=== PATIENT | female | born 1955 ===

== ENCOUNTER → 2018-01-28 | Outpatient (CLI) | payer BC ==
[2018-01-28 11:55] VITALS: BP 126/69; PULSE 79; TEMP 98.4; BMI 43.0
--- NOTE | 2018-01-28 12:42 | P.GSHP ---
History of Present Illness H&P Date: 01/28/18 The patient is a 62-year-old female who presents with a complaint of fullness in the left breast in the upper and lower inner quadrants. Additionally she has noted shooting pains radiating from the nipples extending throughout the breast in both breasts but greater on the left than the right. She has undergone a bilateral mammogram as well as a left breast ultrasound this was done 09/01/2017 on the mammogram and no specific lesions of concern were identified she then underwent a left breast ultrasound which found no suspicious sonographic lesions and the patient was recommended to follow up for examination of the breast. The patient has noticed some dryness of her left nipple. Nothing of concern from the right nipple. No bleeding or drainage otherwise from the nipples. The patient does not drink caffeinated breath beverages. She does not eat chocolate. She is not around secondhand smoke and she does not smoke. Family history: patient: total hysterectomy with ovaries taken father: prostate cancer paternal grandfather: spinal cancer mother: uterne cancer Past surgical history: 1. Total abdominal hysterectomy ovaries were removed for a precancerous of the cervix 2. Left hip replacement 3. Bariatric sleeve surgery 4. Left ureter left kidney removed no cancer 5. 2 abdominal surgeries 6. 2 bladder surgeries 7. surgery for endometriosis 8. both feet Past medical history: 1. fibromyalgia 2. no longer diabetic 3. HTN 4. cataracts 5. asthma Hormonal history: Menarche: 10 Pregnancies: 1, 1 live , born at 16, did not breast feed menopause: hysterectomy BCP: 10 years, also used IUD hormones: 3 years - Constitutional Constitutional: Denies chills, Denies fever - EENT Eyes: bilateral blurred vision (cataracts), bilateral pain Ears: bilateral: decreased hearing Ears, nose, mouth and throat: Denies headache, Denies sore throat - Breasts Breasts: bilateral: as per HPI - Cardiovascular Cardiovascular: Denies chest pain, Denies shortness of breath - Respiratory Respiratory: Denies cough, Denies 7 - Gastrointestinal Gastrointestinal: Denies abdominal pain, Denies diarrhea, Denies nausea, Denies vomiting - Genitourinary (Female) Genitourinary: Denies dysuria, Denies hematuria - Menstruation Menstruation: Reports post hysterectomy - Musculoskeletal Comment: left hip replacement fibromyalgia - Integumentary Integumentary: Reports boils, Denies pruritus, Denies rash - Neurological Neurological: Denies numbness, Denies weakness - Psychiatric Psychiatric: Reports depression, Denies anxiety - Endocrine Comment: status post gastric sleeve Endocrine: Reports weight change, Denies fatigue - Hematologic/Lymphatic Comment: none - Allergic/Immunologic Allergic/Immunologic: Reports seasonal allergies Past Medical History Past Medical History: Asthma, Diabetes Mellitus, Eye Disorder, Fibromyalgia, GERD/Reflux, Hearing Disorder / Deafness, Hyperlipidemia, Hypertension, Musculoskeletal Disorder, Osteoarthritis (OA), Respiratory Disorder, Sleep Apnea /CPAP/BIPAP Additional Past Medical History / Comment(s): scoliosis History of Any Multi-Drug Resistant Organisms: None Reported Past Surgical History: Bariatric Surgery, Bladder Surgery, Hysterectomy, Joint Replacement, Orthopedic Surgery Additional Past Surgical History / Comment(s): 12/06/17 left full hip replacement. 2016 bariatric sleeve. 2007 left kidney and left ureter removed. abdominal exploratory surgery x2. bladder surgery x2. 2009 large cyst removed from left abdominal area. 2005complete hysterectomy. bones in the toes removed from both feet in the Smoking Status: Never smoker - Past Family History Father Family Medical History: Cancer, Myocardial Infarction ([place]), Prostate Disorder Additional Family Medical History / Comment(s): prostate cancer Mother Family Medical History: Diabetes Mellitus, Hypertension, Myocardial Infarction ( [place]) Medications and Allergies Allergies Allergy/AdvReac Type Severity Reaction Status Date / Time adhesive Allergy Itching Unverified 01/28/18 11:50 Sulfa (Sulfonamide AdvReac Anaphylaxis Unverified 01/28/18 11:50 Antibiotics) Surgical - Exam Vital Signs Temp Pulse BP Pulse Ox 98.4 F 79 126/69 97 01/28/18 11:51 01/28/18 11:51 01/28/18 11:51 01/28/18 11:51 - General well developed, well nourished, no distress, obese - Eyes normal ocular movement, no icteric - ENT no hearing loss, no congestion - Neck no masses, trachea midline - Respiratory normal expansion, normal respiratory effort - Cardiovascular Rhythm: regular Heart Sounds: normal: S1, S2 - Abdomen Abdomen: soft, non tender, no guarding, no rigid, no rebound - Neurologic no disoriented, no combative - Musculoskeletal normal gait, normal posture - Psychiatric oriented to time, oriented to person, oriented to place, speech is normal, memory intact Breast examination: Right breast: Multiple positional examination the right breast no dominant masses or nodules of concern in the right nipple area over area there are 2 very dark nevi for which excision was recommended Right axilla: No adenopathy of concern Left breast: Multiple positional exam an area approximately 1 x 1 cm in size in the inner medial aspect of the breast is palpable this is tender to palpation no other dominant masses or nodules of concern Left axilla: No adenopathy of concern Results Review of mammogram and ultrasound reports Assessment and Plan Assessment: Impression/plan: 1. Skin nevi of concern right periareolar area 2. Nodularity left breast upper inner quadrant area FNA recommended 3. Fibromyalgia 4. Recent left hip replacement 5. Status post sleeve gastrectomy 6. Diabetes 7. Hypertension Plan: 1. Excision of nevi right . Area over area 2. Await results of FNA of area of concern in left breast 3. Medical management of medical conditions Cc: Dr. Giron
--- NOTE | 2018-01-28 12:44 | P.PN ---
Progress Note - Text Progress Note Date: 01/28/18 Patient noted to have an area in the upper inner quadrant of the left breast approximately 1 x 1 cm in size Fine-needle aspiration of area of concern Areas prepped using alcohol as 22-gauge needle was passed into the area of concern using a 10 mL syringe multiple passes were made obtaining cytology for evaluation Patient tolerated procedure without difficulty Specimen sent to pathology Cc: Dr. Giron
== END | disposition home or self-care (01) ==
LOC: WWCWWP 11:13
PROVIDERS: ATTEND Surgery
DX: N64.9 Disorder of breast, unspecified (principal)
CPT/HCPCS: 88173

== ENCOUNTER → 2018-02-04 | Outpatient (CLI) | payer MEDICARE, BC ==
[2018-02-04 12:18] VITALS: BP 144/84; PULSE 78; RESP 16; TEMP 98.6; BMI 42.9
--- NOTE | 2018-02-04 12:42 | P.PN ---
Progress Note - Text Progress Note Date: 02/04/18 Patient comes in today for results of left breast FNA. The patient at this time is very concerned that the area of nodularity is persistent although the FNA was negative for malignant cells. The areas in the upper inner aspect of the left breast. The patient wishes this area to be excised. Additionally the patient brings to my attention an area of nodularity on the right chest wall. This is approximately 1 cm in size and is just superior to the area of the breast. She also has 2 nevi which are very dark in the right periareolar area. The patient has had options discussed with her of surgical excision of the area of nodularity in the left breast as well as the right chest wall and surgical excision of the 2 nevi on the right periareolar area. This is what she wishes to have done. Impressio: 1. Nodule left breast FNA negative 2. Nodule right chest wall 3. Nevi 2 right area over area Plan: 1. Excision nodule left breast 2. Excision nodule right chest wall 3. Excision 2 dark nevi periareolar area CC: Dr. Giron, Dr. Grijalva
== END ==
LOC: WWCWWP 11:38
PROVIDERS: ATTEND Surgery
DX: Z53.9 Procedure and treatment not carried out, unspecified reason (principal)

== ENCOUNTER 2018-02-15 06:46 | Day surgery (SDC) | payer MEDICARE, BC ==
[2018-02-11 09:16] VITALS: BMI 42.7
[~2018-02-15 06:46] MED LIST: DEXAMETHASONE SOD PHOSPHATE 10 MG/ML 1 ML VIAL IV ONE; HEPARIN SODIUM,PORCINE 5,000 UNIT/ML 1 ML VIAL SQ ONE; LACTATED RINGERS 1,000 ML IV SCH; LIDOCAINE 1% 20 ML VIAL (10MG/ML) FOR IV START INTRADERMA PRN; MIDAZOLAM 2 MG/2 ML VIAL IV PRN; ONDANSETRON 4 MG/2 ML VIAL IVP ONE; Pre Op ABX Message 1 EACH MISC MISCELLANE ONE
[2018-02-15] MEDS ORDERED: PROPOFOL 10 MG/ML 20 ML VIAL IV ONE (08:32)
[2018-02-15] MEDS ORDERED: MIDAZOLAM 2 MG/2 ML VIAL ONE (08:32)
[2018-02-15] MEDS ORDERED: fentaNYL (PF) 50 MCG/ML 2 ML AMP ONE (08:32)
[2018-02-15] MEDS ORDERED: SUCCINYLCHOLINE CHLORIDE 100 MG/5 ML SYR IV ONE (08:32)
[2018-02-15] MEDS ORDERED: ePHEDrine SULFATE/0.9% NACL/PF 50 MG/5 ML SYRINGE IV ONE (08:32)
[2018-02-15] MEDS ORDERED: LIDOCAINE 1% INJ 10MG/ML (20 ML MDV) ONE (08:32)
[2018-02-15] MEDS ORDERED: HEPARIN SODIUM,PORCINE 5,000 UNIT/ML 1 ML VIAL SQ ONE (08:42)
[2018-02-15] MEDS ORDERED: LIDOCAINE 1% INJ 10MG/ML (20 ML MDV) SQ ONE ×2 (08:59)
--- NOTE | 2018-02-15 09:13 | P.OP ---
Date of Procedure: 02/15/18 Preoperative Diagnosis: Mass right chest wall/breast, mass left breast, area alert dark nevi 2 right side Postoperative Diagnosis: Same Procedure(s) Performed: Excision of lesion right chest wall/superficial breast, existing areolar lesion 2, excision lesion left breast prior FNA benign Anesthesia: BRENDA Surgeon: Alaina Cardozo Estimated Blood Loss (ml): 5 IV fluids (ml): 400 Pathology: other (Periareolar nevi 2, right chest wall/breast nodule, left breast nodule) Condition: stable Disposition: PACU Indications for Procedure: Dark nevi of concern periareolar area, painful nodular area right chest wall, left breast, FNA left breast lesion benign Operative Findings: Probable lipoma bilateral chest wall and left breast, dark nevi area over area right Description of Procedure: The patient was taken to the operating room and both breasts were prepped and draped in a sterile fashion. The right breast in chest wall was approached initially. Small incision was made over the palpable abnormality and this was excised. This appeared to be consistent with a lipoma. It was approximately 4 and half centimeters by 2 cm in size. After assured that the cavity was dry it was well irrigated. The incision was closed using 4-0 Monocryl. The lesions on the area along were excised there was one inferior and one superior. The inferior lesion was approximately 8 mm and the superior lesion was approximately 8 mm. Wide excision was performed down through the skin and sent to subcutaneous tissue. Skin was closed using a nylon suture. The left breast was approached. Clean instruments were obtained. An incision was made over the palpable abnormality which FNA had previously been performed. This was excised. This was approximately a 3.5 cm x 2 cm fatty tissue lesion consistent with a lipoma. It was completely excised the wound was examined for hemostasis. This was attained using electrocautery device. The wound was well irrigated. The skin was closed using 4-0 Monocryl. Steri-Strips were applied. The patient tolerated the procedure in stable condition. All instrument and sponge counts were correct at the end of the case.
--- NOTE | 2018-02-15 09:14 | P.DS ---
Providers Attending physician: Alaina Cardozo Primary care physician: Eirca Giron Plan - Discharge Summary New Discharge Prescriptions: No Action DULoxetine HCL [Cymbalta] 60 mg PO QAM Atorvastatin [Lipitor] 10 mg PO HS Metoprolol Succinate (ER) [Toprol Xl] 25 mg PO HS Ferrous Sulfate [Iron] 325 mg PO HS Omeprazole 20 mg PO QAM Lisinopril 30 mg PO BID Beclomethasone Dip 80 Mcg/Puff [Qvar 80 mcg] 1 puff INHALATION DAILY Albuterol Inhaler [Ventolin Hfa Inhaler] 1 - 2 puff INHALATION RT-Q6H PRN PRN Reason: Allergic Reaction Sertraline [Zoloft] 25 mg PO QAM Gabapentin [Neurontin] 600 mg PO QAM traMADol HCL [Ultram] 50 mg PO Q6HR PRN PRN Reason: Pain Multivitamins, Thera [Multivitamin (formulary)] 1 tab PO QAM HYDROcodone/APAP 5-325MG [[place] 5-325] 1 tab PO Q6HR PRN PRN Reason: Pain Cyanocobalamin (Vitamin B-12) [Vitamin B12] 2,500 mcg PO QAM Cholecalciferol (Vitamin D3) [Vitamin D3] 2,000 unit PO QAM Aspirin [Adult Low Dose Aspirin EC] 81 mg PO QAM Discharge Medication List Albuterol Inhaler [Ventolin Hfa Inhaler] 1 - 2 puff INHALATION RT-Q6H PRN [History] Atorvastatin [Lipitor] 10 mg PO HS 01/28/18 [History] Beclomethasone Dip 80 Mcg/Puff [Qvar 80 mcg] 1 puff INHALATION DAILY 01/28/18 [ History] DULoxetine HCL [Cymbalta] 60 mg PO QAM 01/28/18 [History] Ferrous Sulfate [Iron] 325 mg PO HS 01/28/18 [History] Gabapentin [Neurontin] 600 mg PO QAM 01/28/18 [History] Lisinopril 30 mg PO BID 01/28/18 [History] Metoprolol Succinate (ER) [Toprol Xl] 25 mg PO HS 01/28/18 [History] Omeprazole 20 mg PO QAM 01/28/18 [History] Sertraline [Zoloft] 25 mg PO QAM 01/28/18 [History] Aspirin [Adult Low Dose Aspirin EC] 81 mg PO QAM 02/11/18 [History] Cholecalciferol (Vitamin D3) [Vitamin D3] 2,000 unit PO QAM 02/11/18 [History] Cyanocobalamin (Vitamin B-12) [Vitamin B12] 2,500 mcg PO QAM 02/11/18 [History] HYDROcodone/APAP 5-325MG [[place] 5-325] 1 tab PO Q6HR PRN 02/11/18 [History] Multivitamins, Thera [Multivitamin (formulary)] 1 tab PO QAM 02/11/18 [History] traMADol HCL [Ultram] 50 mg PO Q6HR PRN 02/11/18 [History] Follow up Appointment(s)/Referral(s): Alaina Cardozo MD [STAFF PHYSICIAN] - 1 Week Activity/Diet/Wound Care/Special Instructions: Do not drive today Patient may shower after 48 hours Wear bra until seen by Dr. Gomez next week Discharge Disposition: HOME SELF-CARE
[2018-02-15 09:36] VITALS: TEMP 97
[2018-02-15] MEDS: fentaNYL (PF) 50 MCG/ML 2 ML AMP IV PRN ×2 (09:43→09:58)
[2018-02-15 10:35] VITALS: RESP 18
[2018-02-15] MEDS ORDERED: HYDROcodone/APAP 5-325MG 1 EACH TAB PO ONE (10:57)
[2018-02-15 11:27] VITALS: BP 167/77; PULSE 109
== END 2018-02-15 11:35 | disposition home or self-care (01) ==
LOC: OR 06:46
PROVIDERS: ATTEND Surgery
DX: N63.22 Unspecified lump in the left breast, upper inner quadrant (principal); N63.10 Unspecified lump in the right breast, unspecified quadrant; D22.5 Melanocytic nevi of trunk; L01.02 Bockhart's impetigo; M79.7 Fibromyalgia; Z96.642 Presence of left artificial hip joint; Z98.84 Bariatric surgery status; Z90.3 Acquired absence of stomach [part of]; E11.9 Type 2 diabetes mellitus without complications; I10 Essential (primary) hypertension; H26.9 Unspecified cataract; J45.909 Unspecified asthma, uncomplicated; K21.9 Gastro-esophageal reflux disease without esophagitis; H91.90 Unspecified hearing loss, unspecified ear; E78.5 Hyperlipidemia, unspecified; M19.90 Unspecified osteoarthritis, unspecified site; M41.9 Scoliosis, unspecified; D64.9 Anemia, unspecified; F32.9 Major depressive disorder, single episode, unspecified; E66.01 Morbid (severe) obesity due to excess calories; Z68.41 Body mass index [BMI] 40.0-44.9, adult; G47.33 Obstructive sleep apnea (adult) (pediatric); Z99.89 Dependence on other enabling machines and devices; Z79.82 Long term (current) use of aspirin; Z79.899 Other long term (current) drug therapy; Z91.048 Other nonmedicinal substance allergy status; Z91.040 Latex allergy status; Z88.2 Allergy status to sulfonamides; Z90.5 Acquired absence of kidney; Z90.710 Acquired absence of both cervix and uterus
CPT/HCPCS: 88304; 88305; 19120; 11401 ×2; J2250; J1644; J1100; J2405; J2001; J3010; J0330; J2704

== ENCOUNTER → 2018-02-25 | Outpatient (CLI) | payer MEDICARE, BC ==
[2018-02-25 10:52] VITALS: BMI 41.7
--- NOTE | 2018-02-25 10:56 | P.PN ---
Progress Note - Text Progress Note Date: 02/25/18 Patient presents for postoperative evaluation. Pathology revealed 2 lipomas one in the right breast one in the left breast, and skin lesions of the area over consistent with junctional nevus. The patient's only complaint is related to the tape she has had a reaction to the tape. She is otherwise doing well. Physical exam: Patient has some skin reaction to where the tape was placed at both the right and left breast near the lipoma resection site the incisions themselves are clean and dry there is no evidence of any infection the reaction is very superficial The area of the area was clean and dry sutures to be removed Impression: 1. Bilateral breast lipoma 2. Junctional nevi of the area over Plan: 1. Repeat bilateral mammogram regular scheduled time with physician exam at that time 2. Patient to follow up sooner if any questions of concern CC:Bree
== END ==
LOC: WWCWWP 10:34
PROVIDERS: ATTEND Surgery
DX: Z53.9 Procedure and treatment not carried out, unspecified reason (principal)

== ENCOUNTER 2018-07-07 17:01 | Observation (INO) | payer MEDICARE, BC ==
[2018-07-07] MEDS ORDERED: SODIUM CHLORIDE 0.9% 1,000 ML IV STA (17:12)
--- NOTE | 2018-07-07 17:28 | ED ---
General Adult HPI - General Chief complaint: Recheck/Abnormal Lab/Rx Stated complaint: abnormal EKG-sent by Source: patient Mode of arrival: wheelchair Limitations: no limitations - Related Data Home Medications Medication Instructions Recorded Confirmed Albuterol Inhaler [Ventolin Hfa 1 - 2 puff INHALATION RT-Q6H PRN 01/28/18 Inhaler] Atorvastatin [Lipitor] 10 mg PO HS 01/28/18 07/07/18 Beclomethasone Dip 80 Mcg/Puff 2 puff INHALATION RT-BID 01/28/18 07/07/18 [Qvar 80 mcg] DULoxetine HCL [Cymbalta] 60 mg PO QAM 01/28/18 07/07/18 Ferrous Sulfate [Iron] 325 mg PO HS 01/28/18 07/07/18 Gabapentin [Neurontin] 600 mg PO QAM 01/28/18 07/07/18 Lisinopril 30 mg PO BID 01/28/18 07/07/18 Omeprazole 20 mg PO QAM 01/28/18 07/07/18 Sertraline [Zoloft] 25 mg PO QAM 01/28/18 07/07/18 Cholecalciferol (Vitamin D3) 2,000 unit PO QAM 02/11/18 07/07/18 [Vitamin D3] Cyanocobalamin (Vitamin B-12) 2,500 mcg PO QAM 02/11/18 07/07/18 [Vitamin B12] HYDROcodone/APAP 5-325MG [[place] 1 tab PO BID PRN 02/11/18 07/07/18 5-325] Multivitamins, Thera [Multivitamin 1 tab PO QAM 02/11/18 07/07/18 (formulary)] Enoxaparin [Lovenox] 40 mg SQ DAILY 07/07/18 07/07/18 Allergies Allergy/AdvReac Type Severity Reaction Status Date / Time adhesive Allergy Itching, Verified 07/07/18 18:55 takes her skin off latex Allergy Unknown Verified 07/07/18 18:55 Sulfa (Sulfonamide AdvReac Anaphylaxis Verified 07/07/18 18:55 Antibiotics) Review of Systems ROS Statement: Those systems with pertinent positive or pertinent negative responses have been documented in the HPI. ROS Other: All systems not noted in ROS Statement are negative. Past Medical History Past Medical History: Asthma, Diabetes Mellitus, Eye Disorder, Fibromyalgia, GERD/Reflux, Hearing Disorder / Deafness, Hyperlipidemia, Hypertension, Musculoskeletal Disorder, Osteoarthritis (OA), Respiratory Disorder, Sleep Apnea /CPAP/BIPAP Additional Past Medical History / Comment(s): scoliosis History of Any Multi-Drug Resistant Organisms: None Reported Past Surgical History: Bariatric Surgery, Bladder Surgery, Hysterectomy, Joint Replacement, Orthopedic Surgery Additional Past Surgical History / Comment(s): 12/06/17 left full hip replacement. 2017 bariatric sleeve. 2007 left kidney and left ureter removed. abdominal exploratory surgery x2. bladder surgery x2. 2009 large cyst removed from left abdominal area. 2005complete hysterectomy. bones in the toes removed from both feet in the Past Anesthesia/Blood Transfusion Reactions: Previous Problems w/ Anesthesia, Postoperative Nausea & Vomiting (PONV) Past Psychological History: Anxiety, Depression Smoking Status: Never smoker Past Alcohol Use History: Rare Past Drug Use History: None Reported - Past Family History Father Family Medical History: Cancer, Myocardial Infarction ([place]), Prostate Disorder Additional Family Medical History / Comment(s): prostate cancer Mother Family Medical History: Diabetes Mellitus, Hypertension, Myocardial Infarction ( [place]) General Exam Limitations: no limitations Course Vital Signs 07/07/18 07/07/18 07/07/18 17:08 17:30 18:00 Temperature 98.3 F Pulse Rate 99 91 87 Respiratory 24 18 22 Rate Blood Pressure 155/85 146/84 132/62 O2 Sat by Pulse 98 95 96 Oximetry 07/07/18 18:30 Temperature Pulse Rate 85 Respiratory 22 Rate Blood Pressure 116/101 O2 Sat by Pulse 96 Oximetry Medical Decision Making - Medical Decision Making Dictation was produced using [employer] dictation software. please excuse any grammatical, word or spelling errors. Chief Complaint: 63-year-old female presents with instruction from primary care physician's office to emergency department for possible pulmonary embolus. History of Present Illness: She is 63-year-old female. She had hip replacement surgery done on her right hip at [facility] approximately 2 weeks ago. Patient has been having 2 days of chest pain, shortness of breath. Since the surgery 2 weeks ago she's been having right lower extremity symptoms per she is on prophylactic Lovenox. Patient states that 2 days ago she had acute onset substernal chest pressure. She denies that its worse with deep inspiration. Denies any radiation to the shoulders of the jaw. No associated diaphoresis. She was seen at primary care physician's office today where labs performed. Patient did have elevated d-dimer. 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 She was sent in for hydration and CT angios of the chest for rule out PE. EKG was also performed at the primary care physician's office showing changes. The ROS documented in this emergency department record has been reviewed and confirmed by me. Those systems with pertinent positive or negative responses have been documented in the HPI. All other systems are other negative and/or noncontributory. PHYSICAL EXAM: General Impression: Alert and oriented x3, not in acute distress HEENT: Normocephalic atraumatic, extra-ocular movements intact, pupils equal and reactive to light bilaterally, mucous membranes moist. Cardiovascular: Heart regular rate and rhythm, S1&S2 audible, no murmurs, rubs or gallops Chest: Lungs clear to auscultation bilaterally, no rhonchi, no wheeze, no rales Abdomen: Bowel sounds present, abdomen soft, non-tender, non-distended, no organomegaly Musculoskeletal: Pulses present and equal in all extremities, no peripheral edema, equal girth around the bilateral calf areas Motor: Power 5/5 bilaterally, no focal deficits noted Neurological: CN II-XII grossly intact, no focal motor or sensory deficits noted Skin: Intact with no visualized rashes Psych: Normal affect and mood ED course: 63-year-old pleasant female presents with chief complaint of chest pain, shortness of breath. She is postop 2 weeks for right hip replacement. She's been on prophylactic Lovenox. Vital signs upon arrival are within acceptable limits. EKG shows left bundle branch block. Patient is having crushing chest pressure to the anterior chest with no exacerbating or mitigating factors. Patient does appear comfortable. EKG was obtained showing left bundle branch block. It is unclear whether this EKG findings are new. A request was made to [facility] to obtained EKGs from 2 weeks ago. We are unable to track down EKGs from [facility] however we were able to get in EKG from [facility] from 2017. It did not show left bundle branch block. Assuming that this finding is new, Dr. Farmer from cardiology was contacted. They recommended starting patient on heparin and beta blockers and statin.Laboratory evaluation obtained. CBC, coag panel, metabolic panel is unremarkable. Cardiac enzymes are negative. CT angios the chest showed no acute processes. No findings of pulmonary emboli. Chest x-ray is unremarkable. Given patient's history of chest pressure and EKG changes patient be admitted for ACS. Patient started on beta blockers and sent per cardiology request. EKG interpretation: Ventricular rate 94, normal sinus rhythm, IN interval 16, QS 16, QTc 520. No IN prolongation, QT is slightly prolonged at 520. EKG from 2017 from [facility] was faxed over showing no signs of right bundle branch block. Paced. No findings. - Lab Data Result diagrams: 07/07/18 17:30 07/07/18 17:30 Lab Results 07/07/18 07/07/18 07/07/18 Range/Units 17:30 17:30 17:30 WBC 6.7 (3.8-10.6) k/uL RBC 3.89 (3.80-5.40) m/uL Hgb 11.1 L (11.4-16.0) gm/dL Hct 33.6 L (34.0-46.0) % MCV 86.5 (80.0-100.0) fL MCH 28.7 (25.0-35.0) pg MCHC 33.1 (31.0-37.0) g/dL RDW 15.1 (11.5-15.5) % Plt Count 306 (150-450) k/uL Neutrophils % 65 % Lymphocytes % 26 % Monocytes % 5 % Eosinophils % 2 % Basophils % 1 % Neutrophils # 4.3 (1.3-7.7) k/uL Lymphocytes # 1.7 (1.0-4.8) k/uL Monocytes # 0.3 (0-1.0) k/uL Eosinophils # 0.2 (0-0.7) k/uL Basophils # 0.0 (0-0.2) k/uL Hypochromasia Slight PT (9.0-12.0) sec INR (<1.2) APTT (22.0-30.0) sec Sodium 143 (137-145) mmol/L Potassium 3.5 (3.5-5.1) mmol/L Chloride 109 H (98-107) mmol/L Carbon Dioxide 25 (22-30) mmol/L Anion Gap 9 mmol/L BUN 15 (7-17) mg/dL Creatinine 0.84 (0.52-1.04) mg/dL Est GFR (CKD-EPI)AfAm 85 (>60 ml/min/1.73 sqM) Est GFR (CKD-EPI)NonAf 74 (>60 ml/min/1.73 sqM) Glucose 117 H (74-99) mg/dL Calcium 9.4 (8.4-10.2) mg/dL Magnesium 2.0 (1.6-2.3) mg/dL Total Bilirubin 0.6 (0.2-1.3) mg/dL AST 16 (14-36) U/L ALT 23 (9-52) U/L Alkaline Phosphatase 225 H (38-126) U/L Total Creatine Kinase 29 L (30-135) U/L CK-MB (CK-2) 0.4 (0.0-2.4) ng/mL CK-MB (CK-2) Rel Index 1.4 Troponin I <0.012 (0.000-0.034) ng/mL NT-Pro-B Natriuret Pep pg/mL Total Protein 6.6 (6.3-8.2) g/dL Albumin 3.8 (3.5-5.0) g/dL 07/07/18 07/07/18 Range/Units 17:30 17:30 WBC (3.8-10.6) k/uL RBC (3.80-5.40) m/uL Hgb (11.4-16.0) gm/dL Hct (34.0-46.0) % MCV (80.0-100.0) fL MCH (25.0-35.0) pg MCHC (31.0-37.0) g/dL RDW (11.5-15.5) % Plt Count (150-450) k/uL Neutrophils % % Lymphocytes % % Monocytes % % Eosinophils % % Basophils % % Neutrophils # (1.3-7.7) k/uL Lymphocytes # (1.0-4.8) k/uL Monocytes # (0-1.0) k/uL Eosinophils # (0-0.7) k/uL Basophils # (0-0.2) k/uL Hypochromasia PT 10.5 (9.0-12.0) sec INR 1.0 (<1.2) APTT 26.0 (22.0-30.0) sec Sodium (137-145) mmol/L Potassium (3.5-5.1) mmol/L Chloride (98-107) mmol/L Carbon Dioxide (22-30) mmol/L Anion Gap mmol/L BUN (7-17) mg/dL Creatinine (0.52-1.04) mg/dL Est GFR (CKD-EPI)AfAm (>60 ml/min/1.73 sqM) Est GFR (CKD-EPI)NonAf (>60 ml/min/1.73 sqM) Glucose (74-99) mg/dL Calcium (8.4-10.2) mg/dL Magnesium (1.6-2.3) mg/dL Total Bilirubin (0.2-1.3) mg/dL AST (14-36) U/L ALT (9-52) U/L Alkaline Phosphatase (38-126) U/L Total Creatine Kinase (30-135) U/L CK-MB (CK-2) (0.0-2.4) ng/mL CK-MB (CK-2) Rel Index Troponin I (0.000-0.034) ng/mL NT-Pro-B Natriuret Pep 279 pg/mL Total Protein (6.3-8.2) g/dL Albumin (3.5-5.0) g/dL Disposition Clinical Impression: ACS (acute coronary syndrome) Disposition: ADMITTED IP TO THIS HOSP Condition: Fair Referrals: Norma Laurent MD [Primary Care Provider] - 1-2 days Decision Time: 19:44
--- NOTE | 2018-07-07 17:55 | XR ---
EXAMINATION TYPE: XR chest 2V DATE OF EXAM: 07/07/2018 COMPARISON: NONE HISTORY: Abnormal echocardiogram TECHNIQUE: Frontal and lateral views of the chest are obtained. FINDINGS: Heart and mediastinum are normal. Lungs are clear of consolidation. There is no pleural ef fusion. Bony thorax is intact. There are chest leads. IMPRESSION: Normal chest.
[2018-07-07 18:19] LABS: Basophils % (A) 1 %; Eosinophils # (A) 0.2 k/uL (0-0.7); Eosinophils % (A) 2 %; HCT 33.6 % (34.0-46.0); HGB 11.1 gm/dL (11.4-16.0); Hypochromasia Slight; Lymphocytes # (A) 1.7 k/uL (1.0-4.8); Lymphocytes % (A) 26 %; MCH 28.7 pg (25.0-35.0); MCHC 33.1 g/dL (31.0-37.0); MCV 86.5 fL (80.0-100.0); Mean Platelet Volume 7.6; Monocytes # (A) 0.3 k/uL (0-1.0); Monocytes % (A) 5 %; Neutrophils # (A) 4.3 k/uL (1.3-7.7); Neutrophils % (A) 65 %; Platelet Count 306 k/uL (150-450); RBC 3.89 m/uL (3.80-5.40); RDW 15.1 % (11.5-15.5); WBC 6.7 k/uL (3.8-10.6)
[2018-07-07 18:28] LABS: Prothrombin Time 10.5 sec (9.0-12.0)
[2018-07-07 18:44] LABS: Albumin 3.8 g/dL (3.5-5.0); Calcium 9.4 mg/dL (8.4-10.2); Creatine Kinase 29 U/L (30-135); Potassium 3.5 mmol/L (3.5-5.1); Total Bilirubin 0.6 mg/dL (0.2-1.3); Total Protein 6.6 g/dL (6.3-8.2)
[2018-07-07 18:55] LABS: Creatine Kinase MB 0.4 ng/mL (0.0-2.4); Troponin I <0.012 ng/mL (0.000-0.034)
[2018-07-07] MEDS ORDERED: HEPARIN SODIUM,PORCINE 5,000 UNIT/ML 1 ML VIAL IV ONE (18:59)
[2018-07-07] MEDS ORDERED: HEPARIN SODIUM,PORCINE 5,000 UNIT/ML 1 ML VIAL IV PRN (18:59)
[2018-07-07] MEDS ORDERED: HEPARIN SOD,PORK IN 0.45% NACL 25,000 UNIT in 0.45% NACL 1 250ML.BAG IV SCH (19:00)
--- NOTE | 2018-07-07 19:12 | CT ---
EXAMINATION TYPE: CT angio chest DATE OF EXAM: 07/07/2018 7:06 PM COMPARISON: None HISTORY: Abnormal EKG. CT DLP: 414.9 mGycm Automated exposure control for dose reduction was used. CONTRAST: CTA scan of the thorax is performed with IV Contrast, patient injected with 60ml mL of Isovue 370, pu lmonary embolism protocol. There are 3-D post processed images.. FINDINGS: The mediastinum appears normal. There is no evidence of aortic aneurysm or dissection. There is no me diastinal adenopathy. There are no hilar masses. There is normal contrast opacification of the pulmon mee arteries. Lungs are clear of infiltrate. There is no pleural effusion. Bony thorax is intact. IMPRESSION: NEGATIVE EXAM. NO EVIDENCE OF PULMONARY EMBOLISM.
[2018-07-07] MEDS ORDERED: NITROGLYCERIN SL TABS 0.4 MG TAB SUBLINGUAL PRN (19:39)
[2018-07-07] MEDS ORDERED: ASPIRIN 81 MG PO STA (19:39)
[2018-07-08 00:15] LABS: Creatine Kinase 26 U/L (30-135)
[2018-07-08 00:26] LABS: Creatine Kinase MB 0.3 ng/mL (0.0-2.4); Troponin I <0.012 ng/mL (0.000-0.034)
[2018-07-08] MEDS: HYDROcodone/APAP 5-325MG 1 EACH TAB PO PRN ×3 (00:49→22:27)
[2018-07-08] MEDS ORDERED: OXYMETAZOLINE 0.05% NASL SPRAY 1 SPRAY BOTTLE NASAL PRN (01:08)
[2018-07-08] MEDS: LISINOPRIL 10 MG TAB PO SCH ×3 (01:30→20:12)
[2018-07-08] MEDS: METOPROLOL TARTRATE 25 MG TAB PO SCH ×3 (01:30→20:12)
[2018-07-08] MEDS: ATORVASTATIN 40 MG TAB PO SCH ×2 (01:30→20:12)
[2018-07-08 07:01] LABS: Creatine Kinase 22 U/L (30-135)
[2018-07-08 07:13] LABS: Creatine Kinase MB 0.2 ng/mL (0.0-2.4); Troponin I <0.012 ng/mL (0.000-0.034)
[2018-07-08 07:14] LABS: Cholesterol 130 mg/dL (<200); HDL Cholesterol 53 mg/dL (40-60); LDL Cholesterol,Calculated 61 mg/dL (0-99); Triglycerides 82 mg/dL (<150)
[2018-07-08] MEDS: BUDESONIDE 1 MG/2 ML NEBU INHALATION SCH ×2 (07:25→19:41)
[2018-07-08 08:31] VITALS: BMI 42.4
[2018-07-08] MEDS: ASPIRIN 325 MG TAB PO SCH ×2 (09:27→15:12)
[2018-07-08] MEDS: DULoxetine HCL 60 MG CAPSULE.DR PO SCH (09:27)
[2018-07-08] MEDS: PANTOPRAZOLE 40 MG TABLET PO SCH (09:28)
[2018-07-08] MEDS: SERTRALINE 25 MG TAB PO SCH (09:28)
[2018-07-08] MEDS: MULTIVITAMINS, THERA 1 EACH TAB PO SCH ×2 (09:29→09:52)
[2018-07-08] MEDS: CYANOCOBALAMIN 500 MCG TAB PO SCH ×2 (09:29→09:52)
[2018-07-08] MEDS: GABAPENTIN 300 MG CAP PO SCH (09:40)
[2018-07-08 12:50] LABS: Glucose,Whole Blood 99 mg/dL (75-99)
--- NOTE | 2018-07-08 13:57 | P.CRDCN ---
History of Present Illness History of present illness: This is a pleasant 63-year-old female past medical history significant for asthma, diabetes mellitus, hypertension, dyslipidemia, obstructive sleep apnea and gastroesophageal reflux disease. She denies history of coronary artery disease and has never seen a consulting systems engineer for any reason. She presented to the hospital for symptoms of chest discomfort, shortness of breath and wheezing. She states she underwent Replacement surgery 2 weeks ago at [facility] and has been on Lovenox since that time. The pain in her chest as described as a tight sharp pain that is worse with deep inspiration. There is no radiation to the arm, back, neck or jaw. She denies associated dizziness, palpitations, nausea, vomiting or diaphoresis. She saw her primary care physician and had a d-dimer drawn which came to be elevated. For this reason she was recommended to come to the hospital for a stat CT of her chest rule out PE. CT of the chest was obtained and is negative for pulmonary embolism the mediastinum appears normal with no evidence of aortic aneurysm or dissection. She is seen and examined resting comfortably in bed with at the bedside. She continues to complain of shortness of breath however she has no further symptoms of chest discomfort. She did receive a breathing treatment this morning which she states seemed to help her symptoms. EKG reveals left bundle branch block pattern, heart rate is 94. There is no old for comparison. Chest x-ray negative for acute cardiopulmonary process. Laboratory data reviewed, WBC 6.7, hemoglobin 11.1, platelets 306, sodium 143, potassium 3.5, creatinine 0.84, magnesium 2, cardiac enzymes negative 3, NT proBNP 279, LDL 61 and HDL 53. Current cardiac medications include lisinopril 30 mg twice a day, atorvastatin 10 mg daily. At the time of my exam: CONSTITUTIONAL: Denies fever. Denies chills. EYES: Denies blurred vision. Denies vision changes. Denies eye pain. EARS, NOSE, MOUTH & THROAT: Denies headache. Denies sore throat. Denies ear pain. CARDIOVASCULAR: Denies chest pain. Denies shortness of breath. Denies orthopnea. Denies PND. Denies palpitations. RESPIRATORY: Denies cough. GASTROINTESTINAL: Denies abdominal pain. Denies diarrhea. Denies constipation. Denies nausea. Denies vomiting. MUSCULOSKELETAL: Denies myalgias. INTEGUMENTARY: Denies pruitis. Denies rash. NEUROLOGIC: Denies numbness. Denies tingling. Denies weakness. PSYCHIATRIC: Denies anxiety. Denies depression. ENDOCRINE: Denies fatigue. Denies weight change. Denies polydipsia. Denies polyurina. GENITOURINARY: Denies burning, hematuria or urgency with micturation. HEMATOLOGIC: Denies history of anemia. Denies bleeding. Blood pressure 132/71 heart rate 66 afebrile maintaining oxygen saturation on room air GENERAL: This is a 63-year-old for an [place] female in no apparent distress at the time of my examination. HEENT: Head is atraumatic, normocephalic. Pupils are equal, round. Sclerae anicteric. Conjunctivae are clear. Mucous membranes of the mouth are moist. Neck is supple. There is no jugular venous distention. No carotid bruit is heard. LUNGS: Faint expiratory wheezes noted throughout. No rales or rhonchi. No chest wall tenderness is noted on palpation or with deep breathing. HEART: Regular rate and rhythm without murmurs, rubs or gallops. S1 and S2 heard. ABDOMEN: Soft, nontender. Bowel sounds are heard. No organomegaly noted. EXTREMITIES: No evidence of peripheral edema and no calf tenderness noted. VASCULAR: Radial and dorsalis pedis pulses palpated, no evidence of clubbing. NEUROLOGIC: Patient is awake, alert and oriented x3. ASSESSMENT Pleuritic chest pain, shortness of breath and wheezing. Atypical for angina. An acute coronary event has been ruled out with negative cardiac enzymes. Elevated d-dimer with normal CT angio the chest Acute exacerbation of asthma Hypertension Dyslipidemia Obstructive sleep apnea Gastroesophageal reflux disease Recent right hip replacement 2 weeks ago has been on Lovenox since surgery Morbid obesity, BMI 42 PLAN Obtain 2-D echocardiogram and Doppler study to assess cardiac structure and function. Initiate on lopressor 25 mg BID. Discontinue heparin infusion. Recommend evaluation by her Physical Education Instructor, Dr. Kim. Continue to monitor for ongoing chest discomfort. Will purse stress testing as an outpatient when her asthma is under better control. Thank you kindly for this consultation. Nurse Practitioner note has been reviewed, I agree with a documented findings and plan of care. Patient was seen and examined. Past Medical History Past Medical History: Asthma, Diabetes Mellitus, Eye Disorder, Fibromyalgia, GERD/Reflux, Hearing Disorder / Deafness, Hyperlipidemia, Hypertension, Musculoskeletal Disorder, Osteoarthritis (OA), Respiratory Disorder, Sleep Apnea /CPAP/BIPAP Additional Past Medical History / Comment(s): scoliosis History of Any Multi-Drug Resistant Organisms: None Reported Past Surgical History: Bariatric Surgery, Bladder Surgery, Hysterectomy, Joint Replacement, Orthopedic Surgery Additional Past Surgical History / Comment(s): 12/06/17 left full hip replacement. 2017 bariatric sleeve. 2008 left kidney and left ureter removed. abdominal exploratory surgery x2. bladder surgery x2. 2009 large cyst removed from left abdominal area. 2005complete hysterectomy. bones in the toes removed from both feet in the Past Anesthesia/Blood Transfusion Reactions: Previous Problems w/ Anesthesia, Postoperative Nausea & Vomiting (PONV) Past Psychological History: Anxiety, Depression Smoking Status: Never smoker Past Alcohol Use History: Rare Past Drug Use History: None Reported - Past Family History Father Family Medical History: Cancer, Myocardial Infarction ([place]), Prostate Disorder Additional Family Medical History / Comment(s): prostate cancer Mother Family Medical History: Diabetes Mellitus, Hypertension, Myocardial Infarction ( [place]) Medications and Allergies Home Medications Medication Instructions Recorded Confirmed Type Albuterol Inhaler [Ventolin Hfa 1 - 2 puff INHALATION RT-Q6H PRN 01/28/18 History Inhaler] Atorvastatin [Lipitor] 10 mg PO HS 01/28/18 07/07/18 History Beclomethasone Dip 80 Mcg/Puff 2 puff INHALATION RT-BID 01/28/18 07/07/18 History [Qvar 80 mcg] DULoxetine HCL [Cymbalta] 60 mg PO QAM 01/28/18 07/07/18 History Ferrous Sulfate [Iron] 325 mg PO HS 01/28/18 07/07/18 History Gabapentin [Neurontin] 600 mg PO QAM 01/28/18 07/07/18 History Lisinopril 30 mg PO BID 01/28/18 07/07/18 History Omeprazole 20 mg PO QAM 01/28/18 07/07/18 History Sertraline [Zoloft] 25 mg PO QAM 01/28/18 07/07/18 History Cholecalciferol (Vitamin D3) 2,000 unit PO QAM 02/11/18 07/07/18 History [Vitamin D3] Cyanocobalamin (Vitamin B-12) 2,500 mcg PO QAM 02/11/18 07/07/18 History [Vitamin B12] HYDROcodone/APAP 5-325MG [Tyler 1 tab PO BID PRN 02/11/18 07/07/18 History 5-325] Multivitamins, Thera [Multivitamin 1 tab PO QAM 02/11/18 07/07/18 History (formulary)] Enoxaparin [Lovenox] 40 mg SQ DAILY 07/07/18 07/07/18 History Allergies Allergy/AdvReac Type Severity Reaction Status Date / Time adhesive Allergy Itching, Verified 07/07/18 18:55 takes her skin off latex Allergy Unknown Verified 07/07/18 18:55 Sulfa (Sulfonamide AdvReac Anaphylaxis Verified 07/07/18 18:55 Antibiotics) Physical Exam Vitals: Vital Signs Temp Pulse Pulse Resp BP BP BP 07/08/18 12:25 98.8 F 66 18 132/71 07/08/18 11:30 98.2 F 63 18 176/79 07/08/18 08:31 62 18 182/90 07/08/18 08:00 98.2 F 62 18 182/90 07/08/18 07:51 98.3 F 62 20 137/63 07/08/18 07:33 62 07/08/18 07:28 76 07/08/18 04:00 68 20 137/63 07/08/18 01:28 98.3 F 85 18 130/70 07/07/18 23:30 102 H 49 H 147/79 07/07/18 23:00 95 12 146/68 07/07/18 22:30 90 12 146/61 07/07/18 22:00 96 21 161/79 07/07/18 21:30 86 15 172/90 07/07/18 21:00 91 17 156/84 07/07/18 20:30 86 25 H 152/75 07/07/18 20:00 84 12 132/73 07/07/18 19:30 130/81 07/07/18 18:30 85 22 116/101 07/07/18 18:00 87 22 132/62 07/07/18 17:30 91 18 146/84 07/07/18 17:08 98.3 F 99 24 155/85 Pulse Ox 07/08/18 12:25 94 L 07/08/18 11:30 98 01/11/19 08:31 98 07/08/18 08:00 98 07/08/18 07:51 98 07/08/18 07:33 07/08/18 07:28 07/08/18 04:00 98 07/08/18 01:28 96 07/07/18 23:30 96 07/07/18 23:00 96 07/07/18 22:30 96 07/07/18 22:00 95 07/07/18 21:30 94 L 07/07/18 21:00 93 L 07/07/18 20:30 97 07/07/18 20:00 98 07/07/18 19:30 07/07/18 18:30 96 07/07/18 18:00 96 07/07/18 17:30 95 07/07/18 17:08 98 Intake and Output 07/07/18 07/08/18 07/08/18 22:59 06:59 14:59 Intake Total 81.422 500 Balance 81.422 500 Intake: Amount of Fluid Infused ( 500 ml) Intake, IV Titration 81.422 Amount Heparin Sod,Pork in 0.45% 81.422 NaCl 25,000 unit In 0.45 % NaCl 1 250ml.bag @ 9.8 UNITS/KG/HR 9.97 mls/hr IV .Q24H [facility] Rx#: [id number] Other: Weight 101.831 kg 101.831 kg Results 07/07/18 17:30 07/07/18 17:30 Cardiac Enzymes 07/07/18 07/07/18 07/07/18 Range/Units 17:30 17:30 23:16 AST 16 (14-36) U/L CK-MB (CK-2) 0.4 0.3 (0.0-2.4) ng/mL Troponin I <0.012 <0.012 (0.000-0.034) ng/mL 07/08/18 Range/Units 06:10 AST (14-36) U/L CK-MB (CK-2) 0.2 (0.0-2.4) ng/mL Troponin I <0.012 (0.000-0.034) ng/mL Coagulation 07/07/18 07/08/18 07/08/18 Range/Units 17:30 02:02 10:00 PT 10.5 (9.0-12.0) sec APTT 26.0 38.9 H 65.5 H (22.0-30.0) sec Lipids 07/08/18 Range/Units 06:10 Triglycerides 82 (<150) mg/dL Cholesterol 130 (<200) mg/dL HDL Cholesterol 53 (40-60) mg/dL CBC 07/07/18 Range/Units 17:30 WBC 6.7 (3.8-10.6) k/uL RBC 3.89 (3.80-5.40) m/uL Hgb 11.1 L (11.4-16.0) gm/dL Hct 33.6 L (34.0-46.0) % Plt Count 306 (150-450) k/uL Comprehensive Metabolic Panel 07/07/18 Range/Units 17:30 Sodium 143 (137-145) mmol/L Potassium 3.5 (3.5-5.1) mmol/L Chloride 109 H (98-107) mmol/L Carbon Dioxide 25 (22-30) mmol/L BUN 15 (7-17) mg/dL Creatinine 0.84 (0.52-1.04) mg/dL Glucose 117 H (74-99) mg/dL Calcium 9.4 (8.4-10.2) mg/dL AST 16 (14-36) U/L ALT 23 (9-52) U/L Alkaline Phosphatase 225 H (38-126) U/L Total Protein 6.6 (6.3-8.2) g/dL Albumin 3.8 (3.5-5.0) g/dL Current Medications Generic Name Dose Route Start Last Admin Trade Name Freq PRN Reason Stop Dose Admin Hydrocodone Bitart/Acetaminophen 1 each 07/07/18 22:28 07/08/18 09:42 Tyler 5-325 PO 1 each BID PRN Administration Pain Aspirin 325 mg 07/08/18 09:00 Aspirin PO DAILY JILL Atorvastatin Calcium 40 mg 07/07/18 21:00 07/08/18 01:30 Lipitor PO 40 mg HS JILL Administration Budesonide 1 mg 07/08/18 08:00 07/08/18 07:25 Pulmicort INHALATION 1 mg RT-BID JILL Administration Cyanocobalamin 2,500 mcg 07/08/18 12:00 07/08/18 09:52 Vitamin B-12 PO Not Given DAILY@1200 JILL Duloxetine HCl 60 mg 07/08/18 09:00 07/08/18 09:27 Cymbalta PO 60 mg QAM JILL Administration Gabapentin 600 mg 07/08/18 09:00 07/08/18 09:40 Neurontin PO 600 mg QAM JILL Administration Heparin Sodium (Porcine) 0 unit 07/07/18 18:59 07/08/18 03:54 Heparin IV 4,000 unit PER PROTOCOL PRN Administration Low PTT Protocol Heparin Sodium/Sodium Chloride 250 mls @ 9.97 mls/hr 07/07/18 19:00 07/08/18 03:54 25,000 unit/ Sodium Chloride IV 12.8 units/kg/hr .Q24H JILL 13.03 mls/hr Titration Protocol 9.8 UNITS/KG/HR Lisinopril 30 mg 07/07/18 22:30 07/08/18 09:28 Zestril PO 30 mg BID JILL Administration Metoprolol Tartrate 25 mg 07/07/18 21:00 07/08/18 09:28 Lopressor PO 25 mg BID JILL Administration Multivitamins 1 each 07/08/18 12:00 07/08/18 09:52 Theragran PO Not Given DAILY@1200 JILL Nitroglycerin 0.4 mg 07/07/18 19:39 Nitrostat SUBLINGUAL Q5M PRN Chest Pain Oxymetazoline HCl 2 spray 07/08/18 01:08 07/08/18 01:29 Afrin 0.05% Nasal Martell NASAL 2 spray BID PRN Administration Congestion Pantoprazole Sodium 40 mg 07/08/18 09:00 07/08/18 09:28 Protonix PO 40 mg QAM JILL Administration Sertraline HCl 25 mg 07/08/18 09:00 07/08/18 09:28 Zoloft PO 25 mg QAM JILL Administration Intake and Output 07/07/18 07/08/18 07/08/18 22:59 06:59 14:59 Intake Total 81.422 500 Balance 81.422 500 Intake: Amount of Fluid Infused ( 500 ml) Intake, IV Titration 81.422 Amount Heparin Sod,Pork in 0.45% 81.422 NaCl 25,000 unit In 0.45 % NaCl 1 250ml.bag @ 9.8 UNITS/KG/HR 9.97 mls/hr IV .Q24H [facility] Rx#: [id number] Other: Weight 101.831 kg 101.831 kg Patient Weight 07/09/18 06:59 Weight 101.831 kg 07/07/18 17:30 07/07/18 17:30
[2018-07-08] MEDS ORDERED: ALBUTEROL NEBULIZED 2.5 MG/3 ML INHALATION PRN (14:42)
--- NOTE | 2018-07-08 14:44 | P.CNPUL ---
History of Present Illness Consult date: 07/08/18 Requesting physician: Erlin Morel Reason for consult: dyspnea Chief complaint: Shortness of breath History of present illness: HPI: This is a 63-year-old female patient being seen examined and evaluated today for consultation who is well-known to our services. She does have a significant history for chronic persistent asthma, diabetes mellitus, hypertension, hyperlipidemia, obstructive sleep apnea and GERD. Apparently the patient had hip replacement surgery approximately 2 weeks ago and was on Lovenox. The patient went into the primary care providers office after experiencing, shortness of breath, cough congestion, chest pain, nausea and vomiting at home. At that time the PCP obtained a d-dimer. That will apparently came back elevated and she was recommended to go to the hospital for stat CT of the chest to rule out PE. The CT of the chest was obtained and was negative for any pulmonary embolism. Upon examination the patient is resting up in bed on room air, she still gets short of breath with 50 exertion and activity. Has a dry cough. At home she was using Qvar and albuterol. Review of Systems 14 point review of systems was completed and negative unless noted above in the HPI Past Medical History Past Medical History: Asthma, Diabetes Mellitus, Eye Disorder, Fibromyalgia, GERD/Reflux, Hearing Disorder / Deafness, Hyperlipidemia, Hypertension, Musculoskeletal Disorder, Osteoarthritis (OA), Respiratory Disorder, Sleep Apnea /CPAP/BIPAP Additional Past Medical History / Comment(s): scoliosis History of Any Multi-Drug Resistant Organisms: None Reported Past Surgical History: Bariatric Surgery, Bladder Surgery, Hysterectomy, Joint Replacement, Orthopedic Surgery Additional Past Surgical History / Comment(s): 12/06/17 left full hip replacement. 2017 bariatric sleeve. 2007 left kidney and left ureter removed. abdominal exploratory surgery x2. bladder surgery x2. 2009 large cyst removed from left abdominal area. 2005complete hysterectomy. bones in the toes removed from both feet in the Past Anesthesia/Blood Transfusion Reactions: Previous Problems w/ Anesthesia, Postoperative Nausea & Vomiting (PONV) Past Psychological History: Anxiety, Depression Smoking Status: Never smoker Past Alcohol Use History: Rare Past Drug Use History: None Reported - Past Family History Father Family Medical History: Cancer, Myocardial Infarction ([place]), Prostate Disorder Additional Family Medical History / Comment(s): prostate cancer Mother Family Medical History: Diabetes Mellitus, Hypertension, Myocardial Infarction ( [place]) Medications and Allergies Home Medications Medication Instructions Recorded Confirmed Type Albuterol Inhaler [Ventolin Hfa 1 - 2 puff INHALATION RT-Q6H PRN 01/28/18 History Inhaler] Atorvastatin [Lipitor] 10 mg PO HS 01/28/18 07/07/18 History Beclomethasone Dip 80 Mcg/Puff 2 puff INHALATION RT-BID 01/28/18 07/07/18 History [Qvar 80 mcg] DULoxetine HCL [Cymbalta] 60 mg PO QAM 01/28/18 07/07/18 History Ferrous Sulfate [Iron] 325 mg PO HS 01/28/18 07/07/18 History Gabapentin [Neurontin] 600 mg PO QAM 01/28/18 07/07/18 History Lisinopril 30 mg PO BID 01/28/18 07/07/18 History Omeprazole 20 mg PO QAM 01/28/18 07/07/18 History Sertraline [Zoloft] 25 mg PO QAM 01/28/18 07/07/18 History Cholecalciferol (Vitamin D3) 2,000 unit PO QAM 02/11/18 07/07/18 History [Vitamin D3] Cyanocobalamin (Vitamin B-12) 2,500 mcg PO QAM 02/11/18 07/07/18 History [Vitamin B12] HYDROcodone/APAP 5-325MG [Orange 1 tab PO BID PRN 02/11/18 07/07/18 History 5-325] Multivitamins, Thera [Multivitamin 1 tab PO QAM 02/11/18 07/07/18 History (formulary)] Enoxaparin [Lovenox] 40 mg SQ DAILY 07/07/18 07/07/18 History Allergies Allergy/AdvReac Type Severity Reaction Status Date / Time adhesive Allergy Itching, Verified 07/07/18 18:55 takes her skin off latex Allergy Unknown Verified 07/07/18 18:55 Sulfa (Sulfonamide AdvReac Anaphylaxis Verified 07/07/18 18:55 Antibiotics) Physical Exam Vitals: Vital Signs Temp Pulse Pulse Resp BP BP BP 07/08/18 12:25 98.8 F 66 18 132/71 07/08/18 11:30 98.2 F 63 18 176/79 07/08/18 08:31 62 18 182/90 07/08/18 08:00 98.2 F 62 18 182/90 07/08/18 07:51 98.3 F 62 20 137/63 07/08/18 07:33 62 07/08/18 07:28 76 07/08/18 04:00 68 20 137/63 07/08/18 01:28 98.3 F 85 18 130/70 07/07/18 23:30 102 H 49 H 147/79 07/07/18 23:00 95 12 146/68 07/07/18 22:30 90 12 146/61 07/07/18 22:00 96 21 161/79 07/07/18 21:30 86 15 172/90 07/07/18 21:00 91 17 156/84 07/07/18 20:30 86 25 H 152/75 07/07/18 20:00 84 12 132/73 07/07/18 19:30 130/81 07/07/18 18:30 85 22 116/101 07/07/18 18:00 87 22 132/62 07/07/18 17:30 91 18 146/84 07/07/18 17:08 98.3 F 99 24 155/85 Pulse Ox 07/08/18 12:25 94 L 07/08/18 11:30 98 07/08/18 08:31 98 07/08/18 08:00 98 07/08/18 07:51 98 07/08/18 07:33 07/08/18 07:28 07/08/18 04:00 98 07/08/18 01:28 96 07/07/18 23:30 96 07/07/18 23:00 96 07/07/18 22:30 96 07/07/18 22:00 95 07/07/18 21:30 94 L 07/07/18 21:00 93 L 07/07/18 20:30 97 07/07/18 20:00 98 07/07/18 19:30 07/07/18 18:30 96 07/07/18 18:00 96 07/07/18 17:30 95 07/07/18 17:08 98 Intake and Output 07/07/18 07/08/18 07/08/18 22:59 06:59 14:59 Intake Total 81.422 500 Balance 81.422 500 Intake: Amount of Fluid Infused ( 500 ml) Intake, IV Titration 81.422 Amount Heparin Sod,Pork in 0.45% 81.422 NaCl 25,000 unit In 0.45 % NaCl 1 250ml.bag @ 9.8 UNITS/KG/HR 9.97 mls/hr IV .Q24H [facility] Rx#: [id number] Other: Weight 101.831 kg 101.831 kg GENERAL EXAM: Alert, active, comfortable in no apparent distress. HEAD: Normocephalic. EYES: Normal reaction of pupils, equal size. NOSE: Clear with pink turbinates. THROAT: No erythema or exudates. NECK: No masses, no JVD. CHEST: No chest wall deformity. LUNGS: Equal air entry with faint expiratory wheezes, no crackles, rhonchi or dullness. CVS: S1 and S2 normal with no audible mumurs, regular rhythm. ABDOMEN: No hepatosplenomegaly, normal bowel sounds, no guarding or rigidity. EXTREMITIES: No edema noted, pedal pulses palpable. CENTRAL NERVOUS SYSTEM: No focal deficits, tone is normal in all 4 extremities. Results - Laboratory Findings CBC and BMP: 07/07/18 17:30 07/07/18 17:30 PT/INR, D-dimer PT 10.5 sec (9.0-12.0) 07/07/18 17:30 INR 1.0 (<1.2) 07/07/18 17:30 Abnormal lab findings: Abnormal Labs 07/07/18 07/07/18 07/07/18 17:30 17:30 17:30 Hgb 11.1 L Hct 33.6 L APTT Chloride 109 H Glucose 117 H Alkaline Phosphatase 225 H Total Creatine Kinase 29 L 07/07/18 07/08/18 07/08/18 23:16 02:02 06:10 Hgb Hct APTT 38.9 H Chloride Glucose Alkaline Phosphatase Total Creatine Kinase 26 L 22 L 07/08/18 10:00 Hgb Hct APTT 65.5 H Chloride Glucose Alkaline Phosphatase Total Creatine Kinase - Diagnostic Findings Chest x-ray: report reviewed, image reviewed CT scan - chest: report reviewed, image reviewed Assessment and Plan Assessment: Assessment Chest pain Elevated d-dimer, normal CTA of the chest Acute exacerbation of chronic severe persistent asthma Obstructive sleep apnea Hypertension Dyslipidemia GERD Recent right hip replacement 2 weeks ago on Lovenox Morbid obesity Plan Medications have been reviewed and will be continued as ordered. Steroid taper Continue with pulmonary hygiene, coughing and deep breathing exercises, and supportive care. Supplemental oxygen to maintain oxygen saturations of 92% or better. Continue nebulizer treatments. Patient should bring in home CPAP Cardiology on consult GI and DVT prophylaxis. We will continue to monitor labs/results and adjust treatment as necessary. Further recommendations pending. Thank you for this consultation. I, the signing physician performed an examination of the patient, discussed and directed their management with the nurse practitioner. I have reviewed the nurse practitioner's note and agree with the documented findings, orders and plan of care. Nurse practitioner acting as a scribe for the signing physician.
[2018-07-08] MEDS: predniSONE 20 MG TAB PO SCH (16:52)
[2018-07-08 17:10] LABS: Glucose,Whole Blood 115 mg/dL (75-99)
--- NOTE | 2018-07-08 18:05 | HP ---
HISTORY AND PHYSICAL DATE OF ADMISSION: 07/07/2018 DATE OF SERVICE: 07/08/2018 PRESENTING COMPLAINT: Chest heaviness. HISTORY OF PRESENTING COMPLAINT: This is a pleasant 63-year-old patient of Dr. Norma Laurent. Chronic stable medical conditions include diabetes, fibromyalgia, GERD, hyperlipidemia, hypertension, obstructive sleep apnea, anxiety, depression. Patient was in the hospital close to a week ago with the , and when she went home she started having vomiting, fever, diarrhea that lasted for the weekend, a good 48 hours. Subsequent to that she started wheezing, became short of breath with dry heaves. No sputum. Sinuses started draining and then patient felt a heavy chest with wheezing and decided to present. Because of some cardiac component and nature of the presentation, Cardiology was consulted and she was admitted for the same. Cardiology earlier saw the patient. Did consult Pulmonary and she was given an oral dose of prednisone. The patient had her left hip replaced 2 weeks ago and had initially gone to her family doctor. Her D-dimer was elevated and hence was sent to the hospital. Patient did have a chest CTA that was negative for PE. REVIEW OF SYSTEMS: CONSTITUTIONAL: Tired. HEENT: As above. RESPIRATORY: As above. CARDIOVASCULAR: As above. GASTROINTESTINAL: Heartburn. GENITOURINARY: None. MUSCULOSKELETAL: Occasional pain in the joints. DERMATOLOGICAL: None. HEMATOLOGICAL: None. LYMPHATICS: None. PSYCHIATRY: None. NEUROLOGICAL: None. PAST MEDICAL HISTORY: 1. Asthma. 2. Diabetes. 3. Fibromyalgia. 4. GERD. 5. Hyperlipidemia. 6. Hypertension. 7. Obstructive sleep apnea. 8. Anxiety. 9. Depression. PAST SURGICAL HISTORY: 1. Joint replacement. 2. Left full hip replacement on 12/06/2017. 3. Bariatric sleeve in 2016. 4. Left kidney and left ureter removed in 2007. 5. Bladder surgery x2. 6. Complete hysterectomy in 2004. 7. Bone surgery in both the feet. PSYCH HISTORY: Anxiety and depression. SOCIAL HISTORY: No smoking. Alcohol rarely. . FAMILY HISTORY: Cancer. Myocardial infarction. Prostate cancer. HOME MEDICATIONS: 1. Neurontin 600 mg p.o. daily. 2. Iron 325 p.o. at bedtime. 3. Lovenox 40 mg subcutaneously daily. 4. Cymbalta 60 mg p.o. daily. 5. Lipitor 10 mg at bedtime. 6. Ventolin HFA 1 or 2 puffs q.6 p.r.n. 7. Zoloft 25 mg p.o. daily. 8. Omeprazole 20 mg p.o. daily. 9. Multivitamin 1 tablet p.o. daily. 10.Lisinopril 30 mg p.o. b.i.d. 11.[place] 5 one tablet b.i.d. p.r.n. 12.Vitamin B12 2500 mcg p.o. daily. 13.Vitamin D3 2000 units p.o. daily. 14.Qvar 2 puffs b.i.d. ALLERGIES: 1. ADHESIVE. 2. LATEX. 3. SULFA. PHYSICAL EXAMINATION: VITAL SIGNS ON PRESENTATION: Temperature 98.3, pulse 99, respiration 24, blood pressure 155/85, pulse ox 98% on room air. GENERAL APPEARANCE: Well built; BMI 42.4. Sitting up. Not in distress. EYES: Pupils equal. Conjunctivae normal. HEENT: External appearance of nose and ears normal. Oral cavity normal. NECK: JVD not raised. Mass not palpable. RESPIRATORY: Effort increased. LUNGS: Decreased breath sounds. Mild wheezing. CARDIOVASCULAR: First and second sounds normal. No edema. ABDOMEN: Soft, non-tender. Liver and spleen not palpable. LYMPHATIC: No lymph node palpable in neck or axillae. PSYCHIATRY: Alert and oriented x3. Mood and affect normal. NEUROLOGICAL: Pupils equal. Cranial nerves grossly intact. Power and sensation grossly intact. ASSESSMENT: 1. Acute exacerbation of moderate asthma. 2. Chest pain, probably from exacerbation of asthma; not a primary cardiac cause. 3. Chronic fibromyalgia. 4. Gastroesophageal reflux disease. 5. Hyperlipidemia. 6. Essential hypertension. 7. Obstructive sleep apnea. Uses a CPAP machine. 8. Anxiety and depression not otherwise specified. 9. Obesity; body mass index of 42.4. PLAN: Cardiology was consulted to rule out a cardiac cause. Patient also received steroids. Will put the patient on bronchodilators. Patient has already started to turn around and feel a bit better. Hopefully this was a viral upper respiratory tract infection that precipitated the episode. Care was discussed with the patient. Questions were answered. MMODL / IJN: [id number] /
[2018-07-08] MEDS: ALBUTEROL NEBULIZED 2.5 MG/3 ML INHALATION SCH ×2 (18:24→19:37)
[2018-07-08 19:24] LABS: Glucose,Whole Blood 153 mg/dL (75-99)
--- NOTE | 2018-07-09 06:47 | ECHOF ---
Referral Reason:cp, sob MEASUREMENTS -------- HEIGHT: 152.4 cm WEIGHT: 101.6 kg BP: IVSd: 1.3 cm (0.6 - 1.1) LVIDd: 4.2 cm (3.9 - 5.3) LVPWd: 1.2 cm (0.6 - 1.1) IVSs: 1.9 cm LVIDs: 2.9 cm LVPWs: 1.5 cm LA Diam: 3.9 cm (2.7 - 3.8) Ao Diam: 2.2 cm (2.0 - 3.7) AV Cusp: 1.6 cm (1.5 - 2.6) LA Diam: 3.5 cm (2.7 - 3.8) EPSS: 0.4 cm MV E Miguel: 0.77 m/s MV DecT: 292 ms MV A Miguel: 0.68 m/s MV E/A Ratio: 1.14 RAP: 5.00 mmHg RVSP: 18.54 mmHg MV EF SLOPE: 78.55 mm/s (70 - 150) MV EXCURSION: 1.59 cm (> 18.000) FINDINGS -------- Sinus rhythm. This was a technically adequate study. The left ventricular size is normal. There is mild concentric left ventricular hypertrophy. Overa ll left ventricular systolic function is normal with, an EF between 55 - 60 %. The right ventricle is normal in size. The left atrial size is normal. The right atrial size is normal. The aortic valve is trileaflet, and appears structurally normal. No aortic stenosis or regurgitation. Mild mitral annular calcification present. No mitral regurgitation. Mild tricuspid regurgitation present. There is no evidence of pulmonary hypertension. The right v entricular systolic pressure, as measured by Doppler, is 18.54mmHg. The aortic root size is normal. Echo free space may represent effusion or a pericardial fat pad. CONCLUSIONS -------- 1. This was a technically adequate study. 2. The left ventricular size is normal. 3. There is mild concentric left ventricular hypertrophy. 4. Overall left ventricular systolic function is normal with, an EF between 55 - 60 %. 5. The right ventricle is normal in size. 6. The left atrial size is normal. 7. The right atrial size is normal. 8. The aortic valve is trileaflet, and appears structurally normal. No aortic stenosis or regurgitati on. 9. Mild mitral annular calcification present. 10. No mitral regurgitation. 11. Mild tricuspid regurgitation present. 12. There is no evidence of pulmonary hypertension. 13. The right ventricular systolic pressure, as measured by Doppler, is 18.54mmHg. 14. The aortic root size is normal. 15. Echo free space may represent effusion or a pericardial fat pad. [employer] RESTORER: Jazmyne Santo RDCS
[2018-07-09 06:51] LABS: Glucose,Whole Blood 132 mg/dL (75-99)
[2018-07-09] MEDS: ALBUTEROL NEBULIZED 2.5 MG/3 ML INHALATION SCH ×3 (07:22→15:45)
[2018-07-09] MEDS: BUDESONIDE 1 MG/2 ML NEBU INHALATION SCH (07:22)
[2018-07-09] MEDS: GABAPENTIN 300 MG CAP PO SCH (07:59)
[2018-07-09] MEDS: METOPROLOL TARTRATE 25 MG TAB PO SCH (08:00)
[2018-07-09] MEDS: ASPIRIN 325 MG TAB PO SCH (08:00)
[2018-07-09] MEDS: LISINOPRIL 10 MG TAB PO SCH (08:00)
[2018-07-09] MEDS: DULoxetine HCL 60 MG CAPSULE.DR PO SCH (08:00)
[2018-07-09] MEDS: PANTOPRAZOLE 40 MG TABLET PO SCH (08:00)
[2018-07-09] MEDS: SERTRALINE 25 MG TAB PO SCH (08:00)
[2018-07-09] MEDS: predniSONE 20 MG TAB PO SCH (08:00)
[2018-07-09] MEDS ORDERED: ENOXAPARIN 40 MG/0.4 ML SYRINGE SQ SCH (09:00)
[2018-07-09] MEDS: CYANOCOBALAMIN 500 MCG TAB PO SCH (11:31)
[2018-07-09] MEDS: MULTIVITAMINS, THERA 1 EACH TAB PO SCH (11:31)
[2018-07-09 11:51] LABS: Glucose,Whole Blood 126 mg/dL (75-99)
--- NOTE | 2018-07-09 13:27 | PN ---
PROGRESS NOTE DATE OF SERVICE: 07/09/2018 She is hemodynamically stable. She is less short of breath and is almost back to baseline. PHYSICAL EXAMINATION: Her vitals are stable. She is afebrile. Chest is clear. Cardiovascular system reveals S1, S2. Abdomen is soft. There is no pedal edema. Labs and meds are reviewed. IMPRESSION: 1. Asthma with acute exacerbation. 2. Chest pain, which is noncardiac likely. 3. Possible obstructive sleep apnea. At this point in time, agree with possible discharge planning with systemic steroids in the form of prednisone with a slow taper. If she is discharged, she will follow up with Dr. Kim is in 48 hours. She was counseled regarding her condition. Would continue her on her bronchodilators, increase her activity level. Her prognosis is fair. MMODL / IJN: [id number] /
[2018-07-09 15:57] VITALS: BP 178/83; RESP 18; TEMP 98.5
[2018-07-09 15:58] VITALS: PULSE 76
[2018-07-09 16:44] LABS: Glucose,Whole Blood 230 mg/dL (75-99)
--- NOTE | 2018-07-10 07:37 | DS ---
DISCHARGE SUMMARY DATE OF ADMISSION: 07/07/2018. DATE OF DISCHARGE: 07/09/2018 FINAL DIAGNOSES: 1. Acute exacerbation of moderate asthma. 2. Chest pain, probably from exacerbation of asthma, not a primary cardiac cause. 3. Chronic fibromyalgia. 4. Gastroesophageal reflux disease. 5. Hyperlipidemia. 6. Essential hypertension. 7. Obstructive sleep apnea uses CPAP machine. 8. Anxiety and depression, not otherwise specified. 9. Obesity; BMI 42.4. HOSPITAL COURSE: This patient was initially started with upper respiratory tract infection, went down the chest, became bronchospastic with some chest pressure, responded well to steroids and bronchodilators. Seen by Cardiology. Not for any further cardiac workup. Overall doing much better, greatly improved. PHYSICAL EXAMINATION: Temperature 98.5, pulse 94, respiratory 18, blood pressure 178/83, pulse ox 96 percent on room air. Lungs fair air entry. CONSULTATIONS: Dr. Brayan Boyd from Pulmonary and Dr. Emma Boyd from Cardiology. Patient did have a 2-D echocardiogram, EF of 55-60 percent. Because blood pressure is running high, Lopressor was added. DISCHARGE MEDICATIONS: 1. Ventolin HFA 1 or 2 puffs q.6h p.r.n. 2. Lipitor 10 mg p.o. q.h.s. 3. QVAR 2 puffs b.i.d. 4. Cymbalta 60 mg a day. 5. Iron 325 p.o. q.h.s. 6. Neurontin 600 mg p.o. in the morning. 7. Lisinopril 30 mg b.i.d. 8. Omeprazole 20 mg p.o. daily. 9. Zoloft 25 mg p.o. daily. 10.Vitamin D3 2000 units p.o. daily. 11.Vitamin B12 2500 mcg p.o. daily. 12.[place] 5 one tablet p.o. b.i.d. p.r.n. 13.Multivitamin 1 tablet p.o. daily. 14.Lovenox 40 mg subcu daily. 15.Lopressor 25 mg b.i.d. 16.Prednisone taper. Follow up with Dr. Emma Boyd on 07/13/2018. Follow up With Aydee Kim in 3 days. Follow up with Norma Laurent in [address] Norma Laurent. MMODL / IJN: [id number] /
== END 2018-07-09 17:35 | disposition home or self-care (01) ==
LOC: EC 17:01 → 1SOBS 19:42 → 2ORMAIN 07-08 07:02 → 1SOBS 07-08 12:06
PROVIDERS: ADMIT Hospitalist; ATTEND Hospitalist
DX: J45.51 Severe persistent asthma with (acute) exacerbation (principal); R07.89 Other chest pain; M79.7 Fibromyalgia; K21.9 Gastro-esophageal reflux disease without esophagitis; E78.5 Hyperlipidemia, unspecified; I10 Essential (primary) hypertension; G47.33 Obstructive sleep apnea (adult) (pediatric); F41.9 Anxiety disorder, unspecified; F32.9 Major depressive disorder, single episode, unspecified; I44.7 Left bundle-branch block, unspecified; E11.9 Type 2 diabetes mellitus without complications; J06.9 Acute upper respiratory infection, unspecified; E66.01 Morbid (severe) obesity due to excess calories; H91.90 Unspecified hearing loss, unspecified ear; M19.90 Unspecified osteoarthritis, unspecified site; M41.9 Scoliosis, unspecified; R77.8 Other specified abnormalities of plasma proteins; Z68.41 Body mass index [BMI] 40.0-44.9, adult; Z79.899 Other long term (current) drug therapy; Z99.89 Dependence on other enabling machines and devices; Z99.81 Dependence on supplemental oxygen; Z98.84 Bariatric surgery status; Z90.5 Acquired absence of kidney; Z90.6 Acquired absence of other parts of urinary tract; Z79.01 Long term (current) use of anticoagulants; Z91.040 Latex allergy status; Z91.048 Other nonmedicinal substance allergy status; Z88.2 Allergy status to sulfonamides; Z90.710 Acquired absence of both cervix and uterus; Z96.643 Presence of artificial hip joint, bilateral; Z80.42 Family history of malignant neoplasm of prostate; Z82.49 Family history of ischemic heart disease and other diseases of the circulatory system
CPT/HCPCS: 96366 ×3; 96372; 96376 ×2; 96361; 96365; 99285; 36415; 94640 ×3; 94760 ×2; 93005 ×2; 93306; 83880; 80061; 80053; 82550 ×2; 82553 ×2; 83735; 84484 ×2; 85025; 85610; 85730 ×3; 71046; 71275; G0378 ×3; J1644 ×3; J1650; J7512 ×2; Q9967

== ENCOUNTER → 2018-09-08 | Outpatient (CLI) | payer MEDICARE, BC ==
[2018-09-08 13:27] LABS: Basophils % (A) 0 %; Eosinophils # (A) 0.2 k/uL (0-0.7); Eosinophils % (A) 3 %; HCT 37.6 % (34.0-46.0); HGB 11.9 gm/dL (11.4-16.0); Hypochromasia Moderate; Lymphocytes # (A) 1.6 k/uL (1.0-4.8); Lymphocytes % (A) 21 %; MCH 27.1 pg (25.0-35.0); MCHC 31.6 g/dL (31.0-37.0); MCV 85.8 fL (80.0-100.0); Mean Platelet Volume 7.2; Monocytes # (A) 0.3 k/uL (0-1.0); Monocytes % (A) 4 %; Neutrophils # (A) 5.5 k/uL (1.3-7.7); Neutrophils % (A) 71 %; Platelet Count 276 k/uL (150-450); RBC 4.38 m/uL (3.80-5.40); RDW 14.2 % (11.5-15.5); WBC 7.7 k/uL (3.8-10.6)
[2018-09-08 18:07] LABS: Albumin 3.8 g/dL (3.80-4.90); Albumin/Globulin Ratio 1.9 (1.60-3.17); Calcium 9.1 mg/dL (8.7-10.3); LDL Cholesterol,Calculated 60.8 mg/dL (0.0-131.0); Potassium 3.9 mmol/L (3.5-5.5); Total Bilirubin 0.6 mg/dL (0.2-1.2); Total Protein 5.8 g/dL (6.2-8.2); VLDL Calculation 20.2 mg/dL (5.00-40.00)
[2018-09-08 22:01] LABS: Hemoglobin A1C 5.9 % (4.0-6.0)
== END | disposition home or self-care (01) ==
LOC: LABWHC1 12:00
PROVIDERS: ATTEND Internal Medicine
DX: E78.5 Hyperlipidemia, unspecified (principal); E55.9 Vitamin D deficiency, unspecified; D64.9 Anemia, unspecified; R73.9 Hyperglycemia, unspecified
CPT/HCPCS: 36415; 80053; 80061; 83036; 85025

== ENCOUNTER 2019-01-04 22:14 | Observation (INO) | payer MEDICARE, BC ==
[2019-01-04] MEDS ORDERED: SODIUM CHLORIDE 0.9% 1,000 ML IV STA (22:24)
--- NOTE | 2019-01-04 22:25 | ED ---
Chest Pain HPI - General Stated Complaint: Chest Pain Time Seen by Provider: 01/04/19 22:24 Source: RN notes reviewed, old records reviewed - History of Present Illness Initial Comments: This is a 63-year-old female the ER for evaluation. She presents today for evaluation of chest pain. Left-sided chest pain cc chest pain rating around her left breast. Into her neck. Heaviness. Eyelids or sick contacts no fevers. History of chest pain and chest pain was resolved for nitros. Just is moderately improved now still there, no swelling or diaphoresis, no shortness of breath MD Complaint: chest pain -: hour(s) Onset: during rest Pain Location: left chest Pain Radiation: jaw/teeth Severity: moderate Severity scale (1-10): 4 Quality: tightness, heaviness Consistency: constant, now resolved (Help with nitro) Improves With: nitroglycerin Worsens With: nothing Treatments Prior to Arrival: none - Related Data Home Medications Medication Instructions Recorded Confirmed Albuterol Inhaler [Ventolin Hfa 1 - 2 puff INHALATION RT-Q6H PRN 01/28/18 01/04/19 Inhaler] Atorvastatin [Lipitor] 10 mg PO HS 01/28/18 01/04/19 Beclomethasone Dip 80 Mcg/Puff 2 puff INHALATION RT-BID 01/28/18 01/04/19 [Qvar 80 mcg] DULoxetine HCL [Cymbalta] 60 mg PO DAILY 01/28/18 01/04/19 Ferrous Sulfate [Iron] 325 mg PO DAILY 01/28/18 01/04/19 Omeprazole 20 mg PO DAILY 01/28/18 01/04/19 Sertraline [Zoloft] 25 mg PO DAILY 01/28/18 01/04/19 Cholecalciferol (Vitamin D3) 2,000 unit PO QAM 02/11/18 01/04/19 [Vitamin D3] HYDROcodone/APAP 5-325MG [[place] 1 tab PO DAILY PRN 02/11/18 01/04/19 5-325] Multivitamins, Thera [Multivitamin 1 tab PO DAILY 02/11/18 01/04/19 (formulary)] Aspirin EC [Ecotrin Low Dose] 81 mg PO DAILY 01/04/19 01/04/19 Lisinopril [Zestril] 20 mg PO BID 01/04/19 01/04/19 Allergies Allergy/AdvReac Type Severity Reaction Status Date / Time adhesive Allergy Itching, Verified 01/04/19 23:00 takes her skin off latex Allergy Rash/Hives Verified 01/04/19 23:00 Sulfa (Sulfonamide Allergy Anaphylaxis Verified 01/04/19 23:00 Antibiotics) Review of Systems ROS Statement: Those systems with pertinent positive or pertinent negative responses have been documented in the HPI. ROS Other: All systems not noted in ROS Statement are negative. EKG Findings - EKG Comments: EKG Findings:: EKG shows normal sinus rhythm rate of 65, MO 166, QRS 94, QTc 451 Past Medical History Past Medical History: Asthma, Diabetes Mellitus, Eye Disorder, Fibromyalgia, GERD/Reflux, Hearing Disorder / Deafness, Hyperlipidemia, Hypertension, Musculoskeletal Disorder, Osteoarthritis (OA), Respiratory Disorder, Sleep Apnea/CPAP/BIPAP Additional Past Medical History / Comment(s): scoliosis History of Any Multi-Drug Resistant Organisms: None Reported Past Surgical History: Bariatric Surgery, Bladder Surgery, Hysterectomy, Joint Replacement, Orthopedic Surgery Additional Past Surgical History / Comment(s): 12/06/17 left full hip replacement. 2017 bariatric sleeve. 2007 left kidney and left ureter removed. abdominal exploratory surgery x2. bladder surgery x2. 2009 large cyst removed from left abdominal area. 2005complete hysterectomy. bones in the toes removed from both feet in the Past Anesthesia/Blood Transfusion Reactions: Previous Problems w/ Anesthesia, Postoperative Nausea & Vomiting (PONV) Past Psychological History: Anxiety, Depression Smoking Status: Never smoker Past Alcohol Use History: Rare Past Drug Use History: None Reported - Past Family History Father Family Medical History: Cancer, Myocardial Infarction ([place]), Prostate Disorder Additional Family Medical History / Comment(s): prostate cancer Mother Family Medical History: Diabetes Mellitus, Hypertension, Myocardial Infarction ([place]) General Exam General appearance: alert, in no apparent distress Head exam: Present: atraumatic, normocephalic, normal inspection Eye exam: Present: normal appearance, PERRL, EOMI. Absent: scleral icterus, conjunctival injection, periorbital swelling ENT exam: Present: normal exam, mucous membranes moist Neck exam: Present: normal inspection. Absent: tenderness, meningismus, lymphadenopathy Respiratory exam: Present: normal lung sounds bilaterally. Absent: respiratory distress, wheezes, rales, rhonchi, stridor Cardiovascular Exam: Present: regular rate, normal rhythm, normal heart sounds. Absent: systolic murmur, diastolic murmur, rubs, gallop, clicks GI/Abdominal exam: Present: soft, normal bowel sounds. Absent: distended, tenderness, guarding, rebound, rigid Extremities exam: Present: normal inspection, full ROM, normal capillary refill. Absent: tenderness, pedal edema, joint swelling, calf tenderness Back exam: Present: normal inspection Neurological exam: Present: alert, oriented X3, CN II-XII intact Psychiatric exam: Present: normal affect, normal mood Skin exam: Present: warm, dry, intact, normal color. Absent: rash Course Vital Signs 01/04/19 22:14 Temperature 99.1 F Pulse Rate 65 Respiratory 18 Rate Blood Pressure 128/77 O2 Sat by Pulse 97 Oximetry - Reevaluation(s) Reevaluation #1: 01/04/19 23:38 Medical record reviewed Reevaluation #2: 01/04/19 23:38 Patient is chest pain is there is much improved Chest Pain MDM - MDM 63 female the ER for evaluation. Patient does say for evaluation of chest pain. Will admit for cardiac observation, chest x-rays negative for acute disease troponin EKG negative for significant ST elevation Critical Care Time Critical Care Time: Yes Total Critical Care Time: 31 Disposition Clinical Impression: Chest pain, ACS (acute coronary syndrome) Disposition: ADMITTED IP TO THIS HOSP Condition: Undetermined Instructions (If sedation given, give patient instructions): Chest Pain (ED) Is patient prescribed a controlled substance at d/c from ED?: No Referrals: Norma Laurent MD [Primary Care Provider] - 1-2 days
--- NOTE | 2019-01-04 23:31 | XR ---
EXAM: XR Chest, 2 Views CLINICAL HISTORY: ITS.REASON XR Reason: Chest Pain TECHNIQUE: Frontal and lateral views of the chest. COMPARISON: Chest radiograph on 07/07/2018 FINDINGS: Hardware: None. Lungs/pleura: Prominence of the pulmonary vasculature may represent pulmonary vasculature congestion. No focal consolidation. No pleural effusion or pneumothorax. Stable elevation of the right hemidiaphragm. Heart/mediastinum: Mild enlargement of the cardiomediastinal silhouette, increased compared to prior exam. Soft tissues: Unremarkable. Bones: No acute fracture. Upper abdomen: Normal. IMPRESSION: Increased mild enlargement of the cardiomediastinal silhouette. Probable pulmonary vasculature congestion.
[2019-01-04 23:33] LABS: Basophils # (A) 0.1 k/uL (0-0.2); Basophils % (A) 1 %; Eosinophils # (A) 0.2 k/uL (0-0.7); Eosinophils % (A) 2 %; HCT 34.9 % (34.0-46.0); HGB 11.2 gm/dL (11.4-16.0); Lymphocytes # (A) 1.9 k/uL (1.0-4.8); Lymphocytes % (A) 20 %; MCH 26.6 pg (25.0-35.0); MCV 83.1 fL (80.0-100.0); Mean Platelet Volume 7.4; Monocytes # (A) 0.4 k/uL (0-1.0); Monocytes % (A) 4 %; Neutrophils # (A) 7.1 k/uL (1.3-7.7); Neutrophils % (A) 72 %; Platelet Count 264 k/uL (150-450); RDW 14.5 % (11.5-15.5); WBC 9.9 k/uL (3.8-10.6)
[2019-01-04] MEDS ORDERED: HEPARIN SODIUM,PORCINE 5,000 UNIT/ML 1 ML VIAL IV PRN (23:35)
[2019-01-04] MEDS ORDERED: ASPIRIN 81 MG PO STA (23:35)
[2019-01-04] MEDS ORDERED: NITROGLYCERIN SL TABS 0.4 MG TAB SUBLINGUAL PRN (23:35)
[2019-01-04] MEDS ORDERED: HEPARIN SODIUM,PORCINE 5,000 UNIT/ML 1 ML VIAL IV ONE (23:35)
[2019-01-04 23:44] LABS: Partial Thromboplastin Time 26.9 sec (22.0-30.0); Prothrombin Time 10.3 sec (9.0-12.0)
[2019-01-04] MEDS ORDERED: HEPARIN SOD,PORK IN 0.45% NACL 25,000 UNIT in 0.45% NACL 1 250ML.BAG IV SCH (23:45)
[2019-01-04 23:56] LABS: Albumin 3.6 g/dL (3.5-5.0); Calcium 9.2 mg/dL (8.4-10.2); Magnesium 2.1 mg/dL (1.6-2.3); Potassium 4.2 mmol/L (3.5-5.1); Total Bilirubin 0.3 mg/dL (0.2-1.3); Total Protein 6.2 g/dL (6.3-8.2)
[2019-01-05 01:35] VITALS: RESP 18
[2019-01-05 06:26] LABS: Mean Platelet Volume 7.6; Platelet Count 228 k/uL (150-450)
[2019-01-05 06:35] LABS: Cholesterol 133 mg/dL (<200); HDL Cholesterol 54 mg/dL (40-60); LDL Cholesterol,Calculated 61 mg/dL (0-99); Triglycerides 89 mg/dL (<150)
[2019-01-05 06:40] LABS: Glucose,Whole Blood 93 mg/dL (75-99)
--- NOTE | 2019-01-05 08:53 | P.CRDCN ---
History of Present Illness Consult date: 01/05/19 History of present illness: This is a pleasant a 63-year-old female with history of hypertension and hypercholesterolemia and also history of obesity, status post lap band surgery, who comes here for evaluation of symptoms of chest pain. The pain was described as a tight feeling over the left chest and breast area with some radiation to the back and also to the jaw. It was fluctuating and apparently lasted about an hour or so. She called the paramedics within few minutes off the pain. She was given some nitroglycerin sublingual with some partial relief. Her EKG showed sinus rhythm with deep T-wave inversions in anterolateral leads. These changes were present on the EKG done in June when she presented to the hospital with chest pain. At the time. One of the EKG showed left bundle- branch block pattern which seemed to be rate related. Subsequent EKG showed T- wave inversion in anterior leads. The changes appear to be chronic. Her cardiac enzymes are negative. Her proBNP is within normal limits. Patient is completely comfortable at this time. She was supposed to have follow-up with Dr. Boyd after the last admission. Patient somehow could not keep the appointment. She doesn't want any further testing at this time. She claims that she had a stress test about a year ago which was normal. She wanted to go home and follow-up with Dr. Boyd as an outpatient. From Cardec standpoint patient could be discharged home. Review of Systems As per the chart Past Medical History Past Medical History: Asthma, Diabetes Mellitus, Eye Disorder, Fibromyalgia, GERD/Reflux, Hearing Disorder / Deafness, Hyperlipidemia, Hypertension, Musculoskeletal Disorder, Osteoarthritis (OA), Respiratory Disorder, Sleep Apnea/CPAP/BIPAP Additional Past Medical History / Comment(s): scoliosis, hard of hearing in left ear, borderline diabetes, History of Any Multi-Drug Resistant Organisms: None Reported Past Surgical History: Bariatric Surgery, Bladder Surgery, Hysterectomy, Joint Replacement, Orthopedic Surgery Additional Past Surgical History / Comment(s): 2018 bilat hip replacements. 2017 bariatric sleeve. 2008 left kidney and left ureter removed. abdominal exploratory surgery x2. bladder surgery x2. 2009 large cyst removed from left abdominal area. 2005 complete hysterectomy. bones in the toes removed from both feet in the s. D & C. 2019 cataract surgery/lens implants. 2018 bilat breast lumpectomy-benign Past Anesthesia/Blood Transfusion Reactions: Previous Problems w/ Anesthesia, Postoperative Nausea & Vomiting (PONV) Additional Past Anesthesia/Blood Transfusion Reaction / Comment(s): 1 time patient had issue with PONV with general anesthesia Past Psychological History: Anxiety, Depression Smoking Status: Never smoker Past Alcohol Use History: Rare Past Drug Use History: None Reported - Past Family History Father Family Medical History: Cancer, Myocardial Infarction ([place]), Prostate Disorder Additional Family Medical History / Comment(s): prostate cancer Mother Family Medical History: Diabetes Mellitus, Hypertension, Myocardial Infarction ([place]) Medications and Allergies Home Medications Medication Instructions Recorded Confirmed Type Albuterol Inhaler [Ventolin Hfa 1 - 2 puff INHALATION RT-Q6H PRN 01/28/18 01/05/19 History Inhaler] Atorvastatin [Lipitor] 10 mg PO HS 01/28/18 01/05/19 History Beclomethasone Dip 80 Mcg/Puff 2 puff INHALATION RT-BID 01/28/18 01/05/19 History [Qvar 80 mcg] DULoxetine HCL [Cymbalta] 60 mg PO DAILY 01/28/18 01/05/19 History Ferrous Sulfate [Iron] 325 mg PO DAILY 01/28/18 01/05/19 History Omeprazole 20 mg PO DAILY 01/28/18 01/05/19 History Sertraline [Zoloft] 25 mg PO DAILY 01/28/18 01/05/19 History Cholecalciferol (Vitamin D3) 2,000 unit PO QAM 02/11/18 01/05/19 History [Vitamin D3] Multivitamins, Thera [Multivitamin 1 tab PO DAILY 02/11/18 01/05/19 History (formulary)] Aspirin EC [Ecotrin Low Dose] 81 mg PO DAILY 01/04/19 01/05/19 History Lisinopril [Zestril] 20 mg PO BID 01/04/19 01/05/19 History Allergies Allergy/AdvReac Type Severity Reaction Status Date / Time adhesive Allergy Itching, Verified 01/05/19 01:25 takes her skin off latex Allergy Rash/Hives Verified 01/05/19 01:25 Sulfa (Sulfonamide Allergy Anaphylaxis Verified 01/05/19 01:25 Antibiotics) Physical Exam Vitals: Vital Signs Temp Pulse Pulse Resp BP BP Pulse Ox 01/05/19 07:05 97.3 F L 73 18 170/73 94 L 01/05/19 04:00 97.5 F L 58 L 18 145/72 97 01/05/19 01:34 98.1 F 53 L 18 135/68 99 01/05/19 00:44 98.2 F 63 16 125/61 98 01/04/19 22:14 99.1 F 65 18 128/77 97 Intake and Output 01/04/19 01/05/19 01/05/19 22:59 06:59 14:59 Other: Voiding Method Toilet Toilet # Voids 1 Weight 106.594 kg GENERAL EXAM: Patient is alert and oriented and doesn't appear to be in any acute distress HEENT: Normocephalic. Normal reaction of pupils, equal size, normal range of extraocular motion. No erythema or exudates in the throat. NECK: No masses, no nuchal rigidity. CHEST: No chest wall deformity. LUNGS: Equal air entry with no crackles or wheeze. HEART: S1 and S2 normal with no audible mumurs or gallops. Regular rhythm, femorals equal on both sides.. ABDOMEN: No hepatosplenomegaly, normal bowel sounds, no guarding or rigidity. SKIN: No rashes CENTRAL NERVOUS SYSTEM: No focal deficits. EXTREMITIES: No cyanosis, clubbing or edema. Results 01/05/19 05:56 01/04/19 22:45 Cardiac Enzymes 01/04/19 01/04/19 01/05/19 Range/Units 22:45 22:45 05:56 AST 15 (14-36) U/L Troponin I <0.012 <0.012 (0.000-0.034) ng/mL Coagulation 01/04/19 01/05/19 Range/Units 22:45 05:56 PT 10.3 (9.0-12.0) sec APTT 26.9 56.8 H (22.0-30.0) sec Lipids 01/05/19 Range/Units 05:56 Triglycerides 89 (<150) mg/dL Cholesterol 133 (<200) mg/dL HDL Cholesterol 54 (40-60) mg/dL CBC 01/04/19 01/05/19 Range/Units 22:45 05:56 WBC 9.9 (3.8-10.6) k/uL RBC 4.20 (3.80-5.40) m/uL Hgb 11.2 L (11.4-16.0) gm/dL Hct 34.9 (34.0-46.0) % Plt Count 264 228 (150-450) k/uL Comprehensive Metabolic Panel 01/04/19 Range/Units 22:45 Sodium 142 (137-145) mmol/L Potassium 4.2 (3.5-5.1) mmol/L Chloride 110 H (98-107) mmol/L Carbon Dioxide 23 (22-30) mmol/L BUN 20 H (7-17) mg/dL Creatinine 0.96 (0.52-1.04) mg/dL Glucose 98 (74-99) mg/dL Calcium 9.2 (8.4-10.2) mg/dL AST 15 (14-36) U/L ALT 20 (9-52) U/L Alkaline Phosphatase 178 H (38-126) U/L Total Protein 6.2 L (6.3-8.2) g/dL Albumin 3.6 (3.5-5.0) g/dL Current Medications Generic Name Dose Route Start Last Admin Trade Name Freq PRN Reason Stop Dose Admin Aspirin 325 mg 01/05/19 09:00 Aspirin PO DAILY JILL Heparin Sodium (Porcine) 0 unit 01/04/19 23:35 Heparin IV Q6HR PRN Low PTT Protocol Heparin Sodium/Sodium Chloride 250 mls @ 10.02 mls/hr 01/04/19 23:45 01/05/19 00:47 25,000 unit/ Sodium Chloride IV 9.38 units/kg/hr .Q24H JILL 10 mls/hr Administration Protocol 9.4 UNITS/KG/HR Nitroglycerin 0.4 mg 01/04/19 23:35 Nitrostat SUBLINGUAL Q5M PRN Chest Pain Intake and Output 01/04/19 01/05/19 01/05/19 22:59 06:59 14:59 Other: Voiding Method Toilet Toilet # Voids 1 Weight 106.594 kg 01/05/19 05:56 01/04/19 22:45 EKG Interpretations (text) Sinus rhythm with T-wave inversion in the anterior leads. Similar to the findings seen in June. She did have a rate related left bundle branch block and one of the EKGs from previous admission Assessment and Plan (1) Essential hypertension Current Visit: Yes Status: Acute Code(s): I10 - ESSENTIAL (PRIMARY) H YPERTENSION SNOMED Code(s): 12937596 (2) Chest pain Current Visit: Yes Status: Acute Code(s): R07.9 - CHEST PAIN, UNSPECIFIED SNOMED Code(s): 00182734 (3) Hypercholesterolemia Current Visit: Yes Status: Acute Code(s): E78.00 - PURE HYPERCHOLESTEROLEMIA , UNSPECIFIED SNOMED Code(s): 26612874 (4) Obesity Current Visit: Yes Status: Acute Code(s): E66.9 - OBESITY, UNSPECIFIED SNOMED Code(s): 763087790 (5) History of fibromyalgia Current Visit: Yes Status: Acute Code(s): Z87.39 - PERSONAL HISTORY OF DISEA SES OF THE MS SYS AND CONN TISS SNOMED Code(s): 145862665 Plan: Patient's enzymes are normal. EKG showed chronic changes with T-wave inversions in anterolateral leads. Patient doesn't want to have any further testing at this time. She'll follow with Dr. KIRSTIN Boyd as an outpatient
[2019-01-05] MEDS ORDERED: ASPIRIN 325 MG TAB PO SCH (09:00)
[2019-01-05] MEDS ORDERED: PANTOPRAZOLE 40 MG TABLET PO SCH (15:15)
[2019-01-05] MEDS ORDERED: DULoxetine HCL 60 MG CAPSULE.DR PO SCH (15:15)
[2019-01-05] MEDS ORDERED: SERTRALINE 25 MG TAB PO SCH (15:15)
--- NOTE | 2019-01-05 15:28 | P.HPIM ---
History of Present Illness H&P Date: 01/05/19 Chief Complaint: Chest pain History of present complaint: This is a very pleasant 63-year-old patient of Dr. Erica Laurent. Chronic stable medical conditions include diabetes, fibromyalgia, GERD, hyperlipidemia, hypertension, obstructive sleep apnea, anxiety, depression. Patient was here in June with chest pain. Is supposed to follow with Dr. KIRSTIN Boyd. Did not follow. Patient is getting physical therapy because of back and leg pain. Patient yesterday had an episode of pressure going across the chest and going up to the neck and jaw. It was present on and off about an hour. He was short of breath and dizzy with the same. Then settled down on its own. Patient decided to come in. EKG did have flipped T waves. Patient's last stress was about 2 years ago. Because of arthritis her exercise tolerance is limited. Denies any prior cardiac history. Admitted for the same. Troponins were negative. Review of systems: GEN.: Tired EYES: None HEENT: None NECK: None RESPIRATORY: None CARDIOVASCULAR: As above GASTROINTESTINAL: None GENITOURINARY: None MUSCULOSKELETAL: Pain in the lower back and other joints LYMPHATICS: None HEMATOLOGICAL: None PSYCHIATRY: None NEUROLOGICAL: None Past medical history: Moderate persistent asthma, chronic fibromyalgia, GERD, hyperlipidemia, hypertension, obstructive sleep apnea uses CPAP machine, anxiety depression, obesity. Social history: . No smoking. Alcohol rarely. Physical examination: VITAL SIGNS: 99.1, 18, 65, 128/77, 97% on 2 L GENERAL: BMI 43.0, laying in bed, comfortable. EYES: Pupils equal. Conjunctiva normal. HEENT: External appearance of nose and ears normal, oral cavity grossly normal decreased hearing in the left ear. NECK: JVD not raised; masses not palpable. HEART: First and second heart sounds are normal; no edema. LUNGS: Respiratory rate normal; clear to auscultation. ABDOMEN: Soft, nontender, liver spleen not palpable, no masses palpable. PSYCH: Alert and oriented x3; mood and affect normal. NEUROLOGICAL: Cranial nerves grossly intact; no facial asymmetry, power and sensation grossly intact. LYMPHATICS: No lymph nodes palpable in the axilla and neck Investigations, reviewed in the clinical context: White count 9.9 hemoglobin 11.2 platelets 264 potassium 4.2 creatinine 0.96 Troponin I 3 less than 0.012 LDL 61, pro BNP 239 EKG tracing personally reviewed by me shows flipped T waves in anterior leads Chest x-ray film personally reviewed by me shows borderline cardiomegaly, questionable venous prominence Assessment: -Possible unstable angina in a patient with known cardiac risk factors including obesity, hyperlipidemia, hypertension, and decreased activity. Patient also has abnormal EKG with flipped T waves -Moderate persistent asthma -Chronic fibromyalgia -GERD -Hyperlipidemia -Essential hypertension -Obstructive sleep apnea uses CPAP machine -Anxiety depression otherwise specified -Morbid obesity BMI 43 Plan: Home medications resumed. Serial cardiac enzymes were ordered. Cardiology was consulted. Patient started on IV heparin the ER. Past Medical History Past Medical History: Asthma, Diabetes Mellitus, Eye Disorder, Fibromyalgia, GERD/Reflux, Hearing Disorder / Deafness, Hyperlipidemia, Hypertension, Musculoskeletal Disorder, Osteoarthritis (OA), Respiratory Disorder, Sleep Apnea/CPAP/BIPAP Additional Past Medical History / Comment(s): scoliosis, hard of hearing in left ear, borderline diabetes, History of Any Multi-Drug Resistant Organisms: None Reported Past Surgical History: Bariatric Surgery, Bladder Surgery, Hysterectomy, Joint Replacement, Orthopedic Surgery Additional Past Surgical History / Comment(s): 2018 bilat hip replacements. 2017 bariatric sleeve. 2008 left kidney and left ureter removed. abdominal exploratory surgery x2. bladder surgery x2. 2009 large cyst removed from left abdominal area. 2005 complete hysterectomy. bones in the toes removed from both feet in the s. D & C. 2019 cataract surgery/lens implants. 2018 bilat breast lumpectomy-benign Past Anesthesia/Blood Transfusion Reactions: Previous Problems w/ Anesthesia, Postoperative Nausea & Vomiting (PONV) Additional Past Anesthesia/Blood Transfusion Reaction / Comment(s): 1 time patient had issue with PONV with general anesthesia Past Psychological History: Anxiety, Depression Smoking Status: Never smoker Past Alcohol Use History: Rare Past Drug Use History: None Reported - Past Family History Father Family Medical History: Cancer, Myocardial Infarction ([place]), Prostate Disorder Additional Family Medical History / Comment(s): prostate cancer Mother Family Medical History: Diabetes Mellitus, Hypertension, Myocardial Infarction ([place]) Medications and Allergies Home Medications Medication Instructions Recorded Confirmed Type Albuterol Inhaler [Ventolin Hfa 1 - 2 puff INHALATION RT-Q6H PRN 01/28/18 01/05/19 History Inhaler] Atorvastatin [Lipitor] 10 mg PO HS 01/28/18 01/05/19 History Beclomethasone Dip 80 Mcg/Puff 2 puff INHALATION RT-BID 01/28/18 01/05/19 History [Qvar 80 mcg] DULoxetine HCL [Cymbalta] 60 mg PO DAILY 01/28/18 01/05/19 History Ferrous Sulfate [Iron] 325 mg PO DAILY 01/28/18 01/05/19 History Omeprazole 20 mg PO DAILY 01/28/18 01/05/19 History Sertraline [Zoloft] 25 mg PO DAILY 01/28/18 01/05/19 History Cholecalciferol (Vitamin D3) 2,000 unit PO QAM 02/11/18 01/05/19 History [Vitamin D3] Multivitamins, Thera [Multivitamin 1 tab PO DAILY 02/11/18 01/05/19 History (formulary)] Aspirin EC [Ecotrin Low Dose] 81 mg PO DAILY 01/04/19 01/05/19 History Lisinopril [Zestril] 20 mg PO BID 01/04/19 01/05/19 History Allergies Allergy/AdvReac Type Severity Reaction Status Date / Time adhesive Allergy Itching, Verified 01/05/19 01:25 takes her skin off latex Allergy Rash/Hives Verified 01/05/19 01:25 Sulfa (Sulfonamide Allergy Anaphylaxis Verified 01/05/19 01:25 Antibiotics) Physical Exam Vitals: Vital Signs Temp Pulse Pulse Resp BP BP Pulse Ox 01/05/19 11:38 97.8 F 69 18 131/72 94 L 01/05/19 07:05 97.3 F L 73 18 170/73 94 L 01/05/19 04:00 97.5 F L 58 L 18 145/72 97 01/05/19 01:34 98.1 F 53 L 18 135/68 99 01/05/19 00:44 98.2 F 63 16 125/61 98 01/04/19 22:14 99.1 F 65 18 128/77 97 Intake and Output 01/05/19 01/05/19 01/05/19 06:59 14:59 22:59 Intake Total 100 Balance 100 Intake: Oral 100 Other: Voiding Method Toilet Toilet # Voids 1 3 Results CBC & Chem 7: 01/05/19 05:56 01/04/19 22:45 Labs: Abnormal Lab Results - Last 24 Hours (Table) 01/04/19 01/04/19 01/05/19 Range/Units 22:45 22:45 05:56 Hgb 11.2 L (11.4-16.0) gm/dL APTT 56.8 H (22.0-30.0) sec Chloride 110 H (98-107) mmol/L BUN 20 H (7-17) mg/dL Alkaline Phosphatase 178 H (38-126) U/L Total Protein 6.2 L (6.3-8.2) g/dL Thrombosis Risk Factor Assmnt - Choose All That Apply Any of the Below Risk Factors Present?: Yes Each Factor Represents 1 point: Obesity (BMI >25) Other Risk Factors: Yes Each Risk Factor Represents 2 Points: Age 61-74 years Other congenital or acquired thrombophilia - If yes, enter type in comment: No Thrombosis Risk Factor Assessment Total Risk Factor Score: 3 Thrombosis Risk Factor Assessment Level: Moderate Risk
[2019-01-05 15:55] VITALS: BP 156/83; PULSE 77; TEMP 98.2
[2019-01-05] MEDS ORDERED: FLUTICASONE 110 MCG INHALER INHALATION SCH (20:00)
[2019-01-05] MEDS ORDERED: LISINOPRIL 20 MG TAB PO SCH (21:00)
[2019-01-05] MEDS ORDERED: ATORVASTATIN 10 MG TAB PO SCH (21:00)
--- NOTE | 2019-01-05 21:52 | P.DS ---
Providers Date of admission: 01/04/19 23:35 Expected date of discharge: 01/05/19 Attending physician: Erlin Morel Consults: 01/04/19 23:35 Consult Physician Urgent Consulting Provider: Opal Cortez Consult Reason/Comments: cp Do you want consulting provider notified?: Yes Primary care physician: Norma Laurent [facility] Course: Hospital course: This is a very pleasant 63-year-old patient of Dr. Erica Laurent. Chronic stable medical conditions include diabetes, fibromyalgia, GERD, hyperlipidemia, hypertension, obstructive sleep apnea, anxiety, depression. Patient was here in June with chest pain. Is supposed to follow with Dr. KIRSTIN Boyd. Did not follow. Patient is getting physical therapy because of back and leg pain. Patient yesterday had an episode of pressure going across the chest and going up to the neck and jaw. It was present on and off about an hour. He was short of breath and dizzy with the same. Then settled down on its own. Patient decided to come in. EKG did have flipped T waves. Patient's last stress was about 2 years ago. Because of arthritis her exercise tolerance is limited. Denies any prior cardiac history. Admitted for the same. Troponins were negative. Patient was seen by cardiology. Patient didn't want any testing at the present time. I did explain to the patient at length that she has significant cardiac risk factors and abnormal EKG she definitely needs a stress test at least. Patient is agreeable to same getting in does as an outpatient. No further symptoms. Doing well by the time of discharge. I did add some Imdur. Consultation: Cardiology/Dr. Heller Physical examination: VITAL SIGNS: 98.2, 77, 18, 156/83, 97% room air GENERAL: BMI 43.0, laying in bed, comfortable. EYES: Pupils equal. Conjunctiva normal. HEENT: External appearance of nose and ears normal, oral cavity grossly normal decreased hearing in the left ear. NECK: JVD not raised; masses not palpable. HEART: First and second heart sounds are normal; no edema. LUNGS: Respiratory rate normal; clear to auscultation. ABDOMEN: Soft, nontender, liver spleen not palpable, no masses palpable. PSYCH: Alert and oriented x3; mood and affect normal. NEUROLOGICAL: Cranial nerves grossly intact; no facial asymmetry, power and sensation grossly intact. LYMPHATICS: No lymph nodes palpable in the axilla and neck Investigations, reviewed in the clinical context: White count 9.9 hemoglobin 11.2 platelets 264 potassium 4.2 creatinine 0.96 Troponin I 3 less than 0.012 LDL 61, pro BNP 239 EKG tracing personally reviewed by me shows flipped T waves in anterior leads Chest x-ray film personally reviewed by me shows borderline cardiomegaly, questionable venous prominence Discharge diagnosis: -Possible unstable angina in a patient with known cardiac risk factors including obesity, hyperlipidemia, hypertension, and decreased activity. Patient also has abnormal EKG with flipped T waves -Moderate persistent asthma -Chronic fibromyalgia -GERD -Hyperlipidemia -Essential hypertension -Obstructive sleep apnea uses CPAP machine -Anxiety depression otherwise specified -Morbid obesity BMI 43 Disposition: Home Patient to get a stress test through her office bookkeeper. Patient Condition at Discharge: Stable Plan - Discharge Summary Discharge Rx Participant: No New Discharge Prescriptions: New Isosorbide Mononitrate ER [Imdur] 30 mg PO DAILY #30 tab Nitroglycerin Sl Tabs [Nitrostat] 0.4 mg SUBLINGUAL Q5M PRN #25 tab PRN Reason: Chest Pain Continue DULoxetine HCL [Cymbalta] 60 mg PO DAILY Atorvastatin [Lipitor] 10 mg PO HS Ferrous Sulfate [Iron] 325 mg PO DAILY Omeprazole 20 mg PO DAILY Beclomethasone Dip 80 Mcg/Puff [Qvar 80 mcg] 2 puff INHALATION RT-BID Albuterol Inhaler [Ventolin Hfa Inhaler] 1 - 2 puff INHALATION RT-Q6H PRN PRN Reason: Shortness Of Breath Sertraline [Zoloft] 25 mg PO DAILY Multivitamins, Thera [Multivitamin (formulary)] 1 tab PO DAILY Cholecalciferol (Vitamin D3) [Vitamin D3] 2,000 unit PO QAM Aspirin EC [Ecotrin Low Dose] 81 mg PO DAILY Lisinopril [Zestril] 20 mg PO BID Discharge Medication List Albuterol Inhaler [Ventolin Hfa Inhaler] 1 - 2 puff INHALATION RT-Q6H PRN 01/28/18 [History] Atorvastatin [Lipitor] 10 mg PO HS 01/28/18 [History] Beclomethasone Dip 80 Mcg/Puff [Qvar 80 mcg] 2 puff INHALATION RT-BID 01/28/18 [History] DULoxetine HCL [Cymbalta] 60 mg PO DAILY 01/28/18 [History] Ferrous Sulfate [Iron] 325 mg PO DAILY 01/28/18 [History] Omeprazole 20 mg PO DAILY 01/28/18 [History] Sertraline [Zoloft] 25 mg PO DAILY 01/28/18 [History] Cholecalciferol (Vitamin D3) [Vitamin D3] 2,000 unit PO QAM 02/11/18 [History] Multivitamins, Thera [Multivitamin (formulary)] 1 tab PO DAILY 02/11/18 [History] Aspirin EC [Ecotrin Low Dose] 81 mg PO DAILY 01/04/19 [History] Lisinopril [Zestril] 20 mg PO BID 01/04/19 [History] Isosorbide Mononitrate ER [Imdur] 30 mg PO DAILY #30 tab 01/05/19 [Rx] Nitroglycerin Sl Tabs [Nitrostat] 0.4 mg SUBLINGUAL Q5M PRN #25 tab 01/05/19 [Rx] Follow up Appointment(s)/Referral(s): Marybeth Boyd MD [STAFF PHYSICIAN] - 1 Week (office will call with appointment date and time) Norma Laurent MD [Primary Care Provider] - 1-2 days Patient Instructions/Handouts: Chest Pain (ED) Discharge Disposition: HOME SELF-CARE
[2019-01-06] MEDS ORDERED: MULTIVITAMINS, THERA 1 EACH TAB PO SCH (09:00)
[2019-01-06] MEDS ORDERED: FERROUS SULFATE 325 MG TAB PO SCH (09:00)
== END 2019-01-05 17:48 | disposition home or self-care (01) ==
LOC: EC 22:14 → 1SOBS 23:35
PROVIDERS: ADMIT Hospitalist; ATTEND Hospitalist
DX: R07.89 Other chest pain (principal); E11.9 Type 2 diabetes mellitus without complications; E66.01 Morbid (severe) obesity due to excess calories; Z68.41 Body mass index [BMI] 40.0-44.9, adult; H91.92 Unspecified hearing loss, left ear; M41.9 Scoliosis, unspecified; K21.9 Gastro-esophageal reflux disease without esophagitis; F41.9 Anxiety disorder, unspecified; F32.9 Major depressive disorder, single episode, unspecified; M19.90 Unspecified osteoarthritis, unspecified site; G47.33 Obstructive sleep apnea (adult) (pediatric); M79.7 Fibromyalgia; E78.5 Hyperlipidemia, unspecified; I10 Essential (primary) hypertension; J45.30 Mild persistent asthma, uncomplicated; E78.00 Pure hypercholesterolemia, unspecified; Z98.84 Bariatric surgery status; Z91.040 Latex allergy status; Z88.2 Allergy status to sulfonamides; Z91.048 Other nonmedicinal substance allergy status; Z79.82 Long term (current) use of aspirin; Z79.899 Other long term (current) drug therapy; Z79.51 Long term (current) use of inhaled steroids; Z90.710 Acquired absence of both cervix and uterus; Z96.643 Presence of artificial hip joint, bilateral; Z99.89 Dependence on other enabling machines and devices; Z98.42 Cataract extraction status, left eye; Z98.41 Cataract extraction status, right eye; Z96.1 Presence of intraocular lens; Z82.49 Family history of ischemic heart disease and other diseases of the circulatory system; Z83.3 Family history of diabetes mellitus; Z80.42 Family history of malignant neoplasm of prostate
CPT/HCPCS: 96361; 96366; 96365; 99291; 36415; 93005; 83880; 80061; 80053; 83690; 83735; 84484 ×2; 85025; 85049; 85610; 85730 ×2; 71046; G0378 ×2; J1644 ×2

== ENCOUNTER 2019-03-23 21:58 | Emergency (ER) | payer MEDICARE, BC ==
[2019-03-23] MEDS ORDERED: KETOROLAC 30 MG/ML 1 ML VIAL IVP STA (23:00)
[2019-03-23] MEDS ORDERED: diphenhydrAMINE 50 MG/ML 1 ML VIAL IVP STA (23:00)
[2019-03-23] MEDS ORDERED: METOCLOPRAMIDE 5 MG/ML 2 ML VIAL IVP STA (23:00)
[2019-03-23] MEDS ORDERED: DEXAMETHASONE SOD PHOSPHATE 10 MG/ML 1 ML VIAL IV STA (23:01)
[2019-03-23] MEDS ORDERED: MAGNESIUM SULFATE-D5W PMX 1 GM in DEXTROSE/WATER 1 100ML.BAG IVPB ONE (23:03)
[2019-03-23 23:19] LABS: Basophils % (A) 0 %; Eosinophils # (A) 0.3 k/uL (0-0.7); Eosinophils % (A) 3 %; HCT 34.8 % (34.0-46.0); HGB 11.5 gm/dL (11.4-16.0); Lymphocytes # (A) 1.7 k/uL (1.0-4.8); Lymphocytes % (A) 17 %; MCH 27.4 pg (25.0-35.0); MCHC 33.2 g/dL (31.0-37.0); MCV 82.7 fL (80.0-100.0); Mean Platelet Volume 6.7; Monocytes # (A) 0.6 k/uL (0-1.0); Monocytes % (A) 5 %; Neutrophils # (A) 7.6 k/uL (1.3-7.7); Neutrophils % (A) 73 %; Platelet Count 258 k/uL (150-450); RBC 4.21 m/uL (3.80-5.40); RDW 14.8 % (11.5-15.5); WBC 10.3 k/uL (3.8-10.6)
[2019-03-23 23:23] LABS: Albumin 3.6 g/dL (3.5-5.0); Calcium 8.8 mg/dL (8.4-10.2); Potassium 3.9 mmol/L (3.5-5.1); Total Bilirubin 0.3 mg/dL (0.2-1.3); Total Protein 6.4 g/dL (6.3-8.2)
--- NOTE | 2019-03-23 23:58 | CT ---
EXAMINATION TYPE: CT brain wo con DATE OF EXAM: 03/23/2019 COMPARISON: None HISTORY: patient presents with headache CT DLP: 1078.4 mGycm Automated exposure control for dose reduction was used. FINDINGS: Ventricles and sulci appear normal. There is no mass effect nor midline shift. There is no sign of in tracranial hemorrhage. Calvarium is intact. IMPRESSION: NEGATIVE CT SCAN OF THE BRAIN.
--- NOTE | 2019-03-24 00:06 | ED ---
Headache HPI - General Chief Complaint: Headache Stated Complaint: Migraine, post epideral injection Time Seen by Provider: 03/23/19 22:05 Mode of arrival: ambulatory Limitations: no limitations - History of Present Illness Initial Comments: The patient is a 64-year-old female presents emergency Department with reported migraine. She states that it has been present ever since she had an epidural injection in her lumbar region by Dr. Frost on Wednesday. She describes it as a bilateral pain in her suboccipital region. It does radiate forward to her head. She states it is worse when she presses in her suboccipital region. She took Tylenol at home which only minimally improved her symptoms. She then took a Jackson. He remained pretty persistent and therefore she presented emergent for evaluation. She denies any fevers or chills. No and changes. Denies any unilateral numbness or weakness. Reports that her lower extremity pain is actually improved and she has been ambulating better. Denies any saddle anesthesia or bowel or bladder incontinence. Headache is not worse with sitting up. Denies any midline neck pain. No blunt head trauma. There are no allevia ting, precipitating or modifying factors - Related Data Home Medications Medication Instructions Recorded Confirmed Albuterol Inhaler [Ventolin Hfa 2 puff INHALATION RT-Q6H PRN 01/28/18 03/23/19 Inhaler] Atorvastatin [Lipitor] 10 mg PO HS 01/28/18 03/23/19 Beclomethasone Dip 80 Mcg/Puff 2 puff INHALATION RT-BID 01/28/18 03/23/19 [Qvar 80 mcg] DULoxetine HCL [Cymbalta] 60 mg PO DAILY 01/28/18 03/23/19 Omeprazole 20 mg PO DAILY 01/28/18 03/23/19 Sertraline [Zoloft] 25 mg PO DAILY 01/28/18 03/23/19 Cholecalciferol (Vitamin D3) 2,000 unit PO QAM 02/11/18 03/23/19 [Vitamin D3] Aspirin EC [Ecotrin Low Dose] 81 mg PO DAILY 01/04/19 03/23/19 Lisinopril [Zestril] 20 mg PO BID 01/04/19 03/23/19 Acetaminophen Tab [Tylenol Tab] 650 mg PO TID PRN 03/23/19 03/23/19 HYDROcodone/APAP 5-325MG [Jackson 1 tab PO TID PRN 03/23/19 03/23/19 5-325] Metoprolol Tartrate [Lopressor] 25 mg PO HS 03/23/19 03/23/19 Allergies Allergy/AdvReac Type Severity Reaction Status Date / Time adhesive Allergy Itching, Verified 03/23/19 22:55 takes her skin off latex Allergy Rash/Hives Verified 03/23/19 22:55 Sulfa (Sulfonamide Allergy Anaphylaxis Verified 03/23/19 22:55 Antibiotics) Review of Systems ROS Statement: Those systems with pertinent positive or pertinent negative responses have been documented in the HPI. ROS Other: All systems not noted in ROS Statement are negative. Past Medical History Past Medical History: Asthma, Diabetes Mellitus, Eye Disorder, Fibromyalgia, GERD/Reflux, Hearing Disorder / Deafness, Hyperlipidemia, Hypertension, Musculoskeletal Disorder, Osteoarthritis (OA), Respiratory Disorder, Sleep Apnea/CPAP/BIPAP Additional Past Medical History / Comment(s): scoliosis, hard of hearing in left ear, borderline diabetes, History of Any Multi-Drug Resistant Organisms: None Reported Past Surgical History: Bariatric Surgery, Bladder Surgery, Hysterectomy, Joint Replacement, Orthopedic Surgery Additional Past Surgical History / Comment(s): 2018 bilat hip replacements. 2017 bariatric sleeve. 2008 left kidney and left ureter removed. abdominal ex ploratory surgery x2. bladder surgery x2. 2009 large cyst removed from left abdominal area. 2005 complete hysterectomy. bones in the toes removed from both feet in the s. D & C. 2019 cataract surgery/lens implants. 2018 bilat breast lumpectomy-benign Past Anesthesia/Blood Transfusion Reactions: Previous Problems w/ Anesthesia, Postoperative Nausea & Vomiting (PONV) Additional Past Anesthesia/Blood Transfusion Reaction / Comment(s): 1 time patient had issue with PONV with general anesthesia Past Psychological History: Anxiety, Depression Smoking Status: Never smoker Past Alcohol Use History: Rare Past Drug Use History: None Reported - Past Family History Father Family Medical History: Cancer, Myocardial Infarction ([place]), Prostate Disorder Additional Family Medical History / Comment(s): prostate cancer Mother Family Medical History: Diabetes Mellitus, Hypertension, Myocardial Infarction ([place]) General Exam Limitations: no limitations General appearance: alert, in no apparent distress Head exam: Present: atraumatic, normocephalic, normal inspection Eye exam: Present: normal appearance, PERRL, EOMI, other (no papilledema identified during non-dilated eye exam). Absent: scleral icterus, conjunctival injection, periorbital swelling ENT exam: Present: normal exam, mucous membranes moist Neck exam: Present: normal inspection. Absent: tenderness, meningismus, lymphadenopathy Respiratory exam: Present: normal lung sounds bilaterally. Absent: respiratory distress, wheezes, rales, rhonchi, stridor Cardiovascular Exam: Present: regular rate, normal rhythm, normal heart sounds. Absent: systolic murmur, diastolic murmur, rubs, gallop, clicks GI/Abdominal exam: Present: soft, normal bowel sounds. Absent: distended, tenderness, guarding, rebound, rigid Extremities exam: Present: normal inspection, full ROM, normal capillary refill. Absent: tenderness, pedal edema, joint swelling, calf tenderness Back exam: Present: normal inspection Neurological exam: Present: alert, oriented X3, CN II-XII intact Psychiatric exam: Present: normal affect, normal mood Skin exam: Present: warm, dry, intact, normal color. Absent: rash Course Vital Signs 03/23/19 03/24/19 22:03 00:05 Temperature 98.9 F 97.5 F L Pulse Rate 76 89 Respiratory 18 16 Rate Blood Pressure 184/91 142/81 O2 Sat by Pulse 94 L 96 Oximetry Medical Decision Making - Medical Decision Making Upon arrival the patient is placed into room 3. She is to continuous pulse ox and cardiac monitoring. I did establish peripheral access. The patient is given 15 mg of Toradol, 10 mg of Decadron, 10 the grams of Reglan, 25 mg of Benadryl and 1 g of magnesium. Laboratory studies are conducted. The patient was sent for CT of her brain she normally does not have headaches. Upon return, the results are discuss with the patient. No signs of leukocytosis at this time. I did discuss the diagnosis, differential and treatment options. The patient states her headache is essentially gone. She states she feels comfortable going home. I informed her that she needs to call her surgeon in the morning to inform him of her symptoms. If she has any new or worsening sy mptoms she should return to the emergency room. Patient was then discharged home in stable condition - Lab Data Result diagrams: 03/23/19 22:23 03/23/19 22:23 Lab Results 03/23/19 03/23/19 Range/Units 22:23 22:23 WBC 10.3 (3.8-10.6) k/uL RBC 4.21 (3.80-5.40) m/uL Hgb 11.5 (11.4-16.0) gm/dL Hct 34.8 (34.0-46.0) % MCV 82.7 (80.0-100.0) fL MCH 27.4 (25.0-35.0) pg MCHC 33.2 (31.0-37.0) g/dL RDW 14.8 (11.5-15.5) % Plt Count 258 (150-450) k/uL Neutrophils % 73 % Lymphocytes % 17 % Monocytes % 5 % Eosinophils % 3 % Basophils % 0 % Neutrophils # 7.6 (1.3-7.7) k/uL Lymphocytes # 1.7 (1.0-4.8) k/uL Monocytes # 0.6 (0-1.0) k/uL Eosinophils # 0.3 (0-0.7) k/uL Basophils # 0.0 (0-0.2) k/uL Sodium 141 (137-145) mmol/L Potassium 3.9 (3.5-5.1) mmol/L Chloride 108 H (98-107) mmol/L Carbon Dioxide 27 (22-30) mmol/L Anion Gap 6 mmol/L BUN 20 H (7-17) mg/dL Creatinine 0.85 (0.52-1.04) mg/dL Est GFR (CKD-EPI)AfAm 84 (>60 ml/min/1.73 sqM) Est GFR (CKD-EPI)NonAf 72 (>60 ml/min/1.73 sqM) Glucose 101 H (74-99) mg/dL Calcium 8.8 (8.4-10.2) mg/dL Total Bilirubin 0.3 (0.2-1.3) mg/dL AST 16 (14-36) U/L ALT 22 (9-52) U/L Alkaline Phosphatase 173 H (38-126) U/L Total Protein 6.4 (6.3-8.2) g/dL Albumin 3.6 (3.5-5.0) g/dL Disposition Clinical Impression: Headache Disposition: HOME SELF-CARE Condition: Stable Instructions (If sedation given, give patient instructions): Acute Headache (ED) Additional Instructions: Please call your surgeon's office for follow-up evaluation. Return to the emergency department for any new or worsening symptoms Is patient prescribed a controlled substance at d/c from ED?: No Referrals: Norma Laurent MD [Primary Care Provider] - 1-2 days Time of Disposition: 00:06
[2019-03-24 00:20] VITALS: BP 142/81; PULSE 89; RESP 16; TEMP 97.5
== END 2019-03-24 00:26 | disposition home or self-care (01) ==
LOC: EC 21:58
DX: R51 Headache (principal); R73.03 Prediabetes; J45.909 Unspecified asthma, uncomplicated; E78.5 Hyperlipidemia, unspecified; F41.9 Anxiety disorder, unspecified; F32.9 Major depressive disorder, single episode, unspecified; K21.9 Gastro-esophageal reflux disease without esophagitis; M79.7 Fibromyalgia; M19.90 Unspecified osteoarthritis, unspecified site; I10 Essential (primary) hypertension; G47.30 Sleep apnea, unspecified; H91.92 Unspecified hearing loss, left ear; Z79.82 Long term (current) use of aspirin; Z79.51 Long term (current) use of inhaled steroids; Z79.899 Other long term (current) drug therapy; Z86.69 Personal history of other diseases of the nervous system and sense organs; Z91.040 Latex allergy status; Z88.2 Allergy status to sulfonamides; Z99.89 Dependence on other enabling machines and devices; Z91.048 Other nonmedicinal substance allergy status
CPT/HCPCS: 99284; 96365; 96375 ×4; 36415; 80053; 85025; 70450; J1200; J1100; J2765; J1885; J3475

== ENCOUNTER → 2019-03-27 | Outpatient (CLI) | payer MEDICARE, BC ==
--- NOTE | 2019-03-27 14:47 | BD ---
EXAMINATION TYPE: Axial Bone Density DATE OF EXAM: 03/27/2019 COMPARISON: None, baseline CLINICAL HISTORY: Z 78.0 Height: 5 FT 1 IN Weight: 240 FRAX RISK QUESTIONS: Glucocorticoids (More than 3mos): YES (Ex: prednisone, prednisolone, methylprednisolone, dexamethasone, and hydrocortisone). History of Fracture in Adulthood: YES Secondary Osteoporosis: RISK FACTORS HISTORY OF: Surgery to Spine/Hip(right/left)/Wrist (right/left): ALESHA HIP REPLACMENT When: 2018 Active: YES Postmenopausal woman:TOTAL HYST AGE 49 Take estrogen and/or progesterone medications: HRT 50-53 NO LONGER TAKES Lost more than 2 inches in height since high school: YES Poor Health: FAIR MEDICATIONS: Additional Medications: ALBUTEROL, ASPIRIN, ATORVASTATIN, DULOXETINE, LISINOPRIL, METOPROLOL, OMEPRAZ OLE, QVAR, SERTRALINE, VIT D3 EXAM MEASUREMENTS: Bone mineral densitometry was performed using the [employer] System. Bone mineral density as measured about the Lumbar spine is: ----- L1-L4(G/cm2): 1.289 T Score Values are as follows: ----- L2: 0.4 ----- L3: 0.8 ----- L4: 2.4 ----- L1-L4: 0.9 BASELINE Bone mineral density about the L Wrist (g/cm2): 0.602 T Score values are as follows: -----Dist. R+U: -1.9 -----Prox. R+U: -0.4 -----Radius total: -1.2 BASELINE IMPRESSION: Osteopenia. Slight increased retrocardiac fracture. Rescanning is recommended 2-5 years. NOTE: T-SCORE=SD OF THE YOUNG ADULT MEAN.
== END | disposition home or self-care (01) ==
LOC: RADBDWWP 13:15
PROVIDERS: ATTEND Internal Medicine
DX: M85.80 Other specified disorders of bone density and structure, unspecified site (principal); Z78.0 Asymptomatic menopausal state
CPT/HCPCS: 77080

== ENCOUNTER → 2019-03-29 | Outpatient (CLI) | payer MEDICARE, BC ==
--- NOTE | 2019-03-31 14:14 | MM ---
Reason for exam: additional evaluation requested from prior study. Last mammogram was performed 2 years and 3 months ago. History: Patient is postmenopausal. Excisional biopsy of the left breast, 2018. Excisional biopsy of the right breast, 2018. Took estrogen beginning at age 49. Physical Findings: Nurse Summary: 1-2cm nodule in the right breast at 12 o'clock, a 0.5-2cm nodule in the left breast at 7-9 o'clock (nurse kp). MG 3D Diag Mammo W/Cad ALESHA Bilateral CC and MLO view(s) were taken. Prior study comparison: December 16, 2016, mammogram, performed at [facility]. There are scattered fibroglandular densities. No suspicious abnormality. No significant new findings when compared with previous films. These results were verbally communicated with the patient on 03/31/19. ASSESSMENT: Negative, BI-RAD 1 RECOMMENDATION: Ultrasound of both breasts in 1 year.
--- NOTE | 2019-03-31 14:16 | USB ---
Reason for exam: clinical finding. History: Patient is postmenopausal. Excisional biopsy of the left breast, 2018. Excisional biopsy of the right breast, 2018. Took estrogen beginning at age 49. US Breast Limited BILAT Right limited breast ultrasound including focal area of concern, retroareolar and axilla demonstrates a 2.3 x 1.1 x 2.1cm oval, solid lesion at 1 o'clock BB, lipoma appearance and a 2.8 x 1.0 x 2.7cm oval, solid lesion at 2 o'clock, lipoma appearance. Left limited breast ultrasound including focal area of concern, retroareolar and axilla demonstrates a 1.2 x 1.2 x 1.0cm oval, solid lesion at 8 o'clock BB, possible lymph node, no mammographic correlate. These results were verbally communicated with the patient 03/31/19. ASSESSMENT: Probably benign, BI-RAD 3 RECOMMENDATION: Ultrasound of the left breast in 6 months. Follow-up diagnostic mammogram of both breasts in 1 year.
== END | disposition home or self-care (01) ==
LOC: RADMAMWWP 12:52
PROVIDERS: ATTEND Internal Medicine
DX: N64.4 Mastodynia (principal)
CPT/HCPCS: 77066; 76642; G0279; 77062

== ENCOUNTER → 2019-05-08 | Outpatient (CLI) | payer MEDICARE, BC ==
--- NOTE | 2019-05-09 07:45 | US ---
EXAMINATION TYPE: US axilla RT DATE OF EXAM: 05/08/2019 COMPARISON: NONE CLINICAL HISTORY: M79.629 PAIN UPPER ARM. Bilateral axilla per order. Patient states she feels two p alpable areas in left inferior axilla. Right axilla scanned. No masses or lesions visualized. No prominent lymph nodes seen. Left axilla scanned. Oval echogenic area visualized in axilla- 1.3 x 1.3 x 0.7 cm. Palpable area s canned. Two superficial lesions visualized. 1- 2.3 x 2.9 x 1.6 cm, nonvascular. 2- 0.4 x 0.5 x 0. 4 cm, nonvascular, echogenic. IMPRESSION: 1. Left axillary lymphadenopathy with the largest lymph node measuring 2.3 x 2.9 x 1.6 cm which is pa thologic. Correlate with surgical consultation for tissue sampling.
== END | disposition home or self-care (01) ==
LOC: RADUSWWP 16:47
PROVIDERS: ATTEND Internal Medicine
DX: R59.0 Localized enlarged lymph nodes (principal)

== ENCOUNTER → 2019-07-24 | Outpatient (CLI) | payer MEDICARE, BC ==
[2019-07-24 15:01] LABS: Basophils # (A) 0.1 k/uL (0-0.2); Basophils % (A) 1 %; Eosinophils # (A) 0.2 k/uL (0-0.7); Eosinophils % (A) 2 %; HCT 38.1 % (34.0-46.0); Hypochromasia Slight; Lymphocytes # (A) 1.4 k/uL (1.0-4.8); Lymphocytes % (A) 14 %; MCH 27.1 pg (25.0-35.0); MCHC 31.5 g/dL (31.0-37.0); MCV 86.1 fL (80.0-100.0); Mean Platelet Volume 8.3; Monocytes # (A) 0.4 k/uL (0-1.0); Monocytes % (A) 4 %; Neutrophils # (A) 7.9 k/uL (1.3-7.7); Neutrophils % (A) 78 %; Platelet Count 277 k/uL (150-450); RBC 4.42 m/uL (3.80-5.40); RDW 14.2 % (11.5-15.5); WBC 10.2 k/uL (3.8-10.6)
[2019-07-24 15:09] LABS: Potassium 4.2 mmol/L (3.5-5.1)
[2019-07-24 15:23] LABS: Partial Thromboplastin Time 24.3 sec (22.0-30.0); Prothrombin Time 10.5 sec (9.0-12.0)
[2019-07-24 15:28] LABS: Appearance,Urine Cloudy (Clear); Bacteria,Urine Rare /hpf; Bilirubin,Urine Negative (Negative); Blood,Urine Negative (Negative); Color,Urine Yellow; Glucose,Urine (UA) Negative (Negative); Hyaline Casts,Urine 1 /lpf (0-2); Ketones,Urine Trace (Negative); Leukocyte Esterase,Urine Moderate (Negative); Mucus,Urine Rare /hpf; Nitrite,Urine Negative (Negative); Protein,Urine 1+ (Negative); RBC,Urine 1 /hpf (0-5); Specific Gravity,Urine 1.024 (1.001-1.035); Squamous Epithelial Cell,Urine 4 /hpf (0-4); WBC,Urine 61 /hpf (0-5)
--- NOTE | 2019-07-24 16:44 | XR ---
EXAMINATION TYPE: XR chest 2V DATE OF EXAM: 07/24/2019 COMPARISON: Chest x-ray January 04, 2019. CTA chest July 07, 2018. HISTORY: Presurgical study. TECHNIQUE: Frontal and lateral views of the chest are obtained. FINDINGS: Slightly suboptimal due to patient's large body habitus. There is no focal air space opaci ty, pleural effusion, or pneumothorax seen. The cardiac silhouette size is stable and within normal limits. The osseous structures are intact. IMPRESSION: No acute cardiopulmonary process.
== END | disposition home or self-care (01) ==
LOC: LABWHC1 14:02
PROVIDERS: ATTEND Orthopaedic Surgery Orthopaedic Surgery of the Spine
DX: Z01.818 Encounter for other preprocedural examination (principal); Z01.812 Encounter for preprocedural laboratory examination; Z79.01 Long term (current) use of anticoagulants
CPT/HCPCS: 36415; 71046; 80048; 81001; 85025; 85610; 85730; 86850; 86900; 86901; 87070

== ENCOUNTER → 2019-07-31 | Outpatient (CLI) | payer MEDICARE, BC ==
[~2019-07-31] MED LIST changes: -DEXAMETHASONE SOD PHOSPHATE 10 MG/ML 1 ML VIAL IV ONE; -HEPARIN SODIUM,PORCINE 5,000 UNIT/ML 1 ML VIAL SQ ONE; -LACTATED RINGERS 1,000 ML IV SCH; -LIDOCAINE 1% 20 ML VIAL (10MG/ML) FOR IV START INTRADERMA PRN; -MIDAZOLAM 2 MG/2 ML VIAL IV PRN; -ONDANSETRON 4 MG/2 ML VIAL IVP ONE; -Pre Op ABX Message 1 EACH MISC MISCELLANE ONE; +REGADENOSON 0.4 MG/5 ML SYRINGE IV ONE
--- NOTE | 2019-07-31 13:31 | NM ---
EXAMINATION TYPE: NM stress lexiscan cardiolite DATE OF EXAM: 07/31/2019 COMPARISON: NONE HISTORY: Abnormal EKG TECHNIQUE: After the intravenous administration of 9.6 mCi Tc 99m Sestamibi - Cardiolite resting SPE CT images acquired 45 minutes post injection. The patient received 0.4mg Lexiscan, 27.7 mCi Tc 99m Sestamibi - Stress images obtained [address] injection FINDINGS: There is a fixed defect along the anterior wall the myocardium. Resting ejection fraction 4 6%. Reduced wall motion activity involving the anterior wall noted. IMPRESSION: 1. Findings are suggestive of fixed defect involving the anterior wall the myocardium correlate for p revious myocardial infarction. 2. Ejection fraction 46% correlate clinically.
--- NOTE | 2019-08-01 10:31 | EST ---
EXERCISE STRESS AGE: 64 SEX: F HT: 61" WT: 250 PROTOCOL: Lexiscan Cardiolite Stress Test HEART RATE REST: 78 BLOOD PRESSURE REST: 144/90 MAXIMUM HEART RATE ACHIEVED: 90 MAXIMUM BLOOD PRESSURE: 158/68 100% MPHR: 155 INDICATIONS: LBBB CLINICAL INFORMATION: Baseline EKG revealed a sinus mechanism with IVCD of LBBB type. With Lexiscan administration, heart rate changed from 78 to 90 beats per minute blood pressure changed from 144/90 to 158/68. EKG remained inconclusive. Patient did not have any significant symptoms. By EKG criteria, this is an inconclusive Lexiscan stress test because of underlying IVCD with sinus mechanism. The nuclear scan results which are more pertinent will be reported by the radiologist. MMODL / IJN: [id number] /
== END | disposition home or self-care (01) ==
LOC: RADNMMAIN 08:17
PROVIDERS: ATTEND Internal Medicine
DX: R94.31 Abnormal electrocardiogram [ECG] [EKG] (principal)
CPT/HCPCS: 93017; 78452; A9500; J2785

== ENCOUNTER → 2019-08-02 | Outpatient (CLI) | payer MEDICARE, BC ==
[2019-08-02 17:37] LABS: HCT 40.3 % (34.0-46.0); HGB 12.9 gm/dL (11.4-16.0); MCH 27.3 pg (25.0-35.0); MCHC 31.9 g/dL (31.0-37.0); MCV 85.7 fL (80.0-100.0); Mean Platelet Volume 8.1; Platelet Count 253 k/uL (150-450); WBC 9.7 k/uL (3.8-10.6)
[2019-08-02 17:50] LABS: Magnesium 2.2 mg/dL (1.6-2.3); Potassium 3.8 mmol/L (3.5-5.1)
== END | disposition home or self-care (01) ==
LOC: LABPAT 16:28
PROVIDERS: ATTEND Internal Medicine Interventional Cardiology
DX: Z01.812 Encounter for preprocedural laboratory examination (principal); I44.7 Left bundle-branch block, unspecified; R94.39 Abnormal result of other cardiovascular function study
CPT/HCPCS: 80051; 82565; 82947; 83735; 84520; 85027

== ENCOUNTER → 2019-08-10 | Day surgery (SDC) | payer MEDICARE, BC ==
[2019-08-08 16:06] VITALS: BMI 46.8
[~2019-08-10] MED LIST changes: +ALPRAZolam 0.25 MG TAB PO PRN; +ALPRAZolam 0.5 MG TAB PO PRN; +ASPIRIN 325 MG TAB PO STA; +ATORVASTATIN 80 MG TAB PO STA; +HEPARIN SODIUM 1,000 UN/ML (10ML VL) IV ONE; +HYDROcodone/APAP 5-325MG 1 EACH TAB PO PRN; +IOPAMIDOL-370 100ML BTL INJ ONE; +LIDOCAINE 1% INJ 10MG/ML (20 ML MDV) ONE; +LIDOCAINE 1% INJ 10MG/ML (20 ML MDV) SQ ONE; +MIDAZOLAM 2 MG/2 ML VIAL IV ONE; +NITROGLYCERIN SL TABS 0.4 MG TAB SUBLINGUAL PRN; -REGADENOSON 0.4 MG/5 ML SYRINGE IV ONE; +SODIUM CHLORIDE 0.9% 1,000 ML IV SCH; +SODIUM CHLORIDE 0.9% 1,000 ML in EMPTY BAG 1 BAG IV ONE; +VERAPAMIL 2.5 MG/ML 2 ML AMP ONE
[2019-08-10 08:32] VITALS: RESP 16; TEMP 99.2
[2019-08-10] MEDS: VERAPAMIL SYRINGE (5 MG/10 ML) INTRAARTER ONE ×2 (11:33→11:47)
--- NOTE | 2019-08-10 14:41 | CC ---
CARDIAC CATHETERIZATION REPORT DATE OF SERVICE: 08/10/2019 PROCEDURE: Left heart catheterization and coronary angiography. PERFORMED BY: Dr. Emma Boyd. Moderate conscious sedation time was 18 minutes. The patient was administered Versed. Her oxygen saturation, hemodynamics, and EKG were monitored closely. CLINICAL INFORMATION: Mrs. Rhina Rodriguez is a 64-year-old lady with a history of hypertension and hyperlipidemia with increasing symptoms of shortness of breath lately. She had a stress test, which revealed a possible anterior NV with ischemia and hypokinesia. She was going for elective lumbar fusion surgery by Dr. Aftab Weinberg. I optimized her medical therapy and recommended coronary angiography in view of the abnormal stress test. Procedure, risks, benefits, options, and rationale were explained to the patient and her . They understood all details and wished to proceed with the procedure. PROCEDURE NOTE: Under local anesthesia and strict aseptic precautions, a 6-Luxembourgish introducer was placed in the right radial artery. Using a JL3.5 and JR4.0 catheters, I performed coronary angiography and the same right Azul catheter was used to check LV pressure. LV-gram was not performed. The patient tolerated the procedure well. The sheath was taken out and TR band applied as per protocol with saturation of the fingers of the right hand of more than 94%. CARDIAC CATHETERIZATION FINDINGS: The left ventricular end-diastolic pressure was about 7 to 8 mmHg without any gradient across the aortic valve. CORONARY ANGIOGRAPHY FINDINGS: RIGHT CORONARY ARTERY: Large dominant vessel. No significant disease, distally bifurcates into PDA and PLV, has minor irregularities. LEFT MAIN CORONARY ARTERY: Short patent disease-free vessel that bifurcates into LAD and circumflex. No significant disease in the left main coronary artery. LEFT ANTERIOR DESCENDING CORONARY ARTERY: This is a good caliber, good distribution vessel that extends along the anterior wall, has minor irregularities, no significant disease, gives off septal and diagonal branches and runs all the way to the apex to supply the inferior apical portion of the left ventricle as well. LEFT POSTERIOR CIRCUMFLEX CORONARY ARTERY: Technically almost looks like a co-dominant vessel, gives off a large obtuse marginal and then a distal large posterolateral branch, which is tortuous, has no significant disease, has minor irregularities. Circumflex, therefore, is probably a non-dominant vessel, yet is of good caliber and distribution without significant disease. Left ventriculogram was not performed. FINAL IMPRESSION: This patient has normal filling pressures. No gradient across the aortic valve. A right dominant system with large circumflex and no significant disease in any of her three coronary arteries. RECOMMENDATIONS: Findings were discussed with the patient and her . She probably has a combination of a cardiomyopathy and left bundle branch block pattern giving the appearance on the stress test and echo. We will pursue medical therapy with risk factor modification and she will be discharged later on today if she remains stable. JENNIFER / ALESSANDRON: [id number] /
[2019-08-10 16:06] VITALS: BP 140/69; PULSE 69
== END ==
LOC: CATHCVL 07:58
PROVIDERS: ATTEND Internal Medicine Interventional Cardiology
DX: I20.0 Unstable angina (principal); I42.9 Cardiomyopathy, unspecified; I44.7 Left bundle-branch block, unspecified; I10 Essential (primary) hypertension; E78.5 Hyperlipidemia, unspecified; E78.00 Pure hypercholesterolemia, unspecified; E66.9 Obesity, unspecified; Z79.82 Long term (current) use of aspirin; Z79.899 Other long term (current) drug therapy; Z88.2 Allergy status to sulfonamides; Z91.048 Other nonmedicinal substance allergy status; Z82.49 Family history of ischemic heart disease and other diseases of the circulatory system; Z68.42 Body mass index [BMI] 45.0-49.9, adult
CPT/HCPCS: 93458; C1769; C1894; J2250; J2001; J1644; Q9967

== ENCOUNTER 2019-08-23 07:26 | Inpatient (IN) | payer MEDICARE, BC ==
[2019-08-22 09:22] VITALS: BMI 46.8
[~2019-08-23 07:26] MED LIST changes: -ALPRAZolam 0.25 MG TAB PO PRN; -ALPRAZolam 0.5 MG TAB PO PRN; -ASPIRIN 325 MG TAB PO STA; -ATORVASTATIN 80 MG TAB PO STA; +BACITRACIN 50,000 UNIT, POLYMYXIN B 500,000 UNIT in SODIUM CHLORIDE 0.9% IRRIGATIO 1,00... IRRIGATION ONE; +DEXAMETHASONE SOD PHOSPHATE 10 MG/ML 1 ML VIAL IV ONE; -HEPARIN SODIUM 1,000 UN/ML (10ML VL) IV ONE; -HYDROcodone/APAP 5-325MG 1 EACH TAB PO PRN; -IOPAMIDOL-370 100ML BTL INJ ONE; +LIDOCAINE 1% 20 ML VIAL (10MG/ML) FOR IV START INTRADERMA PRN; -LIDOCAINE 1% INJ 10MG/ML (20 ML MDV) ONE; -LIDOCAINE 1% INJ 10MG/ML (20 ML MDV) SQ ONE; -MIDAZOLAM 2 MG/2 ML VIAL IV ONE; +MIDAZOLAM 2 MG/2 ML VIAL IV PRN; -NITROGLYCERIN SL TABS 0.4 MG TAB SUBLINGUAL PRN; +ONDANSETRON 4 MG/2 ML VIAL IVP ONE; +SCOPOLAMINE 1.5MG/72HR PATCH TRANSDERM ONE; -SODIUM CHLORIDE 0.9% 1,000 ML IV SCH; -SODIUM CHLORIDE 0.9% 1,000 ML in EMPTY BAG 1 BAG IV ONE; -VERAPAMIL 2.5 MG/ML 2 ML AMP ONE
[2019-08-23] MEDS: LACTATED RINGERS 1,000 ML IV SCH ×2 (08:19→21:33)
[2019-08-23] MEDS ORDERED: PROPOFOL 10 MG/ML 20 ML VIAL IV ONE (10:20)
[2019-08-23] MEDS ORDERED: SUCCINYLCHOLINE CHLORIDE 100 MG/5 ML SYR IV ONE (10:20)
[2019-08-23] MEDS ORDERED: KETAMINE 10 MG/ML 20 ML VIAL ONE (10:20)
[2019-08-23] MEDS ORDERED: LIDOCAINE 1% INJ 10MG/ML (20 ML MDV) ONE (10:20)
[2019-08-23] MEDS ORDERED: ROCURONIUM BROMIDE 10 MG/ML 5 ML VIAL IV ONE (10:20)
[2019-08-23] MEDS ORDERED: PHENYLEPHRINE-0.9% NACL SYG 1 MG/10 ML SYRINGE ONE (10:20)
[2019-08-23] MEDS ORDERED: fentaNYL (PF) 50 MCG/ML 2 ML AMP ONE (10:20)
[2019-08-23] MEDS ORDERED: MIDAZOLAM 2 MG/2 ML VIAL ONE (10:20)
[2019-08-23] MEDS ORDERED: ePHEDrine SULFATE/0.9% NACL/PF 50 MG/5 ML SYRINGE IV ONE (10:20)
[2019-08-23] MEDS ORDERED: LIDOCAINE 0.5%-EPI 1:200,000 50 ML VIAL SQ ONE (10:25)
[2019-08-23] MEDS ORDERED: GELATIN SPONGE,ABSORB (LARGE) 1 EACH SPONGE TOPICAL ONE (10:25)
[2019-08-23] MEDS ORDERED: THROMBIN (BOVINE) 5,000 UNIT VIAL TOPICAL ONE (10:25)
[2019-08-23] MEDS ORDERED: LACTATED RINGERS 1,000 ML IV ONE (12:00)
[2019-08-23] MEDS ORDERED: BENZOCAINE/MENTHOL LOZENG 1 EACH LOZENGE MUCOUS MEM PRN (13:48)
[2019-08-23] MEDS ORDERED: HYDROcodone/APAP 5-325MG 1 EACH TAB PO PRN ×2 (13:48→13:51)
[2019-08-23] MEDS ORDERED: MAGNESIUM HYDROXIDE 2,400 MG/10 ML CUP PO PRN (13:48)
[2019-08-23] MEDS ORDERED: HYDROmorphone 0.5 MG/0.5 ML SYRINGE IVP PRN (13:48)
[2019-08-23] MEDS ORDERED: ONDANSETRON 4 MG/2 ML VIAL IVP PRN (13:48)
[2019-08-23] MEDS ORDERED: ACETAMINOPHEN TAB 325 MG TAB PO PRN (13:51)
[2019-08-23] MEDS ORDERED: ALBUTEROL NEBULIZED 2.5 MG/3 ML INHALATION PRN (13:51)
[2019-08-23] MEDS ORDERED: GABAPENTIN 300 MG CAP PO PRN (13:51)
[2019-08-23] MEDS ORDERED: NITROGLYCERIN SL TABS 0.4 MG TAB SUBLINGUAL PRN (13:51)
--- NOTE | 2019-08-23 13:55 | FL ---
Fluoroscopy HISTORY: Lumbar fusion 34 seconds fluoroscopy time supplied to the referring clinician. 5 intraoperative C-arm images docum ent the procedure. See dictated report from orthopedic surgery.
--- NOTE | 2019-08-23 13:56 | XR ---
Limited lumbar spine HISTORY: Lumbar fusion 5 intraoperative C-arm images document the procedure
--- NOTE | 2019-08-23 14:02 | P.OP ---
Date of Procedure: 08/23/19 Preoperative Diagnosis: Spondylolisthesis L4 5, spinal stenosis L4 5, lower extremity radiculopathy, degenerative disc disease, low back pain, Postoperative Diagnosis: Same Anesthesia: GETA Pathology: none sent Condition: stable Disposition: PACU Description of Procedure: DESCRIPTION OF PROCEDURE(S): BRIEF OPERATIVE NOTE Preoperative Diagnosis: Postoperative Diagnosis: Procedure: Laminectomy and decompression L4 5 Minimally invasive Posterior lateral decompression and facet fusion L4 5 Minimally invasive Transforaminal lumbar interbody fusion for a 360 fusion L4 5 Discectomy for decompression L4 5 Placement of interbody graft L4 5 Harvesting Local autogenous bone grafting L4 5 Use of computer navigation guidance for placement of spinal pedicle screws L4 and L5 Harvesting of bone marrow aspirate of the pedicle vertebral body for Use of Cell Saver Use of bone graft extenders Surgeon: Dr. Weinberg Signal Intelligence/Electronic Warfare: Erick BASHIR who is present throughout the entire the case persistence during positioning, dissection, exposure, visualization, and all crucial elements of the case as well as closure. Anesthesia: General anesthesia per Dr. Chowdary Estimated blood loss: Approximately 200 mL Complications: None apparent Components implanted: Minimally invasive Buckland pedicle screw system from [facility], Baring titanium interbody cage, bio for bone graft supplement along with DBX bone fibers to supplemental local autogenous bone graft and bone marrow aspirate Disposition: To recovery room in good stable condition. OPERATIVE INDICATIONS The patient has had long-standing issues in their lower back and lower extremities. The patient has been having worsening pain despite aggressive conservative care. She is found have spondylolisthesis with spinal stenosis and degenerative disc disease which correlated well with her low back and lower extremity symptoms. She is having worsening of her symptoms and significant debility. The patient has been through conservative treatment. We discussed various treatment options including surgery, and the patient wishes to proceed with surgery We discussed the risk, patient's alternatives and benefits of surgery including but not limited to, risk of bleeding risk of infection, risk of need for further surgery, risk of decreased, loss of motion, muscle function, malunion nonunion, hardware failure, nerve damage, paralysis, heart attack, blindness and . OPERATIVE SUMMARY After discussing all the risks, patient alternatives and benefits at length, the patient elected to proceed with surgical intervention, signed informed consent, and presented for their procedure. The patient was seen and examined in the preoperative holding area and the surgical site was marked. The patient was given antibiotics and brought to the operating room. The patient was sedated and intubated by anesthesia in standard fashion. The patient was positioned on to the operating room table in a prone position on the appropriate frame which was well-padded and well molded. We were careful to pad any bony prominences and pressure points. We were careful to maintain the patient's cervical spine and good neutral alignment and position throughout. The patient was prepped and draped in a normal standard fashion. An appropriate timeout and keystone protocol performed. We were able to proceed with the surgery. The local wound area was infiltrated with local anesthetic. I was able to isolate area over the right iliac crest and through small stab incisions placed bony anchor pins in order to appropriately utilizing the computer navigation device for placement of hardware. I was able utilize the computer navigation ChemDAQ device as well as C-arm guidance to establish appropriate position over the pedicles bilaterally at the appropriate levels at L4 and L5. With the appropriate levels confirmed was able to make small stab incisions over the appropriate pedicle sites bilaterally. Utilizing C-arm in his house able to establish a Jamshidi needle over the lateral aspect of the pedicle and advanced the trocar into the pedicle being careful not to breech superiorly inferiorly medially or laterally. Position was confirmed regularly with AP and lateral images on computer navigation and C-arm. I was able to establish the trocar into the pedicle appropriately into the posterior aspect of the vertebral body bilaterally at the appropriate levels At L4 and L5. This was done at each of the pedicle positions and each of the vertebrae at L4 and L5. I was able place the guidewire into the trocar and into the vertebral body appropriately under computer navigation device as well as C- arm guidance. Dissection was taken down over the wire to the appropriate starting position for the screw placed. The appropriate length screw was chosen, threaded over the guidewire and screwed appropriately into the pedicle and vertebral body under C-arm guidance in excellent alignment and position with good bony purchase. This is done at each of the screw sites at the appropriate levelsAt L4 and L5. With the screws in good alignment and good position with good bony fixation was able to remove the bony anchor pins at the right iliac crest. With the screws intact I extended the incision to connect the screw hole sites on the most symptomatic side On the left. I dissected down to establish access over the pars and lamina to the base of the spinous process. I was able to expose the facet joint. The capsule the facet was taken down and showed some severe facet arthrosis at the joint An significant osteophytes. I was able to use a combination of curettes and Kerrison rongeurs and a high-speed drill to take down the facet joint and do a facetectomy. Partial laminectomy was also performed. I was able get excellent foraminal decompression and central decompression with undermining across midline to perform a laminectomy centrally and contralaterally. As able get good central decompression. The ligamentum flavum was taken down to further decompress centrally and at bilateral neural foramen. I was able to expose the disc space and visualize the traversing nerve root. Note was made of some disc protrusion at the level causing further compression of the nerve root. I was able to establish a annulotomy at the appropriate level protecting soft tissue and neural structures. Note was made of some disc desiccation at the disc. I performed a complete discectomy with accommodation of curettes and rasps and scrapers. I was able get good endplate preparation at the disc space. I sized for the appropriate size interbody spacer protecting the soft tissue and neural structures. The wound was copiously irrigated and suctioned dry. There is no evidence of any dural tear or leak. I was able to pack the disc space with local autogenous bone graft as well as a small amount of bone graft which was also placed into the interbody cage itself. Protecting the soft tissue structures and neural structures I was able place the interbody cage in good alignment and good position with good fit and fill at the interbody space Of L4 5. His issues was confirmed with C-arm guidance. Good hemostasis maintained. There is no evidence of any dural tear or leak. The wound was irrigated and suctioned dry. With the hardware intact, intraoperative C-arm imaging was again taken which showed good alignment and position of the hardware at the appropriate levels Of L4 5. We were then able to measure, contour and place the rods and appropriate hardware bilaterally. I was able to place capcrews, tighten them down, and torque them with the torque screwdriver appropriately. With this intact I was able to place the local autogenous bone graft with additional bone graft enhancer as necessary into the posterior lateral gutters over the decorticated transverse processes. The remainder of the bone graft was placed over the facet joint on the contralateral side after taking down the facet joint capsule. With the bone graft intact, a stable construct, and good decompression at the appropriate levels, we were able to proceed with closure. Good hemostasis was maintained. There is no evidence of dural tear or leak. The fascia was closed for a watertight closure. he subcuticular tissue was closed with absorbable suture. The wound was cleaned and dried and dressed with the appropriate dressing. The drapes were broken down. The patient was gently rolled back onto their hospital bed being careful to maintain their cervical spine and good neutral alignment and position. They were woken up by anesthesia, extubated, and brought to the recovery room in good stable condition. The patient will be admitted to the hospital for appropriate postoperative care, medical management and monitoring. We will continue to follow them closely about the postoperative course.
[2019-08-23] MEDS: HYDROmorphone 0.5 MG/0.5 ML SYRINGE IVP PRN ×2 (14:18→14:26)
[2019-08-23] MEDS: METOPROLOL TARTRATE 50 MG TAB PO SCH ×2 (17:23→23:44)
[2019-08-23] MEDS: HYDROmorphone 1 MG/ML 1 ML SYRINGE IVP PRN ×2 (17:31→20:48)
[2019-08-23] MEDS: SODIUM CHLORIDE 0.9% 1,000 ML IV SCH ×2 (17:58→23:45)
[2019-08-23] MEDS: FLUTICASONE 110 MCG INHALER INHALATION SCH (18:58)
[2019-08-23] MEDS: HYDROcodone/APAP 5-325MG 1 EACH TAB PO PRN (19:32)
[2019-08-23] MEDS: LISINOPRIL 20 MG TAB PO SCH (20:57)
--- NOTE | 2019-08-23 21:41 | P.CONS ---
History of Present Illness - Reason for Consult Consult date: 08/23/19 Medical management Requesting physician: Shannan Weinberg - Chief Complaint Lumbar surgery - History of Present Illness History of present complaint: This is a very pleasant 64-year-old patient of Dr. Erica Laurent. Chronic stable medical conditions include diabetes, fibromyalgia, GERD, hyperlipidemia, hypertension, obstructive sleep apnea, anxiety, depression. Patient recently underwent a cardiac catheterization with Dr. KIRSTIN Boyd. Not found to have any coronary disease. Patient today underwent lumbar surgery. Postprocedure pain is controlled. Laying in bed. No nausea vomiting. Did tolerate a small supper. No fever no chills. . Review of systems: GEN.: Tired EYES: None HEENT: None NECK: None RESPIRATORY: None CARDIOVASCULAR: As above GASTROINTESTINAL: None GENITOURINARY: None MUSCULOSKELETAL: Pain in the lower back and other joints LYMPHATICS: None HEMATOLOGICAL: None PSYCHIATRY: None NEUROLOGICAL: None Past medical history: Moderate persistent asthma, chronic fibromyalgia, GERD, hyperlipidemia, hypertension, obstructive sleep apnea uses CPAP machine, anxiety depression, obesity. L4-L5 spinal stenosis and spondylolisthesis with radiculopathy Social history: . No smoking. Alcohol rarely. Physical examination: VITAL SIGNS: 97.8, 81, 18, 109/69, 93% GENERAL: BMI 46.7, laying in bed, comfortable EYES: Pupils equal. Conjunctiva normal. HEENT: External appearance of nose and ears normal, oral cavity grossly normal decreased hearing in the left ear. NECK: JVD not raised; masses not palpable. HEART: First and second heart sounds are normal; no edema. LUNGS: Respiratory rate normal; clear to auscultation. ABDOMEN: Soft, nontender, liver spleen not palpable, no masses palpable. PSYCH: Alert and oriented x3; mood and affect normal. NEUROLOGICAL: Cranial nerves grossly intact; no facial asymmetry, power and sensation grossly intact. LYMPHATICS: No lymph nodes palpable in the axilla and neck MUSCULOSKELETAL: Dressing over the lumbar area Investigations, reviewed in the clinical context: Labs from August 02: White count 9.7 hemoglobin 12.9 platelets 253 potassium 3.8 creatinine 0.9 to Assessment: -Lumbar laminectomy and decompression for L4-L5 spinal stenosis and spondylolisthesis with radiculopathy -Moderate persistent asthma -Chronic fibromyalgia -GERD -Hyperlipidemia -Essential hypertension -Obstructive sleep apnea uses CPAP machine -Anxiety depression otherwise specified -Morbid obesity BMI 43 -Recent cardiac catheterization showing no significant coronary artery disease Plan: Patient is getting IV fluids. Compression boots. Pain control in place. Home medications resumed. Diet advance as tolerated. Care was discussed with the patient. Thank you Dr. Weinberg Past Medical History Past Medical History: Asthma, Diabetes Mellitus, Eye Disorder, Fibromyalgia, GERD/Reflux, Hearing Disorder / Deafness, Hyperlipidemia, Hypertension, Myocardial Infarction ([place]), Musculoskeletal Disorder, Osteoarthritis (OA), Respiratory Disorder, Sleep Apnea/CPAP/BIPAP Additional Past Medical History / Comment(s): scoliosis, hard of hearing in left ear, DIABETIC-DIET CONTROLLED , NO C PAP USED ,CATARACTS,LEFT KIDNEY REMOVED, Last Myocardial Infarction Date:: UNKNOWN DATE - PER TESTS", History of Any Multi-Drug Resistant Organisms: None Reported Past Surgical History: Bariatric Surgery, Bladder Surgery, Heart Catheterization, Hysterectomy, Joint Replacement, Orthopedic Surgery Additional Past Surgical History / Comment(s): 2018 bilat hip replacements RIGHT AND LEFT FOOT SURGERY, LAPAROTOMY FIBROID TUMOR REMOVED. 2016 bariatric sleeve. 2007 left kidney and left ureter removed. abdominal exploratory surgery x2. bladder surgery x2. 2009 large cyst removed from left abdominal area. 2004 complete hysterectomy. bones in the toes removed from both feet in the . D & C. 2019 cataract surgery/lens implants. 2018 bilat breast lumpectomy-benign Past Anesthesia/Blood Transfusion Reactions: Previous Problems w/ Anesthesia, Postoperative Nausea & Vomiting (PONV) Additional Past Anesthesia/Blood Transfusion Reaction / Comm: 1 time patient had issue with PONV with general anesthesia Past Psychological History: Anxiety, Depression Additional Psychological History / Comment(s): PANIC ATTACK X1 Smoking Status: Never smoker Past Alcohol Use History: Rare Past Drug Use History: None Reported - Past Family History Father Family Medical History: Cancer, Myocardial Infarction ([place]), Prostate Disorder Additional Family Medical History / Comment(s): Prostate cancer. Mother Family Medical History: Diabetes Mellitus, Hypertension, Myocardial Infarction ([place]) Additional Family Medical History / Comment(s): Heart disease, quadruple bypass. 7 or 8 of mother's siblings had heart disease. Medications and Allergies Home Medications Medication Instructions Recorded Confirmed Type Albuterol Inhaler [Ventolin Hfa 2 puff INHALATION RT-Q6H PRN 01/28/18 08/23/19 History Inhaler] Atorvastatin [Lipitor] 10 mg PO DAILY 01/28/18 08/23/19 History Beclomethasone Dip 80 Mcg/Puff 2 puff INHALATION RT-BID 01/28/18 08/23/19 History [Qvar 80 mcg] DULoxetine HCL [Cymbalta] 60 mg PO DAILY 01/28/18 08/23/19 History Omeprazole 20 mg PO QAM 01/28/18 08/23/19 History Sertraline [Zoloft] 25 mg PO DAILY 01/28/18 08/23/19 History Cholecalciferol (Vitamin D3) 2,000 unit PO QAM 02/11/18 08/23/19 History [Vitamin D3] Aspirin EC [Ecotrin Low Dose] 81 mg PO DAILY 01/04/19 08/23/19 History Lisinopril [Zestril] 20 mg PO BID 01/04/19 08/23/19 History Acetaminophen Tab [Tylenol Tab] 650 mg PO TID PRN 03/23/19 08/23/19 History HYDROcodone/APAP 5-325MG [Jadwin 1 tab PO BID PRN 03/23/19 08/23/19 History 5-325] Metoprolol Tartrate [Lopressor] 50 mg PO TID 03/23/19 08/23/19 History Gabapentin [Neurontin] 450 - 900 mg PO DAILY PRN 07/27/19 08/23/19 History Nitroglycerin Sl Tabs [Nitrostat] 0.4 mg SUBLINGUAL Q5M PRN 07/27/19 08/23/19 History Furosemide [Lasix] 20 mg PO DAILY 08/08/19 08/23/19 History Allergies Allergy/AdvReac Type Severity Reaction Status Date / Time adhesive Allergy Itching, Verified 08/23/19 08:01 takes her skin off Fish Containing Products Allergy Swelling Verified 08/23/19 08:01 [Fish] in throat latex Allergy Rash/Hives Verified 08/23/19 08:01 Sulfa (Sulfonamide Allergy Anaphylaxis Verified 08/23/19 08:01 Antibiotics) walnut Allergy Swelling Verified 08/23/19 08:01 scents Allergy Dyspnea Uncoded 08/23/19 08:01 Physical Exam Vitals: Vital Signs Temp Pulse Pulse Resp BP Pulse Ox 08/23/19 18:50 97.8 F 81 18 109/69 93 L 08/23/19 17:28 75 93 L 02/26/20 17:26 72 146/61 92 L 08/23/19 17:13 68 136/95 08/23/19 16:41 74 138/64 97 08/23/19 16:11 78 125/64 96 08/23/19 15:56 78 144/83 96 08/23/19 15:55 16 08/23/19 15:41 74 126/78 95 08/23/19 15:27 97.4 F L 76 16 138/62 95 08/23/19 14:56 72 16 133/60 95 08/23/19 14:41 75 16 126/59 96 08/23/19 14:26 71 16 141/64 100 08/23/19 14:11 70 18 144/67 100 08/23/19 14:05 100 08/23/19 13:56 97.0 F L 73 16 120/77 99 08/23/19 07:50 99.2 F 16 150/70 97 Intake and Output 08/23/19 08/23/19 08/23/19 06:59 14:59 22:59 Intake Total 1301 Output Total 280 Balance 1021 Intake: IV 1301 Output: Urine 205 Estimated Blood Loss 75 Other: Voiding Method Indwelling Catheter Weight 112 kg 112 kg
[2019-08-24] MEDS: HYDROmorphone 1 MG/ML 1 ML SYRINGE IVP PRN ×4 (00:57→20:39)
[2019-08-24] MEDS: METOPROLOL TARTRATE 50 MG TAB PO SCH ×4 (01:08→22:02)
[2019-08-24] MEDS: HYDROcodone/APAP 5-325MG 1 EACH TAB PO PRN ×4 (02:35→19:37)
[2019-08-24] MEDS ORDERED: HYDROmorphone 1 MG/ML 1 ML SYRINGE ONE (05:14)
[2019-08-24 06:18] LABS: Basophils % (A) 0 %; Eosinophils # (A) 0.1 k/uL (0-0.7); Eosinophils % (A) 1 %; HCT 36.1 % (34.0-46.0); HGB 11.3 gm/dL (11.4-16.0); Hypochromasia Slight; Lymphocytes # (A) 0.8 k/uL (1.0-4.8); Lymphocytes % (A) 6 %; MCH 26.9 pg (25.0-35.0); MCHC 31.4 g/dL (31.0-37.0); MCV 85.7 fL (80.0-100.0); Mean Platelet Volume 8.4; Monocytes # (A) 0.5 k/uL (0-1.0); Monocytes % (A) 4 %; Neutrophils # (A) 11.6 k/uL (1.3-7.7); Neutrophils % (A) 88 %; Platelet Count 239 k/uL (150-450); RBC 4.21 m/uL (3.80-5.40); RDW 13.8 % (11.5-15.5); WBC 13.2 k/uL (3.8-10.6)
[2019-08-24 06:26] LABS: Calcium 8.4 mg/dL (8.4-10.2); Potassium 4.3 mmol/L (3.5-5.1)
[2019-08-24] MEDS: CHOLECALCIFEROL 1,000 UNIT TAB PO SCH (08:32)
[2019-08-24] MEDS: ATORVASTATIN 10 MG TAB PO SCH (08:32)
[2019-08-24] MEDS: PANTOPRAZOLE 40 MG TABLET PO SCH (08:33)
[2019-08-24] MEDS: DULoxetine HCL 60 MG CAPSULE.DR PO SCH (08:33)
[2019-08-24] MEDS: FUROSEMIDE 20 MG TAB PO SCH (08:33)
[2019-08-24] MEDS: SENNOSIDES-DOCUSATE SODIUM 1 EACH TAB PO SCH (08:33)
[2019-08-24] MEDS: ASPIRIN 81 MG PO SCH (08:34)
[2019-08-24] MEDS: SERTRALINE 25 MG TAB PO SCH (08:34)
[2019-08-24] MEDS: LISINOPRIL 20 MG TAB PO SCH ×2 (08:34→22:02)
[2019-08-24] MEDS: FLUTICASONE 110 MCG INHALER INHALATION SCH ×2 (08:36→20:02)
--- NOTE | 2019-08-24 09:51 | P.PN ---
Progress Note - Text Progress Note Date: 08/24/19 Postoperative day #1 Patient is seen and examined today at bedside. The patient has some pain around the surgical site as expected. Pain is being controlled with medication. She is already been up out of bed and infiltrated with physical therapy. Her Hernandez still intact. She was able tolerate some of her diet yesterday and today. She denies any nausea. Afebrile with stable vital signs Abdomen is soft nontender. Chest has good excursion deep and space expiration The incision site is clean dry and intact. No erythema there is no purulence.there is no active drainage. The wound site is clear. Dressings are intact. Extremities have not had neurologic change from prior to surgery. she is able to ambulate with assistance nearby. Calves and thighs were soft nontender without evidence of DVT. Assessment/Plan Postoperative day #1 status post minimally invasive decompression and fusion L4 5 for her spondylolisthesis with spinal stenosis and lower extremity radiculopathy Patient is progressing as expected from the surgery. she has already been up out of bed and infiltrated with physical therapy which is very encouraging. She is having pain which is expected. Her Hernandez will be discontinued today we will have case management see her for discharge planning We will continue to increase the patient's mobilization with therapy. We will continue pain control with oral or IV medications. We'll continue to follow patient closely.
[2019-08-24] MEDS: SODIUM CHLORIDE 0.9% 1,000 ML IV SCH (17:57)
--- NOTE | 2019-08-24 18:09 | P.PN ---
Progress Note - Text Progress Note Date: 08/24/19 - Chief Complaint Lumbar surgery - History of Present Illness History of present complaint: This is a very pleasant 64-year-old patient of Dr. Erica Laurent. Chronic stable medical conditions include diabetes, fibromyalgia, GERD, hyperlipidemia, hypertension, obstructive sleep apnea, anxiety, depression. Patient recently underwent a cardiac catheterization with Dr. KIRSTIN Boyd. Not found to have any coronary disease. Patient today underwent lumbar surgery. Postprocedure pain is controlled. Laying in bed. No nausea vomiting. Did tolerate a small supper. No fever no chills. . Today-feeling better. Sitting is intubated. Hernandez catheter taken out for nausea vomiting. Some pain present. Started of with therapy. at bedside Review of systems: Was done for constitutional, cardiovascular, GI, pulmonary. relevant finding as above G Active Medications Acetaminophen (Tylenol Tab) 650 mg PO TID PRN PRN Reason: Pain Hydrocodone Bitart/Acetaminophen ([place] 5-325) 1 each PO Q4HR PRN PRN Reason: Moderate Pain Hydrocodone Bitart/Acetaminophen ([place] 5-325) 2 each PO Q4HR PRN PRN Reason: Moderate Pain Last Admin: 08/24/19 13:25 Dose: 2 each Documented by: Albuterol Sulfate (Ventolin Nebulized) 2.5 mg INHALATION RT-Q6H PRN PRN Reason: Shortness Of Breath Aspirin (Aspirin) 81 mg PO DAILY [facility] Last Admin: 08/24/19 08:34 Dose: 81 mg Documented by: Atorvastatin Calcium (Lipitor) 10 mg PO DAILY [facility] Last Admin: 08/24/19 08:32 Dose: 10 mg Documented by: Benzocaine/Menthol (Cepacol Lozenge) 1 each MUCOUS MEM Q4HR PRN PRN Reason: Sore Throat Cholecalciferol (Vitamin D3 (25 Mcg = 1000 Iu)) 2,000 unit PO QAM [facility] Last Admin: 08/24/19 08:32 Dose: 2,000 unit Documented by: Duloxetine HCl (Cymbalta) 60 mg PO DAILY [facility] Last Admin: 08/24/19 08:33 Dose: 60 mg Documented by: Fluticasone Propionate (Flovent 110 Mcg Inhaler) 2 puff INHALATION RT-BID [facility] Last Admin: 08/24/19 08:36 Dose: 2 puff Documented by: Furosemide (Lasix) 20 mg PO DAILY [facility] Last Admin: 08/24/19 08:33 Dose: 20 mg Documented by: Gabapentin (Neurontin) 300 mg PO DAILY PRN PRN Reason: fibromyalgia Hydromorphone HCl (Dilaudid) 0.5 mg IVP Q4HR PRN PRN Reason: Pain Hydromorphone HCl (Dilaudid) 1 mg IVP Q4HR PRN PRN Reason: Pain Last Admin: 08/24/19 17:32 Dose: 1 mg Documented by: Lactated Ringer's (Lactated Ringers) 1,000 mls @ 20 mls/hr IV .Q24H [facility] Last Admin: 08/23/19 21:33 Dose: Not Given Documented by: Sodium Chloride (Saline 0.9%) 1,000 mls @ 75 mls/hr IV .[id number] [facility] Last Admin: 08/24/19 17:57 Dose: Not Given Documented by: Lidocaine HCl (.Xylocaine 1% Inj (10mg/Ml) For Iv Start) 0.1 ml INTRADERMA PER PROTOCOL PRN PRN Reason: IV Start Last Admin: 08/23/19 08:19 Dose: 0.1 ml Documented by: Lisinopril (Zestril) 20 mg PO BID [facility] Last Admin: 08/24/19 08:34 Dose: 20 mg Documented by: Magnesium Hydroxide (Milk Of Magnesia) 2,400 mg PO DAILY PRN PRN Reason: Constipation Metoprolol Tartrate (Lopressor) 50 mg PO TID [facility] Last Admin: 08/24/19 17:57 Dose: Not Given Documented by: Nitroglycerin (Nitrostat) 0.4 mg SUBLINGUAL Q5M PRN PRN Reason: CHEST PAIN Ondansetron HCl (Zofran) 4 mg IVP Q6HR PRN PRN Reason: Nausea Last Admin: 08/23/19 14:43 Dose: 4 mg Documented by: Pantoprazole Sodium (Protonix) 40 mg PO AC-BRKFST [facility] Last Admin: 08/24/19 08:33 Dose: 40 mg Documented by: Senna/Docusate Sodium (Senokot-S) 1 each PO DAILY [facility] Last Admin: 08/24/19 08:33 Dose: 1 each Documented by: Sertraline HCl (Zoloft) 25 mg PO DAILY [facility] Last Admin: 08/24/19 08:34 Dose: 25 mg Documented by: Physical examination: VITAL SIGNS: 99, 77, 16, 133/73, 95% on 2 L GENERAL: BMI 46.7, sitting at the edge of the bed, comfortable EYES: Pupils equal. Conjunctiva normal. HEENT: External appearance of nose and ears normal, oral cavity grossly normal decreased hearing in the left ear. NECK: JVD not raised; masses not palpable. HEART: First and second heart sounds are normal; no edema. LUNGS: Respiratory rate normal; clear to auscultation. ABDOMEN: Soft, nontender, liver spleen not palpable, no masses palpable. PSYCH: Alert and oriented x3; mood and affect normal. MUSCULOSKELETAL: Dressing over the lumbar area Investigations, reviewed in the clinical context: White count 13.2 hemoglobin 11.3 pressure 4.3 creatinine 0.9 Previous testing Labs from August 02: White count 9.7 hemoglobin 12.9 platelets 253 potassium 3.8 creatinine 0.9 to Assessment: -Lumbar laminectomy and decompression for L4-L5 spinal stenosis and spondylolisthesis with radiculopathy -Moderate persistent asthma -Chronic fibromyalgia -GERD -Hyperlipidemia -Essential hypertension -Obstructive sleep apnea uses CPAP machine -Anxiety depression otherwise specified -Morbid obesity BMI 43 -Recent cardiac catheterization showing no significant coronary artery disease Plan: Overall doing better. Encouraged ambulation. Continue with IV fluids. Thank you Dr. Weinberg
[2019-08-25] MEDS: HYDROcodone/APAP 5-325MG 1 EACH TAB PO PRN ×4 (04:14→20:40)
[2019-08-25] MEDS: PANTOPRAZOLE 40 MG TABLET PO SCH (07:30)
[2019-08-25] MEDS: FLUTICASONE 110 MCG INHALER INHALATION SCH ×2 (08:14→19:46)
--- NOTE | 2019-08-25 08:34 | P.PN ---
Progress Note - Text Progress Note Date: 08/25/19 Orthopedic Spine: History of present illness: Patient is a pleasant 64-year-old female who is seen and examined at the bedside following posterior lateral decompression and fusion performed Wednesday. Patient states they are doing fairly well postsurgically. She has been able to ambulate the hallways today bedside chair with assistance. She is continuing to work with physical therapy. She does have some soreness in her legs and some pain towards her tailbone. She feels she is progressing postoperatively. She has not received Dilaudid IV for pain control since last night. Nursing states medication does make her drowsy. Patient states she is hoping to continue to improve so that she is able to be discharged home. Currently does not complain of nausea, vomiting, fever, or chills. Patient states pain has been adequately controlled. Patient is eating without difficulty. Her Hernandez catheter was discontinued yesterday. She did have some difficulty with urinary retention and required straight catheterization. She has been able to urinate on her own following the straight catheterization without difficulty. Patient states she is passing gas. She denies abdominal pain. Patient's temperature did increase to 99.9 this morning. Nursing states she has been encouraging the patient to use her incentive spirometer. She continues to be seen and examined by medicine. Physical Exam Lumbar Fusion: Status post surgical day number 2 Patient is awake, alert, and oriented 3 Vital signs stable Good chest excursion with deep inspiration and expiration Abdomen soft nontender Dorsiflexion, plantarflexion, and extensor hallucis longus positive sustained bilaterally No signs or symptoms of DVT; no calf pain; pneumatic cuffs intact bilateral lower extremities Dressings are dry and intact; no erythema, purulence, or signs of infection 2 small drops of dry blood over the left dressing No significant pain with palpation over the surgical sites Neurovascularly intact bilaterally lower extremities Assessment: L4-5 minimally invasive posterior lateral decompression and fusion with transforaminal lumbar interbody fusion Low back pain Lower extremity radiculopathy L4-5 spondylolisthesis L4-5 degenerative disc disease L4-5 spinal stenosis Hypertension Hyperlipidemia Diabetes Polymyalgia Depression Coccygodynia Unsteady gait Fibromyalgia Incontinence Plan: 1. Ambulate as tolerated; work with Physical Therapy to increase mobilization 2. Continue pain control with IV and oral medications; we will begin to wean patient off of IV narcotic medications in anticipation for discharge home over the next 1-2 days if the patient's pain is well-controlled and she continues to improve postoperative MAPS has been reviewed today, 08/25/2019. An "Opiod Start Talking" Form has been signed and placed in the patient's chart. A prescription has been written for [place] 5 mg/325 mg 1-2 tabs every 6 hours as needed for pain, dispensed #56. This medication is electronically prescribed to the patient's pharmacy as requested by the patient. Patient should avoid anti-inflammatory medications over the next 6 weeks postoperatively. Patient should discontinue previously prescribed [place] 5 mg/325 mg and Tylenol 650 mg as prescribed in the outpatient setting while taking her new prescription for [place] 5/325 mg. 3. Dressings to remain intact with silver and and Tegaderm; patient may shower with dressing is intact 4. Patient is encouraged to continue using her incentive spirometer 5. Medical management can continue to manage patient for patient's other medical diagnoses 6. We will continue to follow the patient closely; we discussed with the patient is continue to improve in terms of pain control mobility we'll plan for discharge home over the next 1-2 days 7. Patient can follow-up with Erick Kramer PA-C or Dr. Aftab Weinberg at [facility] in 2-3 weeks following discharge
[2019-08-25] MEDS: METOPROLOL TARTRATE 50 MG TAB PO SCH ×3 (09:42→20:40)
[2019-08-25] MEDS: FUROSEMIDE 20 MG TAB PO SCH (09:43)
[2019-08-25] MEDS: SERTRALINE 25 MG TAB PO SCH (09:43)
[2019-08-25] MEDS: SENNOSIDES-DOCUSATE SODIUM 1 EACH TAB PO SCH (09:43)
[2019-08-25] MEDS: ASPIRIN 81 MG PO SCH (09:44)
[2019-08-25] MEDS: CHOLECALCIFEROL 1,000 UNIT TAB PO SCH (09:44)
[2019-08-25] MEDS: DULoxetine HCL 60 MG CAPSULE.DR PO SCH (09:45)
[2019-08-25] MEDS: LISINOPRIL 20 MG TAB PO SCH ×2 (09:46→20:40)
[2019-08-25] MEDS: ATORVASTATIN 10 MG TAB PO SCH (09:47)
[2019-08-25] MEDS: LACTATED RINGERS 1,000 ML IV SCH (15:17)
--- NOTE | 2019-08-25 16:04 | P.PN ---
Progress Note - Text Progress Note Date: 08/25/19 - Chief Complaint Lumbar surgery Consultation: This is a very pleasant 64-year-old patient of Dr. Erica Laurent. Chronic stable medical conditions include diabetes, fibromyalgia, GERD, hyperlipidemia, hypertension, obstructive sleep apnea, anxiety, depression. Patient recently underwent a cardiac catheterization with Dr. KIRSTIN Boyd. Not found to have any coronary disease. Status post lumbar surgery. Today-some localized pain is present. Did tolerate her diet. No nausea vomiting. No fever no chills. Walked about 40 feet with rolling walker Review of systems: Was done for constitutional, cardiovascular, GI, pulmonary. relevant finding as above Active Medications Acetaminophen (Tylenol Tab) 650 mg PO TID PRN PRN Reason: Pain Hydrocodone Bitart/Acetaminophen ([place] 5-325) 1 each PO Q4HR PRN PRN Reason: Moderate Pain Hydrocodone Bitart/Acetaminophen ([place] 5-325) 2 each PO Q4HR PRN PRN Reason: Moderate Pain Last Admin: 08/25/19 10:43 Dose: 2 each Documented by: Albuterol Sulfate (Ventolin Nebulized) 2.5 mg INHALATION RT-Q6H PRN PRN Reason: Shortness Of Breath Aspirin (Aspirin) 81 mg PO DAILY [facility] Last Admin: 08/25/19 09:44 Dose: 81 mg Documented by: Atorvastatin Calcium (Lipitor) 10 mg PO DAILY [facility] Last Admin: 08/25/19 09:47 Dose: 10 mg Documented by: Benzocaine/Menthol (Cepacol Lozenge) 1 each MUCOUS MEM Q4HR PRN PRN Reason: Sore Throat Cholecalciferol (Vitamin D3 (25 Mcg = 1000 Iu)) 2,000 unit PO QAM [facility] Last Admin: 08/25/19 09:44 Dose: 2,000 unit Documented by: Duloxetine HCl (Cymbalta) 60 mg PO DAILY [facility] Last Admin: 08/25/19 09:45 Dose: 60 mg Documented by: Fluticasone Propionate (Flovent 110 Mcg Inhaler) 2 puff INHALATION RT-BID [facility] Last Admin: 08/25/19 08:14 Dose: 2 puff Documented by: Furosemide (Lasix) 20 mg PO DAILY [facility] Last Admin: 08/25/19 09:43 Dose: 20 mg Documented by: Gabapentin (Neurontin) 300 mg PO DAILY PRN PRN Reason: fibromyalgia Hydromorphone HCl (Dilaudid) 0.5 mg IVP Q4HR PRN PRN Reason: Pain Hydromorphone HCl (Dilaudid) 1 mg IVP Q4HR PRN PRN Reason: Pain Last Admin: 08/24/19 20:39 Dose: 1 mg Documented by: Lactated Ringer's (Lactated Ringers) 1,000 mls @ 20 mls/hr IV .Q24H [facility] Last Admin: 08/25/19 15:17 Dose: Not Given Documented by: Sodium Chloride (Saline 0.9%) 1,000 mls @ 75 mls/hr IV .[id number] [facility] Last Admin: 08/24/19 17:57 Dose: Not Given Documented by: Lidocaine HCl (.Xylocaine 1% Inj (10mg/Ml) For Iv Start) 0.1 ml INTRADERMA PER PROTOCOL PRN PRN Reason: IV Start Last Admin: 08/23/19 08:19 Dose: 0.1 ml Documented by: Lisinopril (Zestril) 20 mg PO BID [facility] Last Admin: 08/25/19 09:46 Dose: 20 mg Documented by: Magnesium Hydroxide (Milk Of Magnesia) 2,400 mg PO DAILY PRN PRN Reason: Constipation Metoprolol Tartrate (Lopressor) 50 mg PO TID [facility] Last Admin: 08/25/19 09:42 Dose: 50 mg Documented by: Nitroglycerin (Nitrostat) 0.4 mg SUBLINGUAL Q5M PRN PRN Reason: CHEST PAIN Ondansetron HCl (Zofran) 4 mg IVP Q6HR PRN PRN Reason: Nausea Last Admin: 08/23/19 14:43 Dose: 4 mg Documented by: Pantoprazole Sodium (Protonix) 40 mg PO AC-BRKFST [facility] Last Admin: 08/25/19 07:30 Dose: Not Given Documented by: Senna/Docusate Sodium (Senokot-S) 1 each PO DAILY [facility] Last Admin: 08/25/19 09:43 Dose: 1 each Documented by: Sertraline HCl (Zoloft) 25 mg PO DAILY [facility] Last Admin: 08/25/19 09:43 Dose: 25 mg Documented by: Physical examination: VITAL SIGNS: 98.1-80-20-132/74, 91% on room air GENERAL: Laying in bed, comfortable EYES: Pupils equal. Conjunctiva normal. HEENT: External appearance of nose and ears normal, oral cavity grossly normal decreased hearing in the left ear. NECK: JVD not raised; masses not palpable. HEART: First and second heart sounds are normal; no edema. LUNGS: Respiratory rate normal; clear to auscultation. ABDOMEN: Soft, nontender, liver spleen not palpable, no masses palpable. PSYCH: Alert and oriented x3; mood and affect normal. MUSCULOSKELETAL: Dressing over the lumbar area Investigations, reviewed in the clinical context: White count 13.2 hemoglobin 11.3 pressure 4.3 creatinine 0.9 Previous testing Labs from August 02: White count 9.7 hemoglobin 12.9 platelets 253 potassium 3.8 creatinine 0.9 to Assessment: -Lumbar laminectomy and decompression for L4-L5 spinal stenosis and spondylolisthesis with radiculopathy -Moderate persistent asthma -Chronic fibromyalgia -GERD -Hyperlipidemia -Essential hypertension -Obstructive sleep apnea uses CPAP machine -Anxiety depression otherwise specified -Morbid obesity BMI 43 -Recent cardiac catheterization showing no significant coronary artery disease Plan: Continues to feel better. Continue current medications. Discussed with patient. Thank you Dr. Weinberg
[2019-08-25] MEDS: SODIUM CHLORIDE 0.9% 1,000 ML IV SCH (21:01)
[2019-08-26] MEDS: HYDROcodone/APAP 5-325MG 1 EACH TAB PO PRN ×4 (03:06→22:56)
[2019-08-26] MEDS: SODIUM CHLORIDE 0.9% 1,000 ML IV SCH (03:08)
[2019-08-26] MEDS: FLUTICASONE 110 MCG INHALER INHALATION SCH ×2 (07:43→19:07)
[2019-08-26] MEDS: LISINOPRIL 20 MG TAB PO SCH ×2 (07:44→21:55)
[2019-08-26] MEDS: CHOLECALCIFEROL 1,000 UNIT TAB PO SCH (07:45)
[2019-08-26] MEDS: ASPIRIN 81 MG PO SCH (07:45)
[2019-08-26] MEDS: SERTRALINE 25 MG TAB PO SCH (07:45)
[2019-08-26] MEDS: PANTOPRAZOLE 40 MG TABLET PO SCH (07:45)
[2019-08-26] MEDS: SENNOSIDES-DOCUSATE SODIUM 1 EACH TAB PO SCH (07:45)
[2019-08-26] MEDS: ATORVASTATIN 10 MG TAB PO SCH (07:45)
[2019-08-26] MEDS: METOPROLOL TARTRATE 50 MG TAB PO SCH ×3 (07:45→21:55)
[2019-08-26] MEDS: DULoxetine HCL 60 MG CAPSULE.DR PO SCH (07:45)
[2019-08-26] MEDS: FUROSEMIDE 20 MG TAB PO SCH (07:45)
--- NOTE | 2019-08-26 09:48 | P.PN ---
Subjective Progress Note Date: 08/26/19 Principal diagnosis: L4-5 spondylolisthesis. L4-5 degenerative disc disease and spinal stenosis. Status post minimally invasive posterior lumbar decompression and fusion L4 5. rosey is a pleasant 64-year-old female who is seen and examined at the bedside following posterior lateral decompression and fusion performed Wednesday. Patient states they are doing fairly well postsurgically. She has been able to ambulate the hallways today bedside chair with assistance. She is continuing to work with physical therapy. She does have some soreness in her legs and some pain towards her tailbone. She feels she is progressing postoperatively. Patient states she is hoping to continue to improve so that she is able to be discharged home. Currently does not complain of nausea, vomiting, fever, or chills. Patient states pain has been adequately controlled. Patient is eating without difficulty. She has had some urinary incontinence. She did have some difficulty with urinary retention and required straight catheterization. Patient states she is passing gas. She denies abdominal pain. She continues to be seen and examined by medicine. Objective - Vital Signs Vital signs: Vital Signs Temp 98.5 F 08/26/19 07:00 Pulse 86 08/26/19 07:00 Resp 18 08/26/19 07:00 BP 180/79 08/26/19 07:00 Pulse Ox 95 08/26/19 07:45 Intake & Output 08/25/19 08/26/19 08/26/19 18:59 06:59 18:59 Intake Total 600 600 Balance 600 600 Intake: Intake, IV Titration 600 600 Amount Sodium Chloride 0.9% 1, 600 600 000 ml @ 75 mls/hr IV . [id number] [facility] Rx#:[id number] Other: Voiding Method Bedside Commode Bedside Commode # Voids 2 - Exam This is a pleasant 64-year-old female in no acute distress. She is alert and oriented 3. Exam of the lumbar spine reveal that her dressings are clean, dry and intact. There is minimal drainage on the dressing. Exam of the lower extremities reveals full foot and ankle motion bilaterally. She is able to exercise the bed independently. Neurovascular status to the lower extremities is intact. No neurologic deficits noted. - Labs CBC & Chem 7: 08/24/19 06:00 08/24/19 06:00 Assessment and Plan (1) Status post lumbar spinal fusion Current Visit: Yes Status: Acute Code(s): Z98.1 - ARTHRODESIS STATUS SNOMED Code(s): 85053677223323 (2) Left leg weakness Current Visit: Yes Status: Acute Code(s): R29.898 - OTH SYMPTOMS AND SIGNS INVOLVING THE MUSCULOSKELETAL SYSTEM SNOMED Code(s): 346381203 (3) Spondylolisthesis Current Visit: Yes Status: Acute Code(s): M43.10 - SPONDYLOLISTHESIS, SITE UNSPECIFIED SNOMED Code(s): 393713070 (4) Obesity Current Visit: No Status: Acute Code(s): E66.9 - OBESITY, UNSPECIFIED SNOMED Code(s): 953301292 Plan: 1. Ambulate as tolerated; work with Physical Therapy to increase mobilization 2. Continue pain control with IV and oral medications; we will begin to wean patient off of IV narcotic medications in anticipation for discharge home over the next 1-2 days if the patient's pain is well-controlled and she continues to improve postoperative MAPS has been reviewed today, 08/25/2019. An "Opiod Start Talking" Form has been signed and placed in the patient's chart. A prescription has been written for [place] 5 mg/325 mg 1-2 tabs every 6 hours as needed for pain, dispensed #56. This medication is electronically prescribed to the patient's pharmacy as requested by the patient. Patient should avoid anti-inflammatory medications over the next 6 weeks postoperatively. Patient should discontinue previously p rescribed [place] 5 mg/325 mg and Tylenol 650 mg as prescribed in the outpatient setting while taking her new prescription for [place] 5/325 mg. 3. Dressings to remain intact with silver and and Tegaderm; patient may shower with dressing is intact 4. Patient is encouraged to continue using her incentive spirometer 5. Medical management can continue to manage patient for patient's other medical diagnoses 6. We will continue to follow the patient closely; we discussed with the patient is continue to improve in terms of pain control mobility we'll plan for discharge home over the next 1-2 days 7. Patient can follow-up with Erick Kramer PA-C or Dr. Aftab Weinberg at [facility] in 2-3 weeks following discharge
[2019-08-26] MEDS ORDERED: POLYETHYLENE GLYCOL 3350 17 GM POWD.PACK PO PRN (11:05)
--- NOTE | 2019-08-26 22:00 | P.PN ---
Subjective Progress Note Date: 08/26/19 Principal diagnosis: status post lumbar fusion surgery This is a very pleasant 64-year-old patient of Dr. Erica Laurent. Chronic stable medical conditions include diabetes, fibromyalgia, GERD, hyperlipidemia, hypertension, obstructive sleep apnea, anxiety, depression. Patient recently underwent a cardiac catheterization with Dr. KIRSTIN Boyd. Not found to have any coronary disease. Status post lumbar surgery. 08/26/2019 Patient is currently sitting in the chair comfortably. Still complains oflower back pain. Patient's blood pressure is alsoelevated with SBP greater [id number]. Patient was given her home blood pressure medications and monitor closely. patient did not have any bowel move for the past 5 days. Continued on senna and started on MiraLAX. no fever no chills. No chest pain or shortness of breath. No headache or dizziness Active Medications Acetaminophen (Tylenol Tab) 650 mg PO TID PRN PRN Reason: Pain Hydrocodone Bitart/Acetaminophen ([place] 5-325) 1 each PO Q4HR PRN PRN Reason: Moderate Pain Hydrocodone Bitart/Acetaminophen ([place] 5-325) 2 each PO Q4HR PRN PRN Reason: Moderate Pain Last Admin: 08/26/19 11:54 Dose: 2 each Documented by: Albuterol Sulfate (Ventolin Nebulized) 2.5 mg INHALATION RT-Q6H PRN PRN Reason: Shortness Of Breath Aspirin (Aspirin) 81 mg PO DAILY [facility] Last Admin: 08/26/19 07:45 Dose: 81 mg Documented by: Atorvastatin Calcium (Lipitor) 10 mg PO DAILY [facility] Last Admin: 08/26/19 07:45 Dose: 10 mg Documented by: Benzocaine/Menthol (Cepacol Lozenge) 1 each MUCOUS MEM Q4HR PRN PRN Reason: Sore Throat Cholecalciferol (Vitamin D3 (25 Mcg = 1000 Iu)) 2,000 unit PO QAM [facility] Last Admin: 08/26/19 07:45 Dose: 2,000 unit Documented by: Duloxetine HCl (Cymbalta) 60 mg PO DAILY [facility] Last Admin: 08/26/19 07:45 Dose: 60 mg Documented by: Fluticasone Propionate (Flovent 110 Mcg Inhaler) 2 puff INHALATION RT-BID [facility] Last Admin: 08/26/19 19:07 Dose: 2 puff Documented by: Furosemide (Lasix) 20 mg PO DAILY [facility] Last Admin: 08/26/19 07:45 Dose: 20 mg Documented by: Gabapentin (Neurontin) 300 mg PO DAILY PRN PRN Reason: fibromyalgia Hydromorphone HCl (Dilaudid) 0.5 mg IVP Q4HR PRN PRN Reason: Pain Hydromorphone HCl (Dilaudid) 1 mg IVP Q4HR PRN PRN Reason: Pain Last Admin: 08/24/19 20:39 Dose: 1 mg Documented by: Lactated Ringer's (Lactated Ringers) 1,000 mls @ 20 mls/hr IV .Q24H [facility] Last Admin: 08/25/19 15:17 Dose: Not Given Documented by: Sodium Chloride (Saline 0.9%) 1,000 mls @ 75 mls/hr IV .[id number] [facility] Last Admin: 08/26/19 03:08 Dose: 75 mls/hr Documented by: Lidocaine HCl (.Xylocaine 1% Inj (10mg/Ml) For Iv Start) 0.1 ml INTRADERMA PER PROTOCOL PRN PRN Reason: IV Start Last Admin: 08/23/19 08:19 Dose: 0.1 ml Documented by: Lisinopril (Zestril) 20 mg PO BID [facility] Last Admin: 08/26/19 21:55 Dose: 20 mg Documented by: Magnesium Hydroxide (Milk Of Magnesia) 2,400 mg PO DAILY PRN PRN Reason: Constipation Metoprolol Tartrate (Lopressor) 50 mg PO TID [facility] Last Admin: 08/26/19 21:55 Dose: 50 mg Documented by: Nitroglycerin (Nitrostat) 0.4 mg SUBLINGUAL Q5M PRN PRN Reason: CHEST PAIN Ondansetron HCl (Zofran) 4 mg IVP Q6HR PRN PRN Reason: Nausea Last Admin: 08/23/19 14:43 Dose: 4 mg Documented by: Pantoprazole Sodium (Protonix) 40 mg PO AC-BRKFST [facility] Last Admin: 08/26/19 07:45 Dose: 40 mg Documented by: Polyethylene Glycol (Miralax) 17 gm PO DAILY PRN PRN Reason: Constipation Last Admin: 08/26/19 11:54 Dose: 17 gm Documented by: Senna/Docusate Sodium (Senokot-S) 1 each PO DAILY [facility] Last Admin: 08/26/19 07:45 Dose: 1 each Documented by: Sertraline HCl (Zoloft) 25 mg PO DAILY [facility] Last Admin: 08/26/19 07:45 Dose: 25 mg Documented by: Objective - Vital Signs Vital signs: Vital Signs Temp 98.5 F 08/26/19 07:00 Pulse 86 08/26/19 07:00 Resp 18 08/26/19 07:00 BP 180/79 08/26/19 07:00 Pulse Ox 95 08/26/19 07:45 Intake & Output 08/25/19 08/26/19 08/26/19 18:59 06:59 18:59 Intake Total 600 600 Balance 600 600 Intake: Intake, IV Titration 600 600 Amount Sodium Chloride 0.9% 1, 600 600 000 ml @ 75 mls/hr IV . [id number] [facility] Rx#:[id number] Other: Voiding Method Bedside Commode Bedside Commode # Voids 2 - Exam PHYSICAL EXAMINATION: Patient is lying in the bed comfortably, no acute distress, awake alert and oriented.. HEENT: Normocephalic. Neck is supple. Pupils reactive. Nostrils clear. Oral cavity is moist. Ears reveal no drainage. Neck reveals no JVD, carotid bruits, or thyromegaly. CHEST EXAMINATION: Trachea is central. Symmetrical expansion. Lung mcmahon clear to auscultation and percussion. CARDIAC: Normal S1, S2 with no gallops. No murmurs ABDOMEN: Soft. Bowel sounds normal. No organomegaly. No abdominal bruits. Extremities: reveal no edema. No clubbing or cyanosis. lumbar surgical site bandaged. Neurologically awake, alert, oriented x3 with well-coordinated movements. No focal deficits noted Skin: No rash or skin lesions. Psychiatric: Coperative. Nonsuicidal Musculoskeletal: No joint swelling or deformity. Normal range of motion. - Labs CBC & Chem 7: 08/24/19 06:00 08/24/19 06:00 Assessment and Plan Assessment: -Lumbar laminectomy and decompression for L4-L5 spinal stenosis and spondylolisthesis with radiculopathy -Moderate persistent asthma -Chronic fibromyalgia -GERD -Hyperlipidemia -Essential hypertension. Uncontrolled -Obstructive sleep apnea uses CPAP machine -Anxiety depression otherwise specified -Morbid obesity BMI 43 -Recent cardiac catheterization showing no significant coronary artery disease -constipation Plan: Continues to feel better.continued on pain management and bowel regimen. Continue current medications. Discussed with patient. Time with Patient: Greater than 30
[2019-08-27] MEDS: LACTATED RINGERS 1,000 ML IV SCH ×2 (02:07→03:20)
[2019-08-27] MEDS: SODIUM CHLORIDE 0.9% 1,000 ML IV SCH (02:07)
[2019-08-27] MEDS: HYDROcodone/APAP 5-325MG 1 EACH TAB PO PRN (05:58)
[2019-08-27] MEDS: FLUTICASONE 110 MCG INHALER INHALATION SCH (07:26)
[2019-08-27 07:59] VITALS: PULSE 74
[2019-08-27] MEDS: DULoxetine HCL 60 MG CAPSULE.DR PO SCH (08:23)
[2019-08-27] MEDS: FUROSEMIDE 20 MG TAB PO SCH (08:23)
[2019-08-27] MEDS: PANTOPRAZOLE 40 MG TABLET PO SCH (08:23)
[2019-08-27] MEDS: SERTRALINE 25 MG TAB PO SCH (08:23)
[2019-08-27] MEDS: ATORVASTATIN 10 MG TAB PO SCH (08:23)
[2019-08-27] MEDS: SENNOSIDES-DOCUSATE SODIUM 1 EACH TAB PO SCH (08:23)
[2019-08-27] MEDS: METOPROLOL TARTRATE 50 MG TAB PO SCH (08:23)
[2019-08-27] MEDS: ASPIRIN 81 MG PO SCH (08:23)
[2019-08-27] MEDS: CHOLECALCIFEROL 1,000 UNIT TAB PO SCH (08:23)
[2019-08-27] MEDS: LISINOPRIL 20 MG TAB PO SCH (08:24)
--- NOTE | 2019-08-27 13:10 | P.DS ---
Providers Date of admission: 08/25/19 09:10 Attending physician: Shannan Weinberg Consults: 08/23/19 13:48 Consult Physician Routine Consulting Provider: Erlin Morel Consult Reason/Comments: Medical management Do you want consulting provider notified?: Yes Primary care physician: Norma Laurent Hospital Course: The patient presented on the day of admission as per their operative note. She had severe spinal stenosis with spondylolisthesis L4-L5 and underwent laminectomy decompression with fusion at L4 5 for the minimally invasive approach. She feels she is very happy that she is able stand up straighter. She has been able to get around but she is not walking very far but feels comfortable getting around on her own. She is tolerating her regular diet and voiding freely. She is not yet had a bowel movement but she is having gas. Physical Exam The incision site is clean dry and intact. There is no erythema no drainage. There is no purulence no evidence of infection. Her back is clear Abdomen soft and nontender. There is no distention there is no rebound or rigidity. Chest has good excursion with deep inspiration and expiration. The patient has active and passive range of motion intact at the upper and lower extremities. There is no acute change in neurologic status. She has sustained dorsal flexion plantarflexion and EHL intact Hospital Course Postoperative day #4 status post minimally invasive decompression and fusion L4 5 for her spinal stenosis with spondylolisthesis and lower extremity radiculopathy She is tolerating her pain well. The patient has been making good progress postoperatively. They have completed the prophylactic antibiotics without any signs or symptoms of infection. The patient has been able to advance their diet, and is tolerating diet adequately. The pain was initially controlled with IV medications and is now controlled appropriately with oral medications. The patient has been able to increase their mobilization. She is ambulatory into the hallway herself with a walker. She has not yet had a bowel movement but is passing gas and feels that she is ready to go. The patient has progressed appropriately. I think they are in good stable condition for discharge today. She feels comfortable with the idea of being at home and I think that is appropriate. They will be sent home with appropriate prescriptions. I answered their questions to the best of my ability in a language that they can understand and they are agreeable with the plan. We will give her a prescription for a hospital bed for home use as well. They will follow up as directed in a possibly 2 weeks or sooner if she is having problems. Patient Condition at Discharge: Good Plan - Discharge Summary Discharge Rx Participant: No New Discharge Prescriptions: New Hydrocodone/Acetaminophen [[place] 5-325] 1 - 2 each PO Q6HR PRN #56 tab PRN Reason: Pain No Action DULoxetine HCL [Cymbalta] 60 mg PO DAILY Atorvastatin [Lipitor] 10 mg PO DAILY Omeprazole 20 mg PO QAM Beclomethasone Dip 80 Mcg/Puff [Qvar 80 mcg] 2 puff INHALATION RT-BID Albuterol Inhaler [Ventolin Hfa Inhaler] 2 puff INHALATION RT-Q6H PRN PRN Reason: Shortness Of Breath Sertraline [Zoloft] 25 mg PO DAILY Cholecalciferol (Vitamin D3) [Vitamin D3] 2,000 unit PO QAM Aspirin EC [Ecotrin Low Dose] 81 mg PO DAILY Lisinopril [Zestril] 20 mg PO BID HYDROcodone/APAP 5-325MG [[place] 5-325] 1 tab PO BID PRN PRN Reason: Pain Acetaminophen Tab [Tylenol Tab] 650 mg PO TID PRN PRN Reason: Pain Metoprolol Tartrate [Lopressor] 50 mg PO TID Gabapentin [Neurontin] 450 - 900 mg PO DAILY PRN PRN Reason: fibromyalgia Nitroglycerin Sl Tabs [Nitrostat] 0.4 mg SUBLINGUAL Q5M PRN PRN Reason: CHEST PAIN Furosemide [Lasix] 20 mg PO DAILY Discharge Medication List Albuterol Inhaler [Ventolin Hfa Inhaler] 2 puff INHALATION RT-Q6H PRN 01/28/18 [History] Atorvastatin [Lipitor] 10 mg PO DAILY 01/28/18 [History] Beclomethasone Dip 80 Mcg/Puff [Qvar 80 mcg] 2 puff INHALATION RT-BID 01/28/18 [History] DULoxetine HCL [Cymbalta] 60 mg PO DAILY 01/28/18 [History] Omeprazole 20 mg PO QAM 01/28/18 [History] Sertraline [Zoloft] 25 mg PO DAILY 01/28/18 [History] Cholecalciferol (Vitamin D3) [Vitamin D3] 2,000 unit PO QAM 02/11/18 [History] Aspirin EC [Ecotrin Low Dose] 81 mg PO DAILY 01/04/19 [History] Lisinopril [Zestril] 20 mg PO BID 01/04/19 [History] Acetaminophen Tab [Tylenol Tab] 650 mg PO TID PRN 03/23/19 [History] HYDROcodone/APAP 5-325MG [[place] 5-325] 1 tab PO BID PRN 03/23/19 [History] Metoprolol Tartrate [Lopressor] 50 mg PO TID 03/23/19 [History] Gabapentin [Neurontin] 450 - 900 mg PO DAILY PRN 07/27/19 [History] Nitroglycerin Sl Tabs [Nitrostat] 0.4 mg SUBLINGUAL Q5M PRN 07/27/19 [History] Furosemide [Lasix] 20 mg PO DAILY 08/08/19 [History] Hydrocodone/Acetaminophen [[place] 5-325] 1 - 2 each PO Q6HR PRN #56 tab 08/25/19 [Rx] Follow up Appointment(s)/Referral(s): Shannan Weinberg DO [Doctor of Osteopathic Medicine] - 09/08/19 9:00 am [facility] - Norma Laurent MD [Primary Care Provider] - 1 Week Activity/Diet/Wound Care/Special Instructions: 1. Patient may shower with silver and Tegaderm dressing intact. 2. Patient may remove silver and Tegaderm dressing in 3 days and shower without a dressing at that time. 3. Patient should refrain from driving until at least after their first follow- up appointment in the office. 4. Patient should avoid excessive bending, twisting, and lifting; no lifting greater than 10 pounds 5. Take medications as prescribed 6. Do not soak in tub Discharge Disposition: HOME WITH HOME HEALTH SERVICES
[2019-08-27 14:48] VITALS: BP 164/59; RESP 17; TEMP 99.1
--- NOTE | 2019-08-27 22:14 | P.PN ---
Subjective Progress Note Date: 08/27/19 Principal diagnosis: status post lumbar fusion surgery This is a very pleasant 64-year-old patient of Dr. Erica Laurent. Chronic stable medical conditions include diabetes, fibromyalgia, GERD, hyperlipidemia, hypertension, obstructive sleep apnea, anxiety, depression. Patient recently underwent a cardiac catheterization with Dr. KIRSTIN Boyd. Not found to have any coronary disease. Status post lumbar surgery. 08/26/2019 Patient is currently sitting in the chair comfortably. Still complains oflower back pain. Patient's blood pressure is alsoelevated with SBP greater [id number]. Patient was given her home blood pressure medications and monitor closely. patient did not have any bowel move for the past 5 days. Continued on senna and started on MiraLAX. no fever no chills. No chest pain or shortness of breath. No headache or dizziness. 08/27/2019 Patient denied any complaints of chest pain or shortness of breath. No complaints of back pain. Pain control with medications. Patient says thatshe did have some dental pain down her right lower extremity today morning. Otherwise patient is able to ambulate with walker Patient is being discharged home today. Discharge medications reviewed. Active Medications Acetaminophen (Tylenol Tab) 650 mg PO TID PRN PRN Reason: Pain Hydrocodone Bitart/Acetaminophen ([place] 5-325) 1 each PO Q4HR PRN PRN Reason: Moderate Pain Hydrocodone Bitart/Acetaminophen ([place] 5-325) 2 each PO Q4HR PRN PRN Reason: Moderate Pain Last Admin: 08/26/19 11:54 Dose: 2 each Documented by: Albuterol Sulfate (Ventolin Nebulized) 2.5 mg INHALATION RT-Q6H PRN PRN Reason: Shortness Of Breath Aspirin (Aspirin) 81 mg PO DAILY [facility] Last Admin: 08/26/19 07:45 Dose: 81 mg Documented by: Atorvastatin Calcium (Lipitor) 10 mg PO DAILY [facility] Last Admin: 08/26/19 07:45 Dose: 10 mg Documented by: Benzocaine/Menthol (Cepacol Lozenge) 1 each MUCOUS MEM Q4HR PRN PRN Reason: Sore Throat Cholecalciferol (Vitamin D3 (25 Mcg = 1000 Iu)) 2,000 unit PO QAM [facility] Last Admin: 08/26/19 07:45 Dose: 2,000 unit Documented by: Duloxetine HCl (Cymbalta) 60 mg PO DAILY [facility] Last Admin: 08/26/19 07:45 Dose: 60 mg Documented by: Fluticasone Propionate (Flovent 110 Mcg Inhaler) 2 puff INHALATION RT-BID [facility] Last Admin: 08/26/19 19:07 Dose: 2 puff Documented by: Furosemide (Lasix) 20 mg PO DAILY [facility] Last Admin: 08/26/19 07:45 Dose: 20 mg Documented by: Gabapentin (Neurontin) 300 mg PO DAILY PRN PRN Reason: fibromyalgia Hydromorphone HCl (Dilaudid) 0.5 mg IVP Q4HR PRN PRN Reason: Pain Hydromorphone HCl (Dilaudid) 1 mg IVP Q4HR PRN PRN Reason: Pain Last Admin: 08/24/19 20:39 Dose: 1 mg Documented by: Lactated Ringer's (Lactated Ringers) 1,000 mls @ 20 mls/hr IV .Q24H [facility] Last Admin: 08/25/19 15:17 Dose: Not Given Documented by: Sodium Chloride (Saline 0.9%) 1,000 mls @ 75 mls/hr IV .[id number] [facility] Last Admin: 08/26/19 03:08 Dose: 75 mls/hr Documented by: Lidocaine HCl (.Xylocaine 1% Inj (10mg/Ml) For Iv Start) 0.1 ml INTRADERMA PER PROTOCOL PRN PRN Reason: IV Start Last Admin: 08/23/19 08:19 Dose: 0.1 ml Documented by: Lisinopril (Zestril) 20 mg PO BID [facility] Last Admin: 08/26/19 21:55 Dose: 20 mg Documented by: Magnesium Hydroxide (Milk Of Magnesia) 2,400 mg PO DAILY PRN PRN Reason: Constipation Metoprolol Tartrate (Lopressor) 50 mg PO TID [facility] Last Admin: 08/26/19 21:55 Dose: 50 mg Documented by: Nitroglycerin (Nitrostat) 0.4 mg SUBLINGUAL Q5M PRN PRN Reason: CHEST PAIN Ondansetron HCl (Zofran) 4 mg IVP Q6HR PRN PRN Reason: Nausea Last Admin: 08/23/19 14:43 Dose: 4 mg Documented by: Pantoprazole Sodium (Protonix) 40 mg PO AC-BRKFST [facility] Last Admin: 08/26/19 07:45 Dose: 40 mg Documented by: Polyethylene Glycol (Miralax) 17 gm PO DAILY PRN PRN Reason: Constipation Last Admin: 08/26/19 11:54 Dose: 17 gm Documented by: Senna/Docusate Sodium (Senokot-S) 1 each PO DAILY [facility] Last Admin: 08/26/19 07:45 Dose: 1 each Documented by: Sertraline HCl (Zoloft) 25 mg PO DAILY [facility] Last Admin: 08/26/19 07:45 Dose: 25 mg Documented by: Objective - Vital Signs Vital signs: Vital Signs Temp 98.1 F 08/27/19 07:00 Pulse 76 08/27/19 07:41 Resp 18 08/27/19 07:00 BP 176/69 08/27/19 07:00 Pulse Ox 100 08/27/19 07:00 Intake & Output 08/26/19 08/27/19 08/27/19 18:59 06:59 18:59 Other: # Voids 3 1 - Exam PHYSICAL EXAMINATION: Patient is lying in the bed comfortably, no acute distress, awake alert and oriented.. HEENT: Normocephalic. Neck is supple. Pupils reactive. Nostrils clear. Oral cavity is moist. Ears reveal no drainage. Neck reveals no JVD, carotid bruits, or thyromegaly. CHEST EXAMINATION: Trachea is central. Symmetrical expansion. Lung mcmahon clear to auscultation and percussion. CARDIAC: Normal S1, S2 with no gallops. No murmurs ABDOMEN: Soft. Bowel sounds normal. No organomegaly. No abdominal bruits. Extremities: reveal no edema. No clubbing or cyanosis. lumbar surgical site bandaged. Neurologically awake, alert, oriented x3 with well-coordinated movements. No focal deficits noted Skin: No rash or skin lesions. Psychiatric: Coperative. Nonsuicidal Musculoskeletal: No joint swelling or deformity. Normal range of motion. - Labs CBC & Chem 7: 08/24/19 06:00 08/24/19 06:00 Assessment and Plan Assessment: -Lumbar laminectomy and decompression for L4-L5 spinal stenosis and spondylolisthesis with radiculopathy -Moderate persistent asthma -Chronic fibromyalgia -GERD -Hyperlipidemia -Essential hypertension. controlled now. -Obstructive sleep apnea uses CPAP machine -Anxiety depression otherwise specified -Morbid obesity BMI 43 -Recent cardiac catheterization showing no significant coronary artery disease -constipation Plan: Continues to feel better.continued on pain management and bowel regimen. Continue current medications. Discussed with patient. Time with Patient: Greater than 30
== END 2019-08-27 17:03 | disposition home health service (06) | DRG 454 ==
LOC: OR 07:26 → EDSTATUS 09:15 → 4SSUR 14:11 → OR 08-24 12:13 → OBSVTOIN 08-25 09:10
PROVIDERS: ADMIT Orthopaedic Surgery Orthopaedic Surgery of the Spine; ATTEND Orthopaedic Surgery Orthopaedic Surgery of the Spine
PROC: 0ST20ZZ Resection of Lumbar Vertebral Disc, Open Approach (ICD-10-PCS; 2019-08-23)
PROC: 8E0WXBZ Computer Assisted Procedure of Trunk Region (ICD-10-PCS; principal; 2019-08-23 08:30)
PROC: 0SG00AJ Fusion of Lumbar Vertebral Joint with Interbody Fusion Device, Posterior Approach, Anterior Column, Open Approach (ICD-10-PCS; principal; 2019-08-23 08:30)
PROC: 0QB00ZZ Excision of Lumbar Vertebra, Open Approach (ICD-10-PCS; principal; 2019-08-23 08:30)
PROC: 01NB0ZZ Release Lumbar Nerve, Open Approach (ICD-10-PCS; principal; 2019-08-23 08:30)
PROC: 0SG0071 Fusion of Lumbar Vertebral Joint with Autologous Tissue Substitute, Posterior Approach, Posterior Column, Open Approach (ICD-10-PCS; principal; 2019-08-23 08:30)
PROC: 07DS0ZZ Extraction of Vertebral Bone Marrow, Open Approach (ICD-10-PCS; principal; 2019-08-23 08:30)
DX: M51.16 Intervertebral disc disorders with radiculopathy, lumbar region (principal); Z68.41 Body mass index [BMI] 40.0-44.9, adult; M48.061 Spinal stenosis, lumbar region without neurogenic claudication; M43.16 Spondylolisthesis, lumbar region; M41.9 Scoliosis, unspecified; H91.90 Unspecified hearing loss, unspecified ear; E11.9 Type 2 diabetes mellitus without complications; E66.01 Morbid (severe) obesity due to excess calories; E78.5 Hyperlipidemia, unspecified; F41.0 Panic disorder [episodic paroxysmal anxiety]; F41.8 Other specified anxiety disorders; G47.33 Obstructive sleep apnea (adult) (pediatric); Z99.89 Dependence on other enabling machines and devices; I10 Essential (primary) hypertension; I25.2 Old myocardial infarction; J45.40 Moderate persistent asthma, uncomplicated; K21.9 Gastro-esophageal reflux disease without esophagitis; K59.00 Constipation, unspecified; M35.3 Polymyalgia rheumatica; M53.3 Sacrococcygeal disorders, not elsewhere classified; M79.7 Fibromyalgia; R32 Unspecified urinary incontinence; Z79.82 Long term (current) use of aspirin; Z79.899 Other long term (current) drug therapy; Z82.49 Family history of ischemic heart disease and other diseases of the circulatory system; Z90.710 Acquired absence of both cervix and uterus; Z98.49 Cataract extraction status, unspecified eye; Z96.1 Presence of intraocular lens; Z83.3 Family history of diabetes mellitus; Z96.643 Presence of artificial hip joint, bilateral; Z90.5 Acquired absence of kidney; Z90.6 Acquired absence of other parts of urinary tract; Z98.84 Bariatric surgery status; Z80.42 Family history of malignant neoplasm of prostate; Z91.040 Latex allergy status; Z91.013 Allergy to seafood
CPT/HCPCS: 72100; 80048; 85025; 94640; 94760

== ENCOUNTER → 2020-08-01 | Outpatient (CLI) | payer MEDICARE, BC ==
--- NOTE | 2020-08-01 15:12 | US ---
EXAMINATION TYPE: US kidneys/renal and bladder DATE OF EXAM: 08/01/2020 COMPARISON: NONE CLINICAL HISTORY: N23 Unspecified renal colic. EXAM MEASUREMENTS: Right Kidney: 10.2 x 6.5 x 4.4 cm Left Kidney: Surgically absent cm Right Kidney: echogenic foci possible stone measuring 0.4 x 0.3 x 0.4cm Left Kidney: Surgically absent Bladder: Visualized portion urinary bladder is sonolucent. Bladder position low within the pelvis, co nsider evaluation for cystocele. IMPRESSION: Nonobstructing left renal stone. 2. Low-lying urinary bladder, cystocele was not identified
--- NOTE | 2020-08-01 16:25 | XR ---
KUB HISTORY: Right flank pain Frontal KUB submitted on 2 images Surgical clips are present in left paraspinal location consistent with prior nephrectomy. Patient is status post lumbosacral fusion. Bilateral hip arthroplasty changes are present. Patchy densities pres ent at the left lung base. Overlying bowel gas may obscure underlying detail. There is retained fecal debris throughout much of the colon, correlate for possible fecal stasis. IMPRESSION: Possible lower lobe atelectasis, consider chest x-ray for better evaluation. Postop marixa herr. Additional findings above.
== END | disposition home or self-care (01) ==
LOC: RADUSWWP 14:28
PROVIDERS: ATTEND Urology
DX: N20.0 Calculus of kidney (principal); R19.5 Other fecal abnormalities; Z96.643 Presence of artificial hip joint, bilateral; Z98.1 Arthrodesis status; Z90.5 Acquired absence of kidney
CPT/HCPCS: 36415; 74018; 76770; 82565; 84520

== ENCOUNTER → 2021-06-09 | Outpatient (CLI) | payer MEDICARE, BC ==
[2021-06-09 13:19] VITALS: BP 172/71; PULSE 83; RESP 18; TEMP 98.4
--- NOTE | 2021-06-09 13:35 | P.PAINCN ---
History of Present Illness - Reason for Consult Consult date: 06/09/21 Neck pain, and lumbar back pain - History of Present Illness Ms. Rodirguez is a 66 -year-old pleasant female came to the [facility] pain clinic for initial evaluation for her neck pain . Patient has ongoing pain for many years, but lately her pain is getting worse. She tried physical therapy for more than a year with minimal relief. Patient describes pain is aching, throbbing, constant type of pain. Pain is radiating to left upper extremity sometimes. Patient also had lumbar fusion. Patient had a recent bladder stimulator placed. Most of her pain around the neck area , and upper thoracic area. Patient rated pain levels are 7-8 out of 10 in severity. With the help of medications pain levels are 7 out of 10 in severity. Activities making pain worse. Medications, resting, exercise helping in relieving patient's pain. Patient pain some days better than others. Overall activities decreased secondary to pain. Because of the pain sometimes patient is feeling lack of sleep, interest, and energy. Denied any side effects with the medications. Denied any bowel or bladder problems at this time. Patient is using a walker for walking support. Patient denies any suicidal or homicidal ideations intent or plan. Patient denies any auditory or visual hallucinations. Patient denied any red flag symptoms related to pain. Review of Systems All systems: negative Constitutional: Denies chills, Denies fever Eyes: denies blurred vision, denies pain Ears, nose, mouth and throat: Denies headache, Denies sore throat Cardiovascular: Denies chest pain, Denies shortness of breath Respiratory: Denies cough Gastrointestinal: Denies abdominal pain, Denies diarrhea, Denies nausea, Denies vomiting Genitourinary: Denies dysuria, Denies hematuria Musculoskeletal: Reports muscle weakness, Reports myalgias, Reports neck pain, Reports neck stiffness Integumentary: Denies pruritus, Denies rash Neurological: Denies numbness, Denies weakness Psychiatric: Denies anxiety, Denies depression Endocrine: Denies fatigue, Denies weight change Past Medical History Past Medical History: Asthma, Diabetes Mellitus, Eye Disorder, Fibromyalgia, GERD/Reflux, Hearing Disorder / Deafness, Hyperlipidemia, Hypertension, Myocardial Infarction ([place]), Musculoskeletal Disorder, Osteoarthritis (OA), Respiratory Disorder, Sleep Apnea/CPAP/BIPAP Additional Past Medical History / Comment(s): scoliosis, hard of hearing in left ear, DIABETIC-DIET CONTROLLED , NO C PAP USED ,CATARACTS,LEFT KIDNEY REMOVED, Last Myocardial Infarction Date:: UNKNOWN DATE - PER TESTS", History of Any Multi-Drug Resistant Organisms: None Reported Past Surgical History: Bariatric Surgery, Bladder Surgery, Heart Catheterization, Hysterectomy, Joint Replacement, Orthopedic Surgery Additional Past Surgical History / Comment(s): 2018 bilat hip replacements RIGHT AND LEFT FOOT SURGERY, LAPAROTOMY FIBROID TUMOR REMOVED. 2016 bariatric sleeve. 2007 left kidney and left ureter removed. abdominal exploratory surgery x2. 05/2021 BLADDER STIMULATOR IMPLANT PUT INTO SPINE. bladder surgery x2. 2009 large cyst removed from left abdominal area. 2004 complete hysterectomy. bones in the toes removed from both feet in the . [facility]. 2019 cataract surgery/lens implants. 2018 bilat breast lumpectomy-benign Past Anesthesia/Blood Transfusion Reactions: Previous Problems w/ Anesthesia, Postoperative Nausea & Vomiting (PONV) Additional Past Anesthesia/Blood Transfusion Reaction / Comm: 1 time patient had issue with PONV with general anesthesia Past Psychological History: Anxiety, Depression Additional Psychological History / Comment(s): PANIC ATTACK X1 Smoking Status: Never smoker Past Alcohol Use History: Rare Past Drug Use History: None Reported - Past Family History Father Family Medical History: Cancer, Myocardial Infarction ([place]), Prostate Disorder Additional Family Medical History / Comment(s): Prostate cancer. Mother Family Medical History: Diabetes Mellitus, Hypertension, Myocardial Infarction ([place]) Additional Family Medical History / Comment(s): Heart disease, quadruple bypass. 7 or 8 of mother's siblings had heart disease. Medications and Allergies Home Medications Medication Instructions Recorded Confirmed Type Albuterol Inhaler (Mhu) [Ventolin 2 puff INHALATION RT-Q6H PRN 01/28/18 06/09/21 History Hfa Inhaler (Mhu)] Atorvastatin [Lipitor] 10 mg PO DAILY 01/28/18 06/09/21 History DULoxetine HCL [Cymbalta] 60 mg PO DAILY 01/28/18 06/09/21 History Omeprazole 20 mg PO QAM 01/28/18 06/09/21 History Sertraline [Zoloft] 25 mg PO DAILY 01/28/18 06/09/21 History Cholecalciferol (Vitamin D3) 2,000 unit PO QAM 02/11/18 06/09/21 History [Vitamin D3] Aspirin EC [Ecotrin Low Dose] 81 mg PO DAILY 01/04/19 06/09/21 History lisinopriL [Zestril] 20 mg PO BID 01/04/19 06/09/21 History Acetaminophen Tab [Tylenol] 650 mg PO TID PRN 03/23/19 06/09/21 History Metoprolol Tartrate [Lopressor] 100 mg PO BID 03/23/19 06/09/21 History Beclomethasone Dip 80 Mcg/Puff 2 puff INHALATION BID 06/09/21 06/09/21 History [Qvar 80 mcg] Allergies Allergy/AdvReac Type Severity Reaction Status Date / Time adhesive Allergy Itching, Verified 08/23/19 08:01 takes her skin off Fish Containing Products Allergy Swelling Verified 08/23/19 08:01 [Fish] in throat latex Allergy Rash/Hives Verified 08/23/19 08:01 Sulfa (Sulfonamide Allergy Anaphylaxis Verified 08/23/19 08:01 Antibiotics) walnut Allergy Swelling Verified 08/23/19 08:01 scents Allergy Dyspnea Uncoded 08/23/19 08:01 Physical Exam Vitals: Vital Signs Temp Pulse Resp BP Pulse Ox 06/09/21 13:05 98.4 F 83 18 172/71 95 General: Well-developed, well-nourished, no acute distress HEENT: Normocephalic, and atraumatic Neck: Supple, no neck swelling Psychiatric: Appropriate mood, and affect [employer]: No focal neurological deficits Musculoskeletal: Upper extremity: Normal strength, and range of motion. Sensation grossly intact Lower extremity: Normal strength, and decreased range of motion secondary to pain Lumbar spine: Paravertebral tenderness: positive , healed lumbar scar Lumbar facet load test : positive Sacroiliac joint tenderness: Positive Thigh thrust test: Positive SI joint compression test: Positive Fabere test: Positive Cervical spine: Paravertebral tenderness: Positive Cervical spine facet nilesh: Positive Cervical spine Spurling test: Negative Multiple trigger point positive in the cervical, and upper thoracic area Results Comments: MRI of the cervical spine done on number 11/14/2020 showed Mild grade 1 anterolisthesis at C5-C6 associated multiple spondylosis most definitely at C6-C7, and C5-C6. C6-C7 level Moderate degenerative disc disease with broad-based disc osteophyte complex C5-C6 level mild degenerative disc disease with mild disc bulging narrowing the ventral epidural space. There is no substantial spinal canal stenosis There is a multiple foraminal stenosis most notably mild to moderate left foraminal stenosis at C6-C7 level Assessment and Plan Assessment: Cervical spondylosis without myelopathy Mild grade 1 anterolisthesis at C5-C6 Moderate degenerative disc disease with broad-based disc osteophyte complex at C6-C7, and C5-C6 levels Myofascial pain syndrome, and chronic pain syndrome Lumbar postlaminectomy syndrome Status post bladder stimulator in place Plan: #1 Diagnoses, prognosis, and multiple treatment options including but not limited to physical therapy, interventional therapy, adjunct medication therapy, narcotic medication, and surgical options were discussed with the patient. And all questions were answered to the patient's satisfaction. #2 treatment plan agreement : Patient was thoroughly discussed regarding the treatment options, alternatives, and importance of exercises as tolerated. Patient clearly understood. #3 Patient was counseled on importance of regular exercise. Including felix chi, aerobic exercises as tolerated. Which helps for chronic pain, and overall well- being. Patient also counseled regarding importance of weight control rolling chronic pain, and overall other health issues. By altering diet habits, minimizing sugar intake, and processed foods helps in minimizing Inflammation. Also discussed with the patient regarding intermittent fasting. #4 investigations: MAPS- reviewed , urine drug test-not done #5 diagnostic tests: None #6 consultation : None # 7 interventional procedures: Bilateral cervical C4-C5, C5-C6 medial branch block #1. Procedure, complications, alternatives discussed with the patient. #8 medications None from the pain clinic # 9 percussion massage device #10 disposition: scheduled to follow up with pain clinic in 4 weeks duration. Time with Patient: Less than 30 PQRS Measure Charge Sheet Measure #130: Documentation of Current Meds in Medical Chart: Patient's medications documented in chart Measure #226: Tobacco Use: Screen & Cessation Intervention: Pt not a tobacco user Measure #111: Pneumonia Vaccination: Pneumococcal vaccine NOT administered or previously given Measure #47: Advance Care Plan: Advance care planning discussed & documented, pt chose/unable to give Measure #412: Opioid Treatment Agreement: No documentation of signed opioid treatment agreement Measure #408: Opioid Therapy Follow-up Evaluation: Patient had NO f/u eval minimum every 3 months during opioid therapy Measure #317: Preventitive Care & Scrn High Bld Press & F/U: Pre-hypertensive or hypertensive BP documented, pt will f/u with PCP Measure #128: Body Mass Index (BMI) Screening & Follow-up: BMI documented ABOVE normal parameters - f/u documented Measure #131: Pain Assessment & Follow-up: Pain positive & plan documented Measure #431: Unhealthy Alcohol Use Preventative Care & Scrn: Patient not identified as an unhealthy alcohol user Mode of Arrival: Walker, Cane - Pain Location Neck Non-Pharmacological Interventions: Heat, Home Exercise, Ice, Inactivity, Physical Therapy, Position/Reposition, Stretching Pharmacological Interventions: Medication, PRN Medication PQRS Narrative: Smoking Status Never smoker Blood Pressure 172/71 Pain Intensity [Neck] 4 Scale Used Numeric (1 - 10) Hx Alcohol Use (MH) No Home Medications: Ambulatory Orders Albuterol Inhaler (Mhu) [Ventolin Hfa Inhaler (Mhu)] 2 puff INHALATION RT-Q6H PRN 01/28/18 Atorvastatin [Lipitor] 10 mg PO DAILY 01/28/18 DULoxetine HCL [Cymbalta] 60 mg PO DAILY 01/28/18 Omeprazole 20 mg PO QAM 01/28/18 Sertraline [Zoloft] 25 mg PO DAILY 01/28/18 Cholecalciferol (Vitamin D3) [Vitamin D3] 2,000 unit PO QAM 02/11/18 Aspirin EC [Ecotrin Low Dose] 81 mg PO DAILY 01/04/19 lisinopriL [Zestril] 20 mg PO BID 01/04/19 Acetaminophen Tab [Tylenol] 650 mg PO TID PRN 03/23/19 Metoprolol Tartrate [Lopressor] 100 mg PO BID 03/23/19 Beclomethasone Dip 80 Mcg/Puff [Qvar 80 mcg] 2 puff INHALATION BID 06/09/21
== END ==
LOC: PNWHC3 12:49
DX: M47.812 Spondylosis without myelopathy or radiculopathy, cervical region (principal); M50.322 Other cervical disc degeneration at C5-C6 level; M50.323 Other cervical disc degeneration at C6-C7 level; M79.18 Myalgia, other site; G89.4 Chronic pain syndrome; M96.1 Postlaminectomy syndrome, not elsewhere classified; J45.909 Unspecified asthma, uncomplicated; E11.9 Type 2 diabetes mellitus without complications; K21.9 Gastro-esophageal reflux disease without esophagitis; E78.5 Hyperlipidemia, unspecified; H91.90 Unspecified hearing loss, unspecified ear; I25.2 Old myocardial infarction; M19.90 Unspecified osteoarthritis, unspecified site; F32.A Depression, unspecified; F41.0 Panic disorder [episodic paroxysmal anxiety]; Z96.0 Presence of urogenital implants; Z79.82 Long term (current) use of aspirin; Z79.899 Other long term (current) drug therapy; Z79.51 Long term (current) use of inhaled steroids; Z91.048 Other nonmedicinal substance allergy status; Z88.2 Allergy status to sulfonamides; Z91.018 Allergy to other foods; Z91.040 Latex allergy status; Z91.013 Allergy to seafood
CPT/HCPCS: 99211

== ENCOUNTER 2021-07-15 09:27 | Day surgery (SDC) | payer MEDICARE, BC ==
[2021-07-09 10:36] VITALS: BMI 46.0
[2021-07-15 09:47] VITALS: TEMP 98.2
[2021-07-15] MEDS ORDERED: LACTATED RINGERS 1,000 ML IV ONE (09:56)
[2021-07-15] MEDS ORDERED: LIDOCAINE 1% (10MG/ML) FOR IV START INTRADERMA ONE (09:57)
[2021-07-15] MEDS ORDERED: ROPIVACAINE 5MG/ML 20ML VIAL ONE (10:09)
[2021-07-15] MEDS ORDERED: MIDAZOLAM 2 MG/2 ML VIAL ONE (10:09)
--- NOTE | 2021-07-15 10:27 | P.PCN ---
Date of Procedure: 07/15/21 Description of Procedure: Procedure: Cervical Medial Branch Block at C4/5 5/6 bilateral Indications: Neck Pain Diagnosis: Cervical spondylosis without myelopathy Imaging: Fluoroscopy was used, images where saved to the medical record Anesthesia: 2mg of versed Description of procedure: The patient was seen and examined in the PO. Procedure risks and benefits were fully reviewed with patient. The patient understands this is a diagnostic as well as a therapeutic procedure and that the goal of the procedure is to inject medication on to the medial branch or small nerves that go into the facet joints. In this way, we can hopefully identify which of these joints, if any, may be contributing to their pain. Informed consent for the procedure was obtained. The patient was taken into the office fluoroscopy procedure room and placed supine on the table. Vital signs were closely monitored during the procedure. The skin over the area was prepped with chlorhexidine and draped in usual sterile manner. Sterile technique was observed throughout procedure. Under fluoroscopic guidance, the target injection areas of the the above noted level's medial branches were visualized in lateral views. Using biplanar fluoroscopy, a 25 gauge 3.5 inch needle was inserted into proper position where the tip of the needle was located at the midpoint of the quadrangle at each level. After negative aspiration for blood and CSF, 0.5cc of 0.5 % Ropivacaine was injected into each of the targeted areas. The needles were withdrawn intact. No complications were noted during the procedure. The patient tolerated procedure well. The patient was placed in supine position and transferred to the recovery area for observation and remained stable until discharged home. Home discharge instructions given to the patient by the staff. The patient was reexamined prior to discharge. Follow up/plan: The patient will schedule a follow up in the clinic to discuss results and potential RFA. Of note - patient has bradycardia and occasional heart block, she reports it is chronic and see's dr. Boyd from cardiology recently and everything is good.
[2021-07-15] MEDS ORDERED: IV FLUID CONTINUATION 1,000 ML IV ONE (10:33)
[2021-07-15 10:38] VITALS: RESP 18
--- NOTE | 2021-07-15 10:39 | FL ---
EXAMINATION TYPE: FL guided pain mgmt statistic DATE OF EXAM: 07/15/2021 HISTORY: Fluoroscopy time 11 seconds of fluoroscopy provided. IMPRESSION: 1. Fluoroscopy time.
[2021-07-15 11:00] VITALS: BP 146/78; PULSE 61
== END 2021-07-15 11:09 | disposition home or self-care (01) ==
LOC: ORPAIN 09:27
PROVIDERS: ATTEND Hospitalist
DX: M54.2 Cervicalgia (principal); M47.812 Spondylosis without myelopathy or radiculopathy, cervical region; Z88.2 Allergy status to sulfonamides; Z91.040 Latex allergy status; R00.1 Bradycardia, unspecified
CPT/HCPCS: 64490; 64491; J2250; J2795

== ENCOUNTER 2021-09-22 10:52 | Emergency (ER) | payer MEDICARE, BC ==
[2021-09-22] MEDS ORDERED: ONDANSETRON 4 MG/2 ML VIAL IVP STA (11:19)
[2021-09-22] MEDS ORDERED: KETOROLAC 15 MG/ML 1 ML VIAL IVP STA (11:19)
[2021-09-22] MEDS ORDERED: SODIUM CHLORIDE 0.9% 1,000 ML IV STA (11:19)
[2021-09-22] MEDS ORDERED: SODIUM CHLORIDE 0.9% 500 ML 500 ML IV ONE (11:21)
[2021-09-22] MEDS ORDERED: PANTOPRAZOLE 40 MG/10 ML VIAL IVP STA (11:21)
[2021-09-22 11:51] VITALS: RESP 18
--- NOTE | 2021-09-22 12:08 | ED ---
Abdominal Pain HPI - General Source: patient, RN notes reviewed Mode of arrival: ambulatory Limitations: no limitations <Jasen Rivas - Last Filed: 09/22/21 12:06> <Luke Gomez - Last Filed: 09/22/21 17:03> - General Chief Complaint: Abdominal Pain Stated Complaint: Abdominal Pain Time Seen by Provider: 09/22/21 11:02 - History of Present Illness Initial Comments: This a 66-year-old female presents emergency Department with chief complaint of abdominal pain, nausea vomiting diarrhea. Patient states she's having mid abdominal pain. Patient states that since increasing she's had several episodes of vomiting diarrhea she denies any fevers chills no chest pain shortness of breath or any dizziness at this time. Patient states she does have some underlying reflux which is not new for the patient. No sick contacts no dysuria. (Jasen Rivas) - Related Data Home Medications Medication Instructions Recorded Confirmed Atorvastatin [Lipitor] 10 mg PO DAILY 01/28/18 09/22/21 DULoxetine HCL [Cymbalta] 60 mg PO DAILY 01/28/18 09/22/21 Omeprazole 20 mg PO QAM 01/28/18 09/22/21 Sertraline [Zoloft] 25 mg PO DAILY 01/28/18 09/22/21 lisinopriL [Zestril] 20 mg PO BID 01/04/19 09/22/21 Beclomethasone Dip 80 Mcg/Puff 2 puff INHALATION RT-BID 06/09/21 09/22/21 [Qvar 80 mcg] Metoprolol Tartrate [Lopressor] 50 mg PO BID 07/09/21 09/22/21 Albuterol Inhaler [Ventolin Hfa 2 puff INHALATION RT-QID PRN 09/22/21 09/22/21 Inhaler] Cholecalciferol [Vitamin D3 (25 50 mcg PO DAILY 09/22/21 09/22/21 Mcg = 1000 Iu)] Previous Rx's Medication Instructions Recorded HYDROcodone/APAP 5-325MG [[place] 1 - 2 tab PO Q4HR PRN 3 Days #18 09/22/21 5-325] tab Ondansetron Odt [Zofran Odt] 8 mg PO Q8HR PRN #15 tab 09/22/21 Allergies Allergy/AdvReac Type Severity Reaction Status Date / Time adhesive Allergy Itching, Verified 09/22/21 12:00 takes her skin off Fish Containing Products Allergy Swelling Verified 09/22/21 12:00 [Fish] in throat latex Allergy Rash/Hives Verified 09/22/21 12:00 Sulfa (Sulfonamide Allergy Anaphylaxis Verified 09/22/21 12:00 Antibiotics) walnut Allergy Swelling Verified 09/22/21 12:00 gluten AdvReac CONGESTION Verified 09/22/21 12:00 perfume AdvReac Dyspnea Verified 09/22/21 12:00 Review of Systems ROS Other: All systems not noted in ROS Statement are negative. <Jasen Rivas - Last Filed: 09/22/21 12:06> ROS Other: All systems not noted in ROS Statement are negative. <Luke Gomez - Last Filed: 09/22/21 17:03> ROS Statement: Those systems with pertinent positive or pertinent negative responses have been documented in the HPI. Past Medical History Past Medical History: Asthma, Diabetes Mellitus, Eye Disorder, Fibromyalgia, GERD/Reflux, Hearing Disorder / Deafness, Hyperlipidemia, Hypertension, Musculoskeletal Disorder, Osteoarthritis (OA), Respiratory Disorder, Sleep Apnea/CPAP/BIPAP Additional Past Medical History / Comment(s): SCOLIOSIS, [place], HX DIABETES-NO LONGER ON RX-WATCHES DIET, NO CPAP USE, LEFT KIDNEY REMOVED, LIPOMAS. "Arthritis is worsening, having cortisone shots tomorrow". Last Myocardial Infarction Date:: UNKNOWN DATE - PER TESTS", History of Any Multi-Drug Resistant Organisms: None Reported Past Surgical History: Bariatric Surgery, Bladder Surgery, Heart Catheterization, Hysterectomy, Joint Replacement, Orthopedic Surgery Additional Past Surgical History / Comment(s): 2018 TOTAL HIP REPLACEMENTS, BILATERAL FOOT SURGERY, LAPAROTOMY FIBROID TUMOR REMOVED, 2017 BARIATRIC SLEEVE, 2008 LEFT KIDNEY AND URETER REMOVED, EXP LAP, CATARACTS REMOVED, 2ND PROCEDURE FOR SPINAL INTERSTIM IMPLANT DONE 06/18/21 AT [place]. 05/2021 BLADDER STIMULATOR IMPLANT PUT INTO SPINE , PAIN CLINIC PROCEDURES. bladder surgery x2. 2009 large cyst removed from left abdominal area. 2005 complete hysterectomy. bones in the toes removed from both feet in the 1979's. D & C. 2018 bilat breast lumpectomy-benign Past Anesthesia/Blood Transfusion Reactions: Previous Problems w/ Anesthesia, Postoperative Nausea & Vomiting (PONV) Additional Past Anesthesia/Blood Transfusion Reaction / Comment(s): . Past Psychological History: Anxiety, Depression Smoking Status: Never smoker Past Alcohol Use History: None Reported Past Drug Use History: None Reported - Past Family History Father Family Medical History: Cancer, Myocardial Infarction ([place]), Prostate Disorder Additional Family Medical History / Comment(s): Prostate cancer. Mother Family Medical History: Diabetes Mellitus, Hypertension, Myocardial Infarction ([place]) Additional Family Medical History / Comment(s): Heart disease, quadruple bypass. 7 or 8 of mother's siblings had heart disease. <Jasen Rivas - Last Filed: 09/22/21 12:06> General Exam Limitations: no limitations General appearance: alert, in no apparent distress Head exam: Present: atraumatic, normocephalic, normal inspection Eye exam: Present: normal appearance, PERRL, EOMI. Absent: scleral icterus, conjunctival injection, periorbital swelling ENT exam: Present: normal exam, normal oropharynx, mucous membranes moist, TM's normal bilaterally Neck exam: Present: normal inspection, full ROM. Absent: tenderness, meningismus, lymphadenopathy Respiratory exam: Present: normal lung sounds bilaterally. Absent: respiratory distress, wheezes, rales, rhonchi, stridor Cardiovascular Exam: Present: regular rate, normal rhythm, normal heart sounds. Absent: systolic murmur, diastolic murmur, rubs, gallop, clicks GI/Abdominal exam: Present: soft, tenderness, normal bowel sounds. Absent: distended, guarding, rebound, rigid <Jasen Rivas M - Last Filed: 09/22/21 12:06> Course Vital Signs 09/22/21 09/22/21 09/22/21 10:54 11:31 14:15 Temperature 97.8 F Pulse Rate 93 71 91 Respiratory 20 18 18 Rate Blood Pressure 177/113 181/92 172/88 O2 Sat by Pulse 98 96 96 Oximetry 09/22/21 15:09 Temperature Pulse Rate 88 Respiratory 18 Rate Blood Pressure O2 Sat by Pulse 98 Oximetry Medical Decision Making - Lab Data Result diagrams: 09/22/21 11:31 09/22/21 11:31 <Luke Gomez - Last Filed: 09/22/21 17:03> - Medical Decision Making The patient was seen and examined. IV is established patient is hydrated. Patient is feeling improved after IV Toradol, IV fluids, IV Zofran, and IV Protonix. Her laboratory came back showing elevation of the amylase and lipase. Computed tomography scan of the abdomen and pelvis does show fibroid uterus as well as gallstones. Please see report for details. Patient then had a gallbladder ultrasound and this does not show any dilation of the common bile duct but does show the gallstones. It is felt as though the patient is stable for discharge home. The lipase is not severely elevated currently. The exact cause of her pancreatitis is not definitively determined. She denies any previous similar incidents. She does relate that she had multiple steroid shots other day for some joint pain and is unsure if this could be related as her symptoms came on shortly thereafter. She states that her blood sugar was running somewhat high after having a steroid shots. She is agreeable for discharge and leaves in no distress. She will be referred to gastroenterology in regards to the pancreatitis and Gen. surgery in regards to the gallstones. Pain medications and nausea medications will be prescribed. Return parameters are discussed. (Luke Gomez) - Lab Data Lab Results 09/22/21 09/22/21 09/22/21 Range/Units 11:31 11:31 11:31 WBC 10.2 (3.8-10.6) k/uL RBC 5.12 (3.80-5.40) m/uL Hgb 13.7 (11.4-16.0) gm/dL Hct 43.7 (34.0-46.0) % MCV 85.2 (80.0-100.0) fL MCH 26.8 (25.0-35.0) pg MCHC 31.5 (31.0-37.0) g/dL RDW 14.7 (11.5-15.5) % Plt Count 268 (150-450) k/uL MPV 8.3 Neutrophils % 66 % Lymphocytes % 25 % Monocytes % 5 % Eosinophils % 3 % Basophils % 0 % Neutrophils # 6.8 (1.3-7.7) k/uL Lymphocytes # 2.5 (1.0-4.8) k/uL Monocytes # 0.5 (0-1.0) k/uL Eosinophils # 0.3 (0-0.7) k/uL Basophils # 0.0 (0-0.2) k/uL Sodium 137 (137-145) mmol/L Potassium 4.7 (3.5-5.1) mmol/L Chloride 108 H (98-107) mmol/L Carbon Dioxide 24 (22-30) mmol/L Anion Gap 5 mmol/L BUN 20 H (7-17) mg/dL Creatinine 0.86 (0.52-1.04) mg/dL Est GFR (CKD-EPI)AfAm 82 (>60 ml/min/1.73 sqM) Est GFR (CKD-EPI)NonAf 71 (>60 ml/min/1.73 sqM) Glucose 97 (74-99) mg/dL Plasma Lactic Acid Lg 1.0 (0.7-2.0) mmol/L Calcium 8.4 (8.4-10.2) mg/dL Total Bilirubin 1.0 (0.2-1.3) mg/dL AST 28 (14-36) U/L ALT 27 (4-34) U/L Alkaline Phosphatase 121 (38-126) U/L Troponin I (0.000-0.034) ng/mL Total Protein 7.3 (6.3-8.2) g/dL Albumin 3.7 (3.5-5.0) g/dL Amylase 190 H (30-110) U/L Lipase 914 H (23-300) U/L Urine Color Urine Appearance (Clear) Urine pH (5.0-8.0) Ur Specific [place] (1.001-1.035) Urine Protein (Negative) Urine Glucose (UA) (Negative) Urine Ketones (Negative) Urine Blood (Negative) Urine Nitrite (Negative) Urine Bilirubin (Negative) Urine Urobilinogen (<2.0) mg/dL Ur Leukocyte Esterase (Negative) 09/22/21 09/22/21 Range/Units 11:31 14:15 WBC (3.8-10.6) k/uL RBC (3.80-5.40) m/uL Hgb (11.4-16.0) gm/dL Hct (34.0-46.0) % MCV (80.0-100.0) fL MCH (25.0-35.0) pg MCHC (31.0-37.0) g/dL RDW (11.5-15.5) % Plt Count (150-450) k/uL MPV Neutrophils % % Lymphocytes % % Monocytes % % Eosinophils % % Basophils % % Neutrophils # (1.3-7.7) k/uL Lymphocytes # (1.0-4.8) k/uL Monocytes # (0-1.0) k/uL Eosinophils # (0-0.7) k/uL Basophils # (0-0.2) k/uL Sodium (137-145) mmol/L Potassium (3.5-5.1) mmol/L Chloride (98-107) mmol/L Carbon Dioxide (22-30) mmol/L Anion Gap mmol/L BUN (7-17) mg/dL Creatinine (0.52-1.04) mg/dL Est GFR (CKD-EPI)AfAm (>60 ml/min/1.73 sqM) Est GFR (CKD-EPI)NonAf (>60 ml/min/1.73 sqM) Glucose (74-99) mg/dL Plasma Lactic Acid Lg (0.7-2.0) mmol/L Calcium (8.4-10.2) mg/dL Total Bilirubin (0.2-1.3) mg/dL AST (14-36) U/L ALT (4-34) U/L Alkaline Phosphatase (38-126) U/L Troponin I 0.023 (0.000-0.034) ng/mL Total Protein (6.3-8.2) g/dL Albumin (3.5-5.0) g/dL Amylase (30-110) U/L Lipase (23-300) U/L Urine Color Light Yellow Urine Appearance Clear (Clear) Urine pH 6.5 (5.0-8.0) Ur Specific [place] 1.019 (1.001-1.035) Urine Protein Negative (Negative) Urine Glucose (UA) Negative (Negative) Urine Ketones Negative (Negative) Urine Blood Negative (Negative) Urine Nitrite Negative (Negative) Urine Bilirubin Negative (Negative) Urine Urobilinogen <2.0 (<2.0) mg/dL Ur Leukocyte Esterase Negative (Negative) Disposition <Jasen Rivas - Last Filed: 09/22/21 12:06> Is patient prescribed a controlled substance at d/c from ED?: Yes When asked, does pt state using other controlled substances?: No If prescribed controlled substance>3 days was MAPS reviewed?: Prescribed <3 Days Time of Disposition: 17:03 <Luke Gomez - Last Filed: 09/22/21 17:03> Clinical Impression: Acute abdominal pain, Nausea and vomiting, Gallstone, Pancreatitis, Diarrhea Disposition: HOME SELF-CARE Condition: Good Instructions (If sedation given, give patient instructions): Abdominal Pain (ED), Pancreatitis (ED), Gallstones (ED) Prescriptions: HYDROcodone/APAP 5-325MG [[place] 5-325] 1 - 2 tab PO Q4HR PRN 3 Days #18 tab PRN Reason: Pain Ondansetron Odt [Zofran Odt] 8 mg PO Q8HR PRN #15 tab PRN Reason: Nausea Referrals: Norma Laurent MD [Primary Care Provider] - 1-2 days
[2021-09-22 12:14] LABS: Basophils % (A) 0 %; Eosinophils # (A) 0.3 k/uL (0-0.7); Eosinophils % (A) 3 %; HCT 43.7 % (34.0-46.0); HGB 13.7 gm/dL (11.4-16.0); Lymphocytes # (A) 2.5 k/uL (1.0-4.8); Lymphocytes % (A) 25 %; MCH 26.8 pg (25.0-35.0); MCHC 31.5 g/dL (31.0-37.0); MCV 85.2 fL (80.0-100.0); Mean Platelet Volume 8.3; Monocytes # (A) 0.5 k/uL (0-1.0); Monocytes % (A) 5 %; Neutrophils # (A) 6.8 k/uL (1.3-7.7); Neutrophils % (A) 66 %; Platelet Count 268 k/uL (150-450); RBC 5.12 m/uL (3.80-5.40); RDW 14.7 % (11.5-15.5); WBC 10.2 k/uL (3.8-10.6)
[2021-09-22 12:34] LABS: Albumin 3.7 g/dL (3.5-5.0); Calcium 8.4 mg/dL (8.4-10.2); Total Protein 7.3 g/dL (6.3-8.2)
[2021-09-22 12:43] LABS: Potassium 4.7 mmol/L (3.5-5.1)
[2021-09-22 14:27] LABS: Appearance,Urine Clear (Clear); Bilirubin,Urine Negative (Negative); Blood,Urine Negative (Negative); Color,Urine Light Yellow; Glucose,Urine (UA) Negative (Negative); Ketones,Urine Negative (Negative); Leukocyte Esterase,Urine Negative (Negative); Nitrite,Urine Negative (Negative); PH, Urine 6.5 (5.0-8.0); Protein,Urine Negative (Negative); Specific Gravity,Urine 1.019 (1.001-1.035); Urobilinogen,Urine <2.0 mg/dL (<2.0)
--- NOTE | 2021-09-22 14:40 | CT ---
EXAMINATION TYPE: CT abdomen pelvis w con DATE OF EXAM: 09/22/2021 COMPARISON: None HISTORY: Abdominal pain. CT DLP: 2146 mGycm Automated exposure control for dose reduction was used. TECHNIQUE: Helical acquisition of images from the lung bases through the pelvis have been completed. CONTRAST: Performed without Oral Contrast and with IV Contrast, patient injected with 100 mL of Isovue 300. FINDINGS: Patient is post gastric sleeve, distal esophagus is somewhat dilated. There is a linear den sity present in the midline at the midline abdominal wall infraumbilical location likely related to p atient's surgery, some metallic densities are present within the rectus musculature on the right. LUNG BASES: No significant abnormality is appreciated. AORTA: No significant abnormality is appreciated. LIVER/GB: Gallbladder shows 2 punctate metallic densities possibly related to stone disease, liver sh ows low attenuation possibly due to hepatic steatosis. PANCREAS: No significant abnormality is seen. SPLEEN: No significant abnormality is seen. ADRENALS: No significant abnormality is seen. KIDNEYS: Left kidney is surgically absent. Punctate nonobstructive calculus present in the midpole th e right kidney. REPRODUCTIVE ORGANS: The uterus shows a lobular contour, there may be underlying fibroids, low-attenu ation is present at the lower uterine ligament level, possibly within the vagina. BOWEL: No significant abnormality is seen. FREE AIR: No Free Air visible. ASCITES: None visible. PELVIC ADENOPATHY: None visualized. RETROPERITONEAL ADENOPATHY: No Retroperitoneal Adenopathy visible. URINARY BLADDER: No significant abnormality is seen. OSSEOUS STRUCTURES: Bilateral hip prostheses are present. Artifact is present. There is a generator in the left gluteal region, lead is coursing into the pelvis adjacent to the sacrum. Patient shows po sterior fusion change at L4-5, there is artifact present. Minimal anterolisthesis grade 1 L4-5, inter vertebral spacing block is present. There is multilevel spondylosis. Mild spinal curvature is noted.. IMPRESSION: POSTOP CHANGES WITH ARTIFACT. POSSIBLE FIBROID UTERUS COULD BE CONFIRMED WITH ALTERNATE IMAGING, FIND INGS WITHIN THE VAGINA, CONSIDER PELVIC EXAM. POSSIBLE HEPATIC STEATOSIS, CHOLELITHIASIS.
--- NOTE | 2021-09-22 16:17 | US ---
EXAMINATION TYPE: US gallbladder DATE OF EXAM: 09/22/2021 COMPARISON: CT 09/22/2021 CLINICAL HISTORY: Pain, gallstones. Pain . EXAM MEASUREMENTS: Liver Length: 16 cm Gallbladder Wall: 0.3 cm CBD: 0.45 cm Right Kidney: 9.9 x 5.9 x 4.4 cm gallstones exam limitations due to bowel gas and body habitus Pancreas: Obscured by bowel gas Liver: Increased attenuation limited. Gallbladder: Mulitiple stones seen. Evidence for sonographic Chance's sign: Yes CBD: wnl Right Kidney: wnl IMPRESSION: Exam is limited. Cholelithiasis. Correlate for possible hepatic steatosis, hepatocellular disease
[2021-09-22 17:31] VITALS: BP 153/93; PULSE 84; TEMP 98.6
== END 2021-09-22 17:52 | disposition home or self-care (01) ==
LOC: EC 10:52
DX: Z91.040 Latex allergy status (principal); K80.20 Calculus of gallbladder without cholecystitis without obstruction; K85.90 Acute pancreatitis without necrosis or infection, unspecified; J45.909 Unspecified asthma, uncomplicated; K21.9 Gastro-esophageal reflux disease without esophagitis; Z79.1 Long term (current) use of non-steroidal anti-inflammatories (NSAID); E11.9 Type 2 diabetes mellitus without complications; Z91.048 Other nonmedicinal substance allergy status; Z91.013 Allergy to seafood; Z88.2 Allergy status to sulfonamides
CPT/HCPCS: 36415; 93005; 80053; 82150; 83605; 83690; 84484; 85025; 81003; 76705; 74177; 99284; 96374; 96375; 96361; J2405; J1885; C9113; Q9967

== ENCOUNTER → 2021-10-24 | Outpatient (CLI) | payer MEDICARE, BC ==
[2021-10-24 15:43] VITALS: BP 164/79; PULSE 85; RESP 18; TEMP 99.3
--- NOTE | 2021-10-24 16:41 | P.GSHP ---
History of Present Illness H&P Date: 10/24/21 Chief Complaint: bilateral breast lumps Rhina is a 66 year old female status post bilateral mammogram approximately 3 months ago through a [place] and in [place]. Verbally she was told that everything was okay. She however has noted bilateral breast nodules. The right breast she has noted a nodule at the 12:30 position close to the chest wall, and in the left breast is noted a nodule at the approximately 1:30 position closer to the chest wall. She also noted in the left breast at the 11:30 position and area was she believes may be cystic. And also at the 1:30 position in the right breast in the area which she believes may be cystic. She also complains of some fullness and a lumpy feeling on the lateral aspect of her left chest wall extending under her arm. She is complaining of discomfort in the patient she believes may be cyst. She is not complaining of any nipple discharge or changes. She is not complaining of any recent trauma or infection. In the approximately 2017 she underwent excision of 2 lipomas one in the right breast and one in the left. Caffiene: 1/2 cup/day, one cola /day nicotine: none chocolate: none BCP: 6 years in the remote past hormones: took for about 4 years from [age] after radical hysterectomy (pre- cancer cells in cervix) Family History: two sisters: breast, and one pelvic cancer (in 30's) father: prostate cancer paternal gradnfather: spinal cancer Hormonal History: menarche: 10 , breast fed: no, age at first : 15 menopause: Surgical at 49 radical hysterectomy, precancer cells and the cervix Hormones: 4 years from [age] control pills: 6 years in the remote past Surgical history: Radical hysterectomy bilateral hip replacement spinal surgery implant for bladder gastric sleeve kidney resected: rule out cancer ureter removed left side two abdominal exploratory cataract surgery bilateral foot surgery Medical History: HTN depression high cholesterol weight gain Social History: Nicotine: Negative Alcohol: History of Drugs: Negative - Constitutional Constitutional: Reports sweats - EENT Eyes: bilateral as per HPI, denies blurred vision, denies pain Ears: deny: decreased hearing, tinnitus Ears, nose, mouth and throat: Denies headache, Denies sore throat - Breasts Breasts: bilateral: as per HPI - Cardiovascular Cardiovascular: Reports shortness of breath, Denies chest pain - Respiratory Respiratory: Denies cough, Denies 7 - Gastrointestinal Gastrointestinal: Reports as per HPI - Genitourinary (Female) Comment: UTI frequent Genitourinary: Reports as per HPI - Menstruation Menstruation: Reports post hysterectomy - Musculoskeletal Comment: arthritis Musculoskeletal: Reports as per HPI - Integumentary Integumentary: Reports pruritus, Denies rash - Neurological Neurological: Reports weakness - Psychiatric Psychiatric: Reports anxiety, Reports depression - Endocrine Comment: diabetes resolved after weight loss; lost 62 pounds Endocrine: Reports fatigue - Hematologic/Lymphatic Comment: none - Allergic/Immunologic Allergic/Immunologic: Reports seasonal allergies Past Medical History Past Medical History: Asthma, Diabetes Mellitus, Eye Disorder, Fibromyalgia, GERD/Reflux, Hearing Disorder / Deafness, Hyperlipidemia, Hypertension, Musculoskeletal Disorder, Osteoarthritis ([place]), Respiratory Disorder, Sleep Apnea/CPAP/BIPAP Additional Past Medical History / Comment(s): SCOLIOSIS, [place], HX DIABETES-NO LONGER ON RX-WATCHES DIET, NO CPAP USE, LEFT KIDNEY REMOVED, LIPOMAS. "Arthritis is worsening, having cortisone shots tomorrow". Last Myocardial Infarction Date:: UNKNOWN DATE - PER TESTS", History of Any Multi-Drug Resistant Organisms: None Reported Past Surgical History: Bariatric Surgery, Bladder Surgery, Heart Catheterization, Hysterectomy, Joint Replacement, Orthopedic Surgery Additional Past Surgical History / Comment(s): 2018 TOTAL HIP REPLACEMENTS, BILATERAL FOOT SURGERY, LAPAROTOMY FIBROID TUMOR REMOVED, 2017 BARIATRIC SLEEVE, 2008 LEFT KIDNEY AND URETER REMOVED, EXP LAP, CATARACTS REMOVED, 2ND PROCEDURE FOR SPINAL INTERSTIM IMPLANT DONE 06/18/21 AT [place]. 05/2021 BLADDER STIMULATOR IMPLANT PUT INTO SPINE , PAIN CLINIC PROCEDURES. bladder surgery x2. 2009 large cyst removed from left abdominal area. 2005 complete hysterectomy. bones in the toes removed from both feet in the s. D & C. 2018 bilat breast lumpectomy-benign Past Anesthesia/Blood Transfusion Reactions: Previous Problems w/ Anesthesia, Postoperative Nausea & Vomiting (PONV) Additional Past Anesthesia/Blood Transfusion Reaction / Comment(s): . Past Psychological History: Anxiety, Depression Additional Psychological History / Comment(s): HX PANIC ATTACK X1. Smoking Status: Never smoker Past Alcohol Use History: None Reported Past Drug Use History: None Reported - Past Family History Father Family Medical History: Cancer, Myocardial Infarction ([place]), Prostate Disorder Additional Family Medical History / Comment(s): Prostate cancer. Mother Family Medical History: Diabetes Mellitus, Hypertension, Myocardial Infarction ([place]) Additional Family Medical History / Comment(s): Heart disease, quadruple bypass. 7 or 8 of mother's siblings had heart disease. Medications and Allergies Home Medications Medication Instructions Recorded Confirmed Type Atorvastatin [Lipitor] 10 mg PO DAILY 01/28/18 10/24/21 History DULoxetine HCL [Cymbalta] 60 mg PO DAILY 01/28/18 10/24/21 History Omeprazole 20 mg PO QAM 01/28/18 10/24/21 History Sertraline [Zoloft] 25 mg PO DAILY 01/28/18 10/24/21 History lisinopriL [Zestril] 20 mg PO BID 01/04/19 10/24/21 History Beclomethasone Dip 80 Mcg/Puff 2 puff INHALATION RT-BID 06/09/21 10/24/21 History [Qvar 80 mcg] Metoprolol Tartrate [Lopressor] 50 mg PO BID 07/09/21 10/24/21 History Albuterol Inhaler [Ventolin Hfa 2 puff INHALATION RT-QID PRN 09/22/21 10/24/21 History Inhaler] Cholecalciferol [Vitamin D3 (25 50 mcg PO DAILY 09/22/21 10/24/21 History Mcg = 1000 Iu)] HYDROcodone/APAP 5-325MG [[place] 1 - 2 tab PO Q4HR PRN 3 Days #18 09/22/21 10/24/21 Rx 5-325] tab Allergies Allergy/AdvReac Type Severity Reaction Status Date / Time adhesive Allergy Itching, Verified 10/24/21 15:35 takes her skin off Fish Containing Products Allergy Swelling Verified 10/24/21 15:35 [Fish] in throat latex Allergy Rash/Hives Verified 10/24/21 15:35 Sulfa (Sulfonamide Allergy Anaphylaxis Verified 10/24/21 15:35 Antibiotics) walnut Allergy Swelling Verified 10/24/21 15:35 gluten AdvReac CONGESTION Verified 10/24/21 15:35 perfume AdvReac Dyspnea Verified 10/24/21 15:35 Surgical - Exam Vital Signs Temp Pulse Resp BP Pulse Ox 99.3 F 85 18 164/79 95 10/24/21 15:37 10/24/21 15:37 10/24/21 15:37 10/24/21 15:37 10/24/21 15:37 BMI: 46.7 - General no distress - Eyes normal ocular movement - Neck trachea midline - Respiratory normal respiratory effort - Cardiovascular Rhythm: regular Heart Sounds: normal: S1, S2 - Abdomen Abdomen: soft - Integumentary normal turgor - Neurologic no disoriented, no combative - Musculoskeletal uses a walker - Psychiatric oriented to time, oriented to person, oriented to place, speech is normal, memory intact Assessment and Plan Assessment: Impression: HTN depression high cholesterol weight gain This nodularity as stated Fibrocystic breast changes Plan: Ultrasound of both breasts at the area of the palpable changes were most likely have aspiration of them appear cystic or needle biopsies Patient to follow up after ultrasound of both breast Attempted aspiration of the area of concern in the 9:30 position of the left breast was performed with a 22-gauge needle on a 10 mL syringe. No fluid was obtained. Ultrasound will be obtained of this area. CC: Dr. Laurent
== END ==
LOC: WWCWWP 15:01
PROVIDERS: ATTEND Surgery
DX: N63.0 Unspecified lump in unspecified breast (principal); N60.19 Diffuse cystic mastopathy of unspecified breast; F32.A Depression, unspecified; E78.00 Pure hypercholesterolemia, unspecified; I10 Essential (primary) hypertension; E78.5 Hyperlipidemia, unspecified; J45.909 Unspecified asthma, uncomplicated; M19.90 Unspecified osteoarthritis, unspecified site; E11.9 Type 2 diabetes mellitus without complications; F41.9 Anxiety disorder, unspecified; Z88.2 Allergy status to sulfonamides; Z91.040 Latex allergy status; Z91.018 Allergy to other foods; Z91.013 Allergy to seafood; Z91.09 Other allergy status, other than to drugs and biological substances

== ENCOUNTER → 2021-11-06 | Outpatient (CLI) | payer MEDICARE, BC | LOC: WWCWWP 10:15 | PROVIDERS: ATTEND Surgery | DX: N63.0 Unspecified lump in unspecified breast (principal); Z91.040 Latex allergy status; Z91.018 Allergy to other foods; Z91.013 Allergy to seafood; Z88.2 Allergy status to sulfonamides; Z91.09 Other allergy status, other than to drugs and biological substances ==

== ENCOUNTER → 2021-11-13 | Outpatient (CLI) | payer MEDICARE, BC ==
--- NOTE | 2021-11-13 16:01 | MM ---
Reason for Exam: Clinical finding. Last screening mammogram was performed 7 month(s) ago. Indicated Problems: Lump or thickening of both sides for 1 Year(s). Patient History: Menarche at age 10. First Full-Term at age 15. Left ovary removed at age 49. Right ovary removed at age 49. Hysterectomy at age 49. Postmenopausal. Estrogen, from age 49 until age 54. 2018, Excisional Biopsy on the Left side. 2018, Excisional Biopsy on the Right side. Risk Values: Sheila 5 year model risk: 2.0%. NCI Lifetime model risk: 6.9%. Film Views: Bilateral CC views were taken. Bilateral MLO views were taken. Bilateral XCCL views were taken. Right MLONIP views were taken. Prior Study Comparison: 12/16/2016 Screening Mammogram, [facility]. 03/29/2019 Bilateral Diagnostic Mammogram, [facility]. 03/29/2019 Bilateral Diagnostic Ultrasound, [facility]. 02/01/2020 Bilateral MG 3D screening mammo w/cad, [facility]. 04/01/2021 Bilateral MG 3D screening mammo w/cad, [facility]. 11/06/2021 Bilateral US breast limited [facility], [facility]. Tissue Density: There are scattered fibroglandular densities. Findings: Analyzed By CAD. There are multiple palpable markers bilaterally. Review of the patient's ultrasound demonstrates multiple lipomas. The palpable marker 4:00 left breast demonstrates an underlying vague density. This seems to correspond to the area on ultrasound that could represent a small hematoma. Additional subareolar nodularity left MLO view is slightly better seen but is suspected to have been present previously. Six-month follow-up left mammogram is recommended for both of these findings. Additional 6 month follow-up left breast ultrasound for the 4:00 palpable site. There are multiple palpable markers bilaterally. Review of the patient's ultrasound demonstrates multiple lipomas. The palpable marker 4:00 left breast demonstrates an underlying vague density. This seems to correspond to the area on ultrasound that could represent a small hematoma. Additional subareolar nodularity left MLO view is slightly better seen but is suspected to have been present previously. Six-month follow-up left mammogram is recommended for both of these findings. Additional 6 month follow-up left breast ultrasound for the 4:00 palpable site. There was discussion with the surgeon to biopsy the largest echogenic mass seen by ultrasound on either side to confirm lipomas. Overall Assessment: Suspicious, BI-RAD 4 Management: Ultrasound Core Biopsy of both breasts. Diagnostic Mammogram of the left breast in 6 months. - Six-month follow-up targeted left breast ultrasound, 4:00 position. Results were given to the patient verbally at the time of exam. Electronically signed and approved by: Roslyn Newton M.D. Radiologist
== END | disposition home or self-care (01) ==
LOC: RADMAMWWP 14:57
PROVIDERS: ATTEND Surgery
DX: R92.8 Other abnormal and inconclusive findings on diagnostic imaging of breast (principal)
CPT/HCPCS: 77066; G0279; 77062

== ENCOUNTER → 2021-11-17 | Day surgery (SDC) | payer MEDICARE, BC ==
--- NOTE | 2021-11-13 16:01 | MM ---
Reason for Exam: Clinical finding. Last screening mammogram was performed 7 month(s) ago. Indicated Problems: Lump or thickening of both sides for 1 Year(s). Patient History: Menarche at age 10. First Full-Term at age 15. Left ovary removed at age 49. Right ovary removed at age 49. Hysterectomy at age 49. Postmenopausal. Estrogen, from age 49 until age 54. 2018, Excisional Biopsy on the Left side. 2018, Excisional Biopsy on the Right side. Risk Values: Sheila 5 year model risk: 2.0%. NCI Lifetime model risk: 6.9%. Film Views: Bilateral CC views were taken. Bilateral MLO views were taken. Bilateral XCCL views were taken. Right MLONIP views were taken. Prior Study Comparison: 12/16/2016 Screening Mammogram, [facility]. 03/29/2019 Bilateral Diagnostic Mammogram, [facility]. 03/29/2019 Bilateral Diagnostic Ultrasound, [facility]. 02/01/2020 Bilateral MG 3D screening mammo w/cad, [facility]. 04/01/2021 Bilateral MG 3D screening mammo w/cad, [facility]. 11/06/2021 Bilateral US breast limited [facility], [facility]. Tissue Density: There are scattered fibroglandular densities. Findings: Analyzed By CAD. There are multiple palpable markers bilaterally. Review of the patient's ultrasound demonstrates multiple lipomas. The palpable marker 4:00 left breast demonstrates an underlying vague density. This seems to correspond to the area on ultrasound that could represent a small hematoma. Additional subareolar nodularity left MLO view is slightly better seen but is suspected to have been present previously. Six-month follow-up left mammogram is recommended for both of these findings. Additional 6 month follow-up left breast ultrasound for the 4:00 palpable site. There are multiple palpable markers bilaterally. Review of the patient's ultrasound demonstrates multiple lipomas. The palpable marker 4:00 left breast demonstrates an underlying vague density. This seems to correspond to the area on ultrasound that could represent a small hematoma. Additional subareolar nodularity left MLO view is slightly better seen but is suspected to have been present previously. Six-month follow-up left mammogram is recommended for both of these findings. Additional 6 month follow-up left breast ultrasound for the 4:00 palpable site. There was discussion with the surgeon to biopsy the largest echogenic mass seen by ultrasound on either side to confirm lipomas. Overall Assessment: Suspicious, BI-RAD 4 Management: Ultrasound Core Biopsy of both breasts. Diagnostic Mammogram of the left breast in 6 months. - Six-month follow-up targeted left breast ultrasound, 4:00 position. Results were given to the patient verbally at the time of exam. Electronically signed and approved by: Roslyn Newton M.D. Radiologist
--- NOTE | 2021-11-19 13:45 | MM ---
Risk Values: Hseila 5 year model risk: 2.0%. NCI Lifetime model risk: 6.9%. Pathology Description: Location: 1 o'clock, upper inner quadrant. Marker Left Behind. Needle Type: Celero Cores: 2 Gauge: 12 The procedure of ultrasound guided core biopsy was explained to the patient. Benefits, alternatives, and risks were discussed. An informed consent was then obtained. The patient was placed in supine positioning for imaging and for the procedure. Preprocedure ultrasound redemonstrates oval hyperechoic masses bilaterally with largest lesions at 1:00 position in the right breast and 8:00 position in the left breast chosen for textile machinery sales representative sampling. The overlying skin was prepped and draped in usual sterile fashion. Lidocaine is used as anesthetic into the skin and subcutaneous tissue up to areas of concern in the bilateral breasts. Under ultrasound guidance, a vacuum assisted biopsy gun device was used to obtain 2 core samples in each breast. Following this, a biopsy clip was left in lesion bilaterally. The patient tolerated the procedure well without any immediate complication. The patient was kept in the radiology department for short stay after the procedure and then discharged home in stable condition. Postprocedure mammogram confirmed successful deployment of bilateral hydromark clips Impression: Successful, uncomplicated ultrasound guided core biopsy of areas of concern in the bilateral breasts, full pathology results to follow. Low index of suspicion noted at time of procedure. Suspect lipomas. Pathology Results: Result: Benign. A. RIGHT BREAST, 1:00 POSITION, CORE BIOPSY: Fragments of benign fibrovascular adipose tissue (see note). B. LEFT BREAST, 8:00 POSITION, CORE BIOPSY: Fragments of benign fibrovascular adipose tissue (see note). Pathology Description: Location: 8 o'clock, lower inner quadrant. Marker Left Behind. Needle Type: Celero Cores: 2 Gauge: 12 The procedure of ultrasound guided core biopsy was explained to the patient. Benefits, alternatives, and risks were discussed. An informed consent was then obtained. The patient was placed in supine positioning for imaging and for the procedure. Preprocedure ultrasound redemonstrates oval hyperechoic masses bilaterally with largest lesions at 1:00 position in the right breast and 8:00 position in the left breast chosen for textile machinery sales representative sampling. The overlying skin was prepped and draped in usual sterile fashion. Lidocaine is used as anesthetic into the skin and subcutaneous tissue up to areas of concern in the bilateral breasts. Under ultrasound guidance, a vacuum assisted biopsy gun device was used to obtain 2 core samples in each breast. Following this, a biopsy clip was left in lesion bilaterally. The patient tolerated the procedure well without any immediate complication. The patient was kept in the radiology department for short stay after the procedure and then discharged home in stable condition. Postprocedure mammogram confirmed successful deployment of bilateral hydromark clips Impression: Successful, uncomplicated ultrasound guided core biopsy of areas of concern in the bilateral breasts, full pathology results to follow. Low index of suspicion noted at time of procedure. Suspect lipomas. Pathology Results: Result: Benign. A. RIGHT BREAST, 1:00 POSITION, CORE BIOPSY: Fragments of benign fibrovascular adipose tissue (see note). B. LEFT BREAST, 8:00 POSITION, CORE BIOPSY: Fragments of benign fibrovascular adipose tissue (see note). Tissue Density: There are scattered fibroglandular densities. Overall Assessment: Benign Assessment: MG diagnostic mammo BI wo CAD - Bilateral: Post procedure mammogram for marker placement. Management: Diagnostic Mammogram of both breasts in 6 months. Diagnostic Breast Ultrasound of both breasts in 6 months. Electronically signed and approved by: Alan Ornelas M.D.
== END ==
LOC: RADUSWWP 12:28
PROVIDERS: ATTEND Surgery
DX: R92.8 Other abnormal and inconclusive findings on diagnostic imaging of breast (principal)
CPT/HCPCS: 88305; 77066 ×2; 19083; 19084; G0279; A4648; 77062

== ENCOUNTER → 2022-03-10 | Outpatient (CLI) | payer MEDICARE, BC ==
[2022-03-10 19:16] LABS: African American GFR (CKD) 65.5 (60.0-200.0); Anion Gap 9.8 mmol/L (10.00-18.00); BUN/Creat Ratio 17.55 Ratio (12.00-20.00); Blood Urea Nitrogen 17.9 mg/dL (9.0-27.0); Calcium 9.2 mg/dL (8.7-10.3); Carbon Dioxide 24.7 mmol/L (20.0-27.5); Non-African American GFR(CKD) 56.5 (60.0-200.0); Potassium 5.1 mmol/L (3.5-5.5)
== END | disposition home or self-care (01) ==
LOC: LABWHC1 13:16
PROVIDERS: ATTEND Internal Medicine Interventional Cardiology
DX: I50.9 Heart failure, unspecified (principal)
CPT/HCPCS: 36415; 80048

== ENCOUNTER → 2022-05-22 | Outpatient (CLI) | payer MEDICARE, BC ==
--- NOTE | 2022-05-22 14:17 | MM ---
Reason for Exam: Follow-up at short interval from prior study. Last screening mammogram was performed 6 month(s) ago. Patient History: Menarche at age 10. First Full-Term at age 15. Left ovary removed at age 49. Right ovary removed at age 49. Hysterectomy at age 49. Postmenopausal. Estrogen, from age 49 until age 54. 11/17/2021, Benign US biopsy breast VAD RT on the right side. 11/17/2021, Benign US biopsy breast VAD LT on the left side. 2018, Excisional Biopsy on the Left side. 2018, Excisional Biopsy on the Right side. Maternal aunt had breast cancer, age 65. Sister had breast cancer, age 55. Risk Values: Sheila 5 year model risk: 5.2%. NCI Lifetime model risk: 16.1%. Tissue Density: The breast tissue is almost entirely fat. Findings: Analyzed By CAD. Bilateral biopsy changes are noted. Biopsy clips are in place. No new suspicious masses, calcifications or distortions. Overall Assessment: Incomplete: need additional imaging evaluation, BI-RAD 0 Management: Diagnostic Breast Ultrasound of both breasts. A clinical breast exam by your physician is recommended on an annual basis and results should be correlated with mammographic findings. This exam should not preclude additional follow-up of suspicious palpable abnormalities. Results were given to the patient verbally at the time of exam. Electronically signed and approved by: Luke Nance DO
--- NOTE | 2022-05-22 14:26 | USB ---
Reason for Exam: Follow-up at short interval from prior study. Patient History: Menarche at age 10. First Full-Term at age 15. Left ovary removed at age 49. Right ovary removed at age 49. Hysterectomy at age 49. Postmenopausal. Estrogen, from age 49 until age 54. 11/17/2021, Benign US biopsy breast VAD RT on the right side. 11/17/2021, Benign US biopsy breast VAD LT on the left side. 2017, Excisional Biopsy on the Left side. 2018, Excisional Biopsy on the Right side. Maternal aunt had breast cancer, age 65. Sister had breast cancer, age 55. Risk Values: Sheila 5 year model risk: 5.2%. NCI Lifetime model risk: 16.1%. Prior Study Comparison: 04/01/2021 Bilateral MG 3D screening mammo w/cad, [facility]. 11/13/2021 Bilateral MG 3D diag mammo w/cad [facility]. 11/17/2021 Bilateral MG diagnostic mammo BI wo CAD, [facility]. Findings: The upper inner quadrant of the right breast, the lateral section of the breast of the left breast, the axilla of the left breast and the retroareolar of both breasts were scanned. Right upper outer quadrant and left breasts 12 to 8:00 were scanned with grayscale imaging. Left breast 4:00 5 cm from the nipple now appears hyperechoic without evidence for cystic component on today's exam measuring up to 1.3 x 0.8 cm. Left breast 12:00 12 cm from nipple hyperechoic lesion measuring 1.1 x 1.1 x 1.1 cm. Left breast 8:00 5 cm from nipple hyperechoic code lesion measuring 0.7 x 0.6 x 1.2 cm with biopsy clip in place. Right breast 1:00 10 cm from nipple demonstrates clip and a hyperechoic lesion measuring up to 2.5 x 1.2 cm. Right breast 1:00 hypoechoic lesion measuring 1.3 x 0.7 x 1.4 cm. Right breast o'clock 12 cm from nipple lesion 1.5 x 0.6 x 2.3 cm. Overall Assessment: Benign, BI-RAD 2 Management: Screening Mammogram of both breasts in 1 year. Findings at 4:00 in the left breast 5 cm from the nipple are likely benign etiology given benign biopsies of similar lesions and resolution of prior cystic component. A clinical breast exam by your physician is recommended on an annual basis and results should be correlated with mammographic findings. This exam should not preclude additional follow-up of suspicious palpable abnormalities. Results were given to the patient verbally at the time of exam. Electronically signed and approved by: Luke Nance DO
== END | disposition home or self-care (01) ==
LOC: RADMAMWWP 12:54
PROVIDERS: ATTEND Surgery
DX: R92.8 Other abnormal and inconclusive findings on diagnostic imaging of breast (principal); Z78.0 Asymptomatic menopausal state; Z80.3 Family history of malignant neoplasm of breast; Z90.721 Acquired absence of ovaries, unilateral
CPT/HCPCS: 77066; 76642; G0279; 77062

== ENCOUNTER → 2022-05-28 | Outpatient (CLI) | payer MEDICARE, BC ==
[2022-05-28 14:15] VITALS: BP 147/91; PULSE 100; RESP 13; TEMP 98.2
--- NOTE | 2022-05-28 14:56 | P.PN ---
Subjective Progress Note Date: 05/28/22 Principal diagnosis: Fibrocystic breast disease Rhina is a 66 year old female status post bilateral mammogram approximately 3 months ago through a [place] and in [place]. Verbally she was told that everything was okay. She however has noted bilateral breast nodules. The right breast she has noted a nodule at the 12:30 position close to the chest wall, and in the left breast is noted a nodule at the approximately 1:30 position closer to the chest wall. She also noted in the left breast at the 11:30 position and area was she believes may be cystic. And also at the 1:30 position in the right breast in the area which she believes may be cystic. She also complains of some fullness and a lumpy feeling on the lateral aspect of her left chest wall extending under her arm. She is complaining of discomfort in the patient she believes may be cyst. She is not complaining of any nipple discharge or changes. She is not complaining of any recent trauma or infection. In the approximately 2017 she underwent excision of 2 lipomas one in the right breast and one in the left. Her x-rays were reviewed with Dr. Newton. Into these were done in conjunction with ultrasound of both of her breast. After review was recommended that a core biopsy be performed of an area in the right breast at 1:00 and left breast at 8:00 feeling that both appeared to be consistent with lipomas in other nodularity in her breast was felt to be the same. It was felt that this would be small business representative of these areas. Additionally she had a cystic lesion at the 4 o'clock position of the left breast for which follow-up in 6 months was recommended. She subsequently underwent core biopsy of the lesions of the right breast 1:00 and left breast 8:00 both were benign fibrovascular adipose tissue. The patient underwent on 1120 [id number] and ultrasound bilaterally of the breast. Ultrasound of both breast revealed the following: Left breast 12:00 1.1 cm hypoechoic lesion Left breast 8:00 a 0.7 cm lesion [address] by [address] Right breast 1:00 2.5 cm hypoechoic lesion with the clip in place Right breast 12 cm from the nipple 1.5 cm lesion Overall assessment benign BIRADS 2 screening mammogram of both breasts in 1 year was recommended. Bilateral diagnostic mammogram on 05/22/2022 was also performed. The ultrasound was performed after the bilateral mammogram. The patient is complaining of aching pain in her left breast at the 12 oclock position. It has been present for 6-8 months. Caffiene: 1/2 cup/day, one cola /day nicotine: none chocolate: none BCP: 6 years in the remote past hormones: took for about 4 years from [age] after radical hysterectomy (pre- cancer cells in cervix) Family History: two sisters: breast, and one pelvic cancer (in 30's) father: prostate cancer paternal gradnfather: spinal cancer materanl aunt breast cancer Hormonal History: menarche: 10 , breast fed: no, age at first : 15 menopause: Surgical at 49 radical hysterectomy, precancer cells and the cervix Hormones: 4 years from [age] control pills: 6 years in the remote past Surgical history: Radical hysterectomy bilateral hip replacement spinal surgery implant for bladder gastric sleeve kidney resected: rule out cancer ureter removed left side two abdominal exploratory cataract surgery bilateral foot surgery bladder stimulator Medical History: HTN depression high cholesterol weight gain asthma uses a walker Social History: Nicotine: Negative Alcohol: History of Drugs: Negative - Constitutional Constitutional: Reports sweats - EENT Eyes: bilateral as per HPI, denies blurred vision, denies pain Ears: deny: decreased hearing, tinnitus Ears, nose, mouth and throat: Denies headache, Denies sore throat - Breasts Breasts: bilateral: as per HPI - Cardiovascular Cardiovascular: Reports shortness of breath, Denies chest pain - Respiratory Respiratory: Denies cough - Gastrointestinal Gastrointestinal: Reports as per HPI - Genitourinary (Female) Comment: UTI frequent Genitourinary: Reports as per HPI - Menstruation Menstruation: Reports post hysterectomy - Musculoskeletal Comment: arthritis Musculoskeletal: Reports as per HPI - Integumentary Integumentary: Reports pruritus, Denies rash - Neurological Neurological: Reports weakness - Psychiatric Psychiatric: Reports anxiety, Reports depression - Endocrine Comment: diabetes resolved after weight loss; lost 62 pounds Endocrine: Reports fatigue - Hematologic/Lymphatic Comment: none - Allergic/Immunologic Allergic/Immunologic: Reports seasonal allergies Past Medical History Past Medical History: Asthma, Diabetes Mellitus, Eye Disorder, Fibromyalgia, GERD/Reflux, Hearing Disorder / Deafness, Hyperlipidemia, Hypertension, Musculoskeletal Disorder, Osteoarthritis (OA), Respiratory Disorder, Sleep Apnea/CPAP/BIPAP Additional Past Medical History / Comment(s): SCOLIOSIS, CACHIL DEHE, HX DIABETES-NO LONGER ON RX-WATCHES DIET, NO CPAP USE, LEFT KIDNEY REMOVED, LIPOMAS. "Arthritis is worsening, having cortisone shots tomorrow". Last Myocardial Infarction Date:: UNKNOWN DATE - PER TESTS", History of Any Multi-Drug Resistant Organisms: None Reported Past Surgical History: Bariatric Surgery, Bladder Surgery, Heart Catheterization, Hysterectomy, Joint Replacement, Orthopedic Surgery Additional Past Surgical History / Comment(s): 2018 TOTAL HIP REPLACEMENTS, BILATERAL FOOT SURGERY, LAPAROTOMY FIBROID TUMOR REMOVED, 2017 BARIATRIC SLEEVE, 2008 LEFT KIDNEY AND URETER REMOVED, EXP LAP, CATARACTS REMOVED, 2ND PROCEDURE FOR SPINAL INTERSTIM IMPLANT DONE 06/18/21 AT [facility]. 05/2021 BLADDER STIMULATOR IMPLANT PUT INTO SPINE , PAIN CLINIC PROCEDURES. bladder surgery x2. 2008 large cyst removed from left abdominal area. 2004 complete hysterectomy. bones in the toes removed from both feet in the . [facility]. 2018 bilat breast lumpectomy-benign Past Anesthesia/Blood Transfusion Reactions: Previous Problems w/ Anesthesia, Postoperative Nausea & Vomiting (PONV) Additional Past Anesthesia/Blood Transfusion Reaction / Comment(s): . Past Psychological History: Anxiety, Depression Additional Psychological History / Comment(s): HX PANIC ATTACK X1. Smoking Status: Never smoker Past Alcohol Use History: None Reported Past Drug Use History: None Reported - Past Family History Father Family Medical History: Cancer, Myocardial Infarction ([place]), Prostate Disorder Additional Family Medical History / Comment(s): Prostate cancer. Mother Family Medical History: Diabetes Mellitus, Hypertension, Myocardial Infarction ([place]) Additional Family Medical History / Comment(s): Heart disease, quadruple bypass. 7 or 8 of mother's siblings had heart disease. Medications and Allergies Home Medications Medication Instructions Recorded Confirmed Type Atorvastatin [Lipitor] 10 mg PO DAILY 01/28/18 10/24/21 History DULoxetine HCL [Cymbalta] 60 mg PO DAILY 01/28/18 10/24/21 History Omeprazole 20 mg PO QAM 01/28/18 10/24/21 History Sertraline [Zoloft] 25 mg PO DAILY 01/28/18 10/24/21 History lisinopriL [Zestril] 20 mg PO BID 01/04/19 10/24/21 History Beclomethasone Dip 80 Mcg/Puff 2 puff INHALATION RT-BID 06/09/21 10/24/21 History [Qvar 80 mcg] Metoprolol Tartrate [Lopressor] 50 mg PO BID 07/09/21 10/24/21 History Albuterol Inhaler [Ventolin Hfa 2 puff INHALATION RT-QID PRN 09/22/21 10/24/21 History Inhaler] Cholecalciferol [Vitamin D3 (25 50 mcg PO DAILY 09/22/21 10/24/21 History Mcg = 1000 Iu)] HYDROcodone/APAP 5-325MG [[place] 1 - 2 tab PO Q4HR PRN 3 Days #18 09/22/21 10/24/21 Rx 5-325] tab Allergies Allergy/AdvReac Type Severity Reaction Status Date / Time adhesive Allergy Itching, Verified 10/24/21 15:35 takes her skin off Fish Containing Products Allergy Swelling Verified 10/24/21 15:35 [Fish] in throat latex Allergy Rash/Hives Verified 10/24/21 15:35 Sulfa (Sulfonamide Allergy Anaphylaxis Verified 10/24/21 15:35 Antibiotics) walnut Allergy Swelling Verified 10/24/21 15:35 gluten AdvReac CONGESTION Verified 10/24/21 15:35 perfume AdvReac Dyspnea Verified 10/24/21 15:35 Objective - Vital Signs Vital signs: Vital Signs Temp 98.2 F 05/28/22 14:08 Pulse 100 05/28/22 14:08 Resp 13 05/28/22 14:08 BP 147/91 05/28/22 14:08 Pulse Ox 95 05/28/22 14:08 FiO2 Intake & Output 05/27/22 05/28/22 05/28/22 18:59 06:59 18:59 Weight 113.398 kg - Constitutional General appearance: Present: cooperative - EENT Eyes: Present: EOMI ENT: Present: hearing grossly normal - Neck Neck: Present: normal ROM - Respiratory Respiratory: bilateral: CTA - Cardiovascular Heart sounds: normal: S1, S2 - Gastrointestinal General gastrointestinal: Present: soft - Integumentary Integumentary: Present: normal turgor - Musculoskeletal Musculoskeletal Comment(s): uses a walker - Psychiatric Psychiatric: Present: A&O x's 3, appropriate affect, intact judgment & insight - Additional findings Additional findings: Breast Exam: BRA: 52D inspection: Bilateral grade 3 ptosis Palpation: Right breast: Patient is only examined sitting up on examination she has increased nodularity at the 12 o'clock position near the chest wall on the right breast is approximately 15 cm from the nipple no other discrete dominant masses or nodules are concerned the nodularity is tender; he also has a nodule which is approximately 1 cm in size at the 9:00 lateral position of the right breast Right axilla: No adenopathy of concern Left breast: Examination in the sitting up position reveals this to areas of nodularity at the 12 o'clock position near the chest wall again 15 cm from the nipple isn't just discrete nodule which is tender to palpation as well as one at 3:00 in the axillary area no other dominant masses or not his of concern appreciated Left axilla: No adenopathy of concern Assessment and Plan Assessment: Impression: HTN depression high cholesterol weight gain asthma uses a walker nodules bilateral breast Plan: Tender aspiration of 3 areas in each breast if these are not cystic and able to be aspirated the patient would like this removed as they're symptomatic and have increased in size. CC: Dr. Kelly
== END ==
LOC: WWCWWP 13:57
PROVIDERS: ATTEND Surgery
DX: N63.10 Unspecified lump in the right breast, unspecified quadrant (principal); N63.20 Unspecified lump in the left breast, unspecified quadrant; F32.A Depression, unspecified; I10 Essential (primary) hypertension; E78.00 Pure hypercholesterolemia, unspecified; J45.909 Unspecified asthma, uncomplicated; Z99.89 Dependence on other enabling machines and devices; Z91.048 Other nonmedicinal substance allergy status; Z91.013 Allergy to seafood; Z91.040 Latex allergy status; Z88.2 Allergy status to sulfonamides; Z91.018 Allergy to other foods

== ENCOUNTER 2022-06-07 20:11 | Inpatient (IN) | payer MEDICARE, BC ==
[2022-06-07] MEDS ORDERED: NITROGLYCERIN OINT 1 INCH/GM PACKET TOPICAL STA (20:14)
--- NOTE | 2022-06-07 20:19 | ED ---
Chest Pain HPI - General Stated Complaint: Chest Pain Time Seen by Provider: 06/07/22 20:11 Source: patient, EMS, RN notes reviewed, old records reviewed Mode of arrival: EMS - History of Present Illness Initial Comments: 67-year-old female history diabetes history of broken her syndrome which she states she was diagnosed recently for who presents tonight with complaints of midsternal chest pain was sharp and stabbing in nature she was given 2 nitroglycerin at home to by EMS as well as 325 mg aspirin. States the pain is improved now. Patient states this feels somewhat other pain she's had the past. MD Complaint: chest pain - Related Data Home Medications Medication Instructions Recorded Confirmed Atorvastatin [Lipitor] 10 mg PO DAILY 01/28/18 05/28/22 DULoxetine HCL [Cymbalta] 60 mg PO DAILY 01/28/18 05/28/22 Omeprazole 20 mg PO QAM 01/28/18 05/28/22 Sertraline [Zoloft] 25 mg PO DAILY 01/28/18 05/28/22 lisinopriL [Zestril] 20 mg PO BID 01/04/19 05/28/22 Beclomethasone Dip 80 Mcg/Puff 2 puff INHALATION RT-BID 06/09/21 05/28/22 [Qvar 80 mcg] Metoprolol Tartrate [Lopressor] 50 mg PO BID 07/09/21 05/28/22 Albuterol Inhaler [Ventolin Hfa 2 puff INHALATION RT-QID PRN 09/22/21 05/28/22 Inhaler] Cholecalciferol [Vitamin D3 (25 50 mcg PO DAILY 09/22/21 05/28/22 Mcg = 1000 Iu)] Previous Rx's Medication Instructions Recorded HYDROcodone/APAP 5-325MG [[place] 1 - 2 tab PO Q4HR PRN 3 Days #18 09/22/21 5-325] tab Allergies Allergy/AdvReac Type Severity Reaction Status Date / Time adhesive Allergy Itching, Verified 05/28/22 14:03 takes her skin off Fish Containing Products Allergy Swelling Verified 05/28/22 14:03 [Fish] in throat latex Allergy Rash/Hives Verified 05/28/22 14:03 Sulfa (Sulfonamide Allergy Anaphylaxis Verified 05/28/22 14:03 Antibiotics) walnut Allergy Swelling Verified 05/28/22 14:03 gluten AdvReac CONGESTION Verified 05/28/22 14:03 perfume AdvReac Dyspnea Verified 05/28/22 14:03 Review of Systems ROS Statement: Those systems with pertinent positive or pertinent negative responses have been documented in the HPI. ROS Other: All systems not noted in ROS Statement are negative. EKG Findings - EKG Results: EKG: interpreted by ERMD (EKG interpreted by me shows a sinus rhythm a 63 IN interval 169 QRS duration 108 QT since QTC 434/441 left ventricular hypertrophy with nonspecific anterior configuration.) Past Medical History Past Medical History: Asthma, Diabetes Mellitus, Eye Disorder, Fibromyalgia, GERD/Reflux, Hearing Disorder / Deafness, Hyperlipidemia, Hypertension, Musculoskeletal Disorder, Osteoarthritis (OA), Respiratory Disorder, Sleep Apnea/CPAP/BIPAP Additional Past Medical History / Comment(s): SCOLIOSIS, [place], HX DIABETES-NO LONGER ON RX-WATCHES DIET, NO CPAP USE, LEFT KIDNEY REMOVED, LIPOMAS. "Arthritis is worsening, having cortisone shots tomorrow". 2021 Shogrens disease Last Myocardial Infarction Date:: UNKNOWN DATE - PER TESTS", History of Any Multi-Drug Resistant Organisms: None Reported Past Surgical History: Bariatric Surgery, Bladder Surgery, Heart Catheterization, Hysterectomy, Joint Replacement, Orthopedic Surgery Additional Past Surgical History / Comment(s): 2018 TOTAL HIP REPLACEMENTS, BILATERAL FOOT SURGERY, LAPAROTOMY FIBROID TUMOR REMOVED, 2017 BARIATRIC SLEEVE, 2008 LEFT KIDNEY AND URETER REMOVED, EXP LAP, CATARACTS REMOVED, 2ND PROCEDURE FOR SPINAL INTERSTIM IMPLANT DONE 06/18/21 AT [facility]. 05/2021 BLADDER STIMULATOR IMPLANT PUT INTO SPINE , PAIN CLINIC PROCEDURES. bladder surgery x2. 2008 large cyst removed from left abdominal area. 2004 complete hysterectomy. bones in the toes removed from both feet in the . D & C. 2018 bilat breast lumpectomy-benign Past Anesthesia/Blood Transfusion Reactions: Previous Problems w/ Anesthesia, Postoperative Nausea & Vomiting (PONV) Additional Past Anesthesia/Blood Transfusion Reaction / Comment(s): . Past Psychological History: Anxiety, Depression Additional Psychological History / Comment(s): HX PANIC ATTACK X1. Smoking Status: Never smoker Past Alcohol Use History: None Reported Past Drug Use History: None Reported - Past Family History Father Family Medical History: Cancer, Myocardial Infarction ([place]), Prostate Disorder Additional Family Medical History / Comment(s): Prostate cancer. Mother Family Medical History: Diabetes Mellitus, Hypertension, Myocardial Infarction ([place]) Additional Family Medical History / Comment(s): Heart disease, quadruple bypass. 7 or 8 of mother's siblings had heart disease. General Exam - General Exam Comments Initial Comments: This a well-developed well-nourished awake alert oriented 4 female General appearance: alert, anxious Head exam: Present: atraumatic, normocephalic, normal inspection Eye exam: Present: normal appearance, PERRL, EOMI. Absent: scleral icterus, conjunctival injection, periorbital swelling ENT exam: Present: normal exam, mucous membranes moist Neck exam: Present: normal inspection, full ROM, other. Absent: tenderness, meningismus, lymphadenopathy Respiratory exam: Present: normal lung sounds bilaterally, chest wall tenderness. Absent: respiratory distress, wheezes, rales, rhonchi, stridor Cardiovascular Exam: Present: regular rate, normal rhythm, normal heart sounds. Absent: systolic murmur, diastolic murmur, rubs, gallop, clicks GI/Abdominal exam: Present: soft, normal bowel sounds. Absent: distended, tenderness, guarding, rebound, rigid, bruit, pulsatile mass (Reviewyourbruits) Extremities exam: Present: normal inspection, full ROM, normal capillary refill. Absent: tenderness, pedal edema, joint swelling, calf tenderness Back exam: Present: normal inspection Neurological exam: Present: alert, oriented X3, CN II-XII intact Psychiatric exam: Present: normal affect, normal mood Skin exam: Present: warm, dry, intact, normal color. Absent: rash Course Vital Signs 06/07/22 20:18 Temperature 98.9 F Pulse Rate 65 Respiratory 16 Rate Blood Pressure 149/80 O2 Sat by Pulse 95 Oximetry Chest Pain MDM - MDM Case was discussed with the patient and family as well as with Dr. Morel patient will be admitted with cardiology consultation. Critical Care Time Critical Care Time: Yes Total Critical Care Time: 31 Disposition Clinical Impression: Unstable angina pectoris, Chest wall syndrome, Atypical chest pain Disposition: ADMITTED IP TO THIS [facility] Condition: Stable Referrals: Norma Laurent MD [Primary Care Provider] - 1-2 days Decision Date: 06/07/22 Decision Time: 21:00
[2022-06-07 21:04] LABS: Basophils # (A) 0.1 k/uL (0-0.2); Basophils % (A) 1 %; Eosinophils # (A) 0.2 k/uL (0-0.7); Eosinophils % (A) 3 %; HCT 38.3 % (34.0-46.0); HGB 12.6 gm/dL (11.4-16.0); Hypochromasia Slight; Lymphocytes # (A) 1.8 k/uL (1.0-4.8); Lymphocytes % (A) 20 %; MCH 27.8 pg (25.0-35.0); MCHC 32.8 g/dL (31.0-37.0); MCV 84.6 fL (80.0-100.0); Mean Platelet Volume 8.3; Monocytes # (A) 0.4 k/uL (0-1.0); Monocytes % (A) 4 %; Neutrophils # (A) 6.1 k/uL (1.3-7.7); Neutrophils % (A) 71 %; Platelet Count 233 k/uL (150-450); RBC 4.53 m/uL (3.80-5.40); RDW 14.1 % (11.5-15.5); WBC 8.6 k/uL (3.8-10.6)
[2022-06-07 21:17] LABS: Albumin 3.7 g/dL (3.5-5.0); Calcium 8.6 mg/dL (8.4-10.2); Potassium 4.1 mmol/L (3.5-5.1); Total Bilirubin 0.6 mg/dL (0.2-1.3); Total Protein 6.5 g/dL (6.3-8.2)
[2022-06-07 21:21] LABS: Partial Thromboplastin Time 24.9 sec (22.0-30.0); Prothrombin Time 10.7 sec (9.0-12.0)
[2022-06-07] MEDS ORDERED: NITROGLYCERIN SL TABS 0.4 MG TAB SUBLINGUAL PRN (21:32)
[2022-06-07] MEDS ORDERED: HEPARIN SODIUM 1,000 UN/ML (10ML VL) IV ONE (21:32)
[2022-06-07] MEDS ORDERED: ALBUTEROL NEBULIZED 2.5 MG/3 ML INHALATION PRN (21:34)
--- NOTE | 2022-06-07 22:19 | XR ---
EXAMINATION TYPE: XR chest 2V DATE OF EXAM: 06/07/2022 10:01 PM COMPARISON: Chest x-ray 07/24/2019 TECHNIQUE: XR chest 2V . CLINICAL INDICATION:Female, 67 years old with history of Chest Pain; FINDINGS: Lungs/Pleura: Low lung volumes are present. There is no evidence of pleural effusion, focal consolida tion, or pneumothorax. Pulmonary vascularity: Unremarkable. Heart/mediastinum: Cardiomediastinal silhouette is prominent in size, likely accentuated from low krzysztof g volumes. Musculoskeletal: Multiple level degenerative disc disease changes seen throughout the spine. No acute osseous abnormality. IMPRESSION: No acute cardiopulmonary disease/process.
[2022-06-07] MEDS: HEPARIN SOD,PORK IN 0.45% NACL 25,000 UNIT in 0.45% NACL 1 250ML.BAG IV SCH (23:11)
[2022-06-08] MEDS: NITROGLYCERIN OINT 1 INCH/GM PACKET TOPICAL SCH ×5 (00:40→23:45)
[2022-06-08] MEDS: SODIUM CHLORIDE 0.9% 1,000 ML IV SCH ×4 (00:40→23:45)
[2022-06-08] MEDS: HYDROcodone/APAP 5-325MG 1 EACH TAB PO PRN ×3 (00:46→16:00)
[2022-06-08] MEDS: FLUTICASONE 110 MCG INHALER INHALATION SCH ×2 (07:53→21:45)
[2022-06-08 09:00] LABS: Chol/HDL Ratio 2.57 Ratio; LDL Cholesterol,Calculated 67.9 mg/dL (0.0-131.0)
[2022-06-08] MEDS ORDERED: ATORVASTATIN 10 MG TAB PO SCH (09:00)
[2022-06-08] MEDS ORDERED: ASPIRIN 81 MG PO SCH (09:00)
[2022-06-08] MEDS ORDERED: ASPIRIN 325 MG TAB PO SCH (09:00)
[2022-06-08] MEDS ORDERED: ATORVASTATIN 20 MG TAB PO SCH (09:00)
[2022-06-08] MEDS: CHOLECALCIFEROL 25 MCG (1000 IU) TABLET PO SCH (09:33)
[2022-06-08] MEDS: METOPROLOL TARTRATE 50 MG TAB PO SCH ×2 (09:34→20:41)
[2022-06-08] MEDS: SERTRALINE 25 MG TAB PO SCH (09:34)
[2022-06-08] MEDS: lisinopriL 20 MG TAB PO SCH ×2 (09:34→20:40)
[2022-06-08] MEDS: DULoxetine HCL 60 MG CAPSULE.DR PO SCH (09:34)
[2022-06-08] MEDS: PANTOPRAZOLE 40 MG TABLET PO SCH (09:34)
[2022-06-08] MEDS ORDERED: NITROGLYCERIN SL TABS 0.4 MG TAB SUBLINGUAL PRN ×2 (09:36)
[2022-06-08] MEDS ORDERED: ALPRAZolam 0.5 MG TAB PO PRN ×2 (09:36)
[2022-06-08] MEDS ORDERED: ALPRAZolam 0.25 MG TAB PO PRN ×2 (09:36)
[2022-06-08] MEDS ORDERED: ATORVASTATIN 80 MG TAB PO STA (09:36)
[2022-06-08] MEDS ORDERED: ASPIRIN 325 MG TAB PO STA (09:36)
--- NOTE | 2022-06-08 10:04 | P.CRDCN ---
History of Present Illness Consult date: 06/08/22 Requesting physician: Erlin Morel Reason for Consult (text): chest pain Chief complaint: chest pain History of present illness: This is a pleasant 67-year-old female patient who follows with Dr. Boyd in the office. She has a history of hypertension, hyperlipidemia, Takotsubo cardiomyopathy in January of this year at which time she was at [facility] at which time according to Dr. Boyd's most recent office visit no ejection fraction was 30% with hypokinesia of the mid septum, apical anterior, mid basal inferior and mid anterolateral and mid inferolateral with possible apical ballooning syndrome but records of that visit are currently not available to me, repeat echocardiogram in March showed an ejection fraction of 45% which is consistent with prior echo done in 2019 with anteroapical and septal hypokinesia recently diagnosed with diabetes mellitus type 2, interm ittent left bundle branch block, and pancreatitis earlier this year. She had a heart catheterization done in July 2019 that showed no evidence of CAD. He presented to the emergency department with complaints of chest pain. The episodes started as a lightheaded feeling with pressure in her head and following that she began developing a constricted feeling in her neck and jaw, sharp pain under her left breast and a heaviness in her left upper chest. She did take 2 nitroglycerin at home however they were and she called EMS. She says the pain was relieved with nitroglycerin given to her by EMS. EKG on admission showed sinus rhythm diffuse ST-T wave abnormalities. Troponins were minimally elevated at 0.047, 0.048 and 0.045. NT proBNP was 2860. D-dimer 0.71. On examination she is resting comfortably. She denies any current complaints. She has been feeling more short of breath with activity over the last 2 months and although she has a history of asthma does not feel it is asthmatic in nature. She's had no edema or orthopnea and no PND. Past Medical History Past Medical History: Asthma, Diabetes Mellitus, Eye Disorder, Fibromyalgia, GERD/Reflux, Hearing Disorder / Deafness, Hyperlipidemia, Hypertension, Musculoskeletal Disorder, Osteoarthritis (OA), Respiratory Disorder, Sleep Apnea/CPAP/BIPAP Additional Past Medical History / Comment(s): SCOLIOSIS, [place], HX DIABETES-NO LONGER ON RX-WATCHES DIET, NO CPAP USE, LEFT KIDNEY REMOVED, LIPOMAS. "Arthritis is worsening, having cortisone shots tomorrow". 2021 Shogrens disease Last Myocardial Infarction Date:: UNKNOWN DATE - PER TESTS", History of Any Multi-Drug Resistant Organisms: None Reported Past Surgical History: Bariatric Surgery, Bladder Surgery, Heart Catheteriz ation, Hysterectomy, Joint Replacement, Orthopedic Surgery Additional Past Surgical History / Comment(s): 2018 TOTAL HIP REPLACEMENTS, BILATERAL FOOT SURGERY, LAPAROTOMY FIBROID TUMOR REMOVED, 2017 BARIATRIC SLEEVE, 2008 LEFT KIDNEY AND URETER REMOVED, EXP LAP, CATARACTS REMOVED, 2ND PROCEDURE FOR SPINAL INTERSTIM IMPLANT DONE 06/18/21 AT [facility]. 05/2021 BLADDER STIMULA TOR IMPLANT PUT INTO SPINE , PAIN CLINIC PROCEDURES. bladder surgery x2. 2008 large cyst removed from left abdominal area. 2004 complete hysterectomy. bones in the toes removed from both feet in the . D & C. 2018 bilat breast lumpectomy-benign Past Anesthesia/Blood Transfusion Reactions: Previous Problems w/ Anesthesia, Postoperative Nausea & Vomiting (PONV) Additional Past Anesthesia/Blood Transfusion Reaction / Comment(s): . Past Psychological History: Anxiety, Depression Additional Psychological History / Comment(s): HX PANIC ATTACK X1. Smoking Status: Never smoker Past Alcohol Use History: None Reported Past Drug Use History: None Reported - Past Family History Father Family Medical History: Cancer, Myocardial Infarction ([place]), Prostate Disorder Additional Family Medical History / Comment(s): Prostate cancer. Mother Family Medical History: Diabetes Mellitus, Hypertension, Myocardial Infarction ([place]) Additional Family Medical History / Comment(s): Heart disease, quadruple bypass. 7 or 8 of mother's siblings had heart disease. Medications and Allergies Home Medications Medication Instructions Recorded Confirmed Type DULoxetine HCL [Cymbalta] 60 mg PO DAILY 01/28/18 06/07/22 History Omeprazole 20 mg PO DAILY 01/28/18 06/07/22 History Sertraline [Zoloft] 25 mg PO DAILY 01/28/18 06/07/22 History lisinopriL [Zestril] 20 mg PO BID 01/04/19 06/07/22 History Beclomethasone Dip 80 Mcg/Puff 2 puff INHALATION RT-BID 06/09/21 06/07/22 History [Qvar 80 mcg] Albuterol Inhaler [Ventolin Hfa 2 puff INHALATION RT-QID PRN 09/22/21 06/07/22 History Inhaler] Cholecalciferol [Vitamin D3 (25 50 mcg PO DAILY 09/22/21 06/07/22 History Mcg = 1000 Iu)] Aspirin EC [Ecotrin Low Dose] 81 mg PO DAILY 06/07/22 06/07/22 History Atorvastatin [Lipitor] 20 mg PO HS 06/07/22 06/07/22 History Metoprolol Tartrate [Lopressor] 50 mg PO TID 06/07/22 06/07/22 History metFORMIN HCL [Glucophage] 500 mg PO DAILY 06/07/22 06/07/22 History Allergies Allergy/AdvReac Type Severity Reaction Status Date / Time adhesive Allergy Itching, Verified 06/07/22 21:45 takes her skin off Fish Containing Products Allergy Swelling Verified 06/07/22 21:45 [Fish] in throat latex Allergy Rash/Hives Verified 06/07/22 21:45 Sulfa (Sulfonamide Allergy Anaphylaxis Verified 06/07/22 21:45 Antibiotics) walnut Allergy Swelling Verified 06/07/22 21:45 gluten AdvReac CONGESTION Verified 06/07/22 21:45 perfume AdvReac Dyspnea Verified 06/07/22 21:45 Physical Exam Vitals: Vital Signs Temp Pulse Resp BP Pulse Ox 06/08/22 08:05 77 06/08/22 07:56 75 95 06/08/22 06:59 98.4 F 72 16 138/70 94 L 06/08/22 05:41 73 16 154/73 96 06/08/22 02:54 75 16 136/70 95 06/08/22 00:43 75 16 137/79 95 06/07/22 20:18 98.9 F 65 16 149/80 95 Intake and Output 06/07/22 06/08/22 06/08/22 22:59 06:59 14:59 Other: Weight 117.934 kg PHYSICAL EXAMINATION: This is a 67-year-old female in no apparent distress at the time of my examination. HEENT: Head is atraumatic, normocephalic. Pupils are equal, round. Sclerae anicteric. Conjunctivae are clear. Mucous membranes of the mouth are moist. Neck is supple. There is no elevated jugular venous pressure. No carotid bruit is heard. CHEST EXAMINATION: Clear to auscultation bilaterally. No wheezes rales or rhonchi. Respirations even and nonlabored. HEART EXAMINATION: Heart regular, positive S1 and S2. No S3. No S4. No clicks, rubs or murmurs. ABDOMEN: Soft, obese, nontender. Bowel sounds are heard. No organomegaly noted. EXTREMITIES: 2+ peripheral pulses with no evidence of peripheral edema and no calf tenderness noted. NEUROLOGIC EXAMINATION: Patient is awake, alert and oriented x3. Results 06/07/22 20:50 06/07/22 20:50 Cardiac Enzymes 06/07/22 06/07/22 06/07/22 Range/Units 20:50 20:50 23:23 AST 24 (14-36) U/L Troponin I 0.047 H* 0.048 H* (0.000-0.034) ng/mL 06/08/22 Range/Units 03:27 AST (14-36) U/L Troponin I 0.045 H* (0.000-0.034) ng/mL Coagulation 06/07/22 06/08/22 Range/Units 20:50 07:15 PT 10.7 (9.0-12.0) sec APTT 24.9 39.7 H (22.0-30.0) sec Lipids 06/08/22 Range/Units 03:27 Triglycerides 116.00 (0.00-149.00) mg/dL Cholesterol 149.00 (0.00-200.00) mg/dL HDL Cholesterol 57.90 (40.00-60.00) mg/dL Cholesterol/HDL Ratio 2.57 Ratio CBC 06/07/22 Range/Units 20:50 WBC 8.6 (3.8-10.6) k/uL RBC 4.53 (3.80-5.40) m/uL Hgb 12.6 (11.4-16.0) gm/dL Hct 38.3 (34.0-46.0) % Plt Count 233 (150-450) k/uL Comprehensive Metabolic Panel 06/07/22 Range/Units 20:50 Sodium 141 (137-145) mmol/L Potassium 4.1 (3.5-5.1) mmol/L Chloride 111 H (98-107) mmol/L Carbon Dioxide 21 L (22-30) mmol/L BUN 19 H (7-17) mg/dL Creatinine 0.88 (0.52-1.04) mg/dL Glucose 112 H (74-99) mg/dL Calcium 8.6 (8.4-10.2) mg/dL AST 24 (14-36) U/L ALT 17 (4-34) U/L Alkaline Phosphatase 138 H (38-126) U/L Total Protein 6.5 (6.3-8.2) g/dL Albumin 3.7 (3.5-5.0) g/dL Current Medications Generic Name Dose Route Start Last Admin Trade Name Freq PRN Reason Stop Dose Admin Hydrocodone Bitart/Acetaminophen 1 each 06/07/22 21:34 06/08/22 00:46 Hydrocodone/Apap 5-325mg 1 Each Tab PO 1 each Q4HR PRN Administration Pain Albuterol Sulfate 2.5 mg 06/07/22 21:34 06/08/22 07:54 Albuterol Nebulized 2.5 Mg/3 Ml INHALATION 2.5 mg RT-QID PRN Administration Shortness Of Breath Aspirin 81 mg 06/08/22 09:00 Aspirin 81 Mg PO DAILY [facility] Atorvastatin Calcium 20 mg 06/08/22 09:00 Atorvastatin 20 Mg Tab PO DAILY JILL Cholecalciferol 50 mcg 06/08/22 09:00 Cholecalciferol 25 Mcg (1000 Iu) Tablet PO DAILY JILL Duloxetine HCl 60 mg 06/08/22 09:00 Duloxetine Hcl 60 Mg Capsule.Dr PO DAILY JILL Fluticasone Propionate 2 puff 06/08/22 08:00 06/08/22 07:53 Fluticasone 110 Mcg Inhaler INHALATION 2 puff RT-BID JILL Administration Sodium Chloride 1,000 mls @ 100 mls/hr 06/07/22 21:45 06/08/22 00:40 Saline 0.9% IV 100 mls/hr .Q10H JILL Administration Heparin Sodium/Sodium Chloride 250 mls @ 10.001 mls/hr 06/07/22 21:45 06/07/22 23:11 25,000 unit/ Sodium Chloride IV 8.48 units/kg/hr .Q24H JILL 10.001 mls/hr Administration Protocol 8.48 UNITS/KG/HR Lisinopril 20 mg 06/08/22 09:00 Lisinopril 20 Mg Tab PO BID [facility] Metoprolol Tartrate 50 mg 06/08/22 09:00 Metoprolol Tartrate 50 Mg Tab PO BID JILL Nitroglycerin 0.4 mg 06/07/22 21:32 Nitroglycerin Sl Tabs 0.4 Mg Tab SUBLINGUAL Q5M PRN Chest Pain Nitroglycerin 1 inch 06/08/22 00:00 06/08/22 05:42 Nitroglycerin Oint 1 Inch/Gm Packet TOPICAL 1 inch Q6HR JILL Administration Pantoprazole Sodium 40 mg 06/08/22 09:00 Pantoprazole 40 Mg Tablet PO QAM JILL Sertraline HCl 25 mg 06/08/22 09:00 Sertraline 25 Mg Tab PO DAILY JILL Intake and Output 06/07/22 06/08/22 06/08/22 22:59 06:59 14:59 Other: Weight 117.934 kg 06/07/22 20:50 06/07/22 20:50 Assessment and Plan Assessment: #1 symptoms of chest discomfort with minimal elevation of the troponin #2 recent history of Takotsubo cardiomyopathy #3 hypertension #4 hyperlipidemia #5 diabetes mellitus type 2, recently diagnosed Plan: From cardiology perspective we'll obtain a 2-D echo with Doppler study to assess cardiac structure and function. We will obtain records from [facility]. We are recommending the patient undergo cardiac catheterization. The risks, benefits and alternative therapies for the above-mentioned procedure and for both sedation/analgesia as well as necessary blood product administration, if indicated, have been discussed with the patient. The patient has indicated understanding and acceptance of the risks and procedures discussed. Questions have been answered appropriately and she is agreeable to move forward with the above stated procedure. She'll be scheduled to undergo heart cath with Dr. Boyd tomorrow. Further recommendations to follow depending on the findings. SAS DEVELOPER ANALYST note has been reviewed, I agree with a documented findings and plan of care. Patient was seen and examined.
[2022-06-08] MEDS ORDERED: RX INFO: IV CONTRAST WAS GIVEN 1 EACH MISC MISCELLANE PRN (12:51)
[2022-06-08] MEDS ORDERED: LACTULOSE 20 GM/30 ML CUP PO PRN (12:54)
[2022-06-08] MEDS ORDERED: CALCIUM CARBONATE 500 MG CHEWABLE PO PRN (12:54)
[2022-06-08] MEDS ORDERED: ONDANSETRON 4 MG/2 ML VIAL IVP PRN (12:54)
[2022-06-08] MEDS ORDERED: NALOXONE 0.4 MG/ML 1 ML VIAL IV PRN (12:54)
--- NOTE | 2022-06-08 15:08 | CT ---
EXAMINATION TYPE: CT angio chest DATE OF EXAM: 06/08/2022 COMPARISON: 07/07/2018 HISTORY: Sudden severe jaw, chest and back pain CT DLP: 1549.3 mGycm CONTRAST: CTA thoracic aorta with 3-D reconstruction is performed and without and with IV Contrast, patient inj ected with 100 ml mL of Isovue 370. Contrast CTA of the thoracic aorta was performed from the lung apex through the upper abdomen. 3D re construction imaging obtained at a separate workstation. CT Chest: THORACIC AORTA: No evidence for thoracic aortic aneurysm. Mild atheromatous changes seen. There is n o evidence for dissection or periaortic collection. LUNGS: The lungs are clear and free of infiltrate or atelectasis. No pulmonary nodule or mass is det ected. No pleural effusion or CT evidence of interstitial lung disease. MEDIASTINUM: No evidence for mediastinal hematoma. The heart is moderately enlarged. No evidence f or mediastinal mass or adenopathy. HILAR STRUCTURES: No evidence for mass. No hilar adenopathy is appreciated. OTHER: Cholelithiasis. Nephrectomy left kidney. Small hiatal hernia. IMPRESSION- 1. No evidence for thoracic aortic aneurysm or dissection. 2. Small fixed hiatal hernia. Postoperative changes of gastric sleeve.
[2022-06-08] MEDS ORDERED: DEXTROSE 50% SYRINGE 50 ML IVP PRN ×2 (15:13)
--- NOTE | 2022-06-08 15:14 | P.HPIM ---
History of Present Illness H&P Date: 06/08/22 Chief Complaint: Chest and back pain This is a very pleasant 67-year-old patient of Dr. Erica Laurent. Chronic stable medical conditions include diabetes, fibromyalgia, GERD, hyperlipidemia, hypertension, obstructive sleep apnea, anxiety, depression. July [address] KIRSTIN Boyd. In January of this year 2021: She was at [facility] where EF came back to be 30% with hypokinesia of some hernández. Repeat echocardiogram in March showed an EF of 45%. Patient was sitting in the kitchen when the was cooking she suddenly felt lightheaded and felt as if he was going to explode. The left sharp stabbing pain in the chest could not breathe also doubled her severe pain in the back between the shoulder blades. I asked her to call 911. Symptoms lasted for quite a while. This happened while at rest. EKG in the ER showed some T wave changes. And some from troponin positive. Seen by cardiology earlier today for cardiac catheterization tomorrow. Reduced to nitroglycerin at home. The pain didn't get better with nitroglycerin given by the EMS. No calf pain or swelling. Still has some chest discomfort. . Review of systems: GEN.: Tired EYES: None HEENT: None NECK: None RESPIRATORY: As above CARDIOVASCULAR: As above GASTROINTESTINAL: None GENITOURINARY: None MUSCULOSKELETAL: Pain in the lower back and other joints LYMPHATICS: None HEMATOLOGICAL: None PSYCHIATRY: None NEUROLOGICAL: None Past medical history: Moderate persistent asthma, chronic fibromyalgia, GERD, hyperlipidemia, hypertension, obstructive sleep apnea uses CPAP machine, anxiety depression, obesity. L4-L5 spinal stenosis and spondylolisthesis with radiculopathy- surgery, diabetes Social history: . No smoking. Alcohol rarely. Physical examination: VITAL SIGNS: 97.1, 79, 18, 190/60, 92% room air GENERAL: BMI 49.1 reclining comfortable EYES: Pupils equal. Conjunctiva normal. HEENT: External appearance of nose and ears normal, oral cavity grossly normal decreased hearing in the left ear. NECK: JVD not raised; masses not palpable. HEART: First and second heart sounds are normal; no edema. LUNGS: Respiratory rate normal; clear to auscultation. ABDOMEN: Soft, nontender, liver spleen not palpable, no masses palpable. PSYCH: Alert and oriented x3; mood and affect normal. NEUROLOGICAL: Cranial nerves grossly intact; no facial asymmetry, power and sensation grossly intact. LYMPHATICS: No lymph nodes palpable in the axilla and neck MUSCULOSKELETAL: Evidence of OA Investigations, reviewed in the clinical context: White count 8.6 hemoglobin 12.6 platelets 233 potassium 4.1 BUN 19 creatinine 0.8 date Troponin I 0.047, 0.048, 0.045 ProBNP 2860 LDL 67 EKG tracing personally reviewed by me-sinus rhythm, flipped T waves Chest x-ray film personally reviewed by me-cardiomegaly. Chest CTA: Negative for dissection Assessment and plan: -Acute non-Q wave CT. Patient has cardiac sounding presentation with positive troponin and EKG changes. Aspirin, IV heparin, Lopressor -Chronic Lumbar laminectomy and decompression for L4-L5 spinal stenosis and spondylolisthesis with radiculopathy -IV heparin monitoring Follow PTT -Diabetes mellitus type 2 on oral hypoglycemic Hold metformin. Follow Accu-Cheks and sliding scale. -Moderate persistent asthma Ventolin HFA when necessary. Qvar 2 puffs twice a day -Chronic fibromyalgia -GERD PPI -Hyperlipidemia Lipitor -Essential hypertension Lopressor, Zestril -Obstructive sleep apnea uses CPAP machine -Anxiety depression otherwise specified Zoloft, Cymbalta -Morbid obesity BMI 49.1 Weight loss measures Aspirin, beta raman, IV heparin. Seen by cardiology. For cardiac catheterization tomorrow. Home medications to continue. Care was discussed with the patient. Past Medical History Past Medical History: Asthma, Diabetes Mellitus, Eye Disorder, Fibromyalgia, GERD/Reflux, Hearing Disorder / Deafness, Hyperlipidemia, Hypertension, Musculoskeletal Disorder, Osteoarthritis (OA), Respiratory Disorder, Sleep Apnea/CPAP/BIPAP Additional Past Medical History / Comment(s): SCOLIOSIS, TABLE MOUNTAIN, HX DIABETES-NO LONGER ON RX-WATCHES DIET, NO CPAP USE, LEFT KIDNEY REMOVED, LIPOMAS. "Arthritis is worsening, having cortisone shots tomorrow". 2021 Shogrens disease Last Myocardial Infarction Date:: UNKNOWN DATE - PER TESTS", History of Any Multi-Drug Resistant Organisms: None Reported Past Surgical History: Bariatric Surgery, Bladder Surgery, Heart Catheterization, Hysterectomy, Joint Replacement, Orthopedic Surgery Additional Past Surgical History / Comment(s): 2018 TOTAL HIP REPLACEMENTS, BILATERAL FOOT SURGERY, LAPAROTOMY FIBROID TUMOR REMOVED, 2017 BARIATRIC SLEEVE, 2008 LEFT KIDNEY AND URETER REMOVED, EXP LAP, CATARACTS REMOVED, 2ND PROCEDURE FOR SPINAL INTERSTIM IMPLANT DONE 06/18/21 AT [facility]. 05/2021 BLADDER STIMULATOR IMPLANT PUT INTO SPINE , PAIN CLINIC PROCEDURES. bladder surgery x2. 2008 large cyst removed from left abdominal area. 2004 complete hysterectomy. bones in the toes removed from both feet in the . [facility]. 2018 bilat breast lumpectomy-benign Past Anesthesia/Blood Transfusion Reactions: Previous Problems w/ Anesthesia, Postoperative Nausea & Vomiting (PONV) Additional Past Anesthesia/Blood Transfusion Reaction / Comment(s): . Past Psychological History: Anxiety, Depression Additional Psychological History / Comment(s): HX PANIC ATTACK X1. Smoking Status: Never smoker Past Alcohol Use History: None Reported Past Drug Use History: None Reported - Past Family History Father Family Medical History: Cancer, Myocardial Infarction (CT), Prostate Disorder Additional Family Medical History / Comment(s): Prostate cancer. Mother Family Medical History: Diabetes Mellitus, Hypertension, Myocardial Infarction (CT) Additional Family Medical History / Comment(s): Heart disease, quadruple bypass. 7 or 8 of mother's siblings had heart disease. Medications and Allergies Home Medications Medication Instructions Recorded Confirmed Type DULoxetine HCL [Cymbalta] 60 mg PO DAILY 01/28/18 06/07/22 History Omeprazole 20 mg PO DAILY 01/28/18 06/07/22 History Sertraline [Zoloft] 25 mg PO DAILY 01/28/18 06/07/22 History lisinopriL [Zestril] 20 mg PO BID 01/04/19 06/07/22 History Beclomethasone Dip 80 Mcg/Puff 2 puff INHALATION RT-BID 06/09/21 06/07/22 History [Qvar 80 mcg] Albuterol Inhaler [Ventolin Hfa 2 puff INHALATION RT-QID PRN 09/22/21 06/07/22 History Inhaler] Cholecalciferol [Vitamin D3 (25 50 mcg PO DAILY 09/22/21 06/07/22 History Mcg = 1000 Iu)] Aspirin EC [Ecotrin Low Dose] 81 mg PO DAILY 06/07/22 06/07/22 History Atorvastatin [Lipitor] 20 mg PO HS 06/07/22 06/07/22 History Metoprolol Tartrate [Lopressor] 50 mg PO TID 06/07/22 06/07/22 History metFORMIN HCL [Glucophage] 500 mg PO DAILY 06/07/22 06/07/22 History Allergies Allergy/AdvReac Type Severity Reaction Status Date / Time adhesive Allergy Itching, Verified 06/07/22 21:45 takes her skin off Fish Containing Products Allergy Swelling Verified 06/07/22 21:45 [Fish] in throat latex Allergy Rash/Hives Verified 06/07/22 21:45 Sulfa (Sulfonamide Allergy Anaphylaxis Verified 06/07/22 21:45 Antibiotics) walnut Allergy Swelling Verified 06/07/22 21:45 gluten AdvReac CONGESTION Verified 06/07/22 21:45 perfume AdvReac Dyspnea Verified 06/07/22 21:45 Physical Exam Vitals: Vital Signs Temp Pulse Resp BP Pulse Ox 06/08/22 08:05 77 06/08/22 07:56 75 95 06/08/22 06:59 98.4 F 72 16 138/70 94 L 06/08/22 05:41 73 16 154/73 96 06/08/22 02:54 75 16 136/70 95 06/08/22 00:43 75 16 137/79 95 06/07/22 20:18 98.9 F 65 16 149/80 95 Intake and Output 06/07/22 06/08/22 06/08/22 22:59 06:59 14:59 Other: Weight 117.934 kg Results CBC & Chem 7: 06/07/22 20:50 06/07/22 20:50 Labs: Abnormal Lab Results - Last 24 Hours (Table) 06/07/22 06/07/22 06/07/22 Range/Units 20:50 20:50 20:50 APTT (22.0-30.0) sec D-Dimer 0.71 H (<0.60) mg/L FEU Chloride 111 H (98-107) mmol/L Carbon Dioxide 21 L (22-30) mmol/L BUN 19 H (7-17) mg/dL Glucose 112 H (74-99) mg/dL Alkaline Phosphatase 138 H (38-126) U/L Troponin I 0.047 H* (0.000-0.034) ng/mL 06/07/22 06/08/22 06/08/22 Range/Units 23:23 03:27 07:15 APTT 39.7 H (22.0-30.0) sec D-Dimer (<0.60) mg/L FEU Chloride (98-107) mmol/L Carbon Dioxide (22-30) mmol/L BUN (7-17) mg/dL Glucose (74-99) mg/dL Alkaline Phosphatase (38-126) U/L Troponin I 0.048 H* 0.045 H* (0.000-0.034) ng/mL
[2022-06-08 16:37] LABS: Glucose,Whole Blood 146 mg/dL (70-110)
[2022-06-08] MEDS: INSULIN ASPART (NovoLOG) 100 UNIT/ML VIAL SQ SCH (16:38)
[2022-06-08 20:25] LABS: Glucose,Whole Blood 124 mg/dL (70-110)
[2022-06-08] MEDS: ACETAMINOPHEN TAB 325 MG TAB PO PRN (20:39)
[2022-06-08] MEDS: HEPARIN SOD,PORK IN 0.45% NACL 25,000 UNIT in 0.45% NACL 1 250ML.BAG IV SCH (20:41)
[2022-06-09] MEDS ORDERED: ASPIRIN 325 MG TAB PO ONE ×2 (06:00)
[2022-06-09] MEDS ORDERED: ATORVASTATIN 80 MG TAB PO ONE ×2 (06:00)
[2022-06-09 06:11] LABS: Glucose,Whole Blood 110 mg/dL (70-110)
[2022-06-09] MEDS: INSULIN ASPART (NovoLOG) 100 UNIT/ML VIAL SQ SCH ×3 (06:15→17:28)
[2022-06-09] MEDS: CHOLECALCIFEROL 25 MCG (1000 IU) TABLET PO SCH (06:51)
[2022-06-09] MEDS: NITROGLYCERIN OINT 1 INCH/GM PACKET TOPICAL SCH ×2 (06:51→14:39)
[2022-06-09] MEDS: PANTOPRAZOLE 40 MG TABLET PO SCH (06:52)
[2022-06-09] MEDS: SERTRALINE 25 MG TAB PO SCH (06:52)
[2022-06-09] MEDS: lisinopriL 20 MG TAB PO SCH ×2 (06:53→19:57)
[2022-06-09] MEDS: DULoxetine HCL 60 MG CAPSULE.DR PO SCH (06:53)
[2022-06-09] MEDS: METOPROLOL TARTRATE 50 MG TAB PO SCH ×2 (06:53→19:57)
[2022-06-09] MEDS ORDERED: HEPARIN SODIUM,PORCINE 10,000 UNIT in SODIUM CHLORIDE 0.9% 1,000 ML IRRIGATION PRN ×4 (07:00)
[2022-06-09] MEDS ORDERED: HEPARIN SODIUM,PORCINE 2,500 UNIT in SODIUM CHLORIDE 0.9% 250 ML IRRIGATION PRN ×4 (07:00)
[2022-06-09] MEDS: FLUTICASONE 110 MCG INHALER INHALATION SCH ×2 (09:45→20:17)
[2022-06-09] MEDS ORDERED: MIDAZOLAM 2 MG/2 ML VIAL IV ONE ×2 (11:00)
[2022-06-09] MEDS ORDERED: LIDOCAINE 1% INJ 10MG/ML (5 ML VIAL-PF) SQ ONE (11:01)
[2022-06-09] MEDS ORDERED: SODIUM CHLORIDE 0.9% 1,000 ML IV ONE (11:05)
[2022-06-09] MEDS ORDERED: HEPARIN SODIUM 1,000 UN/ML (10ML VL) IV ONE (11:13)
[2022-06-09] MEDS ORDERED: HYDROmorphone 0.5 MG/0.5 ML SYRINGE IVP ONE (11:13)
[2022-06-09] MEDS ORDERED: NITROGLYCERIN 1000MCG/10ML SYRINGE INTRACORON ONE ×2 (11:29)
[2022-06-09] MEDS ORDERED: VERAPAMIL SYRINGE (5 MG/10 ML) INTRAARTER ONE (11:29)
[2022-06-09] MEDS ORDERED: IOPAMIDOL-370 100ML BTL INJ ONE (11:52)
[2022-06-09] MEDS ORDERED: VERAPAMIL 2.5 MG/ML 2 ML AMP ONE (11:54)
[2022-06-09] MEDS: HYDROcodone/APAP 5-325MG 1 EACH TAB PO PRN (14:13)
[2022-06-09] MEDS: SODIUM CHLORIDE 0.9% 1,000 ML IV SCH ×4 (14:39→20:38)
--- NOTE | 2022-06-09 16:24 | P.PN ---
Progress Note - Text Progress Note Date: 06/09/22 Chief Complaint: Chest and back pain This is a very pleasant 67-year-old patient of Dr. Erica Laurent. Chronic stable medical conditions include diabetes, fibromyalgia, GERD, hyperlipidemia, hypertension, obstructive sleep apnea, anxiety, depression. July 2019 cardi ac catheterization with Dr. KIRSTIN Boyd. In January of this year 2021: She was at [facility] where EF came back to be 30% with hypokinesia of some hernández. Repeat echocardiogram in March showed an EF of 45%. Patient was sitting in the kitchen when the was cooking she suddenly felt lightheaded and felt as if he was going to explode. The left sharp stabbing pain in the chest could not breathe also doubled her severe pain in the back between the shoulder blades. I asked her to call 911. Symptoms lasted for quite a while. This happened while at rest. EKG in the ER showed some T wave changes. And some from troponin positive. Seen by cardiology earlier today for cardiac catheterization tomorrow. Reduced to nitroglycerin at home. The pain didn't get better with nitroglycerin given by the EMS. No calf pain or swelling. Still has some chest discomfort. Admitted with acute non-Q wave [place]. Placed on IV heparin. 06/09/2022: Underwent cardiac catheterization. verbal report of insignificant disease. Formal results pending.Patient laying in bed. Comfortable. . Active Medications Acetaminophen (Acetaminophen Tab 325 Mg Tab) 650 mg PO Q6HR PRN PRN Reason: Mild Pain or Fever > 100.5 Last Admin: 06/08/22 20:39 Dose: 650 mg Hydrocodone Bitart/Acetaminophen (Hydrocodone/Apap 5-325mg 1 Each Tab) 1 each PO Q4HR PRN PRN Reason: Pain Last Admin: 06/09/22 14:13 Dose: 1 each Albuterol Sulfate (Albuterol Nebulized 2.5 Mg/3 Ml) 2.5 mg INHALATION RT-QID PRN PRN Reason: Shortness Of Breath Last Admin: 06/08/22 07:54 Dose: 2.5 mg Alprazolam (Alprazolam 0.25 Mg Tab) 0.25 mg PO Q6HR PRN PRN Reason: Mild Anxiety Alprazolam (Alprazolam 0.5 Mg Tab) 0.5 mg PO Q6HR PRN PRN Reason: Moderate Anxiety Aspirin (Aspirin 81 Mg) 81 mg PO DAILY [facility] Atorvastatin Calcium (Atorvastatin 20 Mg Tab) 20 mg PO DAILY [facility] Calcium Carbonate/Glycine (Calcium Carbonate 500 Mg Chewable) 1,000 mg PO Q4HR PRN PRN Reason: Dyspepsia Cholecalciferol (Cholecalciferol 25 Mcg (1000 Iu) Tablet) 50 mcg PO DAILY [facility] Last Admin: 06/09/22 06:51 Dose: 50 mcg Dextrose/Water (Dextrose 50% Syringe 50 Ml) 25 ml IVP PER PROTOCOL PRN; Protocol PRN Reason: Hypoglycemia Dextrose/Water (Dextrose 50% Syringe 50 Ml) 50 ml IVP PER PROTOCOL PRN; Protocol PRN Reason: Hypoglycemia Duloxetine HCl (Duloxetine Hcl 60 Mg Capsule.Dr) 60 mg PO DAILY [facility] Last Admin: 06/09/22 06:53 Dose: 60 mg Fluticasone Propionate (Fluticasone 110 Mcg Inhaler) 2 puff INHALATION RT-BID [facility] Last Admin: 06/09/22 09:45 Dose: 2 puff Sodium Chloride (Saline 0.9%) 1,000 mls @ 100 mls/hr IV .Q10H [facility] Last Admin: 06/09/22 14:39 Dose: Not Given Heparin Sodium/Sodium Chloride (25,000 unit/ Sodium Chloride) 250 mls @ 10.001 mls/hr IV .Q24H [facility]; Protocol Last Admin: 06/08/22 20:41 Dose: 11.48 units/kg/hr, 13.539 mls/hr Heparin Sodium (Porcine) 10, (000 unit/ Sodium Chloride) 1,001 mls @ 999 mls/hr IRRIGATION ONCE PRN PRN Reason: INTRA-OP Stop: 06/09/22 23:00 Heparin Sodium (Porcine) 2,500 (unit/ Sodium Chloride) 250.5 mls @ 250 mls/hr IRRIGATION ONCE PRN PRN Reason: INTRA-OP Stop: 06/09/22 23:00 Sodium Chloride (Saline 0.9%) 1,000 mls @ 75 mls/hr IV .[id number] [facility] Stop: 06/10/22 06:00 Last Admin: 06/09/22 14:39 Dose: Not Given Insulin Aspart (Insulin Aspart (Novolog) 100 Unit/Ml Vial) 0 unit SQ AC-TID [facility]; Protocol Last Admin: 06/09/22 14:39 Dose: Not Given Lactulose (Lactulose 20 Gm/30 Ml Cup) 20 gm PO DAILY PRN PRN Reason: Constipation Lisinopril (Lisinopril 20 Mg Tab) 20 mg PO BID [facility] Last Admin: 06/09/22 06:53 Dose: 20 mg Metoprolol Tartrate (Metoprolol Tartrate 50 Mg Tab) 50 mg PO BID [facility] Last Admin: 06/09/22 06:53 Dose: 50 mg Miscellaneous Information (Rx Info: Iv Contrast Was Given 1 Each Misc) 1 each MISCELLANE DAILY PRN PRN Reason: Per Protocol Stop: 06/10/22 12:52 Naloxone HCl (Naloxone 0.4 Mg/Ml 1 Ml Vial) 0.2 mg IV Q2M PRN PRN Reason: Opioid Reversal Nitroglycerin (Nitroglycerin Oint 1 Inch/Gm Packet) 1 inch TOPICAL Q6HR [facility] Last Admin: 06/09/22 14:39 Dose: Not Given Nitroglycerin (Nitroglycerin Sl Tabs 0.4 Mg Tab) 0.4 mg SUBLINGUAL Q5M PRN PRN Reason: Chest Pain Ondansetron HCl (Ondansetron 4 Mg/2 Ml Vial) 4 mg IVP Q8HR PRN PRN Reason: Nausea And Vomiting Pantoprazole Sodium (Pantoprazole 40 Mg Tablet) 40 mg PO QAM [facility] Last Admin: 06/09/22 06:52 Dose: 40 mg Sertraline HCl (Sertraline 25 Mg Tab) 25 mg PO DAILY [facility] Last Admin: 06/09/22 06:52 Dose: 25 mg Past medical history: Moderate persistent asthma, chronic fibromyalgia, GERD, hyperlipidemia, hypertension, obstructive sleep apnea uses CPAP machine, anxiety depression, obesity. L4-L5 spinal stenosis and spondylolisthesis with radiculopathy- surgery, diabetes Social history: . No smoking. Alcohol rarely. Physical examination: VITAL SIGNS: Afebrile, 64, 18, 1 47 x 62, 97% room air GENERAL: reclining comfortable EYES: Pupils equal. Conjunctiva normal. HEENT: External appearance of nose and ears normal, oral cavity grossly normal decreased hearing in the left ear. NECK: JVD not raised; masses not palpable. HEART: First and second heart sounds are normal; no edema. LUNGS: Respiratory rate normal; clear to auscultation. ABDOMEN: Soft, nontender, liver spleen not palpable, no masses palpable. PSYCH: Alert and oriented x3; mood and affect normal. MUSCULOSKELETAL: Evidence of OA Investigations, reviewed in the clinical context: White count 8.6 hemoglobin 12.6 platelets 233 potassium 4.1 BUN 19 creatinine 0.8 date Troponin I 0.047, 0.048, 0.045 ProBNP 2860 LDL 67 EKG tracing personally reviewed by me-sinus rhythm, flipped T waves Chest x-ray film personally reviewed by me-cardiomegaly. Chest CTA: Negative for dissection Assessment and plan: -Acute non-Q wave AZ. Patient has cardiac sounding presentation with positive troponin and EKG changes. Aspirin, Lopressor -Cardiac catheterization, significant disease Formal report pending -Chronic Lumbar laminectomy and decompression for L4-L5 spinal stenosis and spondylolisthesis with radiculopathy -IV heparin monitoring Follow PTT -Diabetes mellitus type 2 on oral hypoglycemic Hold metformin. Follow Accu-Cheks and sliding scale. -Moderate persistent asthma Ventolin HFA when necessary. Qvar 2 puffs twice a day -Chronic fibromyalgia -GERD PPI -Hyperlipidemia Lipitor -Essential hypertension Lopressor, Zestril -Obstructive sleep apnea uses CPAP machine -Anxiety depression otherwise specified Zoloft, Cymbalta -Morbid obesity BMI 49.1 Weight loss measures Continue current medication treatment plan. Increase activity. Hopefully discharge tomorrow.
[2022-06-09 16:39] LABS: Glucose,Whole Blood 108 mg/dL (70-110)
--- NOTE | 2022-06-09 17:48 | CA ---
Transthoracic Echo Report Name: Rhina Rodriguez Age: 67 Gender: F : 1955 Exam Date: 06/09/2022 13:12 Exam Location: [facility] Ht (in): 61 Wt (lb): 261 Ordering Physician: Sadie Quintanilla Attending/Referring Phys: [id number], [employer] Sabrina Mcintosh RDCS Procedure CPT: Indications: Chest Pain Cardiac Hx: Technical Quality: Fair Contrast 1: Total Dose (mL): Contrast 2: Total Dose (mL): MEASUREMENTS (Male / Female) Normal Values 2D ECHO LV Diastolic Diameter PLAX 5.0 cm 4.2 - 5.9 / 3.9 - 5.3 cm LV Systolic Diameter PLAX 3.9 cm IVS Diastolic Thickness 1.6 cm 0.6 - 1.0 / 0.6 - 0.9 cm LVPW Diastolic Thickness 1.5 cm 0.6 - 1.0 / 0.6 - 0.9 cm LV Relative Wall Thickness 0.6 LA Volume 107.0 cm??? 18 - 58 / 22 - 52 cm??? M-MODE Aortic Root Diameter MM 2.7 cm LA Systolic Diameter MM 5.4 cm LA Ao Ratio MM 2.0 AV Cusp Separation MM 1.6 cm DOPPLER AV Peak Velocity 171.4 cm/s AV Peak Gradient 11.8 mmHg AV Mean Velocity 123.9 cm/s AV Mean Gradient 6.6 mmHg AV Velocity Time Integral 35.4 cm LVOT Peak Velocity 133.3 cm/s LVOT Peak Gradient 7.1 mmHg MV Peak Velocity 172.6 cm/s MV Peak Gradient 11.9 mmHg MV Mean Velocity 85.9 cm/s MV Mean Gradient 3.5 mmHg MV Velocity Time Integral 37.9 cm MV Area PHT 3.2 cm??? Mitral E Point Velocity 116.3 cm/s Mitral A Point Velocity 97.5 cm/s Mitral E to A Ratio 1.2 MV Deceleration Time 234.3 ms MV E' Velocity 3.7 cm/s Mitral E to MV E' Ratio 31.1 TR Peak Velocity 272.5 cm/s TR Peak Gradient 29.7 mmHg Right Ventricular Systolic Press 34.7 mmHg FINDINGS Left Ventricle Moderately increased septal wall thickness. Moderately increased posterior wall thickness. Reduced global left ventricular systolic function. Left ventricular ejection fraction is estimated at 35-4-% %. Right Ventricle Normal right ventricular size and function. Right ventricular systolic pressure within normal limits. Right Atrium Normal right atrial size. Left Atrium Severely increased left atrial volume. Mildly increased left atrial area. Mitral Valve Mitral valve thickened. Mild mitral annular calcification. Moderate mitral regurgitation. Aortic Valve No aortic valve stenosis or regurgitation. Tricuspid Valve Mild tricuspid regurgitation. Pulmonic Valve Trace pulmonic regurgitation. Pericardium No pericardial effusion. Aorta Normal size aortic root and proximal ascending aorta. CONCLUSIONS Moderate to severe LV systolic dysfunction Moderate mitral regurgitation Previewed by: Dr. Charles Dennis MD (Electronically Signed) Final Date: 09 June 2022 17:47
--- NOTE | 2022-06-09 18:31 | CC ---
CARDIAC CATHETERIZATION REPORT PROCEDURES PERFORMED: Left heart catheterization and coronary angiography. PERFORMED BY: Dr. Emma Boyd. Moderate conscious sedation time was 56 minutes. The patient was administered Versed, and oxygen saturation, hemodynamics, and EKG were monitored closely. CLINICAL INFORMATION: Ms. Rhina Rodriguez is a morbidly-obese 67-year-old lady with a sleep apnea syndrome and probable nonischemic cardiomyopathy with a left bundle, who underwent a cardiac catheterization performed by me in 2019, which revealed no significant obstructive CAD. She came back into the hospital with symptoms of shortness of breath and chest tightness. Equivocal troponin elevation was seen by Dr. Cortez, who advised a cardiac catheterization. I performed previous right radial approach. Risks, benefits, options, and rationale were explained. The patient understood all details and wished to proceed with the procedure. PROCEDURE NOTE: Under local anesthesia and strict aseptic precautions, a 6-Senegalese introducer was placed in the right radial artery. There was a significant amount of spasm. Right coronary injections were performed uneventfully, and also, LV pressures were obtained with the same catheter. The patient then developed severe spasm of the entire system; and therefore, I could not advance the left catheter beyond the ascending aorta. In spite of additional verapamil and nitroglycerin, the spasm persisted; and therefore, I switched over to the right femoral approach. A 6-Senegalese introducer was placed in the right femoral artery using strict aseptic precautions and local anesthesia. A JL4 catheter was used to perform selective coronary angiography of the left system. The sheath was taken out, and Angio-Seal device was used to secure hemostasis. The sheath in the right radial was taken out, and TR band was applied. Saturation in the fingers was 94%. The patient tolerated the procedure well without complication. Findings were discussed with the patient and her family. She has no significant obstructive CAD. Will require continued medical therapy, weight reduction, risk factor modification, and compliance with CPAP. CARDIAC CATHETERIZATION FINDINGS: The left ventricular end-diastolic pressure was about 14 mmHg without any gradient across aortic valve. CORONARY ANGIOGRAPHY FINDINGS: RIGHT CORONARY ARTERY: This is a codominant vessel, good caliber. No significant disease. Distally bifurcates into PDA and PLV, both of which are relatively small in caliber and distribution, but no significant disease, and angiographically, the vessel is very similar to the previous study from 2019. LEFT MAIN CORONARY ARTERY: Short, patent, disease-free vessel, that bifurcates into LAD and circumflex. LEFT ANTERIOR DESCENDING CORONARY ARTERY: Good-caliber vessel, extends along the anterior wall, gives off several septal and diagonal branches, runs toward the apex, supplies the inferoapical portion of the left ventricle. No significant disease in the entire LAD system. LEFT POSTERIOR CIRCUMFLEX CORONARY ARTERY: Codominant vessel, gives off 2 obtuse marginal branches and then a distal posterolateral branch. No significant disease. Minor irregularities. FINAL IMPRESSION: This patient has a codominant system, probably more left than right dominant. Normal filling pressures. No gradient. No significant obstructive coronary artery disease. RECOMMENDATIONS: Findings were discussed with the patient and family. I am recommending aggressive medical therapy, risk factor modification, compliance with CPAP, and serious weight reduction efforts. The patient can be discharged in the next 24 hours. Findings were discussed with the patient's family and also talked to Dr. Cortez. MMSHAYE / KYLEIGH: [id number] /
[2022-06-09 20:16] LABS: Glucose,Whole Blood 116 mg/dL (70-110)
[2022-06-09] MEDS: HEPARIN SOD,PORK IN 0.45% NACL 25,000 UNIT in 0.45% NACL 1 250ML.BAG IV SCH (20:37)
[2022-06-09] MEDS: ACETAMINOPHEN TAB 325 MG TAB PO PRN (23:16)
[2022-06-10 06:14] LABS: Glucose,Whole Blood 90 mg/dL (70-110)
[2022-06-10] MEDS: INSULIN ASPART (NovoLOG) 100 UNIT/ML VIAL SQ SCH ×2 (06:24→13:56)
[2022-06-10 07:51] LABS: Basophils % (A) 1 %; Eosinophils # (A) 0.2 k/uL (0-0.7); Eosinophils % (A) 3 %; HCT 38.2 % (34.0-46.0); HGB 11.9 gm/dL (11.4-16.0); Hypochromasia Moderate; Lymphocytes # (A) 1.6 k/uL (1.0-4.8); Lymphocytes % (A) 20 %; MCH 27.4 pg (25.0-35.0); MCHC 31.3 g/dL (31.0-37.0); MCV 87.5 fL (80.0-100.0); Mean Platelet Volume 8.5; Monocytes # (A) 0.3 k/uL (0-1.0); Monocytes % (A) 4 %; Neutrophils # (A) 5.7 k/uL (1.3-7.7); Neutrophils % (A) 71 %; Platelet Count 227 k/uL (150-450); RBC 4.36 m/uL (3.80-5.40); RDW 14.4 % (11.5-15.5)
[2022-06-10] MEDS: FLUTICASONE 110 MCG INHALER INHALATION SCH (07:51)
[2022-06-10 08:19] LABS: African American GFR (CKD) >90 (>60 ml/min/1.73 sqM); Anion Gap 7 mmol/L; Blood Urea Nitrogen 12 mg/dL (7-17); Calcium 8.2 mg/dL (8.4-10.2); Carbon Dioxide 19 mmol/L (22-30); Chloride 115 mmol/L (98-107); Glucose 103 mg/dL (74-99); Non-African American GFR(CKD) 85 (>60 ml/min/1.73 sqM); Potassium 3.9 mmol/L (3.5-5.1); Sodium 141 mmol/L (137-145)
[2022-06-10] MEDS ORDERED: ASPIRIN 81 MG PO SCH (09:00)
[2022-06-10] MEDS ORDERED: ATORVASTATIN 20 MG TAB PO SCH (09:00)
[2022-06-10] MEDS: DULoxetine HCL 60 MG CAPSULE.DR PO SCH (09:29)
[2022-06-10] MEDS: lisinopriL 20 MG TAB PO SCH (09:29)
[2022-06-10] MEDS: PANTOPRAZOLE 40 MG TABLET PO SCH (09:29)
[2022-06-10] MEDS: CHOLECALCIFEROL 25 MCG (1000 IU) TABLET PO SCH (09:29)
[2022-06-10] MEDS: SERTRALINE 25 MG TAB PO SCH (09:29)
[2022-06-10] MEDS: METOPROLOL TARTRATE 50 MG TAB PO SCH (09:29)
[2022-06-10 11:47] LABS: Glucose,Whole Blood 112 mg/dL (70-110)
[2022-06-10 13:38] VITALS: BP 162/76; PULSE 70; RESP 18; TEMP 97.9
--- NOTE | 2022-06-10 14:16 | P.PN ---
Subjective Progress Note Date: 06/10/22 PROGRESS NOTE The patient is feeling better this morning, she underwent cardiac catheterization yesterday with no evidence of significant obstructive disease. She denies any dizziness, palpitations or syncope. She denies any nausea or vomiting. Her echocardiogram showed an ejection fraction of 35-40% with moderate mitral regurgitation Medications: Aspirin once a day, Lipitor 20 mg daily, lisinopril 20 mg twice a day, metoprolol 50 mg twice a day, sertraline. PHYSICAL EXAMINATION: Blood pressure 162/70 heart rate 70 LUNGS: Clear to auscultation HEART: Regular rate and rhythm, S1, S2. No S3. systolic ejection murmur ABDOMEN: Soft, nontender, no organomegaly EXTREMETIES: No edema, right radial pulse intact LAB: BUN 12, creatinine 0.73 IMPRESSION: 1. Mild CAD 2. Cardiomyopathy moderate severe 3. Hypertension 4. Hyperlipidemia PLAN: 1. Start Aldactone 2. Increase physical activity 3. Probable discharged home soon 4. Follow up with Dr. Boyd in one week Objective - Vital Signs Vital signs: Vital Signs Temp 97.9 F 06/10/22 12:00 Pulse 70 06/10/22 12:00 Resp 18 06/10/22 12:00 BP 162/76 06/10/22 12:00 Pulse Ox 96 06/10/22 12:00 FiO2 Intake & Output 06/09/22 06/10/22 06/10/22 18:59 06:59 18:59 Other: Voiding Method Toilet Toilet Toilet # Voids 3 1 - Labs CBC & Chem 7: 06/10/22 07:27 06/10/22 07:27 Labs: Abnormal Lab Results - Last 24 Hours (Table) 06/09/22 06/10/22 06/10/22 Range/Units 20:15 07:27 11:46 Chloride 115 H (98-107) mmol/L Carbon Dioxide 19 L (22-30) mmol/L Glucose 103 H (74-99) mg/dL POC Glucose (mg/dL) 116 H 112 H (70-110) mg/dL Calcium 8.2 L (8.4-10.2) mg/dL
[2022-06-10] MEDS ORDERED: SPIRONOLACTONE 25 MG TAB PO SCH (15:00)
[2022-06-10] MEDS: SODIUM CHLORIDE 0.9% 1,000 ML IV SCH (16:02)
--- NOTE | 2022-06-10 18:09 | P.DS ---
Providers Date of admission: 06/08/22 11:17 Expected date of discharge: 06/10/22 Attending physician: Erlin Morel Consults: 06/07/22 21:32 Consult Physician Urgent Consulting Provider: Charles Dennis Consult Reason/Comments: Chest pain Do you want consulting provider notified?: Yes Primary care physician: Norma Laurent [facility] Course: Chief Complaint: Chest and back pain This is a very pleasant 67-year-old patient of Dr. Erica Laurent. Chronic stable medical conditions include diabetes, fibromyalgia, GERD, hyperlipidemia, hypertension, obstructive sleep apnea, anxiety, depression. July [address] KIRSTIN Boyd. In January of this year 2021: She was at [facility] where EF came back to be 30% with hypokinesia of some hernández. Repeat echocardiogram in March showed an EF of 45%. Patient was sitting in the kitchen when the was cooking she suddenly felt lightheaded and felt as if he was going to explode. The left sharp stabbing pain in the chest could not breathe also doubled her severe pain in the back between the shoulder blades. I asked her to call 911. Symptoms lasted for quite a while. This happened while at rest. EKG in the ER showed some T wave changes. And some from troponin positive. Seen by cardiology earlier today for cardiac catheterization tomorrow. Reduced to nitroglycerin at home. The pain didn't get better with nitroglycerin given by the EMS. No calf pain or swelling. Still has some chest discomfort. Admitted with acute non-Q wave MD. Placed on IV heparin. 06/09/2022: Underwent cardiac catheterization. verbal report of insignificant disease. Formal results pending.Patient laying in bed. Comfortable. 06/10/2022: Patient doing well. Comfortable. 2-D echo shows EF of 35-40%. Aldactone being added. Discussed with Dr. Cortez. We'll follow with Dr. KIRSTIN Boyd in the office. May consider adding Farxiga outpatient. Discharge planning Past medical history: Moderate persistent asthma, chronic fibromyalgia, GERD, hyperlipidemia, hypertension, obstructive sleep apnea uses CPAP machine, anxiety depression, obesity. L4-L5 spinal stenosis and spondylolisthesis with radiculopathy- surgery, diabetes Social history: . No smoking. Alcohol rarely. Physical examination: VITAL SIGNS: 97.9, 70, 18, 1 sister with 76, 96% room air GENERAL: reclining comfortable EYES: Pupils equal. Conjunctiva normal. HEENT: External appearance of nose and ears normal, oral cavity grossly normal decreased hearing in the left ear. NECK: JVD not raised; masses not palpable. HEART: First and second heart sounds are normal; no edema. LUNGS: Respiratory rate normal; clear to auscultation. ABDOMEN: Soft, nontender, liver spleen not palpable, no masses palpable. PSYCH: Alert and oriented x3; mood and affect normal. MUSCULOSKELETAL: Evidence of OA Investigations, reviewed in the clinical context: 06/10/2022: Potassium 3.9 creatinine 0.73 White count 8.6 hemoglobin 12.6 platelets 233 potassium 4.1 BUN 19 creatinine 0.8 date Troponin I 0.047, 0.048, 0.045 ProBNP 2860 LDL 67 EKG tracing personally reviewed by me-sinus rhythm, flipped T waves Chest x-ray film personally reviewed by me-cardiomegaly. Chest CTA: Negative for dissection Assessment and plan: -Acute non-Q wave MD. Cardiac catheterization showed no significant disease Aspirin, Lopressor -Nonischemic cardiomyopathy EF 35-40%. Add Aldactone. -Chronic Lumbar laminectomy and decompression for L4-L5 spinal stenosis and spo ndylolisthesis with radiculopathy -Diabetes mellitus type 2 on oral hypoglycemic metformin. Follow Accu-Cheks and sliding scale. -Moderate persistent asthma Ventolin HFA when necessary. Qvar 2 puffs twice a day -Chronic fibromyalgia -GERD PPI -Hyperlipidemia Lipitor -Essential hypertension Lopressor, Zestril -Obstructive sleep apnea uses CPAP machine -Anxiety depression otherwise specified Zoloft, Cymbalta -Morbid obesity BMI 49.1 Weight loss measures Disposition: Home Plan - Discharge Summary Discharge Rx Participant: Yes New Discharge Prescriptions: New Spironolactone [Aldactone] 25 mg PO DAILY #30 tablet Continue DULoxetine HCL [Cymbalta] 60 mg PO DAILY Omeprazole 20 mg PO DAILY Sertraline [Zoloft] 25 mg PO DAILY lisinopriL [Zestril] 20 mg PO BID Albuterol Inhaler [Ventolin Hfa Inhaler] 2 puff INHALATION RT-QID PRN PRN Reason: Shortness Of Breath metFORMIN HCL [Glucophage] 500 mg PO DAILY Aspirin EC [Ecotrin Low Dose] 81 mg PO DAILY Atorvastatin [Lipitor] 20 mg PO HS Beclomethasone Dip 80 Mcg/Puff [Qvar 80 mcg] 2 puff INHALATION RT-BID Cholecalciferol [Vitamin D3 (25 Mcg = 1000 Iu)] 50 mcg PO DAILY Changed Metoprolol Tartrate [Lopressor] 50 mg PO BID #0 Discharge Medication List DULoxetine HCL [Cymbalta] 60 mg PO DAILY 01/28/18 [History] Omeprazole 20 mg PO DAILY 01/28/18 [History] Sertraline [Zoloft] 25 mg PO DAILY 01/28/18 [History] lisinopriL [Zestril] 20 mg PO BID 01/04/19 [History] Beclomethasone Dip 80 Mcg/Puff [Qvar 80 mcg] 2 puff INHALATION RT-BID 06/09/21 [History] Albuterol Inhaler [Ventolin Hfa Inhaler] 2 puff INHALATION RT-QID PRN 09/22/21 [History] Cholecalciferol [Vitamin D3 (25 Mcg = 1000 Iu)] 50 mcg PO DAILY 09/22/21 [History] Aspirin EC [Ecotrin Low Dose] 81 mg PO DAILY 06/07/22 [History] Atorvastatin [Lipitor] 20 mg PO HS 06/07/22 [History] metFORMIN HCL [Glucophage] 500 mg PO DAILY 06/07/22 [History] Metoprolol Tartrate [Lopressor] 50 mg PO BID #0 06/10/22 [Rx] Spironolactone [Aldactone] 25 mg PO DAILY #30 tablet 06/10/22 [Rx] Follow up Appointment(s)/Referral(s): Marybeth Boyd MD [STAFF PHYSICIAN] - 06/18/22 11:00 am Norma Laurent MD [Primary Care Provider] - 1-2 days (Please call to alex follow up.) Patient Instructions/Handouts: *Surgery [facility] - After Heart Catheterization - Supervisor [employer] Making Hand Instructions, Angina (DC) Discharge Disposition: HOME WITH HOME HEALTH SERVICES
== END 2022-06-10 17:33 | disposition home health service (06) | DRG 281 ==
LOC: EC 20:11 → 3SCARD 21:35 → OBSVTOIN 06-08 11:17 → 3SCARD 06-08 15:03
PROVIDERS: ADMIT Hospitalist; ATTEND Hospitalist
PROC: B2111ZZ Fluoroscopy of Multiple Coronary Arteries using Low Osmolar Contrast (ICD-10-PCS; 2022-06-09)
PROC: 4A023N7 Measurement of Cardiac Sampling and Pressure, Left Heart, Percutaneous Approach (ICD-10-PCS; principal; 2022-06-09 10:30)
DX: I21.4 Non-ST elevation (NSTEMI) myocardial infarction (principal); I42.8 Other cardiomyopathies; Z68.42 Body mass index [BMI] 45.0-49.9, adult; K90.41 Non-celiac gluten sensitivity; E11.649 Type 2 diabetes mellitus with hypoglycemia without coma; E66.01 Morbid (severe) obesity due to excess calories; I25.110 Atherosclerotic heart disease of native coronary artery with unstable angina pectoris; E78.5 Hyperlipidemia, unspecified; F32.A Depression, unspecified; F41.0 Panic disorder [episodic paroxysmal anxiety]; G47.33 Obstructive sleep apnea (adult) (pediatric); H91.90 Unspecified hearing loss, unspecified ear; I10 Essential (primary) hypertension; I25.2 Old myocardial infarction; J45.40 Moderate persistent asthma, uncomplicated; K21.9 Gastro-esophageal reflux disease without esophagitis; M41.9 Scoliosis, unspecified; M43.10 Spondylolisthesis, site unspecified; M48.061 Spinal stenosis, lumbar region without neurogenic claudication; M54.16 Radiculopathy, lumbar region; M79.7 Fibromyalgia; Z79.82 Long term (current) use of aspirin; Z79.84 Long term (current) use of oral hypoglycemic drugs; Z79.899 Other long term (current) drug therapy; Z90.710 Acquired absence of both cervix and uterus; Z91.040 Latex allergy status; Z91.013 Allergy to seafood; Z91.048 Other nonmedicinal substance allergy status; Z98.42 Cataract extraction status, left eye; Z98.41 Cataract extraction status, right eye
CPT/HCPCS: 36415; 71046; 71275; 80048; 80053; 80061; 83036; 83690; 83735; 83880; 84484; 85025; 85379; 85610; 85730; 93005; 93306; 93458; 94640; 94760; 96365; 96366; 99291

== ENCOUNTER → 2022-07-10 | Outpatient (CLI) | payer MEDICARE, BC ==
[2022-07-10 10:45] VITALS: BP 153/74; PULSE 54; RESP 18; TEMP 99.6
--- NOTE | 2022-07-10 11:24 | P.PN ---
Subjective Progress Note Date: 07/10/22 Principal diagnosis: fibrocystic breast changes Fibrocystic breast disease He is a 59-year-old female who presents with fibrocystic breast changes. She had a bilateral mammogram and ultrasound on 1120 522 which was benign BIRADS 2. In the past she has had bilateral ultrasound core biopsies which were benign. She also complains of some fullness and a lumpy feeling on the lateral aspect of her left chest wall extending under her arm. She is complaining of discomfort in the patient she believes may be cyst. She is not complaining of any nipple discharge or changes. She is not complaining of any recent trauma or infection. In approximately 2018 she underwent excision of 2 lipomas one in the right breast and one in the left. Also complained of some fullness and tenderness in the 12 o'clock position of the chest wall on the left breast for which aspiration was attempted today. 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 We will recommend bilateral ultrasound with aspiration of any symptomatic cysts that are identified. Caffiene: 1/2 cup/day, one cola /day nicotine: none chocolate: none BCP: 6 years in the remote past hormones: took for about 4 years from [age] after radical hysterectomy (pre- cancer cells in cervix) Family History: two sisters: breast, and one pelvic cancer (in 30's) father: prostate cancer paternal gradnfather: spinal cancer materanl aunt breast cancer Hormonal History: menarche: 10 , breast fed: no, age at first : 15 menopause: Surgical at 49 radical hysterectomy, precancer cells and the cervix Hormones: 4 years from [age] control pills: 6 years in the remote past Surgical history: Radical hysterectomy bilateral hip replacement spinal surgery implant for bladder gastric sleeve kidney resected: rule out cancer ureter removed left side two abdominal exploratory cataract surgery bilateral foot surgery bladder stimulator Medical History: HTN depression high cholesterol weight gain asthma uses a walker Social History: Nicotine: Negative Alcohol: History of Drugs: Negative - Constitutional Constitutional: Reports sweats - EENT Eyes: bilateral as per HPI, denies blurred vision, denies pain Ears: deny: decreased hearing, tinnitus Ears, nose, mouth and throat: Denies headache, Denies sore throat - Breasts Breasts: bilateral: as per HPI - Cardiovascular Cardiovascular: Reports shortness of breath, Denies chest pain - Respiratory Respiratory: Denies cough - Gastrointestinal Gastrointestinal: Reports as per HPI - Genitourinary (Female) Comment: UTI frequent Genitourinary: Reports as per HPI - Menstruation Menstruation: Reports post hysterectomy - Musculoskeletal Comment: arthritis Musculoskeletal: Reports as per HPI - Integumentary Integumentary: Reports pruritus, Denies rash - Neurological Neurological: Reports weakness - Psychiatric Psychiatric: Reports anxiety, Reports depression - Endocrine Comment: diabetes resolved after weight loss; lost 62 pounds Endocrine: Reports fatigue - Hematologic/Lymphatic Comment: none - Allergic/Immunologic Allergic/Immunologic: Reports seasonal allergies Past Medical History Past Medical History: Asthma, Diabetes Mellitus, Eye Disorder, Fibromyalgia, GERD/Reflux, Hearing Disorder / Deafness, Hyperlipidemia, Hypertension, Musculoskeletal Disorder, Osteoarthritis (OA), Respiratory Disorder, Sleep Apnea/CPAP/BIPAP Additional Past Medical History / Comment(s): SCOLIOSIS, MASHPEE, HX DIABETES-NO LONGER ON RX-WATCHES DIET, NO CPAP USE, LEFT KIDNEY REMOVED, LIPOMAS. "Arthritis is worsening, having cortisone shots tomorrow". Last Myocardial Infarction Date:: UNKNOWN DATE - PER TESTS", History of Any Multi-Drug Resistant Organisms: None Reported Past Surgical History: Bariatric Surgery, Bladder Surgery, Heart Catheterization, Hysterectomy, Joint Replacement, Orthopedic Surgery Additional Past Surgical History / Comment(s): 2018 TOTAL HIP REPLACEMENTS, BILATERAL FOOT SURGERY, LAPAROTOMY FIBROID TUMOR REMOVED, 2017 BARIATRIC SLEEVE, 2008 LEFT KIDNEY AND URETER REMOVED, EXP LAP, CATARACTS REMOVED, 2ND PROCEDURE FOR SPINAL INTERSTIM IMPLANT DONE 06/18/21 AT [place]. 05/2021 BLADDER STIMULATOR IMPLANT PUT INTO SPINE , PAIN CLINIC PROCEDURES. bladder surgery x2. 2009 large cyst removed from left abdominal area. 2005 complete hysterectomy. bones in the toes removed from both feet in the . D & C. 2018 bilat breast lumpectomy-benign Past Anesthesia/Blood Transfusion Reactions: Previous Problems w/ Anesthesia, Postoperative Nausea & Vomiting (PONV) Additional Past Anesthesia/Blood Transfusion Reaction / Comment(s): . Past Psychological History: Anxiety, Depression Additional Psychological History / Comment(s): HX PANIC ATTACK X1. Smoking Status: Never smoker Past Alcohol Use History: None Reported Past Drug Use History: None Reported - Past Family History Father Family Medical History: Cancer, Myocardial Infarction ([place]), Prostate Disorder Additional Family Medical History / Comment(s): Prostate cancer. Mother Family Medical History: Diabetes Mellitus, Hypertension, Myocardial Infarction ([place]) Additional Family Medical History / Comment(s): Heart disease, quadruple bypass. 7 or 8 of mother's siblings had heart disease. Medications and Allergies Home Medications Medication Instructions Recorded Confirmed Type Atorvastatin [Lipitor] 10 mg PO DAILY 01/28/18 10/24/21 History DULoxetine HCL [Cymbalta] 60 mg PO DAILY 01/28/18 10/24/21 History Omeprazole 20 mg PO QAM 01/28/18 10/24/21 History Sertraline [Zoloft] 25 mg PO DAILY 01/28/18 10/24/21 History lisinopriL [Zestril] 20 mg PO BID 01/04/19 10/24/21 History Beclomethasone Dip 80 Mcg/Puff 2 puff INHALATION RT-BID 06/09/21 10/24/21 History [Qvar 80 mcg] Metoprolol Tartrate [Lopressor] 50 mg PO BID 07/09/21 10/24/21 History Albuterol Inhaler [Ventolin Hfa 2 puff INHALATION RT-QID PRN 09/22/21 10/24/21 History Inhaler] Cholecalciferol [Vitamin D3 (25 50 mcg PO DAILY 09/22/21 10/24/21 History Mcg = 1000 Iu)] HYDROcodone/APAP 5-325MG [[place] 1 - 2 tab PO Q4HR PRN 3 Days #18 09/22/21 10/24/21 Rx 5-325] tab Allergies Allergy/AdvReac Type Severity Reaction Status Date / Time adhesive Allergy Itching, Verified 10/24/21 15:35 takes her skin off Fish Containing Products Allergy Swelling Verified 10/24/21 15:35 [Fish] in throat latex Allergy Rash/Hives Verified 10/24/21 15:35 Sulfa (Sulfonamide Allergy Anaphylaxis Verified 10/24/21 15:35 Antibiotics) walnut Allergy Swelling Verified 10/24/21 15:35 gluten AdvReac CONGESTION Verified 10/24/21 15:35 perfume AdvReac Dyspnea Verified 10/24/21 15:35 Objective - Vital Signs Vital signs: Vital Signs Temp 99.6 F 07/10/22 10:38 Pulse 54 L 07/10/22 10:38 Resp 18 07/10/22 10:38 BP 153/74 07/10/22 10:38 Pulse Ox 96 07/10/22 10:38 FiO2 Intake & Output 07/09/22 07/10/22 07/10/22 18:59 06:59 18:59 Weight 115.666 kg - Constitutional General appearance: Present: cooperative - EENT Eyes: Present: EOMI ENT: Present: hearing grossly normal - Neck Neck: Present: normal ROM - Respiratory Respiratory: bilateral: CTA - Cardiovascular Heart sounds: normal: S1, S2 - Integumentary Integumentary: Present: normal turgor - Musculoskeletal Musculoskeletal Comment(s): uses a walker - Psychiatric Psychiatric: Present: A&O x's 3, appropriate affect, intact judgment & insight - Additional findings Additional findings: Breast Examination: BRA: 52D Inspection: Bilateral grade 3 ptosis Palpation: Right breast: Multi-positional exam fibrocystic changes with some increased nodularity at the 12 o'clock position she has had a recent ultrasound on 1120 522 which was benign BIRADS 2 in the right breast in the 1 o'clock position was a hypoechoic lesion measuring up to 2.5 x 1.2 cm biopsy clip in place Right breast 1:00 hypoechoic lesion measuring 1.3 cm Right breast 12 cm from the nipple 1.5 cm lesion Right axilla: No adenopathy of concern Left breast: Multi-positional exam fibrocystic changes increased nodularity at the 12 o'clock position Left axilla: No adenopathy of concern Recent left breast ultrasound Left breast 4:00 5 cm from the nipple hypoechoic lesion Left breast 12:00 1.1 cm lesion hypo-or hyperechoic Left breast 8:00 0.7 cm lesion biopsy clip in place Biopsies of the right and left breast on 520 322 revealed fibrovascular adipose tissue may represent angiolipoma/fibrolipomatous Attempt to aspirate a 12:00 lesion in the left breast was performed today. Fibrofatty tissue was obtained and no cystic fluid. This will be sent for evaluation. Assessment and Plan Assessment: Assessment and Plan Assessment: Impression: HTN depression high cholesterol weight gain asthma uses a walker nodules bilateral breast Attempted aspiration of the 12:00 lesion in the left breast did not reveal any cystic fluid this area is tender Plan: Bilateral ultrasound with cyst aspiration of any cyst identified If the area of concern at the 12:00 region remains tender with consider removal in the operating room Follow-up after cyst aspiration by ultrasound guidance CC: Dr. Kelly Additional CC's: Norma Laurent
== END ==
LOC: WWCWWP 10:19
PROVIDERS: ATTEND Surgery
DX: N63.20 Unspecified lump in the left breast, unspecified quadrant (principal); N63.10 Unspecified lump in the right breast, unspecified quadrant; I10 Essential (primary) hypertension; F32.A Depression, unspecified; J45.909 Unspecified asthma, uncomplicated; E66.9 Obesity, unspecified; E78.5 Hyperlipidemia, unspecified; Z99.89 Dependence on other enabling machines and devices; Z91.048 Other nonmedicinal substance allergy status; Z88.2 Allergy status to sulfonamides; Z91.013 Allergy to seafood; Z91.018 Allergy to other foods
CPT/HCPCS: 88108

== ENCOUNTER 2022-07-20 11:07 | Observation (INO) | payer MEDICARE, BC ==
[2022-07-20] MEDS ORDERED: NITROGLYCERIN SL TABS 0.4 MG TAB SUBLINGUAL PRN (11:18)
[2022-07-20 11:25] LABS: Basophils # (A) 0.1 k/uL (0-0.2); Basophils % (A) 1 %; Eosinophils # (A) 0.2 k/uL (0-0.7); Eosinophils % (A) 3 %; Lymphocytes # (A) 2.5 k/uL (1.0-4.8); Lymphocytes % (A) 30 %; MCH 27.3 pg (25.0-35.0); MCHC 32.6 g/dL (31.0-37.0); MCV 83.8 fL (80.0-100.0); Mean Platelet Volume 8.2; Monocytes # (A) 0.3 k/uL (0-1.0); Monocytes % (A) 4 %; Neutrophils # (A) 5.3 k/uL (1.3-7.7); Neutrophils % (A) 62 %; Platelet Count 204 k/uL (150-450); RBC 4.77 m/uL (3.80-5.40); RDW 14.9 % (11.5-15.5); WBC 8.6 k/uL (3.8-10.6)
[2022-07-20 11:36] LABS: Albumin 3.6 g/dL (3.5-5.0); Calcium 8.6 mg/dL (8.4-10.2); Magnesium 2.1 mg/dL (1.6-2.3); Potassium 3.8 mmol/L (3.5-5.1); Total Protein 6.5 g/dL (6.3-8.2)
[2022-07-20 11:37] LABS: Partial Thromboplastin Time 25.7 sec (22.0-30.0); Prothrombin Time 10.5 sec (9.0-12.0)
[2022-07-20] MEDS ORDERED: HEPARIN SODIUM 1,000 UN/ML (10ML VL) IV PRN (12:49)
[2022-07-20] MEDS ORDERED: HEPARIN SODIUM 1,000 UN/ML (10ML VL) IV ONE (12:49)
[2022-07-20] MEDS ORDERED: HEPARIN SOD,PORK IN 0.45% NACL 25,000 UNIT in 0.45% NACL 1 250ML.BAG IV SCH (13:00)
[2022-07-20] MEDS: NITROGLYCERIN OINT 1 INCH/GM PACKET TOPICAL SCH ×2 (13:29→16:49)
--- NOTE | 2022-07-20 13:30 | XR ---
EXAMINATION TYPE: XR chest 2V DATE OF EXAM: 07/20/2022 1:12 PM COMPARISON: Chest radiographs from 06/07/2022. TECHNIQUE: XR chest 2V Frontal and lateral views of the chest. CLINICAL INDICATION:Female, 67 years old with history of Chest Pain; FINDINGS: Lungs/Pleura: There is no evidence of pleural effusion, focal consolidation, or pneumothorax. Pulmonary vascularity: Unremarkable. Heart/mediastinum: Cardiomediastinal silhouette is enlarged and stable. Musculoskeletal: No acute osseous pathology. IMPRESSION: 1. No acute cardiopulmonary disease/process. 2. Persistent cardiomegaly.
[2022-07-20] MEDS ORDERED: NALOXONE 0.4 MG/ML 1 ML VIAL IV PRN (15:34)
--- NOTE | 2022-07-20 15:35 | ED ---
General Adult HPI - General Chief complaint: Chest Pain Stated complaint: poss stemi Time Seen by Provider: 07/20/22 11:11 Source: patient, EMS, RN notes reviewed, old records reviewed Mode of arrival: EMS Limitations: no limitations - History of Present Illness Initial comments: Patient is a 67-year-old female with past medical history remarkable for d iabetes, fibromyalgia, hypertension, asthma, CAD with recent cardiac cath one month ago that was clean presents complaining of sudden onset chest pain. Began shortly prior to arrival at about 1020. States it was severe, substernal with radiation to left side of her jaw. Endorse some shortness of breath with it. Denies any lightheadedness or arm involvement. Denies any abdominal pain but does endorse some nausea earlier. Denies any current nausea. Denies any diarrhea. Denies any cough, fevers, chills, sick contacts. Received 324 mg of aspirin at home as well as multiple nitros which did improve her pain somewhat. Presents for further evaluation at this time. Is not on blood thinners. - Related Data Home Medications Medication Instructions Recorded Confirmed DULoxetine HCL [Cymbalta] 60 mg PO DAILY 01/28/18 07/20/22 Omeprazole 20 mg PO DAILY 01/28/18 07/20/22 Sertraline [Zoloft] 25 mg PO DAILY 01/28/18 07/20/22 lisinopriL [Zestril] 20 mg PO BID 01/04/19 07/20/22 Beclomethasone Dip 80 Mcg/Puff 2 puff INHALATION RT-BID 06/09/21 07/20/22 [Qvar 80 mcg] Albuterol Inhaler [Ventolin Hfa 2 puff INHALATION RT-Q6H PRN 09/22/21 07/20/22 Inhaler] Cholecalciferol [Vitamin D3 (25 50 mcg PO DAILY 09/22/21 07/20/22 Mcg = 1000 Iu)] Aspirin EC [Ecotrin Low Dose] 81 mg PO DAILY 06/07/22 07/20/22 Atorvastatin [Lipitor] 20 mg PO HS 06/07/22 07/20/22 metFORMIN HCL [Glucophage] 500 mg PO DAILY 06/07/22 07/20/22 Nitroglycerin Sl Tabs [Nitrostat] 0.4 mg SUBLINGUAL Q5M PRN 07/20/22 07/20/22 Previous Rx's Medication Instructions Recorded Metoprolol Tartrate [Lopressor] 50 mg PO BID #0 06/10/22 Spironolactone [Aldactone] 25 mg PO DAILY #30 tablet 06/10/22 Allergies Allergy/AdvReac Type Severity Reaction Status Date / Time adhesive Allergy Itching, Verified 07/10/22 10:35 takes her skin off Fish Containing Products Allergy Swelling Verified 07/10/22 10:35 [Fish] in throat latex Allergy Rash/Hives Verified 07/10/22 10:35 Sulfa (Sulfonamide Allergy Anaphylaxis Verified 07/10/22 10:35 Antibiotics) walnut Allergy Swelling Verified 07/10/22 10:35 gluten AdvReac CONGESTION Verified 07/10/22 10:35 perfume AdvReac Dyspnea Verified 07/10/22 10:35 Review of Systems ROS Statement: Those systems with pertinent positive or pertinent negative responses have been documented in the HPI. Review of Systems: CONST: Denies fever EYES: Denies blurry vision ENT: Denies nasal congestion C/V: Endorses chest pain RESP: Denies shortness of breath GI: Denies abdominal pain : Denies dysuria SKIN: Denies rash. MSK: Denies joint pain. NEURO: Denies headache ROS Other: All systems not noted in ROS Statement are negative. Past Medical History Past Medical History: Asthma, Diabetes Mellitus, Eye Disorder, Fibromyalgia, GERD/Reflux, Hearing Disorder / Deafness, Hyperlipidemia, Hypertension, Musculoskeletal Disorder, Osteoarthritis (OA), Respiratory Disorder, Sleep Apnea/CPAP/BIPAP Additional Past Medical History / Comment(s): SCOLIOSIS, [place], HX DIABETES-NO LONGER ON RX-WATCHES DIET, NO CPAP USE, LEFT KIDNEY REMOVED, LIPOMAS. "Arthritis is worsening, having cortisone shots tomorrow". Last Myocardial Infarction Date:: UNKNOWN DATE - PER TESTS", History of Any Multi-Drug Resistant Organisms: None Reported Past Surgical History: Bariatric Surgery, Bladder Surgery, Heart Catheterizati on, Hysterectomy, Joint Replacement, Orthopedic Surgery Additional Past Surgical History / Comment(s): 2018 TOTAL HIP REPLACEMENTS, BILATERAL FOOT SURGERY, LAPAROTOMY FIBROID TUMOR REMOVED, 2017 BARIATRIC SLEEVE, 2008 LEFT KIDNEY AND URETER REMOVED, EXP LAP, CATARACTS REMOVED, 2ND PROCEDURE FOR SPINAL INTERSTIM IMPLANT DONE 06/18/21 AT [facility]. 05/2021 BLADDER STIMULATOR IMPLANT PUT INTO SPINE , PAIN CLINIC PROCEDURES. bladder surgery x2. 2009 large cyst removed from left abdominal area. 2005 complete hysterectomy. bones in the toes removed from both feet in the . [facility]. 2018 bilat breast lumpectomy-benign Past Anesthesia/Blood Transfusion Reactions: Previous Problems w/ Anesthesia, Postoperative Nausea & Vomiting (PONV) Additional Past Anesthesia/Blood Transfusion Reaction / Comment(s): . Past Psychological History: Anxiety, Depression Smoking Status: Never smoker Past Alcohol Use History: None Reported Past Drug Use History: None Reported - Past Family History Father Family Medical History: Cancer, Myocardial Infarction ([place]), Prostate Disorder Additional Family Medical History / Comment(s): Prostate cancer. Mother Family Medical History: Diabetes Mellitus, Hypertension, Myocardial Infarction ([place]) Additional Family Medical History / Comment(s): Heart disease, quadruple bypass. 7 or 8 of mother's siblings had heart disease. General Exam - General Exam Comments Initial Comments: General: Appears in mild to moderate distress secondary to chest pain. HEAD: Normal with no signs of head trauma. EYES: PERRLA, EOMI, conjunctiva normal, no discharge. ENT: Hearing grossly intact, normal oropharynx. RESPIRATORY: Clear breath sounds bilaterally. No wheezes, rales, or rhonchi. C/V: Regular rate and rhythm. S1 and S2 auscultated, no edema, peripheral pulses 2+ and intact throughout ABD: Abd is soft, nontender, nondistended EXT: Normal range of motion, no obvious deformity SKIN: No rashes or lesions observed on exposed skin. NEURO: Alert and oriented x 4. Cranial nerves II-XII intact. No focal sensory or strength deficits. Limitations: no limitations Course Vital Signs 07/20/22 07/20/22 07/20/22 11:09 11:30 12:00 Temperature 98.8 F Pulse Rate 105 H 104 H 99 Respiratory 20 18 18 Rate Blood Pressure 144/94 144/87 140/85 O2 Sat by Pulse 93 L 88 L 93 L Oximetry 07/20/22 07/20/22 07/20/22 12:30 13:00 13:30 Temperature Pulse Rate 96 95 93 Respiratory 20 20 20 Rate Blood Pressure 146/89 157/88 139/71 O2 Sat by Pulse 95 95 95 Oximetry 01/23/23 01/23/23 01/23/23 13:32 15:00 15:30 Temperature Pulse Rate 93 98 96 Respiratory 18 20 18 Rate Blood Pressure 135/78 159/86 116/73 O2 Sat by Pulse 95 95 96 Oximetry 07/20/22 16:00 Temperature Pulse Rate 93 Respiratory 18 Rate Blood Pressure 136/78 O2 Sat by Pulse 93 L Oximetry Medical Decision Making - Medical Decision Making Based on the patient's presentation and physical exam, I'm concerned for cardiology etiology for her current symptoms. EMS was concerned for possible STEMI as the patient has a left bundle branch block of unknown chronicity but it was redemonstrated in EKGs from August 2021 in our system. Therefore this is old with no findings consistent with a STEMI based on scarbossa criteria. However we will obtain cardiopulmonary workup. She'll be given additional nitroglycerin tablets. She already received oral aspirin. She was in agreement this plan. Vital signs within acceptable limits. Patient's chest pain did respond to nitroglycerin tablets and nitroglycerin paste was therefore placed. EKG showed the chronic left bundle branch block w ith no obvious signs of acute ischemia. Chest x-ray revealed no acute cardio pulmonary process. Laboratory studies were remarkable for a indeterminate troponin of 0.019. BNP is mildly elevated to 1300. Remainder the workup is unremarkable. On reevaluation, patient is resting comfortably. Pain is resolved. I did recommend that we admit the hospital for further management. I'm concerned for possible unstable angina, and therefore she was placed on a heparin drip over concern for ACS. We will trend the troponin. She was in agreement this plan. Cardiology was consulted. I spoke with the admitting physician, Dr. Morel accepted the patient. Patient was admitted in stable condition. Was pt. sent in by a medical professional or institution (, PA, [employer], urgent care, hospital, or correction...) When possible be specific @ -No Did you speak to anyone other than the patient for history (EMS, parent, family, police, friend...)? What history was obtained from this source @ -Yes, EMS who provided some information regarding patient's chest pain at home and medications administered including aspirin and nitro. Did you review nursing and triage notes (agree or disagree)? Why? @ -I reviewed and agree with nursing and triage notes Were old charts reviewed (outside hosp., previous admission, EMS record, old EKG, old radiological studies, urgent care reports/EKG's, correction records)? Report findings @ -EMS, prior EKGs from 2021 and August 2021. Prior visit from May 2022 reviewed. Differential Diagnosis (chest pain, altered mental status, abdominal pain women, abdominal pain men, vaginal bleeding, weakness, fever, dyspnea, syncope, headache, dizziness, GI bleed, back pain, seizure, CVA, palpatations, mental health)? @ -Differential Chest Pain: Stable Angina, Unstable Angina, STEMI, NSTEMI Aortic Dissection, Pneumothorax, Musculoskeletal, Esophageal Spasm GERD, Cholecystitis, Pancreatitis, Zoster, this is not meant to be an all-inclusive list. EKG interpreted by me (3pts min.). @ -As above X-rays interpreted by me (1pt min.). @ -No acute cardiopulmonary process CT interpreted by me (1pt min.). @ -None done U/S interpreted by me (1pt. min.). @ -None done What testing was considered but not performed or refused? (CT, X-rays, U/S, labs)? Why? @ -None What meds were considered but not given or refused? Why? @ -None Did you discuss the management of the patient with other professionals ( professionals i.e. , PA, [employer], lab, RT, psych nurse, medical social consultant, corporate lawyer, teacher, accounts officer, casework supervisor)? Give summary @ -Yes, admitting physician Dr. Morel accepted the patient. Was smoking cessation discussed for >3mins.? @ -No Was critical care preformed (if so, how long)? @ -Yes, 35 minutes. Were there social determinants of health that impacted care today? How? (Myra elessness, low income, unemployed, alcoholism, drug addiction, transportation, low edu. Level, literacy, decrease access to med. care, retirement, rehab)? @ -No Was there de-escalation of care discussed even if they declined (Discuss DNR or withdrawal of care, Hospice)? DNR status @ -No What co-morbidities impacted this encounter? (DM, HTN, Smoking, COPD, CAD, Cancer, CVA, ARF, Chemo, Hep., AIDS, mental health diagnosis, sleep apnea, morbid obesity)? @ -CAD Was patient admitted / discharged? Hospital course, mention meds given and route, prescriptions, significant lab abnormalities, going to OR and other pertinent info. @ -Patient was admitted to the hospital. See above for ED course. Undiagnosed new problem with uncertain prognosis? @ -No Drug Therapy requiring intensive monitoring for toxicity (Heparin, Nitro, Insulin, Cardizem)? @ -No Were any procedures done? @ -No Diagnosis/symptom? @ -Chest pain, concern for unstable angina Acute, or Chronic, or Acute on Chronic? @ -Acute Uncomplicated (without systemic symptoms) or Complicated (systemic symptoms)? @ -Complicated Side effects of treatment? @ -No Exacerbation, Progression, or Severe Exacerbation? @ -No Poses a threat to life or bodily function? How? (Chest pain, [place], [place], pneumonia, PE, COPD, DKA, ARF, appy, cholecystitis, CVA, Diverticulitis, Homicidal, Suicidal, threat to staff... and all critical care pts) @ -Yes, if untreated can result in significant morbidity and mortality. Diagnosis/symptom? @ -History of left bundle branch block Acute, or Chronic, or Acute on Chronic? @ -Chronic Uncomplicated (without systemic symptoms) or Complicated (systemic symptoms)? @ -Uncomplicated Side effects of treatment? @ -none Exacerbation, Progression, or Severe Exacerbation] @ -no Poses a threat to life or bodily function? @ -no - Lab Data Result diagrams: 07/20/22 11:17 07/20/22 11:17 Lab Results 07/20/22 07/20/22 07/20/22 Range/Units 11:17 11:17 11:17 WBC 8.6 (3.8-10.6) k/uL RBC 4.77 (3.80-5.40) m/uL Hgb 13.0 (11.4-16.0) gm/dL Hct 40.0 (34.0-46.0) % MCV 83.8 (80.0-100.0) fL MCH 27.3 (25.0-35.0) pg MCHC 32.6 (31.0-37.0) g/dL RDW 14.9 (11.5-15.5) % Plt Count 204 (150-450) k/uL MPV 8.2 Neutrophils % 62 % Lymphocytes % 30 % Monocytes % 4 % Eosinophils % 3 % Basophils % 1 % Neutrophils # 5.3 (1.3-7.7) k/uL Lymphocytes # 2.5 (1.0-4.8) k/uL Monocytes # 0.3 (0-1.0) k/uL Eosinophils # 0.2 (0-0.7) k/uL Basophils # 0.1 (0-0.2) k/uL PT 10.5 (9.0-12.0) sec INR 1.0 (<1.2) APTT 25.7 (22.0-30.0) sec Sodium 143 (137-145) mmol/L Potassium 3.8 (3.5-5.1) mmol/L Chloride 111 H (98-107) mmol/L Carbon Dioxide 26 (22-30) mmol/L Anion Gap 6 mmol/L BUN 15 (7-17) mg/dL Creatinine 0.86 (0.52-1.04) mg/dL Est GFR (CKD-EPI)AfAm 81 (>60 ml/min/1.73 sqM) Est GFR (CKD-EPI)NonAf 70 (>60 ml/min/1.73 sqM) Glucose 130 H (74-99) mg/dL Calcium 8.6 (8.4-10.2) mg/dL Magnesium 2.1 (1.6-2.3) mg/dL Total Bilirubin 1.0 (0.2-1.3) mg/dL AST 18 (14-36) U/L ALT 19 (4-34) U/L Alkaline Phosphatase 147 H (38-126) U/L Troponin I (0.000-0.034) ng/mL NT-Pro-B Natriuret Pep pg/mL Total Protein 6.5 (6.3-8.2) g/dL Albumin 3.6 (3.5-5.0) g/dL 07/20/22 07/20/22 Range/Units 11:17 11:17 WBC (3.8-10.6) k/uL RBC (3.80-5.40) m/uL Hgb (11.4-16.0) gm/dL Hct (34.0-46.0) % MCV (80.0-100.0) fL MCH (25.0-35.0) pg MCHC (31.0-37.0) g/dL RDW (11.5-15.5) % Plt Count (150-450) k/uL MPV Neutrophils % % Lymphocytes % % Monocytes % % Eosinophils % % Basophils % % Neutrophils # (1.3-7.7) k/uL Lymphocytes # (1.0-4.8) k/uL Monocytes # (0-1.0) k/uL Eosinophils # (0-0.7) k/uL Basophils # (0-0.2) k/uL PT (9.0-12.0) sec INR (<1.2) APTT (22.0-30.0) sec Sodium (137-145) mmol/L Potassium (3.5-5.1) mmol/L Chloride (98-107) mmol/L Carbon Dioxide (22-30) mmol/L Anion Gap mmol/L BUN (7-17) mg/dL Creatinine (0.52-1.04) mg/dL Est GFR (CKD-EPI)AfAm (>60 ml/min/1.73 sqM) Est GFR (CKD-EPI)NonAf (>60 ml/min/1.73 sqM) Glucose (74-99) mg/dL Calcium (8.4-10.2) mg/dL Magnesium (1.6-2.3) mg/dL Total Bilirubin (0.2-1.3) mg/dL AST (14-36) U/L ALT (4-34) U/L Alkaline Phosphatase (38-126) U/L Troponin I 0.019 (0.000-0.034) ng/mL NT-Pro-B Natriuret Pep 1300 pg/mL Total Protein (6.3-8.2) g/dL Albumin (3.5-5.0) g/dL - EKG Data -: EKG Interpreted by Me EKG Comments: 12-lead Electrocardiogram Interpretation Note EKG was reviewed and interpreted by myself. 12-lead ECG performed at 1112 is interpreted by me as revealing normal sinus rhythm with left bundle branch block at a rate of 99 beats per minute. Left bundle-branch block appears chronic with chronic ST segment T-wave morphology. [place] is normal. [place] interval is 161 ms, QRS durations 162 ms, QTc is 467 ms.. There were no acute ST or T wave abnormalities to suggest myocardial ischemia or injury. There are chronic T- wave inversions seen in the lateral precordial leads from May 2022, as well as a prior left bundle branch block seen in EKG from August 2021. R wave progression across the precordium was satisfactory. By my interpretation this EKG is non-diagnostic for acute ischemia. There are chronic changes seen from prior EKGs from last year May 2022 in August 2021 which includes a left bundle-branch block as well as chronic T-wave inversions. 12-lead Electrocardiogram Interpretation Note EKG was reviewed and interpreted by myself. 12-lead ECG performed at 1223 is interpreted by me as revealing sinus tachycardia at a rate of 102 beats per minute. Patient is a chronic left bundle branch block that is redemonstrated with no acute changes and chronic T wave abnormalities.. There were no acute ST or T wave abnormalities to suggest myocardial ischemia or injury. T wave inversions in V5 seem to have been resolved. R wave progression across the precordium was satisfactory. By my interpretation this EKG is non-diagnostic for acute ischemia. No significant change when compared with prior EKG from 1 hour before. It reveals chronic left bundle branch block. Critical Care Time Critical Care Time: Yes Total Critical Care Time: 35 Critical Care Time: Upon my evaluation, this patient had a high probability of imminent or life- threatening deterioration due to unstable angina, chest pain, heparin initiation, which required my direct attention, intervention, and personal management. I have personally provided 35 minutes of critical care time exclusive of time spent on separately billable procedures. Time includes review of laboratory data, radiology results, discussion with consultants, and monitoring for poten tial decompensation. Interventions were performed as documented in my note. Disposition Clinical Impression: Chest pain, Unstable angina, History of left bundle branch block Disposition: ADMITTED IP TO THIS HOSP Condition: Stable Time of Disposition: 12:50
[2022-07-20] MEDS ORDERED: ALBUTEROL NEBULIZED 2.5 MG/3 ML INHALATION PRN (16:54)
--- NOTE | 2022-07-20 17:19 | P.HPIM ---
History of Present Illness H&P Date: 07/20/22 Chief Complaint: Chest pressure This is a very pleasant 67-year-old patient of Dr. Erica Laurent. Chronic stable medical conditions include diabetes, fibromyalgia, GERD, hyperlipidemia, hypertension, obstructive sleep apnea, anxiety, depression. : EF 35-40%. June [address] KIRSTIN Boyd did not show any significant obstructive CAD. Around 10:15 AM today patient developed a pressure across the chest. Going up to her left central. Last her for at least about an hour. No dizziness no lightheadedness or shortness of breath. Just felt a bit tired. Nitroglycerin by the EMS with very slight benefit. Patient had a small troponin leak. Put on IV heparin. ALLERGIES consulted. Review of systems: GEN.: Tired EYES: None HEENT: None NECK: None RESPIRATORY: As above CARDIOVASCULAR: As above GASTROINTESTINAL: None GENITOURINARY: None MUSCULOSKELETAL: Pain in the lower back and other joints LYMPHATICS: None HEMATOLOGICAL: None PSYCHIATRY: None NEUROLOGICAL: None Past medical history: Moderate persistent asthma, chronic fibromyalgia, GERD, hyperlipidemia, hypertension, obstructive sleep apnea uses CPAP machine, anxiety depression, obesity. L4-L5 spinal stenosis and spondylolisthesis with radiculopathy- surgery, diabetes. CHF EF 35-40%. Cardiac cath 2021 showing minimal disease Social history: . No smoking. Alcohol rarely. Physical examination: VITAL SIGNS: 98.8, 104, 18, 140/87, 93% on room air GENERAL: BMI 49.7, declining, slightly anxious EYES: Pupils equal. Conjunctiva normal. HEENT: External appearance of nose and ears normal, oral cavity grossly normal decreased hearing in the left ear. NECK: JVD not raised; masses not palpable. HEART: First and second heart sounds are normal; no edema. LUNGS: Respiratory rate normal; clear to auscultation. ABDOMEN: Soft, nontender, liver spleen not palpable, no masses palpable. PSYCH: Alert and oriented x3; mood and affect normal. NEUROLOGICAL: Cranial nerves grossly intact; no facial asymmetry, power and sensation grossly intact. LYMPHATICS: No lymph nodes palpable in the axilla and neck MUSCULOSKELETAL: Evidence of OA Investigations, reviewed in the clinical context: White count 8.6 and globin 13 platelets 204 percussion 3.8. 0.86 Troponin I 0.019 ProBNP 1300 EKG tracing personally reviewed by me-left bundle-branch block. Checks x-ray reviewed: Cardiomegaly. Assessment and plan: -Anterior chest wall pain in a patient with cardiac catheterization in May 2022 showing minimal disease. Serial troponins. Telemetry. Consult cardiology. Aspirin, Lopressor -IV heparin monitoring Follow PTT -Nonischemic cardiomyopathy EF 35-40%. Lisinopril, Aldactone. -Chronic Lumbar laminectomy and decompression for L4-L5 spinal stenosis and spondylolisthesis with radiculopathy -Diabetes mellitus type 2 on oral hypoglycemic metformin. Follow Accu-Cheks and sliding scale. -Moderate persistent asthma Ventolin HFA when necessary. -Chronic fibromyalgia -GERD PPI -Hyperlipidemia Lipitor -Essential hypertension Lopressor, Zestril -Obstructive sleep apnea uses CPAP machine -Anxiety depression otherwise specified Zoloft, Cymbalta -Morbid obesity BMI 49.7 Weight loss measures Discussed with patient. Questions answered. Past Medical History Past Medical History: Asthma, Diabetes Mellitus, Eye Disorder, Fibromyalgia, GERD/Reflux, Hearing Disorder / Deafness, Hyperlipidemia, Hypertension, Musculoskeletal Disorder, Osteoarthritis (OA), Respiratory Disorder, Sleep Apnea/CPAP/BIPAP Additional Past Medical History / Comment(s): SCOLIOSIS, [place], HX DIABETES-NO LONGER ON RX-WATCHES DIET, NO CPAP USE, LEFT KIDNEY REMOVED, LIPOMAS. "Arthritis is worsening, having cortisone shots tomorrow". Last Myocardial Infarction Date:: UNKNOWN DATE - PER TESTS", History of Any Multi-Drug Resistant Organisms: None Reported Past Surgical History: Bariatric Surgery, Bladder Surgery, Heart Cath eterization, Hysterectomy, Joint Replacement, Orthopedic Surgery Additional Past Surgical History / Comment(s): 2018 TOTAL HIP REPLACEMENTS, BILATERAL FOOT SURGERY, LAPAROTOMY FIBROID TUMOR REMOVED, 2017 BARIATRIC SLEEVE, 2008 LEFT KIDNEY AND URETER REMOVED, EXP LAP, CATARACTS REMOVED, 2ND PROCEDURE FOR SPINAL INTERSTIM IMPLANT DONE 06/18/21 AT [place]. 05/2021 BLADDER S TIMULATOR IMPLANT PUT INTO SPINE , PAIN CLINIC PROCEDURES. bladder surgery x2. 2009 large cyst removed from left abdominal area. 2004 complete hysterectomy. bones in the toes removed from both feet in the s. [facility] & [facility]. 2018 bilat breast lumpectomy-benign Past Anesthesia/Blood Transfusion Reactions: Previous Problems w/ Anesthesia, Postoperative Nausea & Vomiting (PONV) Additional Past Anesthesia/Blood Transfusion Reaction / Comment(s): . Past Psychological History: Anxiety, Depression Smoking Status: Never smoker Past Alcohol Use History: None Reported Past Drug Use History: None Reported - Past Family History Father Family Medical History: Cancer, Myocardial Infarction ([place]), Prostate Disorder Additional Family Medical History / Comment(s): Prostate cancer. Mother Family Medical History: Diabetes Mellitus, Hypertension, Myocardial Infarction ([place]) Additional Family Medical History / Comment(s): Heart disease, quadruple bypass. 7 or 8 of mother's siblings had heart disease. Medications and Allergies Home Medications Medication Instructions Recorded Confirmed Type DULoxetine HCL [Cymbalta] 60 mg PO DAILY 01/28/18 07/20/22 History Omeprazole 20 mg PO DAILY 01/28/18 07/20/22 History Sertraline [Zoloft] 25 mg PO DAILY 01/28/18 07/20/22 History lisinopriL [Zestril] 20 mg PO BID 01/04/19 07/20/22 History Beclomethasone Dip 80 Mcg/Puff 2 puff INHALATION RT-BID 06/09/21 07/20/22 History [Qvar 80 mcg] Albuterol Inhaler [Ventolin Hfa 2 puff INHALATION RT-Q6H PRN 09/22/21 07/20/22 History Inhaler] Cholecalciferol [Vitamin D3 (25 50 mcg PO DAILY 09/22/21 07/20/22 History Mcg = 1000 Iu)] Aspirin EC [Ecotrin Low Dose] 81 mg PO DAILY 06/07/22 07/20/22 History Atorvastatin [Lipitor] 20 mg PO HS 06/07/22 07/20/22 History metFORMIN HCL [Glucophage] 500 mg PO DAILY 06/07/22 07/20/22 History Metoprolol Tartrate [Lopressor] 50 mg PO BID #0 06/10/22 07/20/22 Rx Spironolactone [Aldactone] 25 mg PO DAILY #30 tablet 06/10/22 07/20/22 Rx Nitroglycerin Sl Tabs [Nitrostat] 0.4 mg SUBLINGUAL Q5M PRN 07/20/22 07/20/22 History Allergies Allergy/AdvReac Type Severity Reaction Status Date / Time adhesive Allergy Itching, Verified 07/10/22 10:35 takes her skin off Fish Containing Products Allergy Swelling Verified 07/10/22 10:35 [Fish] in throat latex Allergy Rash/Hives Verified 07/10/22 10:35 Sulfa (Sulfonamide Allergy Anaphylaxis Verified 07/10/22 10:35 Antibiotics) walnut Allergy Swelling Verified 07/10/22 10:35 gluten AdvReac CONGESTION Verified 07/10/22 10:35 perfume AdvReac Dyspnea Verified 07/10/22 10:35 Physical Exam Vitals: Vital Signs Temp Pulse Resp BP Pulse Ox 07/20/22 16:00 93 18 136/78 93 L 07/20/22 15:30 96 18 116/73 96 07/20/22 15:00 98 20 159/86 95 07/20/22 13:32 93 18 135/78 95 07/20/22 13:30 93 20 139/71 95 07/20/22 13:00 95 20 157/88 95 07/20/22 12:30 96 20 146/89 95 07/20/22 12:00 99 18 140/85 93 L 07/20/22 11:30 104 H 18 144/87 88 L 07/20/22 11:09 98.8 F 105 H 20 144/94 93 L Intake and Output 07/20/22 07/20/22 07/20/22 06:59 14:59 22:59 Other: Weight 119.295 kg Results CBC & Chem 7: 07/20/22 11:17 07/20/22 11:17 Labs: Abnormal Lab Results - Last 24 Hours (Table) 07/20/22 Range/Units 11:17 Chloride 111 H (98-107) mmol/L Glucose 130 H (74-99) mg/dL Alkaline Phosphatase 147 H (38-126) U/L
[2022-07-20 17:28] LABS: Glucose,Whole Blood 120 mg/dL (70-110)
[2022-07-20] MEDS: FLUTICASONE 110 MCG INHALER INHALATION SCH (19:41)
[2022-07-20] MEDS: METOPROLOL TARTRATE 50 MG TAB PO SCH (20:01)
[2022-07-20] MEDS: lisinopriL 20 MG TAB PO SCH (20:01)
[2022-07-20] MEDS ORDERED: ATORVASTATIN 20 MG TAB PO SCH (21:00)
[2022-07-21] MEDS: NITROGLYCERIN OINT 1 INCH/GM PACKET TOPICAL SCH ×2 (00:40→08:58)
[2022-07-21 04:05] VITALS: TEMP 98.2
[2022-07-21 07:27] LABS: Basophils # (A) 0.1 k/uL (0-0.2); Basophils % (A) 1 %; Eosinophils # (A) 0.3 k/uL (0-0.7); Eosinophils % (A) 3 %; HCT 38.3 % (34.0-46.0); HGB 12.2 gm/dL (11.4-16.0); Lymphocytes # (A) 2.3 k/uL (1.0-4.8); Lymphocytes % (A) 26 %; MCH 27.1 pg (25.0-35.0); MCHC 31.7 g/dL (31.0-37.0); MCV 85.4 fL (80.0-100.0); Mean Platelet Volume 8.5; Monocytes # (A) 0.4 k/uL (0-1.0); Monocytes % (A) 5 %; Neutrophils # (A) 5.6 k/uL (1.3-7.7); Neutrophils % (A) 64 %; Platelet Count 224 k/uL (150-450); RBC 4.49 m/uL (3.80-5.40); RDW 14.6 % (11.5-15.5); WBC 8.8 k/uL (3.8-10.6)
[2022-07-21] MEDS ORDERED: PANTOPRAZOLE 40 MG TABLET PO SCH (07:30)
[2022-07-21 07:43] LABS: INR 1.1 (<1.2); Partial Thromboplastin Time 41.3 sec (22.0-30.0)
[2022-07-21] MEDS: FLUTICASONE 110 MCG INHALER INHALATION SCH (07:46)
[2022-07-21 07:54] LABS: Calcium 8.5 mg/dL (8.4-10.2); Potassium 3.8 mmol/L (3.5-5.1)
[2022-07-21 08:40] VITALS: RESP 16
[2022-07-21] MEDS ORDERED: DULoxetine HCL 60 MG CAPSULE.DR PO SCH (09:00)
[2022-07-21] MEDS ORDERED: ASPIRIN 81 MG PO SCH (09:00)
[2022-07-21] MEDS ORDERED: CHOLECALCIFEROL 25 MCG (1000 IU) TABLET PO SCH (09:00)
[2022-07-21] MEDS ORDERED: SERTRALINE 25 MG TAB PO SCH (09:00)
[2022-07-21] MEDS ORDERED: SPIRONOLACTONE 25 MG TAB PO SCH (09:00)
[2022-07-21] MEDS ORDERED: metFORMIN 500 MG TAB PO SCH (09:00)
[2022-07-21] MEDS: METOPROLOL TARTRATE 50 MG TAB PO SCH (09:24)
[2022-07-21] MEDS: lisinopriL 20 MG TAB PO SCH (09:24)
--- NOTE | 2022-07-21 10:46 | P.CRDCN ---
History of Present Illness History of present illness: HISTORY OF PRESENT ILLNESS: This is a 67-year-old female with a past medical history significant for hypertension, hyperlipidemia, diabetes, obstructive sleep apnea and left bundle branch block. Patient follows in the office with Dr. Boyd. We have been asked to see the patient in consultation for chest pain. Patient examined at the bedside. Patient presented to the hospital with a chief complaint of chest pain. Patient states yesterday around 10:00 in the morning she began having epigastric pain that radiated up into her left chest, neck, jaw, and into her b ack. She states that she felt as though she couldn't take a deep breath. She also reports feeling palpitations yesterday. She reports that she took 3 nitro at home which did not help her pain so EMS was called. She states that EMS advised her to take 4 baby aspirin which she did which also did not help her pain. She states the pain persisted until presently 6 PM last night. She also reports feeling dizzy and having tunnel vision yesterday when this happened. * EKG reveals sinus mechanism with left bundle branch block. * Chest xray no acute cardiopulmonary disease. Persistent cardiomegaly * Laboratory data: WBC 8.8. Hemoglobin 12.2. Platelet count 224. Sodium 141. Potassium 3.8. BUN 16. Creatinine 0.95. Troponin negative 3. ProBNP 1300. * Current home cardiac medications include aspirin 81 mg daily, Lipitor 20 mg at night, metoprolol tartrate 50 mg twice a day, Aldactone 25 mg daily, lisinopril 20 mg BID. * Most recent echocardiogram obtained in May 2022 revealed ejection fraction 35-40% with moderate mitral regurgitation * Cardiac catheterization history: May 2022 revealing codominant system, probably more right than left dominant. Normal filling pressures. No gradient. No significant obstructive coronary disease. REVIEW OF SYSTEMS: At the time of my exam: CONSTITUTIONAL: Denies fever or chills. HEENT: Denies blurred vision, vision changes, or eye pain. Denies hemoptysis CARDIOVASCULAR: Denies chest pain. Denies orthopnea. Denies PND. Denies palpitations RESPIRATORY: Denies shortness of breath. GASTROINTESTINAL: Denies abdominal pain. Denies nausea or vomiting. HEMATOLOGIC: Denies bleeding disorders. GENITOURINARY: Denies any blood in urine. SKIN: Denies pruitis. Denies rash. PHYSICAL EXAM: VITAL SIGNS: Reviewed. GENERAL: Well-developed in no acute distress. HEENT: Head is normocephalic. Pupils are equal, round. Sclerae anicteric. Mucous membranes of the mouth are moist. Neck supple. No JVD or thyromegaly LUNGS: Respirations even and unlabored. Lungs essentially clear to auscultation bilaterally. HEART: Regular rate and rhythm. S1 and S2 heard. ABDOMEN: Soft. Nondistended. Nontender. EXTREMITIES: Normal range of motion. No clubbing or cyanosis. Peripheral pulses intact. No lower extremity edema NEUROLOGIC: Awake and alert. Oriented x 3. ASSESSMENT: Chest pain, troponins negative 3, status post cardiac catheterization 05/2022 with no evidence of significant obstructive coronary disease Nonischemic cardiomyopathy Palpitations with dizziness and tunnel vision Hypertension Hyperlipidemia Obstructive sleep apnea Diabetes PLAN: No need to repeat echocardiogram An acute coronary event has been ruled out Discontinue IV heparin Resume home cardiac medications Consider event monitor at follow-up appointment with Dr. Boyd Patient may be discharged home today from a cardiac standpoint Nurse practitioner note has been reviewed by physician. Signing provider agrees with the documented findings, assessment, and plan of care. Past Medical History Past Medical History: Asthma, Diabetes Mellitus, Eye Disorder, Fibromyalgia, GERD/Reflux, Hearing Disorder / Deafness, Hyperlipidemia, Hypertension, Musculoskeletal Disorder, Osteoarthritis (OA), Respiratory Disorder, Sleep Apnea/CPAP/BIPAP Additional Past Medical History / Comment(s): SCOLIOSIS, [place], HX DIABETES-NO LONGER ON RX-WATCHES DIET, NO CPAP USE, LEFT KIDNEY REMOVED, LIPOMAS. "Arthritis is worsening, having cortisone shots tomorrow". Last Myocardial Infarction Date:: UNKNOWN DATE - PER TESTS", History of Any Multi-Drug Resistant Organisms: None Reported Past Surgical History: Bariatric Surgery, Bladder Surgery, Heart Catheterization, Hysterectomy, Joint Replacement, Orthopedic Surgery Additional Past Surgical History / Comment(s): 2018 TOTAL HIP REPLACEMENTS, BILA TERAL FOOT SURGERY, LAPAROTOMY FIBROID TUMOR REMOVED, 2017 BARIATRIC SLEEVE, 2008 LEFT KIDNEY AND URETER REMOVED, EXP LAP, CATARACTS REMOVED, 2ND PROCEDURE FOR SPINAL INTERSTIM IMPLANT DONE 06/18/21 AT [place]. 05/2021 BLADDER STIMULATOR IMPLANT PUT INTO SPINE , PAIN CLINIC PROCEDURES. bladder surgery x2. 2009 large cyst removed from left abdominal area. 2005 complete hysterectomy. bones in the toes removed from both feet in the . [facility]. 2018 bilat breast lumpectomy-benign Past Anesthesia/Blood Transfusion Reactions: Previous Problems w/ Anesthesia, Postoperative Nausea & Vomiting (PONV) Additional Past Anesthesia/Blood Transfusion Reaction / Comment(s): . Past Psychological History: Anxiety, Depression Smoking Status: Never smoker Past Alcohol Use History: None Reported Past Drug Use History: None Reported - Past Family History Father Family Medical History: Cancer, Myocardial Infarction ([place]), Prostate Disorder Additional Family Medical History / Comment(s): Prostate cancer. Mother Family Medical History: Diabetes Mellitus, Hypertension, Myocardial Infarction ([place]) Additional Family Medical History / Comment(s): Heart disease, quadruple bypass. 7 or 8 of mother's siblings had heart disease. Medications and Allergies Home Medications Medication Instructions Recorded Confirmed Type DULoxetine HCL [Cymbalta] 60 mg PO DAILY 01/28/18 07/20/22 History Omeprazole 20 mg PO DAILY 01/28/18 07/20/22 History Sertraline [Zoloft] 25 mg PO DAILY 01/28/18 07/20/22 History lisinopriL [Zestril] 20 mg PO BID 01/04/19 07/20/22 History Beclomethasone Dip 80 Mcg/Puff 2 puff INHALATION RT-BID 06/09/21 07/20/22 History [Qvar 80 mcg] Albuterol Inhaler [Ventolin Hfa 2 puff INHALATION RT-Q6H PRN 09/22/21 07/20/22 History Inhaler] Cholecalciferol [Vitamin D3 (25 50 mcg PO DAILY 09/22/21 07/20/22 History Mcg = 1000 Iu)] Aspirin EC [Ecotrin Low Dose] 81 mg PO DAILY 06/07/22 07/20/22 History Atorvastatin [Lipitor] 20 mg PO HS 06/07/22 07/20/22 History metFORMIN HCL [Glucophage] 500 mg PO DAILY 06/07/22 07/20/22 History Metoprolol Tartrate [Lopressor] 50 mg PO BID #0 06/10/22 07/20/22 Rx Spironolactone [Aldactone] 25 mg PO DAILY #30 tablet 06/10/22 07/20/22 Rx Nitroglycerin Sl Tabs [Nitrostat] 0.4 mg SUBLINGUAL Q5M PRN 07/20/22 07/20/22 History Allergies Allergy/AdvReac Type Severity Reaction Status Date / Time adhesive Allergy Itching, Verified 07/10/22 10:35 takes her skin off Fish Containing Products Allergy Swelling Verified 07/10/22 10:35 [Fish] in throat latex Allergy Rash/Hives Verified 07/10/22 10:35 Sulfa (Sulfonamide Allergy Anaphylaxis Verified 07/10/22 10:35 Antibiotics) walnut Allergy Swelling Verified 07/10/22 10:35 gluten AdvReac CONGESTION Verified 07/10/22 10:35 perfume AdvReac Dyspnea Verified 07/10/22 10:35 Physical Exam Vitals: Vital Signs Temp Pulse Pulse Resp BP BP Pulse Ox 07/21/22 04:00 98.2 F 58 L 18 129/80 96 07/21/22 02:00 60 18 07/21/22 00:00 60 18 131/70 96 07/20/22 20:00 98.4 F 97 20 118/73 96 07/20/22 19:47 97 07/20/22 18:26 97.8 F 101 H 18 164/94 98 07/20/22 16:00 93 18 136/78 93 L 07/20/22 15:30 96 18 116/73 96 07/20/22 15:00 98 20 159/86 95 07/20/22 13:32 93 18 135/78 95 07/20/22 13:30 93 20 139/71 95 07/20/22 13:00 95 20 157/88 95 07/20/22 12:30 96 20 146/89 95 07/20/22 12:00 99 18 140/85 93 L 07/20/22 11:30 104 H 18 144/87 88 L 07/20/22 11:09 98.8 F 105 H 20 144/94 93 L FiO2 07/21/22 04:00 07/21/22 02:00 07/21/22 00:00 07/20/22 20:00 07/20/22 19:47 21 07/20/22 18:26 07/20/22 16:00 07/20/22 15:30 07/20/22 15:00 07/20/22 13:32 07/20/22 13:30 07/20/22 13:00 07/20/22 12:30 07/20/22 12:00 07/20/22 11:30 07/20/22 11:09 Intake and Output 07/20/22 07/21/22 07/21/22 22:59 06:59 14:59 Intake Total 243.648 Balance 243.648 Intake: Intake, IV Titration 63.648 Amount Heparin Sod,Pork in 0.45% 63.648 NaCl 25,000 unit In 0.45 % NaCl 1 250ml.bag @ 8.38 UNITS/KG/HR 9.997 mls/hr IV .Q24H [facility] Rx#: [id number] Oral 180 Other: Voiding Method Toilet Toilet # Voids 1 Weight 119.295 kg 115.8 kg Results 07/21/22 06:27 07/21/22 06:27 Cardiac Enzymes 07/20/22 07/20/22 07/20/22 Range/Units 11:17 11:17 18:44 AST 18 (14-36) U/L Troponin I 0.019 0.018 (0.000-0.034) ng/mL 07/20/22 Range/Units 22:44 AST (14-36) U/L Troponin I 0.025 (0.000-0.034) ng/mL Coagulation 07/20/22 07/20/22 07/21/22 Range/Units 11:17 18:44 06:27 PT 10.5 11.0 (9.0-12.0) sec APTT 25.7 45.4 H 41.3 H (22.0-30.0) sec CBC 07/20/22 07/21/22 Range/Units 11:17 06:27 WBC 8.6 8.8 (3.8-10.6) k/uL RBC 4.77 4.49 (3.80-5.40) m/uL Hgb 13.0 12.2 (11.4-16.0) gm/dL Hct 40.0 38.3 (34.0-46.0) % Plt Count 204 224 (150-450) k/uL Comprehensive Metabolic Panel 07/20/22 07/21/22 Range/Units 11:17 06:27 Sodium 143 141 (137-145) mmol/L Potassium 3.8 3.8 (3.5-5.1) mmol/L Chloride 111 H 109 H (98-107) mmol/L Carbon Dioxide 26 28 (22-30) mmol/L BUN 15 16 (7-17) mg/dL Creatinine 0.86 0.95 (0.52-1.04) mg/dL Glucose 130 H 106 H (74-99) mg/dL Calcium 8.6 8.5 (8.4-10.2) mg/dL AST 18 (14-36) U/L ALT 19 (4-34) U/L Alkaline Phosphatase 147 H (38-126) U/L Total Protein 6.5 (6.3-8.2) g/dL Albumin 3.6 (3.5-5.0) g/dL Current Medications Generic Name Dose Route Start Last Admin Trade Name Freq PRN Reason Stop Dose Admin Albuterol Sulfate 2.5 mg 07/20/22 16:54 Albuterol Nebulized 2.5 Mg/3 Ml INHALATION RT-Q6H PRN Shortness Of Breath Aspirin 81 mg 07/21/22 09:00 Aspirin 81 Mg PO DAILY [facility] Atorvastatin Calcium 20 mg 07/20/22 21:00 07/20/22 20:01 Atorvastatin 20 Mg Tab PO 20 mg HS JILL Administration Cholecalciferol 50 mcg 07/21/22 09:00 Cholecalciferol 25 Mcg (1000 Iu) Tablet PO DAILY [facility] Duloxetine HCl 60 mg 07/21/22 09:00 Duloxetine Hcl 60 Mg Capsule.Dr PO DAILY [facility] Fluticasone Propionate 2 puff 07/20/22 20:00 07/21/22 07:46 Fluticasone 110 Mcg Inhaler INHALATION 2 puff RT-BID JILL Administration Heparin Sodium (Porcine) 0 unit 07/20/22 12:49 Heparin Sodium 1,000 Un/Ml (10ml Vl) IV PER PROTOCOL PRN Low PTT Protocol Heparin Sodium/Sodium Chloride 250 mls @ 9.997 mls/hr 07/20/22 13:00 07/20/22 19:49 25,000 unit/ Sodium Chloride IV 8.38 units/kg/hr .Q24H JILL 9.997 mls/hr Titration Protocol 8.38 UNITS/KG/HR Lisinopril 20 mg 07/20/22 21:00 07/20/22 20:01 Lisinopril 20 Mg Tab PO 20 mg BID JILL Administration Metformin HCl 500 mg 07/21/22 09:00 Metformin 500 Mg Tab PO DAILY JILL Metoprolol Tartrate 50 mg 07/20/22 21:00 07/20/22 20:01 Metoprolol Tartrate 50 Mg Tab PO 50 mg BID JILL Administration Naloxone HCl 0.2 mg 07/20/22 15:34 Naloxone 0.4 Mg/Ml 1 Ml Vial IV Q2M PRN Opioid Reversal Nitroglycerin 0.4 mg 07/20/22 11:18 07/20/22 11:20 Nitroglycerin Sl Tabs 0.4 Mg Tab SUBLINGUAL 0.4 mg Q5M PRN Administration Chest Pain Nitroglycerin 0.5 inch 07/20/22 12:50 07/21/22 00:40 Nitroglycerin Oint 1 Inch/Gm Packet TOPICAL 0.5 inch Q8HR JILL Administration Pantoprazole Sodium 40 mg 07/21/22 07:30 07/21/22 06:14 Pantoprazole 40 Mg Tablet PO 40 mg [id number] JILL Administration Sertraline HCl 25 mg 07/21/22 09:00 Sertraline 25 Mg Tab PO DAILY JILL Spironolactone 25 mg 07/21/22 09:00 Spironolactone 25 Mg Tab PO DAILY JILL Intake and Output 07/20/22 07/21/22 07/21/22 22:59 06:59 14:59 Intake Total 243.648 Balance 243.648 Intake: Intake, IV Titration 63.648 Amount Heparin Sod,Pork in 0.45% 63.648 NaCl 25,000 unit In 0.45 % NaCl 1 250ml.bag @ 8.38 UNITS/KG/HR 9.997 mls/hr IV .Q24H [facility] Rx#: [id number] Oral 180 Other: Voiding Method Toilet Toilet # Voids 1 Weight 119.295 kg 115.8 kg 07/21/22 06:27 07/21/22 06:27
[2022-07-21 12:08] VITALS: BP 137/71; PULSE 56
--- NOTE | 2022-07-21 21:42 | P.DS ---
Providers Date of admission: 07/20/22 15:34 Expected date of discharge: 07/21/22 Attending physician: Erlin Morel Consults: 07/20/22 15:34 Consult Physician Routine Consulting Provider: [facility] Consult Reason/Comments: unstable angina Do you want consulting provider notified?: Yes Primary care physician: Norma Laurent [facility] Course: Chief Complaint: Chest pressure This is a very pleasant 67-year-old patient of Dr. Erica Laurent. Chronic stable medical conditions include diabetes, fibromyalgia, GERD, hyperlipidemia, hypertension, obstructive sleep apnea, anxiety, depression. : EF 35-40%. June [address] KIRSTIN Boyd did not show any significant obstructive CAD. Around 10:15 AM today patient developed a pressure across the chest. Going up to her left central. Last her for at least about an hour. No dizziness no lightheadedness or shortness of breath. Just felt a bit tired. Nitroglycerin by the EMS with very slight benefit. Patient had a small troponin leak. Put on IV heparin. ALLERGIES consulted. July 21: Troponin negative. Seen by lisa Ramsay No further workup. In view of recent unremarkable cardiac catheterization. Discussed with patient. Patient will follow-up with a duplicating machine servicer Dr. Boyd Past medical history: Moderate persistent asthma, chronic fibromyalgia, GERD, hyperlipidemia, hypertension, obstructive sleep apnea uses CPAP machine, anxiety depression, obesity. L4-L5 spinal stenosis and spondylolisthesis with radiculopathy- surgery, diabetes. CHF EF 35-40%. Cardiac cath 2021 showing minimal disease Social history: . No smoking. Alcohol rarely. Physical examination: VITAL SIGNS: 98.2, 56, 16, 1 37 x 71, 97% room air GENERAL: Comfortable EYES: Pupils equal. Conjunctiva normal. HEENT: External appearance of nose and ears normal, oral cavity grossly normal decreased hearing in the left ear. NECK: JVD not raised; masses not palpable. HEART: First and second heart sounds are normal; no edema. LUNGS: Respiratory rate normal; clear to auscultation. ABDOMEN: Soft, nontender, liver spleen not palpable, no masses palpable. PSYCH: Alert and oriented x3; mood and affect normal. Investigations, reviewed in the clinical context: White count 8.6 and globin 13 platelets 204 percussion 3.8. 0.86 Troponin I 0.019 ProBNP 1300 EKG tracing personally reviewed by me-left bundle-branch block. Checks x-ray reviewed: Cardiomegaly. Assessment and plan: -Anterior chest wall pain in a patient with cardiac catheterization in May 2022 showing minimal disease. Possibly muscular skeletal Seen by cardiology Stable for DC. -IV heparin monitoring Follow PTT -Nonischemic cardiomyopathy EF 35-40%. Lisinopril, Aldactone. -Chronic Lumbar laminectomy and decompression for L4-L5 spinal stenosis and spondylolisthesis with radiculopathy -Diabetes mellitus type 2 on oral hypoglycemic metformin. Follow Accu-Cheks and sliding scale. -Moderate persistent asthma Ventolin HFA when necessary. -Chronic fibromyalgia -GERD PPI -Hyperlipidemia Lipitor -Essential hypertension Lopressor, Zestril -Obstructive sleep apnea uses CPAP machine -Anxiety depression otherwise specified Zoloft, Cymbalta -Morbid obesity BMI 49.7 Weight loss measures Disposition: Home Plan - Discharge Summary New Discharge Prescriptions: Continue DULoxetine HCL [Cymbalta] 60 mg PO DAILY Omeprazole 20 mg PO DAILY Sertraline [Zoloft] 25 mg PO DAILY lisinopriL [Zestril] 20 mg PO BID Albuterol Inhaler [Ventolin Hfa Inhaler] 2 puff INHALATION RT-Q6H PRN PRN Reason: Shortness Of Breath metFORMIN HCL [Glucophage] 500 mg PO DAILY Aspirin EC [Ecotrin Low Dose] 81 mg PO DAILY Atorvastatin [Lipitor] 20 mg PO HS Metoprolol Tartrate [Lopressor] 50 mg PO BID #0 Nitroglycerin Sl Tabs [Nitrostat] 0.4 mg SUBLINGUAL Q5M PRN PRN Reason: Chest Pain Beclomethasone Dip 80 Mcg/Puff [Qvar 80 mcg] 2 puff INHALATION RT-BID Cholecalciferol [Vitamin D3 (25 Mcg = 1000 Iu)] 50 mcg PO DAILY Spironolactone [Aldactone] 25 mg PO DAILY #30 tablet Discharge Medication List DULoxetine HCL [Cymbalta] 60 mg PO DAILY 01/28/18 [History] Omeprazole 20 mg PO DAILY 01/28/18 [History] Sertraline [Zoloft] 25 mg PO DAILY 01/28/18 [History] lisinopriL [Zestril] 20 mg PO BID 01/04/19 [History] Beclomethasone Dip 80 Mcg/Puff [Qvar 80 mcg] 2 puff INHALATION RT-BID 06/09/21 [History] Albuterol Inhaler [Ventolin Hfa Inhaler] 2 puff INHALATION RT-Q6H PRN 09/22/21 [History] Cholecalciferol [Vitamin D3 (25 Mcg = 1000 Iu)] 50 mcg PO DAILY 09/22/21 [History] Aspirin EC [Ecotrin Low Dose] 81 mg PO DAILY 06/07/22 [History] Atorvastatin [Lipitor] 20 mg PO HS 06/07/22 [History] metFORMIN HCL [Glucophage] 500 mg PO DAILY 06/07/22 [History] Metoprolol Tartrate [Lopressor] 50 mg PO BID #0 06/10/22 [Rx] Spironolactone [Aldactone] 25 mg PO DAILY #30 tablet 06/10/22 [Rx] Nitroglycerin Sl Tabs [Nitrostat] 0.4 mg SUBLINGUAL Q5M PRN 07/20/22 [History] Follow up Appointment(s)/Referral(s): Marybeth Boyd MD [STAFF PHYSICIAN] - 07/29/22 10:45 am (Wednesday) Norma Laurent MD [Primary Care Provider] - 1-2 days (Office is closed for lunch. PLease call to schedule appointment) Discharge/Stand Alone Forms: Who Do I Call?, Community Resources, Personal Emergency Detail Driver Discharge Disposition: HOME SELF-CARE
== END 2022-07-21 13:33 | disposition home or self-care (01) ==
LOC: EC 11:07 → INTOOBSV 15:34 → 3SCARD 15:34
PROVIDERS: ADMIT Hospitalist; ATTEND Hospitalist
DX: R07.2 Precordial pain (principal); I42.8 Other cardiomyopathies; R00.2 Palpitations; R42 Dizziness and giddiness; H53.489 Generalized contraction of visual field, unspecified eye; E78.5 Hyperlipidemia, unspecified; G47.33 Obstructive sleep apnea (adult) (pediatric); E11.9 Type 2 diabetes mellitus without complications; M79.7 Fibromyalgia; I11.0 Hypertensive heart disease with heart failure; I50.9 Heart failure, unspecified; J45.40 Moderate persistent asthma, uncomplicated; I25.10 Atherosclerotic heart disease of native coronary artery without angina pectoris; K21.9 Gastro-esophageal reflux disease without esophagitis; F32.A Depression, unspecified; F41.9 Anxiety disorder, unspecified; M48.061 Spinal stenosis, lumbar region without neurogenic claudication; M43.16 Spondylolisthesis, lumbar region; M54.16 Radiculopathy, lumbar region; E66.01 Morbid (severe) obesity due to excess calories; Z68.42 Body mass index [BMI] 45.0-49.9, adult; Z98.84 Bariatric surgery status; Z96.643 Presence of artificial hip joint, bilateral; Z79.899 Other long term (current) drug therapy; Z79.82 Long term (current) use of aspirin; Z79.84 Long term (current) use of oral hypoglycemic drugs; Z91.040 Latex allergy status; Z88.2 Allergy status to sulfonamides; Z82.49 Family history of ischemic heart disease and other diseases of the circulatory system; Z83.3 Family history of diabetes mellitus
CPT/HCPCS: 96366 ×2; 96365; 96375; 99285; 36415; 94640 ×2; 94760; 93005; 83880; 80053; 80048; 83735; 84484; 85025 ×2; 85610 ×2; 85730 ×2; 71046; G0378 ×2; J1644 ×2

== ENCOUNTER → 2022-07-31 | Outpatient (CLI) | payer MEDICARE, BC ==
--- NOTE | 2022-07-31 15:24 | USB ---
Reason for Exam: Clinical finding. Patient History: Menarche at age 10. First Full-Term at age 15. Left ovary removed at age 49. Right ovary removed at age 49. Hysterectomy at age 49. Postmenopausal. Estrogen, from age 49 until age 54. 11/17/2021, Benign US biopsy breast VAD RT on the right side. 11/17/2021, Benign US biopsy breast VAD LT on the left side. 2018, Excisional Biopsy on the Left side. 2018, Excisional Biopsy on the Right side. Maternal aunt had breast cancer, age 65. Sister had breast cancer, age 55. Risk Values: Sheila 5 year model risk: 5.2%. NCI Lifetime model risk: 16.1%. Technique: Method: Whole Breast Handheld. Prior Study Comparison: 11/13/2021 Bilateral MG 3D diag mammo w/cad [facility], [facility]. 11/17/2021 Bilateral MG diagnostic mammo BI wo CAD, [facility]. 05/22/2022 Bilateral MG 3D diag mammo w/cad AL[facility], [facility]. Findings: The whole breast of both breasts, the axilla of both breasts and the retroareolar of both breasts were scanned. Bilateral hyperechoic lesions noted compatible with lipomas. No drainable collection seen. Overall Assessment: Benign, BI-RAD 2 Management: Screening Mammogram of both breasts in 9 months. A clinical breast exam by your physician is recommended on an annual basis and results should be correlated with mammographic findings. This exam should not preclude additional follow-up of suspicious palpable abnormalities. Results were given to the patient verbally at the time of exam. Electronically signed and approved by: Jose F العراقي M.D. Radiologis
== END | disposition home or self-care (01) ==
LOC: RADUSWWP 14:18
PROVIDERS: ATTEND Surgery
DX: N63.10 Unspecified lump in the right breast, unspecified quadrant (principal); N63.20 Unspecified lump in the left breast, unspecified quadrant; Z80.3 Family history of malignant neoplasm of breast; Z78.0 Asymptomatic menopausal state; Z98.890 Other specified postprocedural states

== ENCOUNTER → 2023-05-27 | Outpatient (CLI) | payer MEDICARE, BC | LOC: WWCWWP 14:12 | PROVIDERS: ATTEND Surgery | DX: Z12.31 Encounter for screening mammogram for malignant neoplasm of breast (principal); Z91.048 Other nonmedicinal substance allergy status; Z91.013 Allergy to seafood; Z91.040 Latex allergy status; Z88.2 Allergy status to sulfonamides; Z91.018 Allergy to other foods; Z91.09 Other allergy status, other than to drugs and biological substances ==

== ENCOUNTER → 2023-05-27 | Outpatient (CLI) | payer MEDICARE, BC ==
--- NOTE | 2023-05-27 14:37 | MM ---
Reason for Exam: Follow-up at short interval from prior study. Last screening mammogram was performed 12 month(s) ago. Patient History: Menarche at age 10. First Full-Term at age 15. Left ovary removed at age 49. Right ovary removed at age 49. Hysterectomy at age 49. Postmenopausal. Estrogen, from age 49 until age 54. 11/17/2021, Benign US biopsy breast VAD RT on the right side. 11/17/2021, Benign US biopsy breast VAD LT on the left side. 2018, Excisional Biopsy on the Left side. 2018, Excisional Biopsy on the Right side. Maternal aunt had breast cancer, age 65. Sister had breast cancer, age 55. Sister had breast cancer, age 50. Risk Values: Sheila 5 year model risk: 9.1%. NCI Lifetime model risk: 25.7%. Tissue Density: The breast tissue is heterogeneously dense. This may lower the sensitivity of mammography. Findings: Analyzed By CAD. Nodularity seen previously has improved. No suspicious microcalcifications seen. No mass or distortion. Overall Assessment: Benign, BI-RAD 2 Management: Screening Mammogram of both breasts in 1 year. . Results were given to the patient verbally at the time of exam. Patient should continue monthly self-breast exams. A clinical breast exam by your physician is recommended on an annual basis. This exam should not preclude additional follow-up of suspicious palpable abnormalities. Note on Sheila scores and lifetime risk: 1. A Sheila score greater than 3% is considered moderate risk. If this is the case, consider specialist referral to assess eligibility for a risk reducing agent. 2. If overall lifetime risk for the development of breast cancer is 20% or higher, the patient may qualify for future screening with alternating mammogram and breast MRI. Electronically signed and approved by: Jose F العراقي M.D. Radiologis
== END | disposition home or self-care (01) ==
LOC: RADMAMWWP 14:10
PROVIDERS: ATTEND Surgery
DX: R92.8 Other abnormal and inconclusive findings on diagnostic imaging of breast (principal); R92.333 Mammographic heterogeneous density, bilateral breasts; Z80.3 Family history of malignant neoplasm of breast; Z78.0 Asymptomatic menopausal state
CPT/HCPCS: 77066; G0279; 77062

== ENCOUNTER → 2023-06-18 | Outpatient (CLI) | payer MEDICARE, BC ==
[2023-06-18 12:38] VITALS: BP 157/89; PULSE 87; RESP 18; TEMP 99
--- NOTE | 2023-06-18 12:48 | P.PN ---
Subjective Progress Note Date: 06/18/23 Principal diagnosis: fibrocystic breast changes Fibrocystic breast disease He is a 59-year-old female who presents with fibrocystic breast changes. She had a bilateral mammogram and ultrasound on 1119 which was benign BIRADS 2. In the past she has had bilateral ultrasound core biopsies which were benign. She also complains of some fullness and a lumpy feeling on the lateral aspect of her left chest wall extending under her arm. She is complaining of discomfort in the patient she believes may be cyst. She is not complaining of any nipple discharge or changes. She is not complaining of any recent trauma or infection. In approximately 2017 she underwent excision of 2 lipomas one in the right breast and one in the left. Also complained of some fullness and tenderness in the 12 o'clock position of the chest wall on the left breast for which aspiration was attempted today. 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 We will recommend bilateral ultrasound with aspiration of any symptomatic cysts that are identified. 08-06-22 A bilateral ultrasound done and 2322 which revealed bilateral hyperechoic lesions compatible with lipomas. No drainable collection was noted. Additionally should be noted her Sheila five-year model risk was 5.2%. She has declined hormone prophylaxis. She is going to start a weight loss program using Ozempic and will have a repeat bilateral mammogram in 9 months. She had a recent cardiac event; AL in May 2022 and in June 2022. She has a heart monitor at this time. 06-18-23 Rhina is a 68 year old female with fibrocystic breast changes. She has noticed some new nodularity in the upper inner quadrant of the right breast in the upper inner quadrant of the left breast as well. This is tender to palpation. She has had a 30 pound weight loss recently. She was started Ozempic. medtronic implant in her spine for her bladder will follow up with them in June Bilateral mammogram on 05-27-23 BIRAD 2 Sheila Risk 5 year 9.1%; she will have a conversation with medical oncology regarding chemoprophylaxis NCI lifetime riskL 25.7%; she is going to have alternating MRI and mammograms every 6 months Caffiene: 1/2 cup/day, one cola /day nicotine: none chocolate: none BCP: 6 years in the remote past hormones: took for about 4 years from [age] after radical hysterectomy (pre- cancer cells in cervix) Family History: two sisters: breast, and one pelvic cancer (in 30's) father: prostate cancer paternal gradnfather: spinal cancer maternal aunt breast cancer Hormonal History: menarche: 10 , breast fed: no, age at first : 15 menopause: Surgical at 49 radical hysterectomy, precancer cells and the cervix Hormones: 4 years from [age] control pills: 6 years in the remote past Surgical history: Radical hysterectomy bilateral hip replacement spinal surgery implant for bladder gastric sleeve kidney resected: rule out cancer ureter removed left side two abdominal exploratory cataract surgery bilateral foot surgery bladder stimulator Medical History: HTN depression high cholesterol weight gain asthma uses a walker heart attack since last seen Social History: Nicotine: Negative Alcohol: History of Drugs: Negative - Constitutional Constitutional: Reports sweats - EENT Eyes: bilateral as per HPI, denies blurred vision, denies pain Ears: deny: decreased hearing, tinnitus Ears, nose, mouth and throat: Denies headache, Denies sore throat - Breasts Breasts: bilateral: as per HPI - Cardiovascular Cardiovascular: Reports shortness of breath, Denies chest pain - Respiratory Respiratory: Denies cough - Gastrointestinal Gastrointestinal: Reports as per HPI - Genitourinary (Female) Comment: UTI frequent Genitourinary: Reports as per HPI - Menstruation Menstruation: Reports post hysterectomy - Musculoskeletal Comment: arthritis Musculoskeletal: Reports as per HPI - Integumentary Integumentary: Reports pruritus, Denies rash - Neurological Neurological: Reports weakness - Psychiatric Psychiatric: Reports anxiety, Reports depression - Endocrine Comment: diabetes resolved after weight loss; lost 62 pounds Endocrine: Reports fatigue - Hematologic/Lymphatic Comment: none - Allergic/Immunologic Allergic/Immunologic: Reports seasonal allergies Past Medical History Past Medical History: Asthma, Diabetes Mellitus, Eye Disorder, Fibromyalgia, GERD/Reflux, Hearing Disorder / Deafness, Hyperlipidemia, Hypertension, Musculoskeletal Disorder, Osteoarthritis (OA), Respiratory Disorder, Sleep Apnea/CPAP/BIPAP Additional Past Medical History / Comment(s): SCOLIOSIS, PUYALLUP, HX DIABETES-NO LONGER ON RX-WATCHES DIET, NO CPAP USE, LEFT KIDNEY REMOVED, LIPOMAS. "Arthritis is worsening, having cortisone shots tomorrow". Last Myocardial Infarction Date:: UNKNOWN DATE - PER TESTS", History of Any Multi-Drug Resistant Organisms: None Reported Past Surgical History: Bariatric Surgery, Bladder Surgery, Heart Catheterization, Hysterectomy, Joint Replacement, Orthopedic Surgery Additional Past Surgical History / Comment(s): 2018 TOTAL HIP REPLACEMENTS, BILATERAL FOOT SURGERY, LAPAROTOMY FIBROID TUMOR REMOVED, 2017 BARIATRIC SLEEVE, 2008 LEFT KIDNEY AND URETER REMOVED, EXP LAP, CATARACTS REMOVED, 2ND PROCEDURE FOR SPINAL INTERSTIM IMPLANT DONE 06/18/21 AT [facility]. 05/2021 BLADDER STIMULATOR IMPLANT PUT INTO SPINE , PAIN CLINIC PROCEDURES. bladder surgery x2. 2009 large cyst removed from left abdominal area. 2004 complete hysterectomy. bones in the toes removed from both feet in the . [facility] & [facility]. 2018 bilat breast lumpectomy-benign Past Anesthesia/Blood Transfusion Reactions: Previous Problems w/ Anesthesia, Postoperative Nausea & Vomiting (PONV) Additional Past Anesthesia/Blood Transfusion Reaction / Comment(s): . Past Psychological History: Anxiety, Depression Additional Psychological History / Comment(s): HX PANIC ATTACK X1. Smoking Status: Never smoker Past Alcohol Use History: None Reported Past Drug Use History: None Reported - Past Family History Father Family Medical History: Cancer, Myocardial Infarction (AL), Prostate Disorder Additional Family Medical History / Comment(s): Prostate cancer. Mother Family Medical History: Diabetes Mellitus, Hypertension, Myocardial Infarction (AL) Additional Family Medical History / Comment(s): Heart disease, quadruple bypass. 7 or 8 of mother's siblings had heart disease. Medications and Allergies Home Medications Medication Instructions Recorded Confirmed Type Atorvastatin [Lipitor] 10 mg PO DAILY 01/28/18 10/24/21 History DULoxetine HCL [Cymbalta] 60 mg PO DAILY 01/28/18 10/24/21 History Omeprazole 20 mg PO QAM 01/28/18 10/24/21 History Sertraline [Zoloft] 25 mg PO DAILY 01/28/18 10/24/21 History lisinopriL [Zestril] 20 mg PO BID 01/04/19 10/24/21 History Beclomethasone Dip 80 Mcg/Puff 2 puff INHALATION RT-BID 06/09/21 10/24/21 History [Qvar 80 mcg] Metoprolol Tartrate [Lopressor] 50 mg PO BID 07/09/21 10/24/21 History Albuterol Inhaler [Ventolin Hfa 2 puff INHALATION RT-QID PRN 09/22/21 10/24/21 History Inhaler] Cholecalciferol [Vitamin D3 (25 50 mcg PO DAILY 09/22/21 10/24/21 History Mcg = 1000 Iu)] HYDROcodone/APAP 5-325MG [[place] 1 - 2 tab PO Q4HR PRN 3 Days #18 09/22/21 10/24/21 Rx 5-325] tab Allergies Allergy/AdvReac Type Severity Reaction Status Date / Time adhesive Allergy Itching, Verified 10/24/21 15:35 takes her skin off Fish Containing Products Allergy Swelling Verified 10/24/21 15:35 [Fish] in throat latex Allergy Rash/Hives Verified 10/24/21 15:35 Sulfa (Sulfonamide Allergy Anaphylaxis Verified 10/24/21 15:35 Antibiotics) walnut Allergy Swelling Verified 10/24/21 15:35 gluten AdvReac CONGESTION Verified 10/24/21 15:35 perfume AdvReac Dyspnea Verified 10/24/21 15:35 Objective - Vital Signs Vital signs: Vital Signs Temp 99.0 F 06/18/23 12:28 Pulse 87 06/18/23 12:28 Resp 18 06/18/23 12:28 BP 157/89 06/18/23 12:28 Pulse Ox 96 06/18/23 12:28 FiO2 Intake & Output 06/17/23 06/18/23 06/18/23 18:59 06:59 18:59 Weight 107.955 kg Assessment and Plan Assessment: Impression: Impression: HTN depression high cholesterol weight gain asthma uses a walker nodules bilateral breast Attempted aspiration last visit of the 12:00 lesion in the left breast did not reveal any cystic fluid this area is tender Plan: Sheila Risk 5 year 9.1%; she will have a conversation with medical oncology regarding chemoprophylaxis NCI lifetime riskL 25.7%; she is going to have alternating MRI and mammograms every 6 months Bilateral breast ultrasound upper inner quadrants in follow-up after this Bilateral mammogram one year Patient is on a weight loss program Appointment medical oncology Breast MRI 6 months with follow-up after that Nothing at this time which would warrant interventional biopsy of either breast. CC: Dr. Kelly
== END ==
LOC: WWCWWP 11:52
PROVIDERS: ATTEND Surgery
DX: E78.00 Pure hypercholesterolemia, unspecified (principal); F32.A Depression, unspecified; F41.9 Anxiety disorder, unspecified; G47.30 Sleep apnea, unspecified; I10 Essential (primary) hypertension; I25.2 Old myocardial infarction; J45.909 Unspecified asthma, uncomplicated; K21.9 Gastro-esophageal reflux disease without esophagitis; M19.90 Unspecified osteoarthritis, unspecified site; M41.9 Scoliosis, unspecified; M79.7 Fibromyalgia; N60.11 Diffuse cystic mastopathy of right breast; N60.12 Diffuse cystic mastopathy of left breast; N63.12 Unspecified lump in the right breast, upper inner quadrant; N63.22 Unspecified lump in the left breast, upper inner quadrant; Z80.3 Family history of malignant neoplasm of breast; Z88.1 Allergy status to other antibiotic agents; Z88.2 Allergy status to sulfonamides; Z91.040 Latex allergy status; Z96.643 Presence of artificial hip joint, bilateral; Z91.013 Allergy to seafood; Z91.048 Other nonmedicinal substance allergy status; Z91.018 Allergy to other foods

== ENCOUNTER → 2023-07-07 | Outpatient (CLI) | payer MEDICARE, BC ==
--- NOTE | 2023-07-07 13:26 | USB ---
Reason for Exam: Clinical finding. Patient History: Menarche at age 10. First Full-Term at age 15. Left ovary removed at age 49. Right ovary removed at age 49. Hysterectomy at age 49. Postmenopausal. Estrogen, from age 49 until age 54. 11/17/2021, Benign US biopsy breast VAD RT on the right side. 11/17/2021, Benign US biopsy breast VAD LT on the left side. 2017, Excisional Biopsy on the Left side. 2018, Excisional Biopsy on the Right side. Maternal aunt had breast cancer, age 65. Sister had breast cancer, age 55. Sister had breast cancer, age 50. Risk Values: Sheila 5 year model risk: 9.1%. NCI Lifetime model risk: 25.7%. Prior Study Comparison: 11/17/2021 Bilateral MG diagnostic mammo BI wo CAD, [facility]. 05/22/2022 Bilateral MG 3D diag mammo w/cad ALESHA, [facility]. 07/31/2022 Bilateral US breast BILAT, [facility]. 05/27/2023 Bilateral MG 3D diag mammo w/cad ALESHA, [facility]. Findings: The area of palpable concern of both breasts, the axilla of both breasts and the retroareolar of both breasts were scanned. There are multiple iso to hyperechoic areas within the bilateral breasts corresponding to palpable abnormalities. Some of these have biopsy clips present such as 9:00 9 cm on the nipple left breast and 1:00 position 12 cm from nipple right breast. Right breast: 1. 1:00 position 16 cm from nipple measuring 2.2 x 0.9 x 1.7 cm. 2. 3:00 position 12 cm from the nipple measuring 2.4 x 0.7 x 1.6 cm. 3. 1:00 position 12 cm from the nipple biopsy clip. 4. 9:00 position 14 cm from the nipple measuring 3.2 x 1.2 x 1.9 cm. 5. Right axillary lymph node without thickened cortex. Left breast: 1. 9:00 position 9 cm from the nipple measuring 2.0 x 1.1 x 1.4 cm clip present. 2. 1:00 position 12 cm from the nipple measuring 1.5 x 0.9 x 1.2 cm. Previous measurement 2.5 x 1.2 cm 3. Left axillary lymph node without thickened cortex. Overall Assessment: Benign, BI-RAD 2 Management: Screening Mammogram of both breasts in 11 months. A clinical breast exam by your physician is recommended on an annual basis and results should be correlated with mammographic findings. This exam should not preclude additional follow-up of suspicious palpable abnormalities. Results were given to the patient verbally at the time of exam. Electronically signed and approved by: Domo Engel D.O. Radiologis
== END | disposition home or self-care (01) ==
LOC: RADUSWWP 12:06
PROVIDERS: ATTEND Surgery
DX: R92.8 Other abnormal and inconclusive findings on diagnostic imaging of breast (principal); Z78.0 Asymptomatic menopausal state; Z80.3 Family history of malignant neoplasm of breast

== ENCOUNTER → 2023-08-05 | Outpatient (CLI) | payer MEDICARE, BC ==
--- NOTE | 2023-08-05 10:38 | P.PN ---
Subjective Progress Note Date: 08/05/23 Principal diagnosis: fibrocystic breast changes/ high risk breast cancer 06/18/23 Principal diagnosis: fibrocystic breast changes Fibrocystic breast disease He is a 59-year-old female who presents with fibrocystic breast changes. [place] [address] which was benign BIRADS 2. In the past she has had bilateral ultrasound core biopsies which were benign. She also complains of some fullness and a lumpy feeling on the lateral aspect of her left chest wall extending under her arm. She is complaining of discomfort in the patient she believes may be cyst. She is not complaining of any nipple discharge or changes. She is not complaining of any recent trauma or infection. In approximately 2017 she underwent excision of 2 lipomas one in the right breast and one in the left. Also complained of some fullness and tenderness in the 12 o'clock position of the chest wall on the left breast for which aspiration was attempted today. 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 We will recommend bilateral ultrasound with aspiration of any symptomatic cysts that are identified. 08-06-22 A bilateral ultrasound done and 2322 which revealed bilateral hyperechoic lesions compatible with lipomas. No drainable collection was noted. Additionally should be noted her Sheila five-year model risk was 5.2%. She has declined hormone prophylaxis. She is going to start a weight loss program using Ozempic and will have a repeat bilateral mammogram in 9 months. She had a recent cardiac event; [place] in May 2022 and in June 2022. She has a heart monitor at this time. 06-18-23 Rhina is a 68 year old female with fibrocystic breast changes. She has noticed some new nodularity in the upper inner quadrant of the right breast in the upper inner quadrant of the left breast as well. This is tender to palpation. She has had a 30 pound weight loss recently. She was started Ozempic. medtronic implant in her spine for her bladder will follow up with them in [facility] Bilateral mammogram on 05-27-23 BIRAD 2 Sheila Risk 5 year 9.1%; she will have a conversation with medical oncology regarding chemoprophylaxis NCI lifetime riskL 25.7%; she is going to have alternating MRI and mammograms every 6 months 08-05-23 07-21-[address] De León medical oncology reviewed; started on annestrazole genetic testing ordered DEXA scans on past not accurate secondary to hip replacement will take CA and vit D. alternating MRI and mammogram Bilateral breast ultrasound on 07-07-23 BIRAD 2 She has lost an additional 15 pounds since May 2023, her goal is another 50 pounds. She started at 278. genetic testing (-) as per patient She has had nausea and headaches on the anestrazole, The patient is complaining of some fullness in the left breast in the UOQ area and it has slightly increased in size; it was present when the ultrasound was done She is not complaining of any other new lumps or masses Caffiene: 1/2 cup/day, one cola /day nicotine: none chocolate: none BCP: 6 years in the remote past hormones: took for about 4 years from [age] after radical hysterectomy (pre- cancer cells in cervix) Family History: two sisters: breast, and one pelvic cancer (in 30's) father: prostate cancer paternal gradnfather: spinal cancer maternal aunt breast cancer Hormonal History: menarche: 10 , breast fed: no, age at first : 15 menopause: Surgical at 49 radical hysterectomy, precancer cells and the cervix Hormones: 4 years from [age] control pills: 6 years in the remote past Surgical history: Radical hysterectomy bilateral hip replacement spinal surgery implant for bladder gastric sleeve kidney resected: rule out cancer ureter removed left side two abdominal exploratory cataract surgery bilateral foot surgery bladder stimulator Medical History: HTN depression high cholesterol weight gain asthma uses a walker heart attack since last seen Social History: Nicotine: Negative Alcohol: History of Drugs: Negative - Constitutional Constitutional: Reports sweats - EENT Eyes: bilateral as per HPI, denies blurred vision, denies pain Ears: deny: decreased hearing, tinnitus Ears, nose, mouth and throat: Denies headache, Denies sore throat - Breasts Breasts: bilateral: as per HPI - Cardiovascular Cardiovascular: Reports shortness of breath, Denies chest pain - Respiratory Respiratory: Denies cough - Gastrointestinal Gastrointestinal: Reports as per HPI - Genitourinary (Female) Comment: UTI frequent Genitourinary: Reports as per HPI - Menstruation Menstruation: Reports post hysterectomy - Musculoskeletal Comment: arthritis Musculoskeletal: Reports as per HPI - Integumentary Integumentary: Reports pruritus, Denies rash - Neurological Neurological: Reports weakness - Psychiatric Psychiatric: Reports anxiety, Reports depression - Endocrine Comment: diabetes resolved after weight loss; lost 62 pounds Endocrine: Reports fatigue - Hematologic/Lymphatic Comment: none - Allergic/Immunologic Allergic/Immunologic: Reports seasonal allergies Past Medical History Past Medical History: Asthma, Diabetes Mellitus, Eye Disorder, Fibromyalgia, GERD/Reflux, Hearing Disorder / Deafness, Hyperlipidemia, Hypertension, Musculoskeletal Disorder, Osteoarthritis (OA), Respiratory Disorder, Sleep Apnea/CPAP/BIPAP Additional Past Medical History / Comment(s): SCOLIOSIS, [place], HX DIABETES-NO LONGER ON RX-WATCHES DIET, NO CPAP USE, LEFT KIDNEY REMOVED, LIPOMAS. "Arthritis is worsening, having cortisone shots tomorrow". Last Myocardial Infarction Date:: UNKNOWN DATE - PER TESTS", History of Any Multi-Drug Resistant Organisms: None Reported Past Surgical History: Bariatric Surgery, Bladder Surgery, Heart Catheterization, Hysterectomy, Joint Replacement, Orthopedic Surgery Additional Past Surgical History / Comment(s): 2018 TOTAL HIP REPLACEMENTS, BILATERAL FOOT SURGERY, LAPAROTOMY FIBROID TUMOR REMOVED, 2017 BARIATRIC SLEEVE, 2008 LEFT KIDNEY AND URETER REMOVED, EXP LAP, CATARACTS REMOVED, 2ND PROCEDURE FOR SPINAL INTERSTIM IMPLANT DONE 06/18/21 AT [facility]. 05/2021 BLADDER STIMULATOR IMPLANT PUT INTO SPINE , PAIN CLINIC PROCEDURES. bladder surgery x2. 2009 large cyst removed from left abdominal area. 2004 complete hysterectomy. bones in the toes removed from both feet in the s. D & C. 2018 bilat breast lumpectomy-benign Past Anesthesia/Blood Transfusion Reactions: Previous Problems w/ Anesthesia, Postoperative Nausea & Vomiting (PONV) Additional Past Anesthesia/Blood Transfusion Reaction / Comment(s): . Past Psychological History: Anxiety, Depression Additional Psychological History / Comment(s): HX PANIC ATTACK X1. Smoking Status: Never smoker Past Alcohol Use History: None Reported Past Drug Use History: None Reported - Past Family History Father Family Medical History: Cancer, Myocardial Infarction ([place]), Prostate Disorder Additional Family Medical History / Comment(s): Prostate cancer. Mother Family Medical History: Diabetes Mellitus, Hypertension, Myocardial Infarction ([place]) Additional Family Medical History / Comment(s): Heart disease, quadruple bypass. 7 or 8 of mother's siblings had heart disease. Medications and Allergies Home Medications Medication Instructions Recorded Confirmed Type Atorvastatin [Lipitor] 10 mg PO DAILY 01/28/18 10/24/21 History DULoxetine HCL [Cymbalta] 60 mg PO DAILY 01/28/18 10/24/21 History Omeprazole 20 mg PO QAM 01/28/18 10/24/21 History Sertraline [Zoloft] 25 mg PO DAILY 01/28/18 10/24/21 History lisinopriL [Zestril] 20 mg PO BID 01/04/19 10/24/21 History Beclomethasone Dip 80 Mcg/Puff 2 puff INHALATION RT-BID 06/09/21 10/24/21 History [Qvar 80 mcg] Metoprolol Tartrate [Lopressor] 50 mg PO BID 07/09/21 10/24/21 History Albuterol Inhaler [Ventolin Hfa 2 puff INHALATION RT-QID PRN 09/22/21 10/24/21 History Inhaler] Cholecalciferol [Vitamin D3 (25 50 mcg PO DAILY 09/22/21 10/24/21 History Mcg = 1000 Iu)] HYDROcodone/APAP 5-325MG [[place] 1 - 2 tab PO Q4HR PRN 3 Days #18 09/22/21 10/24/21 Rx 5-325] tab Allergies Allergy/AdvReac Type Severity Reaction Status Date / Time adhesive Allergy Itching, Verified 10/24/21 15:35 takes her skin off Fish Containing Products Allergy Swelling Verified 10/24/21 15:35 [Fish] in throat latex Allergy Rash/Hives Verified 10/24/21 15:35 Sulfa (Sulfonamide Allergy Anaphylaxis Verified 10/24/21 15:35 Antibiotics) walnut Allergy Swelling Verified 10/24/21 15:35 gluten AdvReac CONGESTION Verified 10/24/21 15:35 perfume AdvReac Dyspnea Verified 10/24/21 15:35 Objective - Constitutional General appearance: Present: cooperative - EENT Eyes: Present: EOMI - Neck Neck: Present: normal ROM - Respiratory Respiratory: bilateral: CTA - Cardiovascular Heart sounds: normal: S1, S2 - Gastrointestinal General gastrointestinal: Present: soft - Integumentary Integumentary: Present: normal turgor - Musculoskeletal Musculoskeletal Comment(s): uses a walker secondary to back pain, has an implant for her bladder - Psychiatric Psychiatric: Present: A&O x's 3, appropriate affect, intact judgment & insight - Additional findings Additional findings: Breast Exam: BRA: 50D; down from 54DD with weight loss Inspection: bilateral grade 3 ptosis palpation: right breast: Patient examined sitting up fibrocystic breast changes no discrete dominant masses or nodules of concern Right axilla: No adenopathy of concern Left breast: Patient examined sitting up, fibrocystic breast changes, in the upper outer quadrant region at approximately 2:00 there is an area of increased nodularity which is firmer than the surrounding tissue this is approximately 8 mm in size Left axilla: No adenopathy of concern Assessment and Plan Assessment: Impression: Impression: HTN depression high cholesterol weight gain asthma uses a walker nodules bilateral breast Medical oncology and started on anastrozole Increased nodularity upper outer quadrant left breast Patient is due for MRI October 2023 Plan: Sheila Risk 5 year 9.1%; she will have a conversation with medical oncology regarding chemoprophylaxis NCI lifetime risk: 25.7%; she is going to have alternating MRI and mammograms every 6 months; this should be done in October 2023 Palpable mass left breast . Targeted ultrasound CC: Dr. Kelly
[2023-08-05 11:01] VITALS: BP 157/95; PULSE 80; RESP 15
== END ==
LOC: WWCWWP 10:06
PROVIDERS: ATTEND Surgery
DX: N60.11 Diffuse cystic mastopathy of right breast (principal); N60.12 Diffuse cystic mastopathy of left breast; N63.12 Unspecified lump in the right breast, upper inner quadrant; N63.21 Unspecified lump in the left breast, upper outer quadrant; N63.22 Unspecified lump in the left breast, upper inner quadrant; I10 Essential (primary) hypertension; F32.A Depression, unspecified; E78.00 Pure hypercholesterolemia, unspecified; J45.909 Unspecified asthma, uncomplicated; G47.30 Sleep apnea, unspecified; F41.9 Anxiety disorder, unspecified; E11.9 Type 2 diabetes mellitus without complications; I25.2 Old myocardial infarction; K21.9 Gastro-esophageal reflux disease without esophagitis; M19.90 Unspecified osteoarthritis, unspecified site; M41.9 Scoliosis, unspecified; M79.7 Fibromyalgia; Z80.3 Family history of malignant neoplasm of breast; Z87.39 Personal history of other diseases of the musculoskeletal system and connective tissue; Z79.899 Other long term (current) drug therapy; Z91.048 Other nonmedicinal substance allergy status; Z91.013 Allergy to seafood; Z91.040 Latex allergy status; Z88.2 Allergy status to sulfonamides; Z91.018 Allergy to other foods; Z88.8 Allergy status to other drugs, medicaments and biological substances; Z79.85 Long-term (current) use of injectable non-insulin antidiabetic drugs; Z79.51 Long term (current) use of inhaled steroids

== ENCOUNTER → 2023-08-09 | Outpatient (CLI) | payer MEDICARE, BC ==
--- NOTE | 2023-08-09 09:13 | USB ---
Reason for Exam: Clinical finding. Patient History: Menarche at age 10. First Full-Term at age 15. Left ovary removed at age 49. Right ovary removed at age 49. Hysterectomy at age 49. Postmenopausal. Estrogen, from age 49 until age 54. 11/17/2021, Benign US biopsy breast VAD RT on the right side. 11/17/2021, Benign US biopsy breast VAD LT on the left side. 2018, Excisional Biopsy on the Left side. 2018, Excisional Biopsy on the Right side. Maternal aunt had breast cancer, age 65. Sister had breast cancer, age 55. Sister had breast cancer, age 50. Risk Values: Sheila 5 year model risk: 9.1%. NCI Lifetime model risk: 25.7%. Technique: Method: Targeted. Prior Study Comparison: 11/17/2021 Bilateral MG diagnostic mammo BI wo CAD, [facility]. 05/22/2022 Bilateral MG 3D diag mammo w/cad ALESHA, [facility]. 05/27/2023 Bilateral MG 3D diag mammo w/cad ALESHA, [facility]. Findings: The area of palpable concern of the left breast, the axilla of the left breast and the retroareolar of the left breast were scanned. Ultrasound targeted to the patient's palpable site 1:00 left breast, 12 cm from the nipple shows a circumscribed, oval, echogenic lesion measuring 1.3 x 1.0 x 0.7 cm, similar to patient's other breast lesions, suggestive of lipomas. Scanning was extended to the 2:00 position and also included the subareolar region and axilla. Overall Assessment: Probably benign, BI-RAD 3 Management: Diagnostic Mammogram of both breasts in 9 months. A clinical breast exam by your physician is recommended on an annual basis and results should be correlated with mammographic findings. This exam should not preclude additional follow-up of suspicious palpable abnormalities. Results were given to the patient verbally at the time of exam. Electronically signed and approved by: Roslyn Newton M.D. Radiologist
== END | disposition home or self-care (01) ==
LOC: RADUSWWP 08:35
PROVIDERS: ATTEND Surgery
DX: N63.21 Unspecified lump in the left breast, upper outer quadrant (principal); Z78.0 Asymptomatic menopausal state; Z80.3 Family history of malignant neoplasm of breast

== ENCOUNTER → 2023-08-12 | Outpatient (CLI) | payer MEDICARE, BC ==
--- NOTE | 2023-08-12 09:40 | P.PN ---
Progress Note - Text Progress Note Date: 08/12/23 08-12-23 Principal diagnosis: fibrocystic breast changes/ high risk breast cancer 06/18/23 Principal diagnosis: fibrocystic breast changes Fibrocystic breast disease He is a 59-year-old female who presents with fibrocystic breast leanna nges. She had a bilateral mammogram and ultrasound on 1120 522 which was benign BIRADS 2. In the past she has had bilateral ultrasound core biopsies which were benign. She also complains of some fullness and a lumpy feeling on the lateral aspect of her left chest wall extending under her arm. She is complaining of discomfort in the patient she believes may be cyst. She is not complaining of any nipple discharge or changes. She is not complaining of any recent trauma or infection. In approximately 2017 she underwent excision of 2 lipomas one in the right breast and one in the left. Also complained of some fullness and tenderness in the 12 o'clock position of the chest wall on the left breast for which aspiration was attempted today. 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 We will recommend bilateral ultrasound with aspiration of any symptomatic cysts that are identified. 08-06-22 A bilateral ultrasound done and 2322 which revealed bilateral hyperechoic lesions compatible with lipomas. No drainable collection was noted. Additionally should be noted her Sheila five-year model risk was 5.2%. She has declined hormone prophylaxis. She is going to start a weight loss program using Ozempic and will have a repeat bilateral mammogram in 9 months. She had a recent cardiac event; [place] in May 2022 and in June 2022. She has a heart monitor at this time. 06-18-23 Rhina is a 68 year old female with fibrocystic breast changes. She has noticed some new nodularity in the upper inner quadrant of the right breast in the upper inner quadrant of the left breast as well. This is tender to palpation. She has had a 30 pound weight loss recently. She was started Ozempic. medtronic implant in her spine for her bladder will follow up with them in June Bilateral mammogram on 05-27-23 BIRAD 2 Sheila Risk 5 year 9.1%; she will have a conversation with medical oncology regarding chemoprophylaxis NCI lifetime riskL 25.7%; she is going to have alternating MRI and mammograms every 6 months 2-8-24 1-24-[address] De León medical oncology reviewed; started on annestrazole genetic testing ordered DEXA scans on past not accurate secondary to hip replacement will take CA and vit D. alternating MRI and mammogram Bilateral breast ultrasound on 07-07-23 BIRAD 2 She has lost an additional 15 pounds since May 2023, her goal is another 50 pounds. She started at 278. genetic testing (-) as per patient She has had nausea and headaches on the anestrazole, The patient is complaining of some fullness in the left breast in the UOQ area and it has slightly increased in size; it was present when the ultrasound was done; for this reason an additional ultrasound exam was preformed. She is not complaining of any other new lumps or mass 08-12-23 68 female with fibrocystic breast disease. She is at a high risk breast cancer. Bilateral mammogram on 05-27-23 BIRAD 2 Sheila Risk 5 year 9.1%; she had a conversation with medical oncology regarding chemoprophylaxis NCI lifetime risk 25.7%; she is going to have alternating MRI and mammograms every 6 months Ultrasound of the left breast was performed on 08-09-2023 this revealed at the 1 o'clock position a circumscribed oval echogenic lesion measuring 1.3 x 1 cm. This is felt to be suggestive of a lipoma. This was felt to be probably benign BI-RADS 3 Diagnostic mammogram of both breast in 9 months 07-21-[address] De León medical oncology reviewed; started on annestrazole genetic testing ordered DEXA scans on past not accurate secondary to hip replacement will take CA and vit D. alternating MRI and mammogram Bilateral breast ultrasound on 07-07-23 BIRAD 2 She has lost an additional 15 pounds since May 2023, her goal is another 50 pounds. She started at 278. genetic testing (-) as per patient She has had nausea and headaches on the anestrazole, but she is tolerating it at this time and is going to follow with the medical oncologist The patient is complaining of some fullness in the left breast in the UOQ area and it has slightly increased in size; it was present when the ultrasound was done She is not complaining of any other new lumps or masses She will be due for a bilateral MRI in October 2023 and will be seen again following this study examination not performed today's and has been performed on 08-05-23 Plan: high risk for breast cancer bilateral breast MRI in October 2023 with appointment at that time
[2023-08-12 09:52] VITALS: BP 172/82; PULSE 59; RESP 16; TEMP 98.3
== END ==
LOC: WWCWWP 08:59
PROVIDERS: ATTEND Surgery
DX: N60.11 Diffuse cystic mastopathy of right breast (principal); N60.12 Diffuse cystic mastopathy of left breast; N63.12 Unspecified lump in the right breast, upper inner quadrant; N63.22 Unspecified lump in the left breast, upper inner quadrant; I25.2 Old myocardial infarction; R51.9 Headache, unspecified; R11.0 Nausea; Z91.048 Other nonmedicinal substance allergy status; Z91.013 Allergy to seafood; Z91.040 Latex allergy status; Z88.2 Allergy status to sulfonamides; Z91.018 Allergy to other foods; Z88.8 Allergy status to other drugs, medicaments and biological substances

== ENCOUNTER → 2023-09-23 | Outpatient (CLI) | payer MEDICARE, BC ==
--- NOTE | 2023-09-29 11:20 | USB ---
Reason for Exam: Clinical finding. Patient History: Menarche at age 10. First Full-Term at age 15. Left ovary removed at age 49. Right ovary removed at age 49. Hysterectomy at age 49. Postmenopausal. Estrogen, from age 49 until age 54. 11/17/2021, Benign US biopsy breast VAD RT on the right side. 11/17/2021, Benign US biopsy breast VAD LT on the left side. 2018, Excisional Biopsy on the Left side. 2018, Excisional Biopsy on the Right side. Maternal aunt had breast cancer, age 65. Sister had breast cancer, age 55. Sister had breast cancer, age 50. Risk Values: Sheila 5 year model risk: 9.1%. NCI Lifetime model risk: 25.7%. Technique: Method: Whole Breast Handheld. Doppler: Color. Patient Position: RPO. Prior Study Comparison: 11/17/2021 Bilateral MG diagnostic mammo BI wo CAD, [facility]. 05/22/2022 Bilateral MG 3D diag mammo w/cad ALESHA, [facility]. 05/27/2023 Bilateral MG 3D diag mammo w/cad ALESHA, [facility]. Findings: The whole breast of the left breast, the axilla of the left breast and the retroareolar of the left breast were scanned. Posterior to the left nipple is at the 3:00 position is a 1.2 x 1.1 cm slightly hypoechoic area. A repeat mammogram is recommended. There is an ill-defined isoechoic area along the lateral chest wall at the axillary tail. This area appears isoechoic with adjacent tissue and measures approximately 2.1 x 1.3 x 4.4 cm. This may have extension along the lateral chest wall. Consider additional workup with MRI. Within the subcutaneous tissues is an echogenic focus 1 cm. Lipoma is likely present at this level.. Overall Assessment: Incomplete: need additional imaging evaluation, BI-RAD 0 Management: Diagnostic Mammogram of the left breast. Diagnostic Breast MRI of both breasts. A clinical breast exam by your physician is recommended on an annual basis and results should be correlated with mammographic findings. This exam should not preclude additional follow-up of suspicious palpable abnormalities. Results were given to the patient verbally at the time of exam. Electronically signed and approved by: Domo Engel D.O. Radiologis
== END | disposition home or self-care (01) ==
LOC: RADUSWWP 13:48
PROVIDERS: ATTEND Internal Medicine
DX: N64.4 Mastodynia (principal); E78.5 Hyperlipidemia, unspecified; Z71.3 Dietary counseling and surveillance; Z80.3 Family history of malignant neoplasm of breast; Z29.89 Encounter for other specified prophylactic measures

== ENCOUNTER → 2023-09-29 | Outpatient (CLI) | payer MEDICARE, BC ==
--- NOTE | 2023-09-29 14:29 | MM ---
Reason for Exam: Follow-up at short interval from prior study. Last screening mammogram was performed 5 month(s) ago. Patient History: Menarche at age 10. First Full-Term at age 15. Left ovary removed at age 49. Right ovary removed at age 49. Hysterectomy at age 49. Postmenopausal. Estrogen, from age 49 until age 54. 11/17/2021, Benign US biopsy breast VAD RT on the right side. 11/17/2021, Benign US biopsy breast VAD LT on the left side. 2018, Excisional Biopsy on the Left side. 2018, Excisional Biopsy on the Right side. Maternal aunt had breast cancer, age 65. Sister had breast cancer, age 55. Sister had breast cancer, age 50. Risk Values: Sheila 5 year model risk: 9.1%. NCI Lifetime model risk: 25.7%. Prior Study Comparison: 11/17/2021 Bilateral MG diagnostic mammo BI wo CAD, [facility]. 05/22/2022 Bilateral MG 3D diag mammo w/cad ALESHA, [facility]. 05/27/2023 Bilateral MG 3D diag mammo w/cad ALESHA, [facility]. Tissue Density: Left: There are scattered areas of fibroglandular density. Findings: Analyzed By CAD. The pattern is symmetrical. The core marker is in the lower inner aspect mid left breast. There may be a focal asymmetry at the 3:00 position left breast middle position. This may have been present in 2021. Potentially this could correlate with the mammographic finding. This could be evaluated with the recommended MRI. Overall Assessment: Probably benign, BI-RAD 3 Management: Diagnostic Breast MRI of both breasts. A negative mammogram report should not preclude additional follow up of suspicious palpable abnormalities. Patient should continue monthly self breast exam. A clinical breast exam by your physician is recommended on an annual basis and results should be correlated with mammographic findings. Electronically signed and approved by: Domo Engel D.O. Radiologis
== END | disposition home or self-care (01) ==
LOC: RADMAMWWP 10:25
PROVIDERS: ATTEND Internal Medicine
DX: R92.322 Mammographic fibroglandular density, left breast (principal); Z78.0 Asymptomatic menopausal state; Z80.3 Family history of malignant neoplasm of breast
CPT/HCPCS: 77065; G0279; 77061

== ENCOUNTER → 2023-10-09 | Outpatient (CLI) | payer MEDICARE, BC ==
--- NOTE | 2023-10-11 14:50 | BMR ---
EXAM DATE: 10/09/2023 EXAM DESCRIPTION: MRI-Breast Bilat (W/WO Contrast) INDICATION: BI-RADS 3 focal asymmetry in the left breast. Diagnostic evaluation. COMPARISON: PRIOR MRIs: None available. Correlation to mammograms: 09/29/2023, 07/31/2022, 05/22/2022. Correlation to ultrasound: 09/22/2022, 07/31/2022. CONTRAST: 10.5 cc Gadabutrol IV gadolinium contrast TECHNIQUE: Study was performed at [facility] with Radiologic interpretation by [facility] Multiplanar multisequence MR imaging of both breasts was performed with a dedicated breast coil. Images were obtained before and after administration of IV gadolinium, using the standard breast mass protocol. Computer aided detection was utilized for interpretation. FINDINGS: LMP: Postmenopausal General breast composition: There are scattered areas of fibroglandular tissue Background parenchymal enhancement: Minimal RIGHT BREAST: The T2 weighted series shows no areas of abnormal signal intensity. Review of the dynamic series shows no early or abnormal enhancement. LEFT BREAST: The T2 weighted series shows no areas of abnormal signal intensity. Review of the dynamic series shows no early or abnormal enhancement. Focal asymmetry in the left breast at 3 o'clock demonstrates no abnormal enhancement and appears stable, considered benign. LYMPH NODES: There is no evidence of internal mammary or axillary adenopathy. Miscellaneous findings:Cholelithiasis. IMPRESSION: RIGHT BREAST: No MR evidence of malignancy. LEFT BREAST: No MR evidence of malignancy. OVERALL ASSESSMENT -- BI-RADS 2: Benign ANNUAL SCREENING BREAST MRI IN ADDITION TO MAMMOGRAPHY IS RECOMMENDED IN PATIENTS WITH LIFETIME RISK OF BREAST CANCER >20% MTDD
== END | disposition home or self-care (01) ==
LOC: RADMRIMAIN 08:13
PROVIDERS: ATTEND Internal Medicine
DX: D24.9 Benign neoplasm of unspecified breast (principal); R92.8 Other abnormal and inconclusive findings on diagnostic imaging of breast
CPT/HCPCS: C8908; A9585; 77049

== ENCOUNTER → 2023-11-05 | Outpatient (CLI) | payer MEDICARE, BC ==
[2023-11-05 21:16] LABS: Chol/HDL Ratio 3.39 Ratio; LDL Cholesterol,Calculated 127.2 mg/dL (0.0-131.0)
== END | disposition home or self-care (01) ==
LOC: LABWHC1 11:50
PROVIDERS: ATTEND Internal Medicine
DX: E78.5 Hyperlipidemia, unspecified (principal); E55.9 Vitamin D deficiency, unspecified
CPT/HCPCS: 36415; 80061; 82306

== ENCOUNTER → 2024-01-31 | Outpatient (CLI) | payer MEDICARE, BC ==
--- NOTE | 2024-02-25 11:10 | USB ---
Reason for Exam: Clinical finding. Patient History: Menarche at age 10. First Full-Term at age 15. Left ovary removed at age 49. Right ovary removed at age 49. Hysterectomy at age 49. Postmenopausal. Estrogen, from age 49 until age 54. 11/17/2021, Benign US biopsy breast VAD RT on the right side. 11/17/2021, Benign US biopsy breast VAD LT on the left side. 2017, Excisional Biopsy on the Left side. 2018, Excisional Biopsy on the Right side. Maternal aunt had breast cancer, age 65. Sister had breast cancer, age 55. Sister had breast cancer, age 50. Risk Values: Sheila 5 year model risk: 9.1%. NCI Lifetime model risk: 25.7%. Prior Study Comparison: 05/22/2022 Bilateral MG 3D diag mammo w/cad ALESHA, [facility]. 05/27/2023 Bilateral MG 3D diag mammo w/cad ALESHA, [facility]. 09/29/2023 Left MG 3D work up w/cad LT, [facility]. Findings: Ultrasound targeted to the patient's 1:00 right breast palpable site, approximately 12 cm from the nipple. Multiple circumscribed round or oval echogenic areas are demonstrated without internal vascularity. These measure: Length) of the 7 x 6 x 6 mm; 2.2 x 1.4 x 0.9 cm. 2.8 x 2.6 x 1.3 cm, and 1.6 x 1.4 x 0.7 cm. Findings are most suggestive of benign breast lipomas given the overall appearance. We note the patient's recent breast MRI on 10/09/2023 which showed benign findings. Short interval follow-up ultrasound as a precautionary measure. Overall Assessment: Probably benign, BI-RAD 3 Management: Diagnostic Mammogram of both breasts in 3 months. Diagnostic Breast Ultrasound of the right breast in 3 months. In time for the patient's annual exam. A clinical breast exam by your physician is recommended on an annual basis and results should be correlated with mammographic findings. This exam should not preclude additional follow-up of suspicious palpable abnormalities. Results were given to the patient verbally at the time of exam. Note on Sheila scores and lifetime risk: 1. A Sheila score greater than 3% is considered moderate risk. If this is the case, consider specialist referral to assess eligibility for a risk reducing agent. 2. If overall lifetime risk for the development of breast cancer is 20% or higher, the patient may qualify for future screening with alternating mammogram and breast MRI. Electronically signed and approved by: Roslyn Newton M.D. Radiologist
== END | disposition home or self-care (01) ==
LOC: RADUSWWP 07:50
PROVIDERS: ATTEND Internal Medicine
DX: N63.0 Unspecified lump in unspecified breast (principal); M85.9 Disorder of bone density and structure, unspecified; Z71.3 Dietary counseling and surveillance; I10 Essential (primary) hypertension; Z80.3 Family history of malignant neoplasm of breast; E78.5 Hyperlipidemia, unspecified; Z29.89 Encounter for other specified prophylactic measures; Z78.0 Asymptomatic menopausal state

== ENCOUNTER → 2024-04-12 | Outpatient (CLI) | payer MEDICARE, BC ==
--- NOTE | 2024-04-12 13:48 | MM ---
Reason for Exam: Follow-up at short interval from prior study. Last screening mammogram was performed 11 month(s) ago. Indicated Problems: Pain of the left side (Focal) for 2 Week(s). Patient History: Menarche at age 10. First Full-Term at age 15. Left ovary removed at age 49. Right ovary removed at age 49. Hysterectomy at age 49. Postmenopausal. Estrogen, from age 49 until age 54. 11/17/2021, Benign US biopsy breast VAD RT on the right side. 11/17/2021, Benign US biopsy breast VAD LT on the left side. 2018, Excisional Biopsy on the Left side. 2018, Excisional Biopsy on the Right side. Maternal aunt had breast cancer, age 65. Sister had breast cancer, age 55. Sister had breast cancer, age 50. Risk Values: Sheila 5 year model risk: 9.3%. NCI Lifetime model risk: 24.6%. Prior Study Comparison: 05/22/2022 Bilateral MG 3D diag mammo w/cad ALESHA, [facility]. 05/22/2022 Bilateral US breast limited BILAT, [facility]. 07/31/2022 Bilateral US breast BILAT, [facility]. 05/27/2023 Bilateral MG 3D diag mammo w/cad ALESHA, [facility]. 07/07/2023 Bilateral US breast limited BILAT, [facility]. 08/09/2023 Left US breast limited LT, [facility]. 09/23/2023 Left US breast LT, [facility]. 09/29/2023 Left MG 3D work up w/cad LT, [facility]. 10/09/2023 Bilateral MR breast bilat wo/w con, [facility]. 01/31/2024 Right US breast limited RT, [facility]. Tissue Density: There are scattered areas of fibroglandular density. Findings: Analyzed By CAD. Right breast biopsy clip. No new suspicious masses, calcifications or distortions. No finding to correlate with left breast pain. Overall Assessment: Incomplete: need additional imaging evaluation, BI-RAD 0 Management: Diagnostic Breast Ultrasound of both breasts. Follow up right breast lesion seen on prior. Ultrasound left breast for pain. Results were given to the patient verbally at the time of exam. Patient should continue monthly self-breast exams. A clinical breast exam by your physician is recommended on an annual basis. This exam should not preclude additional follow-up of suspicious palpable abnormalities. Note on Sheila scores and lifetime risk: 1. A Sheila score greater than 3% is considered moderate risk. If this is the case, consider specialist referral to assess eligibility for a risk reducing agent. 2. If overall lifetime risk for the development of breast cancer is 20% or higher, the patient may qualify for future screening with alternating mammogram and breast MRI. [facility], , 04/12/2024 1:44 PM. Electronically signed and approved by: Luke Nance DO
--- NOTE | 2024-04-12 14:41 | USB ---
Patient History: Menarche at age 10. First Full-Term at age 15. Left ovary removed at age 49. Right ovary removed at age 49. Hysterectomy at age 49. Postmenopausal. Estrogen, from age 49 until age 54. 11/17/2021, Benign US biopsy breast VAD RT on the right side. 11/17/2021, Benign US biopsy breast VAD LT on the left side. 2018, Excisional Biopsy on the Left side. 2018, Excisional Biopsy on the Right side. Maternal aunt had breast cancer, age 65. Sister had breast cancer, age 55. Sister had breast cancer, age 50. Risk Values: Sheila 5 year model risk: 9.3%. NCI Lifetime model risk: 24.6%. Prior Study Comparison: 05/22/2022 Bilateral MG 3D diag mammo w/cad ALESHA, [facility]. 05/27/2023 Bilateral MG 3D diag mammo w/cad ALSEHA, [facility]. 09/29/2023 Left MG 3D work up w/cad LT, [facility]. Findings: The upper outer quadrant of the left breast, the upper inner quadrant of the right breast, the axilla of both breasts and the retroareolar of both breasts were scanned. A complete US of all four quadrants of the breast and retro-areolar region were reviewed. No solid or cystic masses are identified.. Previously biopsied the 1:00 lesion 3 cm suspected to represent lipoma is again noted. There is a 2.2 cm lesion in 2.2 cm 10 cm from the nipple at the 1:00 position. Additional 1.5 cm 1:00 lesion right breast There is a 3.2 cm 1:00 lesion right breast. Benign-appearing lymph node in the right axilla. Maximum cortical thickness of only 3 mm. Within the left breast benign-appearing lymph nodes. There are hypoechoic areas within the left breast which appear to track centrally toward the nipple. Overall Assessment: Incomplete: need additional imaging evaluation, BI-RAD 0 Management: Diagnostic Breast MRI of both breasts. A clinical breast exam by your physician is recommended on an annual basis and results should be correlated with mammographic findings. This exam should not preclude additional follow-up of suspicious palpable abnormalities. Results were given to the patient verbally at the time of exam. [facility], , 04/12/2024 2:38 PM. Electronically signed and approved by: Eligio Aranda M.D. Radiologis
--- NOTE | 2024-04-12 22:46 | BD ---
EXAMINATION TYPE: Axial Bone Density DATE OF EXAM: 04/12/2024 CLINICAL HISTORY: 69 years old Female. ICD-10 CODE: Bilateral; N63.0 Lump Height: 60 Weight: 203.8 FRAX RISK QUESTIONS: Alcohol (3 or more units per day): no Family History (Parent hip fracture): no Glucocorticoids (More than 3mos): no (Ex: prednisone, prednisolone, methylprednisolone, dexamethasone, and hydrocortisone). History of Fracture in Adulthood: no Secondary Osteoporosis: 1. Type 1 Diabetes: no 2. Hyperthyroidism: no 3. Menopause before 45: no 4. Malnutrition: no 5. Chronic liver disease: no Rheumatoid Arthritis: no Current Tobacco Use: no RISK FACTORS HISTORY OF: Hip Fracture (Right/Left): no Spine Fracture: no History of Wrist Fracture: no Surgery to Spine/Hip(right/left)/Wrist (right/left): Bilateral hip replacement 2019 LS-Spine surgery with hardware When: 2019 MEDICATIONS: Thyroid Medications: no Osteoporosis Medications: no EXAM MEASUREMENTS: Bone mineral density about the L Wrist (g/cm2): 0.527 T Score values are as follows: -----Dist. R+U: -3.3 -----Prox. R+U: -1.3 -----Radius total: -2.4 Z Score values are as follows: -----Dist. R+U: -1.4 -----Prox. R+U: 0.5 -----Radius total: -0.6 Bone mineral density has: decreased -9.5 % since study of: 03/27/2019 FRAX%s: The graph provided illustrates a N/A% chance for a major osteoporotic fx and a % chance for t he hips probability for fx in 10 years time. N/A IMPRESSION: Osteoporosis (T Score less than -2.5). There is increased fracture risk and therapy is usually indicated based on age. Re-Screen 1-2 years. NOTE: T-SCORE=SD OF THE YOUNG ADULT MEAN. [facility], , 04/12/2024 10:44 PM
== END | disposition home or self-care (01) ==
LOC: RADBDWWP 12:37
PROVIDERS: ATTEND Internal Medicine
CPT/HCPCS: 77062; 77066; 77080

== ENCOUNTER → 2024-05-24 | Outpatient (CLI) | payer MEDICARE, BC ==
--- NOTE | 2024-06-08 10:14 | BMR ---
EXAM DATE: 05/24/2024 EXAM DESCRIPTION: MRI-Breast Bilat (W/WO Contrast) INDICATION: >20% lifetime risk for malignancy, high risk surveillance. Breast pain. COMPARISON: Comparison was made to prior relevant imaging available in PACS TECHNIQUE: Multiplanar multisequence breast MRI was performed prior to and after administration of 9 mL of Gadavist intravenously. Post processing was performed utilizing a [employer] workstation. FINDINGS: There is minimal, symmetric background parenchymal enhancement in breasts that are composed of scattered fibroglandular tissue.. RIGHT BREAST: Review of the dynamic contrast enhanced series shows no rapidly enhancing masses, suspicious enhancement patterns or other abnormalities. A 2.3 x 1.8 cm fat containing lesion with faint benign enhancement at 1 o'clock position likely representing biopsy-proven lipoma (series 503, image 470). A few additional fat containing lesion with faint benign enhancement along the periphery of the left breast suggestive of small lipomas versus fat necrosis, probably benign. The T2 weighted series show no abnormality. LEFT BREAST: Review of the dynamic contrast enhanced series shows no rapidly enhancing masses, suspicious enhancement pattern or other abnormalities. A few fat containing lesions with mild enhancement (with benign enhancement kinetics) along the periphery of the breast, for example a 1.3 cm at 1 o'clock position mid to posterior depth of the breast (series 601, image 62 and series 504 image 611), at 11 o'clock position mid depth of the breast (series 503, image 498 and series 601, image 93) and at 4 o'clock position mid depth of the breast (series 503 image 214 and series 601 image 35), overall not significantly changed when compared to prior MRI, likely representing small lipoma versus fat necrosis, probably benign. The T2 weighted series show no abnormality. LYMPH NODES: No axillary or internal mammary lymphadenopathy. IMPRESSION: 1. Probably benign lipomas versus fat necrosis bilaterally in the breasts. Recommend short-term follow-up with breast MRI in 6-12 months. BI-RADS category 3, probably benign. ANNUAL SCREENING BREAST MRI IN ADDITION TO MAMMOGRAPHY IS RECOMMENDED IN PATIENTS WITH LIFETIME RISK OF BREAST CANCER >20% MTDD
== END | disposition home or self-care (01) ==
LOC: RADMRIMAIN 13:34
PROVIDERS: ATTEND Internal Medicine
DX: Z29.89 Encounter for other specified prophylactic measures (principal); E78.5 Hyperlipidemia, unspecified; Z80.3 Family history of malignant neoplasm of breast; Z71.3 Dietary counseling and surveillance; N64.4 Mastodynia
CPT/HCPCS: C8908; A9585; 77049

== ENCOUNTER → 2024-06-29 | Outpatient (CLI) | payer MEDICARE, BC ==
[2024-06-29 13:32] VITALS: BP 150/81; PULSE 68; RESP 17; TEMP 97.8
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
== END ==
LOC: WWCWWP 12:40
PROVIDERS: ATTEND Surgery
DX: N60.11 Diffuse cystic mastopathy of right breast (principal); N60.12 Diffuse cystic mastopathy of left breast; N63.21 Unspecified lump in the left breast, upper outer quadrant; J45.901 Unspecified asthma with (acute) exacerbation; H91.09 Ototoxic hearing loss, unspecified ear

== ENCOUNTER 2024-07-19 23:49 | Observation (INO) | payer MEDICARE, BC ==
--- NOTE | 2024-07-20 00:10 | ED ---
General Adult HPI - General Chief complaint: Chest Pain Stated complaint: Chest pain Time Seen by Provider: 07/19/24 23:56 Source: patient, EMS Mode of arrival: EMS - History of Present Illness Initial comments: Patient is a 69-year-old female presenting today for chest pain. Patient was lying in bed tonight when she had sudden onset chest pressure substernal chest pressure that radiated to her right shoulder and into her jaw. It was associated with nausea diaphoresis and feeling like she could not take a deep breath. She had similar symptoms about 2 years ago when she was told was told she had "a mini heart attack". She does see Dr. Boyd with cardiology, last saw him a week and a half ago. Was recently started on metoprolol. Patient took 324 mg of aspirin at home as well as to the sublingual nitroglycerin with improvement of her pain. She currently rates pain as 4 out of 10, was previously 8 out of 10. She denies cough, fevers, chills, abdominal pain, vomit ing, diarrhea, melena, states she has had some streaks of blood in her stool x 2 and also deals with constipation. Patient has never had stents placed, no history of prior CVA. She does have a history of diabetes, hypertension. She is a non-smoker - Related Data Home Medications Medication Instructions Recorded Confirmed DULoxetine HCL [Cymbalta] 60 mg PO DAILY 01/28/18 07/20/24 Omeprazole 20 mg PO DAILY 01/28/18 07/20/24 Sertraline [Zoloft] 25 mg PO DAILY 01/28/18 07/20/24 lisinopriL [Zestril] 20 mg PO BID 01/04/19 07/20/24 Albuterol Inhaler [Ventolin Hfa 2 puff INHALATION RT-Q6H PRN 09/22/21 07/20/24 Inhaler] Nitroglycerin Sl Tabs [Nitrostat] 0.4 mg SUBLINGUAL Q5M PRN 07/20/22 07/20/24 Anastrozole 1 mg PO Q48H 08/05/23 07/20/24 Ondansetron [Zofran] 4 mg PO Q4H PRN 08/05/23 07/20/24 Alendronate Sodium [Fosamax] 70 mg PO MO 07/20/24 07/20/24 Atorvastatin [Lipitor] 40 mg PO HS 07/20/24 07/20/24 Beclomethasone Dipropionate [Qvar 2 puff PO RT-BID 07/20/24 07/20/24 80mcg Redihaler] Metoprolol Succinate (ER) [Toprol 75 mg PO DAILY 07/20/24 07/20/24 XL] Semaglutide [Ozempic] 1 mg SQ MO 07/20/24 07/20/24 amLODIPine [Norvasc] 5 mg PO DAILY 07/20/24 07/20/24 Previous Rx's Medication Instructions Recorded Spironolactone [Aldactone] 25 mg PO DAILY #30 tablet 06/10/22 Allergies Allergy/AdvReac Type Severity Reaction Status Date / Time adhesive Allergy Itching, Verified 07/20/24 08:31 takes her skin off Fish Containing Products Allergy Swelling Verified 07/20/24 08:31 [Fish] in throat latex Allergy Rash/Hives Verified 07/20/24 08:31 Sulfa (Sulfonamide Allergy Anaphylaxis Verified 07/20/24 08:31 Antibiotics) walnut Allergy Swelling Verified 07/20/24 08:31 gluten AdvReac CONGESTION Verified 07/20/24 08:31 perfume AdvReac Dyspnea Verified 07/20/24 08:31 Review of Systems ROS Statement: Those systems with pertinent positive or pertinent negative responses have been documented in the HPI. ROS Other: All systems not noted in ROS Statement are negative. Past Medical History Past Medical History: Asthma, Diabetes Mellitus, Eye Disorder, Fibromyalgia, GERD/Reflux, Hearing Disorder / Deafness, Hyperlipidemia, Hypertension, Musculoskeletal Disorder, Osteoarthritis (OA), Respiratory Disorder, Sleep Apnea/CPAP/BIPAP Additional Past Medical History / Comment(s): SCOLIOSIS, [place], HX DIABETES-NO LONGER ON RX-WATCHES DIET, NO CPAP USE, LEFT KIDNEY REMOVED, LIPOMAS. "Arthritis is worsening, having cortisone shots tomorrow". Last Myocardial Infarction Date:: UNKNOWN DATE - PER TESTS", History of Any Multi-Drug Resistant Organisms: None Reported Past Surgical History: Bariatric Surgery, Bladder Surgery, Heart Catheterization, Hysterectomy, Joint Replacement, Orthopedic Surgery Additional Past Surgical History / Comment(s): 2018 TOTAL HIP REPLACEMENTS, BILATERAL FOOT SURGERY, LAPAROTOMY FIBROID TUMOR REMOVED, 2017 BARIATRIC SLEEVE, 2008 LEFT KIDNEY AND URETER REMOVED, EXP LAP, CATARACTS REMOVED, 2ND PROCEDURE FOR SPINAL INTERSTIM IMPLANT DONE 06/18/21 AT [place]. 05/2021 BLADDER STIMULATOR IMPLANT PUT INTO SPINE , PAIN CLINIC PROCEDURES. bladder surgery x2. 2009 large cyst removed from left abdominal area. 2004 complete hysterectomy. bones in the toes removed from both feet in the 1979's. D & C. 2018 bilat breast lumpectomy-benign Past Anesthesia/Blood Transfusion Reactions: Previous Problems w/ Anesthesia, Postoperative Nausea & Vomiting (PONV) Additional Past Anesthesia/Blood Transfusion Reaction / Comment(s): . Past Psychological History: Anxiety, Depression Smoking Status: Never smoker Past Alcohol Use History: None Reported Past Drug Use History: None Reported - Past Family History Father Family Medical History: Cancer, Myocardial Infarction ([place]), Prostate Disorder Additional Family Medical History / Comment(s): Prostate cancer. Mother Family Medical History: Diabetes Mellitus, Hypertension, Myocardial Infarction ([place]) Additional Family Medical History / Comment(s): Heart disease, quadruple bypass. 7 or 8 of mother's siblings had heart disease. General Exam - General Exam Comments Initial Comments: PE: CONSTITUTIONAL: No apparent distress, well appearing SKIN: Warm, dry, no jaundice, hives or petechiae EYES: Pupils are equally round, extraocular movements intact without nystagmus, clear conjunctiva, non-icteric sclera HENT: Normocephalic, atraumatic, moist mucus membranes, oropharynx clear without exudates NECK: , Full range of motion, normal appearance PULMONARY: Clear to auscultation without wheezes, rhonchi, or rales, normal excursion, no accessory muscle use and no stridor CARDIOVASCULAR: Regular rate, rhythm, normal S1 and S2. No appreciated murmurs, rubs or gallops. Strong radial pulses with intact distal perfusion. No lower extremity edema GASTROINTESTINAL: Soft, active bowel sounds throughout, non-tender, non- distended, no palpable masses, no rebound or guarding. No hepatosplenomegaly GENITOURINARY: MUSCULOSKELETAL: Extremities have no gross deformity, no edema, redness, or swelling. No calf swelling NEUROLOGIC:_a/o x 3, GCS 15, normal mentation and speech. Moves all extremities x 4 without motor or sensory deficit PSYCHIATRIC:_normal mood and affect, thought process is clear and linear Course Vital Signs 07/19/24 07/20/24 07/20/24 23:50 00:52 01:55 Temperature 97.7 F Pulse Rate 79 72 75 Respiratory 18 18 18 Rate Blood Pressure 129/77 136/77 126/68 O2 Sat by Pulse 98 96 97 Oximetry 07/20/24 03:49 Temperature Pulse Rate 85 Respiratory 18 Rate Blood Pressure 112/66 O2 Sat by Pulse 97 Oximetry EKG Findings - EKG Comments: EKG Findings:: Sinus rhythm, rate 74 beats minute MA interval 169 ms QT/QTc 420/448 ms, left axis deviation, no STEMI compared to EKGCompared to EKG on 07/20/2022, today's EKG appears improved from prior, no new ST elevations or depressions no STEMI. Repeat EKG obtained due to continuation of chest pain, no significant changes from original EKG, sinus rhythm rate 74 bpm MA interval 168 ms QRS duration 107 ms, QT/QTc 390/490 ms, normal axis Medical Decision Making - Medical Decision Making Was pt. sent in by a medical professional or institution (, PA, DEVELOPMENT ENGINEER, urgent care, hospital, or long-term...) When possible be specific @ -No Did you speak to anyone other than the patient for history (EMS, parent, family, police, friend...)? What history was obtained from this source @ -No Did you review nursing and triage notes (agree or disagree)? Why? @ -I reviewed nursing and triage notes Were old charts reviewed (outside hosp., previous admission, EMS record, old EKG, old radiological studies, urgent care reports/EKG's, long-term records)? Report findings @ -Medical records reviewed last cardiac cath report available for review was done in May 2022, at that time had no significant obstructing coronary artery disease Differential Diagnosis (chest pain, altered mental status, abdominal pain women, abdominal pain men, vaginal bleeding, weakness, fever, dyspnea, syncope, headache, dizziness, GI bleed, back pain, seizure, CVA, palpatations, mental health, musculoskeletal)? @ -Differential Chest Pain: Stable Angina, Unstable Angina, STEMI, NSTEMI Aortic Dissection, pericarditis, pleurisy, chostochondirits, Pneumothorax, Musculoskeletal, Esophageal Spasm GERD, Cholecystitis, Pancreatitis, Zoster, this is not meant to be an all- inclusive list. EKG interpreted by me (3pts min.). @ -As above X-rays interpreted by me (1pt min.). @Chest x-ray reviewed by myself I see no cardiomegaly, consolidations, pleural effusions or pneumothorax CT interpreted by me (1pt min.). @ -None done U/S interpreted by me (1pt. min.). @ -None done What testing was considered but not performed or refused? (CT, X-rays, U/S, labs)? Why? @ -None What meds were considered but not given or refused? Why? @ -None Did you discuss the management of the patient with other professionals (pro fessionals i.e. , PA, DEVELOPMENT ENGINEER, lab, RT, psych nurse, social services manager, recording studio intern, teacher, horticultural technical officer, case making machine operator)? Give summary @ -No Was smoking cessation discussed for >3mins.? @ -No Was critical care preformed (if so, how long)? Yes, 35 minutes Were there social determinants of health that impacted care today? How? (Homelessness, low income, unemployed, alcoholism, drug addiction, transportation, low edu. Level, literacy, decrease access to med. care, [facility], rehab)? @ -No Was there de-escalation of care discussed even if they declined (Discuss DNR or withdrawal of care, Hospice)? @ -No What co-morbidities impacted this encounter? (DM, HTN, Smoking, COPD, CAD, Cancer, CVA, ARF, Chemo, Hep., AIDS, mental health diagnosis, sleep apnea, morbid obesity)? Hypertension, hyperlipidemia, diabetes Was patient admitted / discharged? Hospital course, mention meds given and route, prescriptions, significant lab abnormalities, going to OR and other pertinent info. Admission patient is a pleasant 69-year-old female history of diabetes, hypertension, hyperlipidemia presenting today for substernal chest pain. On my assessment patient is well-appearing and in no acute distress. She is pleasant, awake and alert. Physical exam is reassuring. Original EKG reassuring as well, no new ST elevations or depressions from prior. Will obtain chest pain workup. Will give additional sublingual nitroglycerin, morphine. Patient agreeable plan of care. Labs remarkable for potassium 3.3 otherwise reassuring. Patient had some improvement of pain with sublingual nitroglycerin though still endorses some discomfort. Will add nitro paste, pt also has hx GERD, will trial GI cocktail as well. Concern for unstable angina given hx, description of symptoms and risk factors. Case discussed with Dr. Daniel, kindly accepts pt for admission. Undiagnosed new problem with uncertain prognosis? @ -No Drug Therapy requiring intensive monitoring for toxicity (Heparin, Nitro, Insulin, Cardizem)? @ -No Were any procedures done? @ -No Diagnosis/symptom? @Unstable angina Acute, or Chronic, or Acute on Chronic? acute Uncomplicated (without systemic symptoms) or Complicated (systemic symptoms)? complicated Side effects of treatment? @ -No Exacerbation, Progression, or Severe Exacerbation? @ -No Poses a threat to life or bodily function? How? (Chest pain, [place], MS, pneumonia, PE, COPD, DKA, ARF, appy, cholecystitis, CVA, Diverticulitis, Homicidal, Suicidal, threat to staff... and all critical care pts) Yes if secondary to ACS, and left untreated or unmonitored could lead to STEMI and - Lab Data Result diagrams: 07/20/24 05:06 07/20/24 05:06 Lab Results 07/20/24 07/20/24 07/20/24 Range/Units 00:00 00:00 00:00 WBC 8.6 (3.8-10.6) k/uL RBC 4.51 (3.80-5.40) m/uL Hgb 12.9 (11.4-16.0) gm/dL Hct 39.5 (34.0-46.0) % MCV 87.7 (80.0-100.0) fL MCH 28.5 (25.0-35.0) pg MCHC 32.5 (31.0-37.0) g/dL RDW 13.6 (11.5-15.5) % Plt Count 232 (150-450) k/uL MPV 8.5 Neutrophils % 64 % Lymphocytes % 29 % Monocytes % 4 % Eosinophils % 1 % Basophils % 0 % Neutrophils # 5.6 (1.3-7.7) k/uL Lymphocytes # 2.5 (1.0-4.8) k/uL Monocytes # 0.4 (0-1.0) k/uL Eosinophils # 0.1 (0-0.7) k/uL Basophils # 0.0 (0-0.2) k/uL PT 11.8 (10.0-12.5) sec INR 1.1 (<1.2) APTT 25.6 (22.0-30.0) sec Sodium 138 (137-145) mmol/L Potassium 3.3 L (3.5-5.1) mmol/L Chloride 106 (98-107) mmol/L Carbon Dioxide 24 (22-30) mmol/L Anion Gap 8 mmol/L BUN 14 (7-17) mg/dL Creatinine 0.85 (0.52-1.04) mg/dL Est GFR (CKD-EPI)AfAm 81 (>60 ml/min/1.73 sqM) Est GFR (CKD-EPI)NonAf 70 (>60 ml/min/1.73 sqM) Glucose 122 H (74-99) mg/dL Calcium 9.0 (8.4-10.2) mg/dL Magnesium 2.2 (1.6-2.3) mg/dL Total Bilirubin 0.7 (0.2-1.3) mg/dL AST 18 (14-36) U/L ALT 12 (4-34) U/L Alkaline Phosphatase 140 H (38-126) U/L Troponin I (0.000-0.034) ng/mL NT-Pro-B Natriuret Pep 516 pg/mL Total Protein 6.6 (6.3-8.2) g/dL Albumin 3.7 (3.5-5.0) g/dL Lipase 75 (23-300) U/L 07/20/24 Range/Units 00:00 WBC (3.8-10.6) k/uL RBC (3.80-5.40) m/uL Hgb (11.4-16.0) gm/dL Hct (34.0-46.0) % MCV (80.0-100.0) fL MCH (25.0-35.0) pg MCHC (31.0-37.0) g/dL RDW (11.5-15.5) % Plt Count (150-450) k/uL MPV Neutrophils % % Lymphocytes % % Monocytes % % Eosinophils % % Basophils % % Neutrophils # (1.3-7.7) k/uL Lymphocytes # (1.0-4.8) k/uL Monocytes # (0-1.0) k/uL Eosinophils # (0-0.7) k/uL Basophils # (0-0.2) k/uL PT (10.0-12.5) sec INR (<1.2) APTT (22.0-30.0) sec Sodium (137-145) mmol/L Potassium (3.5-5.1) mmol/L Chloride (98-107) mmol/L Carbon Dioxide (22-30) mmol/L Anion Gap mmol/L BUN (7-17) mg/dL Creatinine (0.52-1.04) mg/dL Est GFR (CKD-EPI)AfAm (>60 ml/min/1.73 sqM) Est GFR (CKD-EPI)NonAf (>60 ml/min/1.73 sqM) Glucose (74-99) mg/dL Calcium (8.4-10.2) mg/dL Magnesium (1.6-2.3) mg/dL Total Bilirubin (0.2-1.3) mg/dL AST (14-36) U/L ALT (4-34) U/L Alkaline Phosphatase (38-126) U/L Troponin I <0.012 (0.000-0.034) ng/mL NT-Pro-B Natriuret Pep pg/mL Total Protein (6.3-8.2) g/dL Albumin (3.5-5.0) g/dL Lipase (23-300) U/L Disposition Clinical Impression: Unstable angina Disposition: [facility] Condition: Stable
[2024-07-20] MEDS: NITROGLYCERIN SL TABS 0.4 MG TAB SUBLINGUAL STA (00:50)
[2024-07-20] MEDS: ONDANSETRON 4 MG/2 ML VIAL IVP STA (00:52)
[2024-07-20] MEDS: MORPHINE SULFATE 4 MG/ML SYRINGE IV STA (00:52)
[2024-07-20 01:25] LABS: Basophils % (A) 0 %; Eosinophils # (A) 0.1 k/uL (0-0.7); Eosinophils % (A) 1 %; HCT 39.5 % (34.0-46.0); HGB 12.9 gm/dL (11.4-16.0); Lymphocytes # (A) 2.5 k/uL (1.0-4.8); Lymphocytes % (A) 29 %; MCH 28.5 pg (25.0-35.0); MCHC 32.5 g/dL (31.0-37.0); MCV 87.7 fL (80.0-100.0); Mean Platelet Volume 8.5; Monocytes # (A) 0.4 k/uL (0-1.0); Monocytes % (A) 4 %; Neutrophils # (A) 5.6 k/uL (1.3-7.7); Neutrophils % (A) 64 %; Platelet Count 232 k/uL (150-450); RBC 4.51 m/uL (3.80-5.40); RDW 13.6 % (11.5-15.5); WBC 8.6 k/uL (3.8-10.6)
[2024-07-20 01:31] LABS: ALT 12 U/L (4-34); AST 18 U/L (14-36); African American GFR (CKD) 81 (>60 ml/min/1.73 sqM); Albumin 3.7 g/dL (3.5-5.0); Alkaline Phosphatase 140 U/L (38-126); Anion Gap 8 mmol/L; Blood Urea Nitrogen 14 mg/dL (7-17); Carbon Dioxide 24 mmol/L (22-30); Chloride 106 mmol/L (98-107); Glucose 122 mg/dL (74-99); Lipase 75 U/L (23-300); Magnesium 2.2 mg/dL (1.6-2.3); Non-African American GFR(CKD) 70 (>60 ml/min/1.73 sqM); Potassium 3.3 mmol/L (3.5-5.1); Sodium 138 mmol/L (137-145); Total Bilirubin 0.7 mg/dL (0.2-1.3); Total Protein 6.6 g/dL (6.3-8.2)
[2024-07-20 01:40] LABS: NT-Pro-B-Type Natriuretic Pept 516 pg/mL
--- NOTE | 2024-07-20 01:51 | XR ---
EXAM: XR Chest, 2 Views CLINICAL HISTORY: ITS.REASON XR Reason: Chest Pain TECHNIQUE: Frontal and lateral views of the chest. COMPARISON: XR Chest dated 07/20/22 at 1316 FINDINGS: Lungs: Unremarkable. No consolidation. Pleural space: Unremarkable. No pneumothorax. Heart: Unremarkable. No cardiomegaly. Mediastinum: Unremarkable. Normal mediastinal contour. Bones/joints: Unremarkable. No acute fracture. IMPRESSION: No evidence of acute cardiopulmonary disease.
[2024-07-20 01:56] LABS: INR 1.1 (<1.2); Partial Thromboplastin Time 25.6 sec (22.0-30.0); Prothrombin Time 11.8 sec (10.0-12.5)
[2024-07-20] MEDS ORDERED: NITROGLYCERIN SL TABS 0.4 MG TAB SUBLINGUAL PRN (02:00)
[2024-07-20] MEDS ORDERED: ACETAMINOPHEN TAB 325 MG TAB PO PRN (02:00)
[2024-07-20] MEDS: POTASSIUM CHLORIDE ER 20 MEQ TAB.ER PO STA (02:18)
[2024-07-20] MEDS: PANTOPRAZOLE 40 MG TABLET PO STA (03:14)
--- NOTE | 2024-07-20 03:42 | P.HPIM ---
History of Present Illness H&P Date: 07/20/24 Chief Complaint: Atypical Chest Pain Patient is a very pleasant 69 year old female with PMHx of nonischemic cardiomyopathy(follows with Dr. Boyd), fibrocystic breast disease at high risk for breast cancer (follows with Dr. Jason Weinstein), hypertension, hyperlipidemia, diabetes, depression, and GERD who presented to the ED with chief complaint of right sided crushing chest pain rated 9 out of 10 which radiated to her back and jaw and in between her shoulder blades which happened around 11 PM this evening while patient was laying in bed. She also endorses feeling lightheaded and dizzy as well as short of breath. Patient states she had a similar episode 2 years ago. She also states the chest pain is worse with a deep breathing. Patient states her blood pressure has been elevated recently and cardiology recently started her on amlodipine 5 mg about 6 days ago so her pressures have been better. Endorses some nausea. Additionally patient states she had a UTI and was recently started on ceftriaxone which she took for 4 days, but she did not complete the course. Patient states she is currently experiencing some burning with decreased frequency. Patient denies fever, chills, abdominal pain, diarrhea, or lower extremities swelling. Patient has never had stents placed or history of prior CVA. Patient denies history of blood thinner use. Review of systems: Pertinent positives and negatives as discussed in HPI, a complete review of systems was performed and all other systems are negative. PCP:Dr. Norma Kim Social history: Tobacco: none Alcohol: none Recreational drugs: none Travel: none Sick contacts: none Physical examination: Vital signs reviewed temperature 98.8, pulse rate 105 bpm, respiratory rate 20, blood pressure 144/94, O2 saturation 93% on room air General: nontoxic, no distress, appears at stated age, obese Derm: warm, dry, intact Head: atraumatic, normocephalic, symmetric Eyes: anicteric sclera Mouth: no lip lesion, mucus membranes moist Cardiovascular: S1 S2 reg, no murmur Lungs: CTA bilateral, no rhonchi, no rales, no accessory muscle use Abdominal: Epigastric tenderness to palpation with radiation to right side Extremities: No cyanosis, clubbing, or pedal edema. Neuro: Alert, Oriented to person, time and place, Gross neurological examination did not reveal any focal deficits. Cranial nerves II to XII grossly intact. Bilateral upper and lower extremity muscle strength intact and sensation intact. Psych: well appearing, appropriate affect Assessment/Plan: Patient is a 69-year-old female patient with past medical history of nonischemic cardiomyopathy, fibrocystic breast disease, hypertension, hyperlipidemia, diabetes, depression, and GERD crushing chest pain. Case was discussed with ER physician and patient will be admitted to internal medicine service for further evaluation of unstable angina. Labs on admission show WBCs 8.6, hemoglobin 12.9, MCV 87.7, platelets 232. PT 11.8, INR 1.1, PTT 25.6. Sodium 138, potassium 3.3, chloride 106, bicarb 24, BUN 14, creatinine 0.85, glucose 122. Calcium 9, magnesium 2.2. AST 18, ALT 12, ALP 140. Active: Atypical Chest Pain possibly unstable angina in setting of nonischemic cardiomyopathy EKG independently interpreted as sinus rhythm, ventricular rate 74 bpm, QTc of 419 ms CXR shows no evidence of acute cardiopulmonary disease Echocardiogram in 2021 showed EF of 35 to 40%, moderate MR, no acute ST changes Troponin negative. NT proBNP 516. PT 11.8, INR 1.1, PTT 25.6. Coags unremarkable Trend troponin every 3 hours x 2 Follow-up echo Aspirin 325 mg po daily Atorvastatin 40 mg po qhs Cardiology consult awake overnight monitor Lipid panel , A1C Nitro prn for chest pain Continue heparin 5000 units SQ every 8 hours Continue metoprolol 25 mg twice daily Continue Aldactone 25 mg daily UTI present on admission Patient endorses prior to admission she had dysuria and frequency and was started on antibiotics, but did not complete the course Repeat UA and initiate antibiotics Mild hypokalemia of 3.3 20 mEq potassium chloride given Continue to monitor Hyperglycemia in aew-xegsdgq-[id number] diabetic Glucose 122 Accu-Cheks per ACHS protocol Moderate insulin sliding scale Hypoglycemia precautions Obtain A1c Chronic: Hypertension Continue lisinopril 20 mg twice daily Continue metoprolol 50 mg twice daily Continue amlodipine 5 mg daily Hyperlipidemia Increased home dose of Lipitor to 40 mg p.o. at bedtime while inpatient Depression Continue Cymbalta 60 mg daily Continue Zoloft 25 mg daily Fibrocystic breast disease with high risk of breast cancer Continue anastrozole 1 mg daily F: None E: Replete as needed N: Heart healthy A: As tolerated DVT prophylaxis: Heparin 5000 units subcutaneously every 8 hours The patient is admitted with an anticipated more than 2 midnight stay for evaluation of unstable angina CODE STATUS: Full code Discussed with: Patient Anticipated discharge place: Pending clinical course I have seen and evaluated the patient today. I Discussed the case with the resident and agree with the resident's findings I edited the assessment and plan as necessary as documented in the resident's note. Past Medical History Past Medical History: Asthma, Diabetes Mellitus, Eye Disorder, Fibromyalgia, GERD/Reflux, Hearing Disorder / Deafness, Hyperlipidemia, Hypertension, Musculoskeletal Disorder, Osteoarthritis (OA), Respiratory Disorder, Sleep Apnea/CPAP/BIPAP Additional Past Medical History / Comment(s): SCOLIOSIS, [place], HX DIABETES-NO LONGER ON RX-WATCHES DIET, NO CPAP USE, LEFT KIDNEY REMOVED, [place]IP[place]AS. "Arthritis is worsening, having cortisone shots tomorrow". Last Myocardial Infarction Date:: UNKNOWN DATE - PER TESTS", History of Any Multi-Drug Resistant Organisms: None Reported Past Surgical History: Bariatric Surgery, Bladder Surgery, Heart Catheterization, Hysterectomy, Joint Replacement, Orthopedic Surgery Additional Past Surgical History / Comment(s): 2018 TOTAL HIP REPLACEMENTS, BILATERAL FOOT SURGERY, LAPAROTOMY FIBROID TUMOR REMOVED, 2017 BARIATRIC SLEEVE, 2008 LEFT KIDNEY AND URETER REMOVED, EXP LAP, CATARACTS REMOVED, 2ND PROCEDURE FOR SPINAL INTERSTIM IMPLANT DONE 06/18/21 AT [place]. 05/2021 BLADDER STIMULATOR IMPLANT PUT INTO SPINE , PAIN CLINIC PROCEDURES. bladder surgery x2. 2009 large cyst removed from left abdominal area. 2004 complete hysterectomy. bones in the toes removed from both feet in the s. [facility]. 2018 bilat breast lumpectomy-benign Past Anesthesia/Blood Transfusion Reactions: Previous Problems w/ Anesthesia, Postoperative Nausea & Vomiting (PONV) Additional Past Anesthesia/Blood Transfusion Reaction / Comment(s): . Past Psychological History: Anxiety, Depression Smoking Status: Never smoker Past Alcohol Use History: None Reported Past Drug Use History: None Reported - Past Family History Father Family Medical History: Cancer, Myocardial Infarction ([place]), Prostate Disorder Additional Family Medical History / Comment(s): Prostate cancer. Mother Family Medical History: Diabetes Mellitus, Hypertension, Myocardial Infarction ([place]) Additional Family Medical History / Comment(s): Heart disease, quadruple bypass. 7 or 8 of mother's siblings had heart disease. Medications and Allergies Home Medications Medication Instructions Recorded Confirmed Type DULoxetine HCL [Cymbalta] 60 mg PO DAILY 01/28/18 06/29/24 History Omeprazole 20 mg PO DAILY 01/28/18 06/29/24 History Sertraline [Zoloft] 25 mg PO DAILY 01/28/18 06/29/24 History lisinopriL [Zestril] 20 mg PO BID 01/04/19 06/29/24 History Albuterol Inhaler [Ventolin Hfa 2 puff INHALATION RT-Q6H PRN 09/22/21 06/29/24 History Inhaler] Atorvastatin [Lipitor] 20 mg PO HS 06/07/22 06/29/24 History Metoprolol Tartrate [Lopressor] 50 mg PO BID #0 06/10/22 06/29/24 Rx Spironolactone [Aldactone] 25 mg PO DAILY #30 tablet 06/10/22 06/29/24 Rx Nitroglycerin Sl Tabs [Nitrostat] 0.4 mg SUBLINGUAL Q5M PRN 07/20/22 06/29/24 History Semaglutide [Ozempic] 0.25 mg SQ WEEKLY 06/18/23 06/29/24 History Anastrozole 1 mg PO DAILY 08/05/23 06/29/24 History Ondansetron [Zofran] 4 mg PO Q12HR PRN 08/05/23 06/29/24 History Ciprofloxacin HCl [Cipro] 500 mg PO BID 08/12/23 06/29/24 History Allergies Allergy/AdvReac Type Severity Reaction Status Date / Time adhesive Allergy Itching, Verified 07/19/24 23:52 takes her skin off Fish Containing Products Allergy Swelling Verified 07/19/24 23:52 [Fish] in throat latex Allergy Rash/Hives Verified 07/19/24 23:52 Sulfa (Sulfonamide Allergy Anaphylaxis Verified 07/19/24 23:52 Antibiotics) walnut Allergy Swelling Verified 07/19/24 23:52 gluten AdvReac CONGESTION Verified 07/19/24 23:52 perfume AdvReac Dyspnea Verified 07/19/24 23:52 Physical Exam Vitals: Vital Signs Temp Pulse Resp BP Pulse Ox 07/19/24 23:50 97.7 F 79 18 129/77 98 Intake and Output 07/19/24 07/19/24 07/20/24 14:59 22:59 06:59 Other: Weight 87.997 kg Results CBC & Chem 7: 07/20/24 00:00 07/20/24 00:00 Labs: Abnormal Lab Results - Last 24 Hours (Table) 07/20/24 Range/Units 00:00 Potassium 3.3 L (3.5-5.1) mmol/L Glucose 122 H (74-99) mg/dL Alkaline Phosphatase 140 H (38-126) U/L
[2024-07-20] MEDS ORDERED: DEXTROSE 50% SYRINGE 50 ML IVP PRN ×2 (03:43)
[2024-07-20] MEDS ORDERED: ONDANSETRON 4 MG TAB PO PRN (03:45)
[2024-07-20] MEDS ORDERED: ALBUTEROL HFA INHALER INHALATION PRN (03:45)
[2024-07-20] MEDS ORDERED: ALBUTEROL NEBULIZED 2.5 MG/3 ML INHALATION PRN (04:08)
[2024-07-20 06:13] LABS: Glucose,Whole Blood 88 mg/dL (70-110)
[2024-07-20] MEDS: PANTOPRAZOLE 40 MG TABLET PO SCH (06:24)
[2024-07-20] MEDS: INSULIN ASPART (NovoLOG) 100 UNIT/ML VIAL SQ SCH (06:24)
[2024-07-20 07:26] LABS: Appearance,Urine Cloudy (Clear); Bilirubin,Urine 1+ (Negative); Blood,Urine Negative (Negative); Budding Yeast,Urine Rare /hpf; Color,Urine Yellow; Glucose,Urine (UA) Negative (Negative); Hyaline Casts,Urine 20 /lpf (0-2); Ketones,Urine Negative (Negative); Leukocyte Esterase,Urine Small (Negative); Mucus,Urine Few /hpf; Nitrite,Urine Negative (Negative); Protein,Urine 1+ (Negative); RBC,Urine 2 /hpf (0-5); Specific Gravity,Urine 1.029 (1.001-1.035); Squamous Epithelial Cell,Urine 9 /hpf (0-4); WBC,Urine 19 /hpf (0-5)
[2024-07-20] MEDS: lisinopriL 20 MG TAB PO SCH (08:24)
[2024-07-20] MEDS: SPIRONOLACTONE 25 MG TAB PO SCH (08:25)
[2024-07-20] MEDS: DULoxetine HCL 60 MG CAPSULE.DR PO SCH (08:25)
[2024-07-20] MEDS: SERTRALINE 25 MG TAB PO SCH (08:26)
[2024-07-20] MEDS: METOPROLOL TARTRATE 25 MG TAB PO SCH ×2 (08:26→10:11)
[2024-07-20] MEDS: ANASTROZOLE 1 MG TAB PO SCH (08:26)
[2024-07-20] MEDS: HEPARIN SODIUM,PORCINE 5,000 UNIT/ML 1 ML VIAL SQ SCH (08:27)
[2024-07-20 08:30] VITALS: RESP 16
[2024-07-20] MEDS ORDERED: amLODIPine 5 MG TAB PO SCH ×2 (09:00→21:00)
[2024-07-20] MEDS ORDERED: METOPROLOL TARTRATE 25 MG TAB PO SCH (09:00)
[2024-07-20 09:12] LABS: Blood Urea Nitrogen 15.6 mg/dL (9.0-27.0); Calcium 8.8 mg/dL (8.7-10.3); Carbon Dioxide 25.3 mmol/L (21.6-31.8); Chloride 106 mmol/L (96-109); Glucose 89 mg/dL (70-110); Magnesium 2.2 mg/dL (1.5-2.4); Sodium 142 mmol/L (135-145)
[2024-07-20 09:18] LABS: Basophils # (A) 0.05 X 10*3/uL (0.00-0.10); Basophils % (A) 0.6 %; Eosinophils # (A) 0.07 X 10*3/uL (0.04-0.35); Eosinophils % (A) 0.9 %; HCT 38.8 % (37.2-46.3); HGB 12.4 g/dL (12.0-15.0); Lymphocytes # (A) 2.02 X 10*3/uL (0.90-5.00); Lymphocytes % (A) 25.2 %; MCH 28.1 pg (27.0-32.0); Mean Platelet Volume 11.9 FL (9.5-12.2); Monocytes # (A) 0.65 X 10*3/uL (0.20-1.00); Monocytes % (A) 8.1 %; NRBC Per 100 WBC 0 X 10*3/uL (0.00-0.01); Neutrophils # (A) 5.21 X 10*3/uL (1.80-7.70); Neutrophils % (A) 64.8 %; Platelet Count 236 X 10*3/uL (140-440); RBC 4.41 X 10*6/uL (4.10-5.20); RDW 13.4 % (11.5-14.5); WBC 8.03 X 10*3/uL (4.50-10.00)
[2024-07-20] MEDS: amLODIPine 5 MG TAB PO SCH (10:05)
[2024-07-20] MEDS ORDERED: AMINOPHYLLINE 500 MG/20 ML VIAL IV PRN (10:07)
[2024-07-20] MEDS ORDERED: CAFFEINE CITRATE 60 MG/3 ML VIAL IV PRN (10:07)
[2024-07-20] MEDS ORDERED: REGADENOSON 0.4 MG/5 ML SYRINGE IV PRN (10:07)
--- NOTE | 2024-07-20 13:08 | P.CRDCN ---
History of Present Illness Consult date: 07/20/24 Reason for Consult (text): Unstable angina History of present illness: This is a 69-year-old female patient of Dr. KIRSTIN Boyd with past medical history of nonischemic cardiomyopathy with EF of 40%, LBBB, hypertension, hyperlipidemia, diabetes, single kidney status post nephrectomy 20 years ago due to trauma, frequent urinary tract infections, obesity. We have been asked to evaluate the patient for unstable angina. Patient was last seen in the office on 07/03/2024 and at that time her A1c was 5.1 and she had lost 80 pounds over the past year on Ozempic. She was getting some high blood pressure readings at home but no chest pain. Medication changes were made and she was to call with updates in 7 to 10 days and then return in [address] Felipe. Medication changes were to add amlodipine, decrease atorvastatin to 10 mg daily, discon tinued isosorbide and metoprolol was changed to 25 mg 3 times daily. Patient states she came into the hospital because she developed pain on the right side of her face and right jaw went into her shoulder and then into her chest. She states she could not breathe at the time. She states she was not doing anything strenuous or in no emotional stress at the time. She states she was laying in bed when it started. She also had nausea was clammy and weak. Patient also experienced racing of her heart. All her symptoms started very quickly. EMS was called and by the time EMS arrived she was feeling better. She had taken 2 nitroglycerin and 4 baby aspirin. She did not think the nitroglycerin immediately helped but with slowly improved her pain. Blood pressure 112/66, heart rate 85, pulse ox 97% on room air. Discussed options for evaluation including a stress test which patient is agreeable to move forward. Also discussed event monitor. Echocardiogram was concerning for thinning of the apical which final report will be available later. -EKG: Sinus rhythm, LVH nonspecific changes but present previously -Chest x-ray: No acute process -Laboratory studies: CBC, INR within normal limits. Potassium 3.3, creatinine 0.85. Troponin negative x 3. proBNP 516. -Home cardiac medications according to office note dated 07/03/2024: Amlodipine 5 mg at bedtime, aspirin 81 mg daily, atorvastatin 10 mg daily, lisinopril 20 mg twice daily, metoprolol tartrate 25 mg 3 times daily, spironolactone 25 mg daily, patient is also on Ozempic.: -Cardiac catheterization performed 06/09/2022 revealed normal filling pressures, no gradient, codominant probably more left dominant, no significant obstructive coronary artery disease. -Echocardiogram performed 06/09/2022 in the office revealed EF of 40%, mild to moderate enlargement of the left atrium with moderate mitral regurgitation. -Lexiscan Cardiolite stress test performed 07/31/2019 revealed EF of 46%, moderate size anterior fixed defect with reduced EF possibly PA with ischemia and hypokinesis. Review Of Systems: At the time of my exam: CONSTITUTIONAL: Denies fever or chills. HEENT: Denies blurred vision, vision changes, or eye pain. Denies hemoptysis CARDIOVASCULAR: Denies chest pain. Denies orthopnea. Denies PND. Denies palpitations RESPIRATORY: Denies shortness of breath. GASTROINTESTINAL: Denies abdominal pain. Denies nausea or vomiting. HEMATOLOGIC: Denies bleeding disorders. GENITOURINARY: Denies any blood in urine. SKIN: Denies puritis. Denies rash. Physical examination: Gen: This is 69-year-old female in no acute distress VS: reviewed HEENT: Head is atraumatic, normocephalic. Pupils equal, round. Sclerae is anicte peewee. NECK: Supple. No JVD. LUNGS: Clear to auscultation. No wheezes or rhonchi. No intercostal re tractions. HEART: Regular rate and rhythm. No murmur. ABDOMEN: Soft No tenderness. EXTREMITIES: No pedal edema. No calf tenderness. NEUROLOGICAL: Patient is awake, alert and oriented x3. Assessment: Atypical chest pain, acute coronary syndrome ruled out Nonischemic cardiomyopathy with EF of 40% Hypertension Hyperlipidemia Diabetes with A1c of 5.1 Single kidney status post nephrectomy Obesity with BMI of 37 Intentional weight loss of 80 pounds over the past 1 year on Ozempic Plan: Resume patient's home cardiac medications Obtain 14-day event monitor Obtain Lexiscan Cardiolite stress test today Obtain 2-D echocardiogram and Doppler study to assess cardiac structure and function Rule out cardiac amyloidosis which can be worked up in the office If Lexiscan stress test is unremarkable, patient is cleared for discharge home today and follow-up in the office with Dr. Boyd in 3 weeks. Thank you kindly for this consultation. Nurse practitioner note has been reviewed, I agree with documented findings and plan of care. Patient was seen and examined. Past Medical History Past Medical History: Asthma, Diabetes Mellitus, Eye Disorder, Fibromyalgia, GERD/Reflux, Hearing Disorder / Deafness, Hyperlipidemia, Hypertension, Musculoskeletal Disorder, Osteoarthritis (OA), Respiratory Disorder, Sleep Apnea/CPAP/BIPAP Additional Past Medical History / Comment(s): SCOLIOSIS, HAVASUPAI, HX DIABETES-NO LONGER ON RX-WATCHES DIET, NO CPAP USE, LEFT KIDNEY REMOVED, LIPOMAS. "Arthritis is worsening, having cortisone shots tomorrow". Last Myocardial Infarction Date:: UNKNOWN DATE - PER TESTS", History of Any Multi-Drug Resistant Organisms: None Reported Past Surgical History: Bariatric Surgery, Bladder Surgery, Heart Catheterization, Hysterectomy, Joint Replacement, Orthopedic Surgery Additional Past Surgical History / Comment(s): 2018 TOTAL HIP REPLACEMENTS, BILATERAL FOOT SURGERY, LAPAROTOMY FIBROID TUMOR REMOVED, 2017 BARIATRIC SLEEVE, 2008 LEFT KIDNEY AND URETER REMOVED, EXP LAP, CATARACTS REMOVED, 2ND PROCEDURE FOR SPINAL INTERSTIM IMPLANT DONE 06/18/21 AT [facility]. 05/2021 BLADDER STIMULATOR IMPLANT PUT INTO SPINE , PAIN CLINIC PROCEDURES. bladder surgery x2. 2008 large cyst removed from left abdominal area. 2004 complete hysterectomy. bones in the toes removed from both feet in the [facility]. [facility]. 2018 bilat breast lumpectomy-benign Past Anesthesia/Blood Transfusion Reactions: Previous Problems w/ Anesthesia, Postoperative Nausea & Vomiting (PONV) Additional Past Anesthesia/Blood Transfusion Reaction / Comment(s): . Past Psychological History: Anxiety, Depression Smoking Status: Never smoker Past Alcohol Use History: None Reported Past Drug Use History: None Reported - Past Family History Father Family Medical History: Cancer, Myocardial Infarction (PA), Prostate Disorder Additional Family Medical History / Comment(s): Prostate cancer. Mother Family Medical History: Diabetes Mellitus, Hypertension, Myocardial Infarction (PA) Additional Family Medical History / Comment(s): Heart disease, quadruple bypass. 7 or 8 of mother's siblings had heart disease. Medications and Allergies Home Medications Medication Instructions Recorded Confirmed Type DULoxetine HCL [Cymbalta] 60 mg PO DAILY 01/28/18 07/20/24 History Omeprazole 20 mg PO DAILY 01/28/18 07/20/24 History Sertraline [Zoloft] 25 mg PO DAILY 01/28/18 07/20/24 History lisinopriL [Zestril] 20 mg PO BID 01/04/19 07/20/24 History Albuterol Inhaler [Ventolin Hfa 2 puff INHALATION RT-Q6H PRN 09/22/21 07/20/24 History Inhaler] Spironolactone [Aldactone] 25 mg PO DAILY #30 tablet 06/10/22 07/20/24 Rx Nitroglycerin Sl Tabs [Nitrostat] 0.4 mg SUBLINGUAL Q5M PRN 07/20/22 07/20/24 History Anastrozole 1 mg PO Q48H 08/05/23 07/20/24 History Ondansetron [Zofran] 4 mg PO Q4H PRN 08/05/23 07/20/24 History Alendronate Sodium [Fosamax] 70 mg PO MO 07/20/24 07/20/24 History Atorvastatin [Lipitor] 40 mg PO HS 07/20/24 07/20/24 History Beclomethasone Dipropionate [Qvar 2 puff PO RT-BID 07/20/24 07/20/24 History 80mcg Redihaler] Metoprolol Succinate (ER) [Toprol 75 mg PO DAILY 07/20/24 07/20/24 History Xl] Semaglutide [Ozempic] 1 mg SQ MO 07/20/24 07/20/24 History amLODIPine [Norvasc] 5 mg PO DAILY 07/20/24 07/20/24 History Allergies Allergy/AdvReac Type Severity Reaction Status Date / Time adhesive Allergy Itching, Verified 07/20/24 08:31 takes her skin off Fish Containing Products Allergy Swelling Verified 07/20/24 08:31 [Fish] in throat latex Allergy Rash/Hives Verified 07/20/24 08:31 Sulfa (Sulfonamide Allergy Anaphylaxis Verified 07/20/24 08:31 Antibiotics) walnut Allergy Swelling Verified 07/20/24 08:31 gluten AdvReac CONGESTION Verified 07/20/24 08:31 perfume AdvReac Dyspnea Verified 07/20/24 08:31 Physical Exam Vitals: Vital Signs Temp Pulse Resp BP Pulse Ox 07/20/24 03:49 85 18 112/66 97 07/20/24 01:55 75 18 126/68 97 07/20/24 00:52 72 18 136/77 96 07/19/24 23:50 97.7 F 79 18 129/77 98 Intake and Output 07/19/24 07/20/24 07/20/24 22:59 06:59 14:59 Other: # Voids 2 Weight 87.997 kg Results 07/20/24 05:06 07/20/24 05:06 Cardiac Enzymes 07/20/24 07/20/24 07/20/24 Range/Units 00:00 00:00 03:18 AST 18 (14-36) U/L Troponin I <0.012 <0.012 (0.000-0.034) ng/mL 07/20/24 Range/Units 05:06 AST (14-36) U/L Troponin I <0.012 (0.000-0.034) ng/mL Coagulation 07/20/24 Range/Units 00:00 PT 11.8 (10.0-12.5) sec APTT 25.6 (22.0-30.0) sec CBC 07/20/24 Range/Units 00:00 WBC 8.6 (3.8-10.6) k/uL RBC 4.51 (3.80-5.40) m/uL Hgb 12.9 (11.4-16.0) gm/dL Hct 39.5 (34.0-46.0) % Plt Count 232 (150-450) k/uL Comprehensive Metabolic Panel 07/20/24 Range/Units 00:00 Sodium 138 (137-145) mmol/L Potassium 3.3 L (3.5-5.1) mmol/L Chloride 106 (98-107) mmol/L Carbon Dioxide 24 (22-30) mmol/L BUN 14 (7-17) mg/dL Creatinine 0.85 (0.52-1.04) mg/dL Glucose 122 H (74-99) mg/dL Calcium 9.0 (8.4-10.2) mg/dL AST 18 (14-36) U/L ALT 12 (4-34) U/L Alkaline Phosphatase 140 H (38-126) U/L Total Protein 6.6 (6.3-8.2) g/dL Albumin 3.7 (3.5-5.0) g/dL Current Medications Generic Name Dose Route Start Last Admin Trade Name Freq PRN Reason Stop Dose Admin Acetaminophen 650 mg 07/20/24 02:00 Acetaminophen Tab 325 Mg Tab PO Q6HR PRN Pain Albuterol Sulfate 2.5 mg 07/20/24 04:08 Albuterol Nebulized 2.5 Mg/3 Ml INHALATION RT-Q6H PRN Shortness Of Breath Amlodipine Besylate 5 mg 07/20/24 09:00 Amlodipine 5 Mg Tab PO DAILY [facility] Anastrozole 1 mg 07/20/24 09:00 Anastrozole 1 Mg Tab PO DAILY [facility] Aspirin 325 mg 07/21/24 09:00 Aspirin 325 Mg Tab PO DAILY [facility] Atorvastatin Calcium 40 mg 07/20/24 21:00 Atorvastatin 40 Mg Tab PO HS [facility] Dextrose/Water 25 ml 07/20/24 03:43 Dextrose 50% Syringe 50 Ml IVP PER PROTOCOL PRN Hypoglycemia Protocol Dextrose/Water 50 ml 07/20/24 03:43 Dextrose 50% Syringe 50 Ml IVP PER PROTOCOL PRN Hypoglycemia Protocol Duloxetine HCl 60 mg 07/20/24 09:00 Duloxetine Hcl 60 Mg Capsule.Dr PO DAILY [facility] Heparin Sodium (Porcine) 5,000 unit 07/20/24 08:00 Heparin Sodium,Porcine 5,000 Unit/Ml 1 Ml Vial SQ Q8HR [facility] Insulin Aspart 0 unit 07/20/24 07:30 07/20/24 06:24 Insulin Aspart (Novolog) 100 Unit/Ml Vial SQ Not Given ACHS [facility] Protocol Lisinopril 20 mg 07/20/24 09:00 Lisinopril 20 Mg Tab PO BID [facility] Metoprolol Tartrate 25 mg 07/20/24 09:00 Metoprolol Tartrate 25 Mg Tab PO BID [facility] Nitroglycerin 0.4 mg 07/20/24 02:00 Nitroglycerin Sl Tabs 0.4 Mg Tab SUBLINGUAL Q5M PRN Chest Pain Ondansetron HCl 4 mg 07/20/24 03:45 Ondansetron 4 Mg Tab PO Q12HR PRN Nausea Pantoprazole Sodium 40 mg 07/20/24 07:30 07/20/24 06:24 Pantoprazole 40 Mg Tablet PO Not Given DAILY@0730 [facility] Sertraline HCl 25 mg 07/20/24 09:00 Sertraline 25 Mg Tab PO DAILY [facility] Spironolactone 25 mg 07/20/24 09:00 Spironolactone 25 Mg Tab PO DAILY [facility] Intake and Output 07/19/24 07/20/24 07/20/24 22:59 06:59 14:59 Other: # Voids 2 Weight 87.997 kg 07/20/24 00:00 07/20/24 00:00
--- NOTE | 2024-07-20 13:25 | CA ---
Transthoracic Echo Report Name: Rhina Rodriguez Age: 69 Gender: F : 1955 Exam Date: 07/20/2024 08:36 Exam Location: [place] Echo Ht (in): 60 Wt (lb): 194 Ordering Physician: Karla Rowland MD Attending/Referring Phys: [employer] La[employer] Team Leader Aydee Hazel RDCS Procedure CPT: Indications: LV function Cardiac Hx: Technical Quality: Technically difficult study Contrast 1: Definity Total Dose (mL): 5 Contrast 2: Total Dose (mL): MEASUREMENTS (Male / Female) Normal Values 2D ECHO LV Diastolic Diameter PLAX 4.6 cm 4.2 - 5.9 / 3.9 - 5.3 cm LV Systolic Diameter PLAX 3.9 cm IVS Diastolic Thickness 1.1 cm 0.6 - 1.0 / 0.6 - 0.9 cm LVPW Diastolic Thickness 1.4 cm 0.6 - 1.0 / 0.6 - 0.9 cm LV Relative Wall Thickness 0.5 LVOT Diameter 2.0 cm LV Diastolic Volume MOD BP 88.5 cm??? 67 - 155 / 56 - 104 cm??? LV Systolic Volume MOD BP 45.5 cm??? 22 - 58 / 19 - 49 cm??? LV Ejection Fraction MOD BP 48.5 % >= 55 % LV Cardiac Index MOD BP 1498.3 cm???/min???m??? LV Diastolic Volume MOD 4C 104.1 cm??? LV Systolic Volume MOD 4C 52.1 cm??? LV Ejection Fraction MOD 4C 49.9 % LV Cardiac Index MOD 4C 1814.6 cm???/min???m??? LV Diastolic Length 4C 9.0 cm LV Systolic Length 4C 7.6 cm LV Diastolic Volume MOD 2C 73.9 cm??? LV Systolic Volume MOD 2C 37.1 cm??? LV Ejection Fraction MOD 2C 49.8 % LV Cardiac Index MOD 2C 1283.5 cm???/min???m??? LV Diastolic Length 2C 8.7 cm LV Systolic Length 2C 7.0 cm LA Volume 51.2 cm??? 18 - 58 / 22 - 52 cm??? LA Volume Index 25.9 cm???/m??? 16 - 28 cm???/m??? Ascending Aorta Diameter 3.6 cm M-MODE LV Diastolic Diameter MM 5.4 cm 4.2 - 5.9 / 3.9 - 5.3 cm LV Systolic Diameter MM 3.9 cm LV Cardiac Index MM Teich 2559.3 cm???/min???m??? IVS Diastolic Thickness MM 0.9 cm 0.6 - 1.0 / 0.6 - 0.9 cm LVPW Diastolic Thickness MM 1.2 cm 0.6 - 1.0 / 0.6 - 0.9 cm LV Relative Wall Thickness MM 0.4 0.24 - 0.42 / 0.22 - 0.42 LV Mass Index MM 111.8 g/m??? 49 - 115 / 43 - 95 g/m??? DOPPLER AV Peak Velocity 164.9 cm/s AV Peak Gradient 10.9 mmHg AV Mean Velocity 113.8 cm/s AV Mean Gradient 5.9 mmHg AV Velocity Time Integral 32.8 cm LVOT Peak Velocity 122.4 cm/s LVOT Peak Gradient 6.0 mmHg LVOT Velocity Time Integral 22.2 cm LVOT Stroke Volume 71.9 cm??? LVOT Stroke Volume Index 39.0 ml/m??? LVOT Cardiac Index 2509.5 cm???/min???m??? AV Area Cont Eq vti 2.2 cm??? AV Area Cont Eq pk 2.4 cm??? MV Area PHT 3.5 cm??? Mitral E Point Velocity 57.0 cm/s Mitral A Point Velocity 90.2 cm/s Mitral E to A Ratio 0.6 MV Deceleration Time 217.2 ms PV Peak Velocity 99.9 cm/s PV Peak Gradient 4.0 mmHg FINDINGS Left Ventricle Left ventricular ejection fraction is estimated at 45-50 %. Moderately increased left ventricular mass. Severely increased septal wall thickness. Severely increased posterior wall thickness. Mildly decreased fractional shortening. Mildly decreased midwall fractional shortening. Mildly decreased left ventricular ejection fraction. Possible apical pouching vs apical thinning. Right Ventricle Normal right ventricular size and function. Unable to estimate the right ventricular systolic pressure. Right Atrium Normal right atrial size. Left Atrium Normal left atrial size. Mitral Valve Structurally normal mitral valve. No mitral stenosis, regurgitation or prolapse. Aortic Valve Trileaflet aortic valve. No aortic valve stenosis or regurgitation. Tricuspid Valve Structurally normal tricuspid valve. No tricuspid stenosis, regurgitation or prolapse. Pulmonic Valve Pulmonic valve not well visualized. No pulmonic stenosis. No pulmonic regurgitation. Pericardium No pericardial effusion. Aorta Normal size aortic root and proximal ascending aorta. CONCLUSIONS Left ventricular ejection fraction 45-50% with global hypokinesis Severely increased left ventricular wall thickness with septal thickness 2.0 cm, posterior wall 1.9 cm. Abnormal echotexture may be consistent with infiltrative disease. Additional apical thinning versus apical pouch, aneurysm. Consider MRI if clinically indicated. No mitral regurgitation No tricuspid regurgitation No pericardial effusion Previewed by: Dr. Asif Eldridge DO (Electronically Signed) Final Date: 20 July 2024 09:52
--- NOTE | 2024-07-20 14:44 | NM ---
EXAMINATION TYPE: NM stress lexiscan cardiolite DATE OF EXAM: 07/20/2024 COMPARISON: Prior nuclear medicine stress test 2019 CLINICAL INDICATION: Female, 69 years old with history of chest pain; history of hypertension, diabet es, and hypercholesterolemia along with asthma TECHNIQUE: After the intravenous administration of 8 mCi Tc 99m Sestamibi - Cardiolite resting SPECT images acquired 45 minutes post injection. The patient received 0.4mg Lexiscan, 26.3 mCi Tc 99m Sestamibi - Stress images obtained [address] injection FINDINGS: Review of stress and rest SPECT images demonstrates some diminished uptake involving anteroseptal wal l towards the base on stress images versus rest images in which acute ischemia cannot be excluded. G ated analysis shows overall estimated left ventricular ejection fraction of 47 %. IMPRESSION: As above. Correlate clinically and with EKG is advised to determine need for further inve stigation with direct catheter angiogram . [facility], , 07/20/2024 2:41 PM
--- NOTE | 2024-07-20 15:53 | P.DS ---
Providers Date of admission: 07/20/24 02:03 Expected date of discharge: 07/20/24 Attending physician: Lionel Daniel MD Consults: 07/20/24 02:01 Consult Physician Urgent Consulting Provider: William Corrales Consult Reason/Comments: Unstable angina Do you want consulting provider notified?: Yes, Notify in am Primary care physician: Norma Laurent Hospital Course: Discharge diagnoses; Atypical Chest Pain in setting of nonischemic cardiomyopathy, ACS ruled out Hypokalemia Hyperglycemia in [id number] diabetic Hypertension Hyperlipidemia Depression Fibrocystic breast disease with high risk of breast cancer Hospital course; Patient is a very pleasant 69 year old female with PMHx of nonischemic cardiomyopathy(follows with Dr. Boyd), fibrocystic breast disease at high risk for breast cancer (follows with Dr. Jason Weinstein), hypertension, hyperlipidemia, diabetes, depression, and GERD who presented to the ED with chief complaint of right sided crushing chest pain rated 9 out of 10 which radiated to her back and jaw and in between her shoulder blades which happened around 11 PM this evening while patient was laying in bed. She also endorses feeling lightheaded and dizzy as well as short of breath. Patient states she had a similar episode 2 years ago. She also states the chest pain is worse with a deep breathing. Patient states her blood pressure has been elevated recently and cardiology recently started her on amlodipine 5 mg about 6 days ago so her pressures have been better. Endorses some nausea. Additionally patient states she had a UTI and was recently started on ceftriaxone which she took for 4 days, but she did not complete the course. Patient states she is currently experiencing some burning with decreased frequency. Patient denies fever, chills, abdominal pain, diarrhea, or lower extremities swelling. Patient has never had stents placed or history of prior CVA. Patient denies history of blood thinner use. During hospital stay patient evaluated for atypical chest pain. Echocardiogram and Lexiscan stress test findings similar to those reported in 2021 and 2019 respectively. Patient is followed by cardiology and had cardiac catheterization in May 2022. Patient is discharged in stable condition to home. No new medications, continue current medications. Patient is to follow-up with her PCP. Also to follow-up with cardiology outpatient with Dr. Boyd in 3 weeks for ruling out cardiac amyloidosis. Physical examination: Vital signs reviewed General: nontoxic, no distress, appears at stated age, obese Derm: warm, dry, intact Head: atraumatic, normocephalic, symmetric Eyes: anicteric sclera Mouth: no lip lesion, mucus membranes moist Cardiovascular: S1 S2 reg, no murmur Lungs: CTA bilateral, no rhonchi, no rales, no accessory muscle use Abdominal: Epigastric tenderness to palpation with radiation to right side Extremities: No cyanosis, clubbing, or pedal edema. Neuro: Alert and oriented, gross neurological examination did not reveal any focal deficits. Psych: well appearing, appropriate affect Dictation was produced using [employer] dictation software. please excuse any grammatical, word or spelling errors. A total of 36 minutes of time were spent preparing this complex discharge summary. Patient was discharged on 07/20/2024 at 1541. I have seen and evaluated the patient today. Discussed with the resident and agree with the residents finding and plan as documented in the resident's note. Changes highlighted in blue font. Patient Condition at Discharge: Stable Plan - Discharge Summary Discharge Rx Participant: Yes New Discharge Prescriptions: Continue DULoxetine HCL [Cymbalta] 60 mg PO DAILY Omeprazole 20 mg PO DAILY Sertraline [Zoloft] 25 mg PO DAILY lisinopriL [Zestril] 20 mg PO BID Albuterol Inhaler [Ventolin Hfa Inhaler] 2 puff INHALATION RT-Q6H PRN PRN Reason: Shortness Of Breath Nitroglycerin Sl Tabs [Nitrostat] 0.4 mg SUBLINGUAL Q5M PRN PRN Reason: Chest Pain Anastrozole 1 mg PO Q48H Ondansetron [Zofran] 4 mg PO Q4H PRN PRN Reason: Nausea Beclomethasone Dipropionate [Qvar 80mcg Redihaler] 2 puff PO RT-BID Alendronate Sodium [Fosamax] 70 mg PO MO Metoprolol Succinate (ER) [Toprol XL] 75 mg PO DAILY Spironolactone [Aldactone] 25 mg PO DAILY #30 tablet amLODIPine [Norvasc] 5 mg PO DAILY Semaglutide [Ozempic] 1 mg SQ MO Atorvastatin [Lipitor] 40 mg PO HS Discharge Medication List DULoxetine HCL [Cymbalta] 60 mg PO DAILY 01/28/18 [History] Omeprazole 20 mg PO DAILY 01/28/18 [History] Sertraline [Zoloft] 25 mg PO DAILY 01/28/18 [History] lisinopriL [Zestril] 20 mg PO BID 01/04/19 [History] Albuterol Inhaler [Ventolin Hfa Inhaler] 2 puff INHALATION RT-Q6H PRN 09/22/21 [History] Spironolactone [Aldactone] 25 mg PO DAILY #30 tablet 06/10/22 [Rx] Nitroglycerin Sl Tabs [Nitrostat] 0.4 mg SUBLINGUAL Q5M PRN 07/20/22 [History] Anastrozole 1 mg PO Q48H 08/05/23 [History] Ondansetron [Zofran] 4 mg PO Q4H PRN 08/05/23 [History] Alendronate Sodium [Fosamax] 70 mg PO MO 07/20/24 [History] Atorvastatin [Lipitor] 40 mg PO HS 07/20/24 [History] Beclomethasone Dipropionate [Qvar 80mcg Redihaler] 2 puff PO RT-BID 07/20/24 [History] Metoprolol Succinate (ER) [Toprol XL] 75 mg PO DAILY 07/20/24 [History] Semaglutide [Ozempic] 1 mg SQ MO 07/20/24 [History] amLODIPine [Norvasc] 5 mg PO DAILY 07/20/24 [History] Follow up Appointment(s)/Referral(s): Marybeth Boyd MD [STAFF PHYSICIAN] - 08/09/24 10:00 am Norma Laurent MD [Primary Care Provider] - 1-2 days Patient Instructions/Handouts: Noncardiac Chest Pain (DC) Activity/Diet/Wound Care/Special Instructions: Please see your PCP and beverage steward. Discharge Disposition: HOME SELF-CARE
[2024-07-20 16:35] VITALS: BP 103/59; PULSE 60; TEMP 98
--- NOTE | 2024-07-20 16:40 | CA ---
Lexiscan Nuclear Stress Test Report Name: Rhina Rodriguez Exam Date: 07/20/2024 11:55 Exam Location: [place] Stress Ht (in): 60 Wt (lb): 194 BSA: 1.84 Ordering Phys: Sherley Mora Referring Phys: MARK/CHRISTINE Technologist: Bright Ramos Age: 69 Gender: F : 1955 Procedure CPT: Indications: Reflex order-Stress test ICD-10 Codes: Patient History: CHEST PAIN, DIFFICULTY IN BREATHING, PALPITATIONS, ANGINA, NUMBNESS IN FACE/NECK, HTN, DIABETIC, HYPERCHOLESTEROLEMIA, FAMILY HX OF HEART DISEASE, PRIOR CATH, ASTHMA Medications: Meds past 24 hrs: Pretest Chest Pain: STRESS TEST Lexiscan Protocol Exercise Duration (min:sec): 01:[address] Depressions (mm): Angina Score: Hand Score: Resting HR (bpm): 57 Peak HR (bpm): 76 Resting BP (mmHg): 90 / 65 Peak BP (mmHg): 107 / 60 MPHR: 150 Target HR: 128 % MPHR: 51 METS: 1.0 Total Dose: Peak Dose: Atropine: Double Product: 8132 BP Response: Stress Termination: INFUSION COMPLETE Stress Symptoms: NO SYMPTOMS Stress Summary: ECG ANALYSIS Resting ECG: Stress ECG: CONCLUSIONS At baseline EKG showed normal sinus rhythm, normal axis, ST depressions in inferior and lateral leads. Patient recieved IV infusion of Lexiscan 0.4mg and at peak infusion EKG showed no significant change from baseline Conclusions: 1. Nonspecific stress EKG portion secondary baseline EKG abnormalities. 2. Nuclear imaging to be reported separately. Dr. Asif Eldridge DO (Electronically Signed) Final Date: 20 July 2024 16:39
[2024-07-20] MEDS ORDERED: ATORVASTATIN 40 MG TAB PO SCH (21:00)
[2024-07-21] MEDS ORDERED: ASPIRIN 325 MG TAB PO SCH (09:00)
== END 2024-07-20 17:21 | disposition home or self-care (01) ==
LOC: EC 23:49 → 6NMEDSUR 07-20 02:03
PROVIDERS: ADMIT Internal Medicine; ATTEND Internal Medicine
DX: I42.8 Other cardiomyopathies (principal); N39.0 Urinary tract infection, site not specified; E87.6 Hypokalemia; E11.65 Type 2 diabetes mellitus with hyperglycemia; N60.19 Diffuse cystic mastopathy of unspecified breast; I10 Essential (primary) hypertension; K21.9 Gastro-esophageal reflux disease without esophagitis; E78.5 Hyperlipidemia, unspecified; G47.30 Sleep apnea, unspecified; F32.A Depression, unspecified; F41.9 Anxiety disorder, unspecified; J45.909 Unspecified asthma, uncomplicated; E66.9 Obesity, unspecified; Z68.37 Body mass index [BMI] 37.0-37.9, adult; Z90.5 Acquired absence of kidney; Z79.82 Long term (current) use of aspirin; Z79.83 Long term (current) use of bisphosphonates; Z79.85 Long-term (current) use of injectable non-insulin antidiabetic drugs; Z79.811 Long term (current) use of aromatase inhibitors; Z79.899 Other long term (current) drug therapy; Z88.2 Allergy status to sulfonamides; Z91.040 Latex allergy status; Z82.49 Family history of ischemic heart disease and other diseases of the circulatory system
CPT/HCPCS: 96372; 96374; 96375; 99285; 36415; 93005; 93017; 93270; 83880; 80053; 80048; 83690; 83735; 84484; 85025; 85610; 85730; 81001; 87086; 71046; 78452; G0378; C8929; A9500; J2270; J1644; J2405; S0170; Q9957; J2785; 93306

== ENCOUNTER → 2024-08-25 | Outpatient (CLI) | payer MEDICARE, BC ==
[2024-08-25 09:59] VITALS: BP 171/84; PULSE 86; RESP 17; TEMP 97.6
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
== END ==
LOC: WWCWWP 09:26
PROVIDERS: ATTEND Surgery
DX: N60.19 Diffuse cystic mastopathy of unspecified breast (principal); N63.21 Unspecified lump in the left breast, upper outer quadrant; C50.919 Malignant neoplasm of unspecified site of unspecified female breast; J45.909 Unspecified asthma, uncomplicated; H91.90 Unspecified hearing loss, unspecified ear; Z91.018 Allergy to other foods; Z91.040 Latex allergy status; Z91.013 Allergy to seafood; Z88.2 Allergy status to sulfonamides; Z88.8 Allergy status to other drugs, medicaments and biological substances

== ENCOUNTER → 2024-10-20 | Outpatient (CLI) | payer MEDICARE, BC ==
--- NOTE | 2024-10-20 11:40 | MM ---
Reason for Exam: Follow-up at short interval from prior study. Last screening mammogram was performed 6 month(s) ago. Patient History: Menarche at age 10. First Full-Term at age 15. Left ovary removed at age 49. Right ovary removed at age 49. Hysterectomy at age 49. Postmenopausal. Previous chemotherapy. Estrogen, from age 49 until age 54. 11/17/2021, Benign US biopsy breast VAD RT on the right side. 11/17/2021, Benign US biopsy breast VAD LT on the left side. 2018, Excisional Biopsy on the Left side. 2018, Excisional Biopsy on the Right side. Maternal aunt had breast cancer, age 65. Sister had breast cancer, age 55. Sister had breast cancer, age 50. Risk Values: Sheila 5 year model risk: 9.3%. NCI Lifetime model risk: 24.6%. Prior Study Comparison: 02/01/2020 Bilateral MG 3D screening mammo w/cad, [facility] . 11/13/2021 Bilateral MG 3D diag mammo w/cad ALESHA, [facility]. 11/17/2021 Bilateral MG diagnostic mammo BI wo CAD, [facility]. 05/22/2022 Bilateral MG 3D diag mammo w/cad ALESHA, [facility]. 05/22/2022 Bilateral US breast limited BILAT, [facility]. 07/31/2022 Bilateral US breast BILAT, [facility]. 05/27/2023 Bilateral MG 3D diag mammo w/cad ALESHA, [facility]. 07/07/2023 Bilateral US breast limited BILAT, [facility]. 08/09/2023 Left US breast limited LT, [facility]. 09/23/2023 Left US breast LT, [facility]. 09/29/2023 Left MG 3D work up w/cad LT, [facility]. 10/09/2023 Bilateral MR breast bilat wo/w con, [facility]. 01/31/2024 Right US breast limited RT, [facility]. 04/12/2024 Bilateral US breast limited BILAT, [facility]. 04/12/2024 Bilateral MG 3D diag mammo w/cad ALESHA, [facility]. 05/24/2024 Bilateral MR breast bilat wo/w con, [facility]. Tissue Density: There are scattered areas of fibroglandular density. Findings: Analyzed By CAD. No evidence for mass or distortion. No suspicious calcifications present. Overall Assessment: Negative, BI-RAD 1 Management: Screening Mammogram of both breasts in 1 year. . Results were given to the patient verbally at the time of exam. Patient should continue monthly self-breast exams. A clinical breast exam by your physician is recommended on an annual basis. This exam should not preclude additional follow-up of suspicious palpable abnormalities. Note on Sheila scores and lifetime risk: 1. A Sheila score greater than 3% is considered moderate risk. If this is the case, consider specialist referral to assess eligibility for a risk reducing agent. 2. If overall lifetime risk for the development of breast cancer is 20% or higher, the patient may qualify for future screening with alternating mammogram and breast MRI. [facility], , 10/20/2024 11:36 AM. Electronically signed and approved by: Jose F العراقي M.D. Radiologis
== END | disposition home or self-care (01) ==
LOC: RADMAMWWP 10:50
PROVIDERS: ATTEND Surgery
DX: R92.8 Other abnormal and inconclusive findings on diagnostic imaging of breast (principal); R92.323 Mammographic fibroglandular density, bilateral breasts; Z78.0 Asymptomatic menopausal state; Z80.3 Family history of malignant neoplasm of breast
CPT/HCPCS: 77066; G0279; 77062

== ENCOUNTER → 2024-10-26 | Outpatient (CLI) | payer MEDICARE, BC ==
[2024-10-26 10:43] VITALS: BP 138/89; PULSE 94; RESP 16; TEMP 97.9
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
== END ==
LOC: WWCWWP 10:18
PROVIDERS: ATTEND Surgery
DX: N60.12 Diffuse cystic mastopathy of left breast (principal); N60.11 Diffuse cystic mastopathy of right breast; J45.909 Unspecified asthma, uncomplicated; Z91.048 Other nonmedicinal substance allergy status; Z91.013 Allergy to seafood; Z91.040 Latex allergy status; Z88.2 Allergy status to sulfonamides; Z91.018 Allergy to other foods